=== PATIENT | male | born 1960 | race Caucasian/White ===

== ENCOUNTER 2017-12-02 08:51 | Inpatient (IN) ==
[2017-12-02] MEDS ORDERED: Magnesium Sulfate Inj 4 GM in Sodium Chlor 0.9% Inj 92 ML IV.SIG PRN (10:42)
[2017-12-02] MEDS ORDERED: Potassium Phosphate Inj 30 MMOL in Sodium Chlor 0.9% Inj 250 ML IV.SIG PRN (10:42)
[2017-12-02] MEDS ORDERED: Potassium Chlor 40 mEq Premix 40 MEQ/100 ML PIGGYBACK IV.SIG PRN (10:42)
[2017-12-02] MEDS ORDERED: Acetaminophen 325 MG Tablet PO PRN (10:42)
[2017-12-02] MEDS ORDERED: Magnesium Oxide 400 MG Tablet PO PRN (10:42)
[2017-12-02] MEDS ORDERED: Sodium Phosphate Inj 30 MMOL in Sodium Chlor 0.9% Inj 250 ML IV.SIG PRN (10:42)
[2017-12-02] MEDS ORDERED: Potassium Phosphate 500 MG Soluble Tablet PO PRN ×2 (10:42)
[2017-12-02] MEDS ORDERED: Potassium Chlor 20 mEq Premix 20 MEQ/100 ML PIGGYBACK IV.SIG PRN ×2 (10:42)
[2017-12-02] MEDS ORDERED: Potassium Chloride 25 MEQ Effervescent Tablet PO PRN (10:42)
[2017-12-02] MEDS ORDERED: Magnesium Sulfate Inj 2 GM in Sodium Chlor 0.9% Inj 96 ML IV.SIG PRN (10:42)
[2017-12-02] MEDS ORDERED: Cisatracurium Inj 20 MG/10 ML Vial IV.PUSH ONE ×2 (10:46→12:45)
[2017-12-02] MEDS ORDERED: EPINEPHrine (1:1000) Inj 4 MG in Sodium Chlor 0.9% Inj 246 ML IV.CONT PRN (10:46)
--- NOTE | 2017-12-02 11:36 | CT ---
EXAM DATE: 12/02/2017 11:30 AM EDT AGE/SEX: 57 years / Male INDICATIONS: Altered mental status CLINICAL DATA: This is the patient's initial encounter. Patient reports that signs and symptoms have been present for 1 day and indicates a pain score of Nonresponsive. MEDICAL/SURGICAL HISTORY: Hypertension. Non-responsive. RADIATION DOSE: 44.60 CTDI (mGy) COMPARISON: . TECHNIQUE: CT of the head without contrast. Using automated exposure control and adjustment of the mA and/or kV according to patient size, radiation dose was kept as low as reasonably achievable to ob tain optimal diagnostic quality images. DICOM format image data is available electronically for revi ew and comparison. FINDINGS: Cerebrum: The ventricles are normal for age. No evidence of midline shift, mass lesion, hemorrhage or acute infarction. No extraaxial fluid collections are seen. Posterior Fossa: The cerebellum and brainstem are intact. The 4th ventricle is midline. The cerebe llopontine angle is unremarkable. Extracranial: The visualized portion of the orbits is intact. Skull: The calvaria is intact. No evidence of skull fracture. CONCLUSION: 1. Negative for acute process . Electronically signed by: Raz Greco MD 12/02/2017 11:34 AM EDT
[2017-12-02] MEDS ORDERED: Heparin Drip 25,000 UNIT/250 ML BAG IV.CONT PRN (11:53)
[2017-12-02] MEDS ORDERED: Aspirin 300 MG Supp RECTAL ONE (11:54)
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
[2017-12-02] MEDS: Sod Chloride 0.9% Inj 1,000 ML IV.CONT SCH ×2 (12:30→22:47)
[2017-12-02] MEDS: Cisatracurium Inj 100 MG in Sodium Chlor 0.9% Inj 240 ML IV.CONT PRN ×2 (12:30→22:26)
[2017-12-02] MEDS: fentaNYL 10 mcg/mL Premix Drip 2,500 MCG/250 ML BAG IV.SIG PRN (12:30)
[2017-12-02] MEDS: Midazolam 50 MG/50 ML Inj 50 MG/50 ML BAG IV.CONT PRN ×2 (12:30→20:37)
[2017-12-02 12:50] LABS: Baso % (Auto) 0.1 % (0.0-2.0); Eos % (Auto) 0.1 % (0.0-4.0); Hemoglobin 15.7 gm/dL (13.0-17.0); Lymph # (Auto) 1.3 th/mm3 (1.0-4.8); Lymph % (Auto) 4.7 % (9.0-44.0); Mean Corpuscular HGB Conc 34.9 % (32.0-36.0); Mean Corpuscular Hemoglobin 33.1 pg (27.0-34.0); Mean Platelet Volume 8.8 fL (7.0-11.0); Mono # (Auto) 1.8 th/mm3 (0.0-0.9); Mono % (Auto) 6.3 % (0.0-8.0); Neut # (Auto) 24.8 th/mm3 (1.8-7.7); Neut % (Auto) 88.8 % (16.0-70.0); Platelet Count 203 th/mm3 (150-450); Red Blood Count 4.74 mil/mm3 (4.50-5.90); Red Cell Distribution Width 12.8 % (11.6-17.2)
[2017-12-02] MEDS ORDERED: Propofol 1000 mg/100 ml Inj 1,000 MG/100 ML BOTTLE IV.CONT PRN (13:00)
[2017-12-02] MEDS ORDERED: RASS Change Order OTHER ONE (13:00)
[2017-12-02 13:08] LABS: Bacteria,Urine Many /hpf; Bilirubin,Urine Negative (Negative); Clarity,Urine Cloudy (Clear); Color,Urine Yellow (Yellw/Straw); Glucose,Urine (UA) 50 mg/dL (Negative); Leukocyte Esterase,Urine Negative (Negative); Mucus,Urine Few /lpf (Occasional); Nitrite,Urine Negative (Negative); Specific Gravity,Urine 1.012 (1.002-1.035); Squamous Epithelial Cell,Urine 2 /hpf (0-5); Transitional Epi Cells,Urine 1 /hpf
[2017-12-02 13:08] LABS: Activated Partial Thrombo Time 22.9 sec (24.3-30.1); Prothrombin Time 10.3 sec (9.8-11.6)
[2017-12-02 13:09] LABS: Amorphous Sediment,Urine Occasional /hpf
[2017-12-02 13:28] LABS: Chol/HDL Ratio 7.86 Ratio; HDL Cholesterol 39.3 mg/dL (40.0-60.0)
[2017-12-02 13:29] LABS: Alanine Aminotransferase 738 U/L (12-78); Albumin 3.2 g/dL (3.4-5.0); Alkaline Phosphatase 84 U/L (45-117); Anion Gap 15 meq/L (5-15); Aspartate Aminotransferase 554 U/L (15-37); Blood Urea Nitrogen 28 mg/dL (7-18); Calcium 8.5 mg/dL (8.5-10.1); Carbon Dioxide 19.5 meq/L (21.0-32.0); Chloride 106 meq/L (98-107); Creatine Kinase 1363 U/L (39-308); Glomerular Filtration Rate 41 mL/min (>89); Glucose,Random 223 mg/dL (74-106); Potassium 3.7 meq/L (3.5-5.1); Sodium 140 meq/L (136-145); Total Protein 6.4 g/dL (6.4-8.2)
[2017-12-02 13:32] LABS: Troponin I 9.63 ng/mL (0.02-0.05)
--- NOTE | 2017-12-02 13:42 | XR ---
EXAM DATE: 12/02/2017 1:39 PM EDT AGE/SEX: 57 years / Male INDICATIONS: S/P ET tube placement. CLINICAL DATA: This is the patient's initial encounter. Patient reports that signs and symptoms have been present for 1 day and indicates a pain score of Nonresponsive. MEDICAL/SURGICAL HISTORY: None. None. COMPARISON: [facility], CHEST 1V SINGLE AP, 12/02/2017. . FINDINGS: Study is limited by respiratory motion artifact. An endotracheal tube is noted. The distal tip is not well visualized but believed to extend to the inferior margin the clavicles. Enteric tube is also no lurdes coursing beneath the diaphragm. There are atelectatic changes at the bases. CONCLUSION: Endotracheal tube and enteric tube as above. Electronically signed by: Isael Castro MD 12/02/2017 1:41 PM EDT
[2017-12-02 13:45] LABS: Creatine Kinase MB 73.7 ng/mL (0.5-3.6)
[2017-12-02 13:50] LABS: Amphetamine Urine With Conf Neg (Neg); Barbiturate Urine With Conf Neg (Neg)
[2017-12-02 13:58] LABS: CKMB Percent 5.4 % (0.0-4.0)
[2017-12-02 14:07] LABS: Benzodiazepine Urine With Conf Pos (Neg)
[2017-12-02] MEDS: Oral Hygiene Kit OROPHARYNG SCH ×2 (14:37→16:07)
--- NOTE | 2017-12-02 16:27 | ECHRPT ---
Indication: S/P CARDIAC ARREST CONCLUSIONS Normal left ventricular size. Wall thickness is normal. The left ventricular systolic function is severely reduced with an estimated ejection fraction in th e range of 25-35%. There is diffuse global hypokinesis. The right ventricle is mildly dilated. There is trace tricuspid valve regurgitation. There is less than 50% respiratory change in dimension of the inferior vena cava (abnormal). The inferior vena cava is dilated. BP: / HR: Rhythm: Sinus Technical Quality:Fair FINDINGS LEFT VENTRICLE Normal left ventricular size. Wall thickness is normal. The left ventricular systolic function is severely reduced with an estimated ejection fraction in th e range of 25-35%. There is diffuse global hypokinesis with distinct regional wall motion abnormalities. RIGHT VENTRICLE The right ventricle is mildly dilated. LEFT ATRIUM The left atrial size is normal. RIGHT ATRIUM The right atrial size is normal. ATRIAL SEPTUM No atrial level shunt is demonstrated by color flow Doppler interrogation. AORTA The aortic root and proximal ascending aorta are not well visualized. MITRAL VALVE No mitral valve regurgitation. AORTIC VALVE Trileaflet aortic valve. No aortic valve stenosis or regurgitation. TRICUSPID VALVE There is trace tricuspid valve regurgitation. PULMONARY VALVE No pulmonary valve regurgitation or stenosis. VESSELS There is less than 50% respiratory change in dimension of the inferior vena cava (abnormal). The inferior vena cava is dilated. PERICARDIUM No pericardial effusion. Kev Osuna MD, FACC, [facility] (Electronically Signed) Final Date:02 December 2017 16:26
[2017-12-02] MEDS: Insulin Regular (For Infusion) 100 UNIT in Sodium Chlor 0.9% Inj 99 ML IV.CONT PRN (17:42)
[2017-12-02 17:43] LABS: Creatine Kinase MB 104.1 ng/mL (0.5-3.6)
[2017-12-02 17:48] LABS: CKMB Percent 4.5 % (0.0-4.0)
[2017-12-02] MEDS ORDERED: Amiodarone Inj 450 MG in Sodium Chlor 0.9% Inj 241 ML IV.CONT PRN (19:45)
[2017-12-02] MEDS: Norepinephrine Inj 16 MG in Sodium Chlor 0.9% Inj 234 ML IV.CONT PRN (22:25)
[2017-12-02] MEDS: Famotidine PF Inj 20 MG/2 ML Vial IV.PUSH SCH (22:47)
[2017-12-02] MEDS: Chlorhexidine 0.12% Oral Kit 15 ML UDC OROPHARYNG SCH (22:48)
[2017-12-03] MEDS: Oral Hygiene Kit OROPHARYNG SCH ×4 (00:31→17:05)
[2017-12-03 00:36] LABS: Calcium 8.3 mg/dL (8.5-10.1); Carbon Dioxide 21.6 meq/L (21.0-32.0); Magnesium 1.6 mg/dL (1.5-2.5); Potassium 3.3 meq/L (3.5-5.1)
[2017-12-03 00:37] LABS: Troponin I 10.3 ng/mL (0.02-0.05)
[2017-12-03 00:50] LABS: Creatine Kinase MB 138.2 ng/mL (0.5-3.6)
[2017-12-03 00:52] LABS: CKMB Percent 5.4 % (0.0-4.0)
[2017-12-03] MEDS ORDERED: Albumin Human 5% Inj 500 ML IV.SIG SCH (01:00)
[2017-12-03] MEDS: Insulin Regular (For Infusion) 100 UNIT in Sodium Chlor 0.9% Inj 99 ML IV.CONT PRN (01:47)
[2017-12-03] MEDS: Potassium Chlor 40 mEq Premix 40 MEQ/100 ML PIGGYBACK IV.SIG PRN ×2 (02:52→18:28)
[2017-12-03 03:29] LABS: INR 1.1 Ratio; Prothrombin Time 10.7 sec (9.8-11.6)
[2017-12-03 03:36] LABS: Activated Partial Thrombo Time 108.8 sec (24.3-30.1)
[2017-12-03] MEDS ORDERED: Chlorhexidine Gluconate 2% 1 Pack (2 Cloths) TOPICAL PRN (04:00)
[2017-12-03] MEDS: Chlorhexidine Gluconate 2% 1 Pack (2 Cloths) TOPICAL SCH (04:12)
[2017-12-03] MEDS: Mag Sulf 1 gm/100 ml Premix 200 ML IV.SIG ONE ×2 (04:12→04:39)
[2017-12-03 04:59] LABS: ABG Base Excess -8.7 mmol/L (-2-2); ABG PCO2 49 mmHg (38-42); ABG PO2 77 mmHG (61-120)
[2017-12-03] MEDS: fentaNYL 10 mcg/mL Premix Drip 2,500 MCG/250 ML BAG IV.SIG PRN ×2 (04:59→20:41)
[2017-12-03] MEDS ORDERED: Sod Chloride 0.9% Inj 1,000 ML IV.SIG ONE (05:00)
[2017-12-03] MEDS ORDERED: Albumin Human 5% Inj 500 ML IV.SIG ONE (05:00)
[2017-12-03] MEDS: SODIUM CHLOR 0.9% IV.CONT PRN (05:00)
[2017-12-03] MEDS: HEPARIN IV.CONT PRN (05:00)
[2017-12-03 05:33] LABS: Baso % (Auto) 0.1 % (0.0-2.0); Eos % (Auto) 0.1 % (0.0-4.0); Hematocrit 42.5 % (39.0-51.0); Hemoglobin 14.3 gm/dL (13.0-17.0); Lymph # (Auto) 0.9 th/mm3 (1.0-4.8); Lymph % (Auto) 3.9 % (9.0-44.0); Mean Corpuscular HGB Conc 33.6 % (32.0-36.0); Mean Corpuscular Hemoglobin 32.7 pg (27.0-34.0); Mean Corpuscular Volume 97.3 fL (80.0-100.0); Mean Platelet Volume 7.9 fL (7.0-11.0); Mono # (Auto) 2.3 th/mm3 (0.0-0.9); Mono % (Auto) 9.9 % (0.0-8.0); Neut # (Auto) 19.9 th/mm3 (1.8-7.7); Platelet Count 146 th/mm3 (150-450); Red Blood Count 4.37 mil/mm3 (4.50-5.90); Red Cell Distribution Width 13.4 % (11.6-17.2); White Blood Count 23.1 th/mm3 (4.0-11.0)
[2017-12-03 06:11] LABS: Calcium 7.5 mg/dL (8.5-10.1); Carbon Dioxide 18.5 meq/L (21.0-32.0); Magnesium 2.9 mg/dL (1.5-2.5); Phosphorus 3.4 mg/dL (2.5-4.9); Potassium 4.1 meq/L (3.5-5.1)
[2017-12-03 06:14] LABS: Troponin I 10.2 ng/mL (0.02-0.05)
[2017-12-03 06:29] LABS: CKMB Percent 6.1 % (0.0-4.0)
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
[2017-12-03] MEDS: Chlorhexidine 0.12% Oral Kit 15 ML UDC OROPHARYNG SCH ×2 (08:25→20:42)
[2017-12-03] MEDS: Famotidine PF Inj 20 MG/2 ML Vial IV.PUSH SCH ×2 (08:29→20:41)
[2017-12-03] MEDS: Cisatracurium Inj 100 MG in Sodium Chlor 0.9% Inj 240 ML IV.CONT PRN ×2 (08:45→20:45)
[2017-12-03] MEDS ORDERED: Aspirin 325 MG Tablet PO SCH (09:00)
--- NOTE | 2017-12-03 09:04 | P.PNCA ---
Subjective Interval history: RN at bedside. Patient was placed on amiodarone, telemetry with no arrhythmias noted. Patient is on heparin and Levophed gtt. Hypothermia protocol until 1600 today. Medications and Allergies Allergies Allergy/AdvReac Type Severity Reaction Status Date / Time No Known Allergies Allergy Verified 12/02/17 09:40 Active Medications: Active Medications Acetaminophen (Tylenol) 650 mg PO Q6H PRN PRN Reason: TEMPERATURE > 101 F Acetaminophen (Tylenol Liq) 650 mg NG/OG Q6H PRN PRN Reason: SHIVERING Albuterol (Duoneb Neb (Prn)) 1 ampul NEB Q2HR NEB PRN PRN Reason: WHEEZING Albuterol (Duoneb Neb (Faisal)) 1 ampul NEB Q6HR NEB [facility] Last Admin: 12/03/17 03:25 Dose: 1 ampul Artificial Tears (Lacrilube Opth Oint) 1 applicatio EACH EYE Q4H PRN PRN Reason: NMB Aspirin (Aspirin) 81 mg PO DAILY [facility] Buspirone HCl (Buspar) 15 mg NG/OG BID PRN PRN Reason: SHIVERING Chlorhexidine Gluconate (Peridex 0.12% Oral Kit) 15 ml OROPHARYNG BID@0800, 2000 [facility] Last Admin: 12/03/17 08:25 Dose: 15 ml Chlorhexidine Gluconate (Chlorhexidine 2% Cloth) 3 pack TOPICAL DAILY@0400 [facility] Stop: 12/08/17 03:59 Last Admin: 12/03/17 04:12 Dose: Not Given Chlorhexidine Gluconate (Chlorhexidine 2% Cloth) 3 pack TOPICAL DAILY@0400 PRN PRN Reason: Extra cloth needed Stop: 12/08/17 03:59 Famotidine (Pepcid Pf Inj) 20 mg IV.PUSH Q12HR [facility] Last Admin: 12/03/17 08:29 Dose: 20 mg Clevidipine (Cleviprex Inj) 25 mg in 50 mls @ 2 mls/hr IV.CONT TITRATE PRN; Protocol PRN Reason: Per protocol Epinephrine HCl 4 mg/ Sodium (Chloride) 250 mls @ 11.25 mls/hr IV.CONT TITRATE PRN; Protocol PRN Reason: See protocol Fentanyl (Fentanyl 10 Mcg/Ml Premix Drip) 2,500 mcg in 250 mls @ 5 mls/hr IV.SIG TITRATE PRN; Protocol PRN Reason: Per Protocol Last Admin: 12/03/17 04:59 Dose: 150 mcg/hr, 15 mls/hr Insulin Human Regular 100 unit (/ Sodium Chloride) 100 mls @ 3 mls/hr IV.CONT TITRATE PRN; Protocol PRN Reason: See Protocol Last Titration: 12/03/17 07:44 Dose: 6 units/hr, 6 mls/hr Magnesium Sulfate 4 gm/ Sodium (Chloride) 100 mls @ 50 mls/hr IV.SIG UNSCH PRN PRN Reason: For Magnesium 0.9 - 1.1 mg/dL Magnesium Sulfate 2 gm/ Sodium (Chloride) 100 mls @ 50 mls/hr IV.SIG UNSCH PRN PRN Reason: For Magnesium 1.2 - 1.6 mg/dL Last Infusion: 12/03/17 04:51 Dose: Infused Midazolam HCl (Versed Inj) 50 mg in 50 mls @ 2 mls/hr IV.CONT TITRATE PRN; Protocol PRN Reason: Per Protocol Last Admin: 12/02/17 20:37 Dose: 2 mg/hr, 2 mls/hr Norepinephrine Bitartrate 16 (mg/ Sodium Chloride) 250 mls @ 1.87 mls/hr IV.CONT TITRATE PRN; Protocol PRN Reason: See Protocol Last Titration: 12/03/17 06:00 Dose: 12 mcg/min, 11.25 mls/hr Potassium Chloride (Kcl 40 Meq Premix Inj) 40 meq in 100 mls @ 25 mls/hr IV.SIG Q2H PRN PRN Reason: For Potassium 2.8 - 3.2 mEq/L Potassium Chloride (Kcl 20 Meq Premix Inj) 20 meq in 100 mls @ 50 mls/hr IV.SIG Q2H PRN PRN Reason: For Potassium 3.3 - 3.5 mEq/L Potassium Chloride (Kcl 40 Meq Premix Inj) 40 meq in 100 mls @ 25 mls/hr IV.SIG UNSCH PRN PRN Reason: For Potassium 3.3 - 3.5 mEq/L Last Infusion: 12/03/17 04:49 Dose: Infused Potassium Chloride (Kcl 20 Meq Premix Inj) 20 meq in 100 mls @ 50 mls/hr IV.SIG Q2H PRN PRN Reason: For Potassium 2.8 - 3.2 mEq/L Potassium Phosphate 30 mmol/ (Sodium Chloride) 260 mls @ 42 mls/hr IV.SIG UNSCH PRN PRN Reason: SEE LABEL COMMENTS Propofol (Diprivan 1000 Mg/100 Ml Inj) 1,000 mg in 100 mls @ 2.505 mls/hr IV.CONT TITRATE PRN; Protocol PRN Reason: Per Protocol Sodium Phosphate 30 mmol/ (Sodium Chloride) 260 mls @ 42 mls/hr IV.SIG UNSCH PRN PRN Reason: For Phosphorus < 2.5 mg/dL Cisatracurium Besylate 100 mg/ (Sodium Chloride) 250 mls @ 12.52 mls/hr IV.CONT TITRATE PRN; Protocol PRN Reason: Per Protocol Last Admin: 12/03/17 08:45 Dose: 2 mcg/kg/min, 25.05 mls/hr Sodium Chloride (Ns Inj) 1,000 mls @ 84 mls/hr IV.CONT .[id number] [facility] Last Admin: 12/02/17 22:47 Dose: 84 mls/hr Heparin Sodium (Porcine) 25, (000 unit/ Sodium Chloride) 250 mls @ 10 mls/hr IV.CONT TITRATE PRN; Protocol PRN Reason: Per Protocol Last Admin: 12/03/17 05:00 Dose: 400 units/hr, 4 mls/hr Lorazepam (Ativan Inj) 1 mg IV.PUSH Q1H PRN PRN Reason: WITNESSED SEIZURES Magnesium Oxide (Mag-Ox) 800 mg PO UNSCH PRN PRN Reason: For Magnesium 1.2 - 1.6 mg/dL Meperidine HCl (Demerol Inj) 25 mg IV.PUSH Q2H PRN PRN Reason: SHIVERING Last Admin: 12/02/17 13:17 Dose: 25 mg Miscellaneous Information (Misc Information) 0 each OTHER [facility] Miscellaneous Medication () 1 each OROPHARYNG 0000,0400,1200,1600 [facility] Last Admin: 12/03/17 04:12 Dose: 1 each Ondansetron HCl (Zofran Inj) 4 mg IV.PUSH Q6H PRN PRN Reason: NAUSEA OR VOMITING Potassium Bicarb/Potassium Chloride (K-Lyte Cl Eff) 50 meq PO UNSCH PRN PRN Reason: For Potassium 3.3 - 3.5 mEq/L Potassium Phosphate (K-Phos Original) 2,000 mg PO UNSCH PRN PRN Reason: SEE LABEL COMMENTS Potassium Phosphate (K-Phos Original) 2,000 mg PO Q4H PRN PRN Reason: Phosphorus Less Than 2.5 mg/dL Sodium Chloride (Ns Flush) 2 ml IV.FLUSH UNSCH PRN PRN Reason: FLUSH AFTER USING IV ACCESS Terbutaline Sulfate (Brethine Inj) 1 mg SQ UNSCH PRN PRN Reason: For Extravasation Physical Exam Vital signs: Vital Signs 12/02/17 10:45 12/02/17 11:23 12/02/17 11:50 Temperature 98.6 F Pulse Rate Respiratory Rate 34 H Blood Pressure Pulse Oximetry 97 98 12/02/17 13:00 12/02/17 13:13 12/02/17 15:00 Temperature 97.5 F L 92.8 F L Pulse Rate 87 91 H Respiratory Rate 14 36 H 14 Blood Pressure 154/104 H 125/98 H Pulse Oximetry 98 99 94 L 12/02/17 16:20 12/02/17 16:27 12/02/17 20:00 Temperature 89.7 F L Pulse Rate 80 76 Respiratory Rate 14 14 14 Blood Pressure 109/79 Pulse Oximetry 95 95 12/02/17 21:07 12/03/17 00:00 12/03/17 03:00 Temperature 89.7 F L Pulse Rate 74 63 48 L Respiratory Rate 14 14 Blood Pressure 105/77 Pulse Oximetry 95 94 L 12/03/17 03:27 12/03/17 04:00 12/03/17 07:33 Temperature 89.7 F L Pulse Rate 57 L 55 L Respiratory Rate 14 14 18 Blood Pressure 99/69 L Pulse Oximetry 98 97 99 Intake & Output 12/02/17 12/03/17 12/03/17 18:59 06:59 18:59 Intake Total 1125 / 1125 3644 / 3644 136 / 136 Output Total 785 / 785 375 / 375 Balance 340 / 340 3269 / 3269 136 / 136 Weight 184 lb 1.376 oz 198 lb 6.656 oz Intake: IV 756 / 756 3644 / 3644 136 / 136 Cordarone Inj 450 MG In D5W Inj 157 / 157 93 / 93 241 ML @ 1 MG/MIN 33.33 mls/hr IV.CONT TITRATE PRN Rx#: [id number] Nimbex Inj 100 MG In NS Inj 240 114 / 114 136 / 136 136 / 136 ML @ 1 MCG/KG/MIN 12.52 mls/hr IV.CONT TITRATE PRN Rx#: [id number] Heparin/D5W 25,000 U/250 mL 25, 50 / 50 150 / 150 000 unit In 250 ml @ 1,000 UNITS/HR 10 mls/hr IV.CONT TITRATE PRN Rx#:[id number] NovoLIN R (IV Infusion) 100 100 / 100 UNIT In NS Inj 99 ML @ 3 UNITS/ HR 3 mls/hr IV.CONT TITRATE PRN Rx#:[id number] Versed Inj 50 mg In 50 ml @ 2 10 / 10 40 / 40 MG/HR 2 mls/hr IV.CONT TITRATE PRN Rx#:[id number] NS Inj 1,000 ML @ 84 mls/hr IV. 369 / 369 631 / 631 CONT .[id number] [facility] Rx#:[id number] Alburx 5% Inj 500 ML @ 250 mls/ 1000 / 1000 hr IV.SIG NOW ONE Rx#:[id number] Magnesium Sulfate Inj 2 GM In 200 / 200 NS Inj 96 ML @ 50 mls/hr IV.SIG UNSCH PRN Rx#:[id number] KCl 40 mEq Premix Inj 40 meq In 100 / 100 100 ml @ 25 mls/hr IV.SIG UNSCH PRN Rx#:[id number] NS Inj 1,000 ML @ 1000 mls/hr 1000 / 1000 IV.SIG .Q1H ONE Rx#:[id number] fentaNYL 10 mcg/mL Premix Drip 56 / 56 194 / 194 2,500 mcg In 250 ml @ 50 MCG/HR 5 mls/hr IV.SIG TITRATE PRN Rx #:[id number] Oral 0 / 0 Other 369 / 369 Output: Urine Amount (Catheter) 785 / 785 275 / 275 Indwelling Temp Sensing 785 / 785 275 / 275 Catheter Gastric Drainage 0 / 0 100 / 100 Oral Orogastric Tube 0 / 0 100 / 100 Other: Other Intake Source Saline Solution Date of Last Bowel Movement 12/02/17 12/02/17 # Bowel Movements 1 0 Weight On Admission 184 lb 1.376 oz Narrative: GENERAL: Well-developed well-nourished. NECK: No carotid bruits. No JVD. CARDIOVASCULAR: Regular rate and rhythm. No murmur appreciated. RESPIRATORY: Mechanically ventilated. Clear to auscultation. MUSCULOSKELETAL: No clubbing or cyanosis. No edema. NEUROLOGICAL: Intubated, sedated. - Urinary Catheter Management Indwelling Temp Sensing Catheter Cath placed during this visit: yes Reason for continuing: Hourly intake/output Insertion date: 12/02/17 Insertion time: 12:03 Results 12/03/17 05:00 12/03/17 05:00 Cardiac Enzymes 12/02/17 12/02/17 12/02/17 Range/Units 12:05 12:05 16:20 AST 554 H (15-37) U/L CK-MB (CK-2) 73.7 H 104.1 H (0.5-3.6) ng/mL Troponin I 9.63 H* (0.02-0.05) ng/mL B-Natriuretic Peptide 2 (0-100) pg/mL 12/02/17 12/03/17 Range/Units 23:40 05:00 AST (15-37) U/L CK-MB (CK-2) 138.2 H 140.0 H (0.5-3.6) ng/mL Troponin I 10.30 H* 10.20 H* (0.02-0.05) ng/mL B-Natriuretic Peptide (0-100) pg/mL Coagulation 12/02/17 12/02/17 12/02/17 Range/Units 12:05 12:05 18:15 PT 10.3 (9.8-11.6) sec APTT 22.9 L 54.4 H D (24.3-30.1) sec B-Natriuretic Peptide 2 (0-100) pg/mL 12/02/17 12/03/17 12/03/17 Range/Units 23:40 02:30 08:15 PT 10.7 (9.8-11.6) sec APTT 102.5 H* D 108.8 H* 74.1 H D (24.3-30.1) sec B-Natriuretic Peptide (0-100) pg/mL Lipids 12/02/17 Range/Units 12:05 Triglycerides 547 H (42-150) mg/dL Cholesterol 309 H (120-200) mg/dL HDL Cholesterol 39.3 L (40.0-60.0) mg/dL Cholesterol/HDL Ratio 7.86 Ratio CBC 12/02/17 12/03/17 Range/Units 12:05 05:00 WBC 28.0 H D 23.1 H (4.0-11.0) th/mm3 RBC 4.74 4.37 L (4.50-5.90) mil/mm3 Hgb 15.7 14.3 (13.0-17.0) gm/dL Hct 45.0 42.5 (39.0-51.0) % Plt Count 203 D 146 L (150-450) th/mm3 Neut # (Auto) 24.8 H 19.9 H (1.8-7.7) th/mm3 Lymph # (Auto) 1.3 0.9 L (1.0-4.8) th/mm3 [place] # (Auto) 1.8 H 2.3 H (0.0-0.9) th/mm3 Eos # (Auto) 0.0 0.0 (0.0-0.4) th/mm3 Baso # (Auto) 0.0 0.0 (0.0-0.2) th/mm3 Comprehensive Metabolic Panel 12/02/17 12/02/17 12/03/17 Range/Units 12:05 23:40 05:00 Sodium 140 141 141 (136-145) meq/L Potassium 3.7 3.3 L 4.1 D (3.5-5.1) meq/L Chloride 106 110 H 110 H (98-107) meq/L Carbon Dioxide 19.5 L 21.6 18.5 L (21.0-32.0) meq/L BUN 28 H 34 H 34 H (7-18) mg/dL Creatinine 1.70 H 1.60 H 1.56 H (0.60-1.30) mg/dL Calcium 8.5 D 8.3 L 7.5 L D (8.5-10.1) mg/dL AST 554 H (15-37) U/L ALT 738 H (12-78) U/L Alkaline Phosphatase 84 (45-117) U/L Total Protein 6.4 (6.4-8.2) g/dL Albumin 3.2 L (3.4-5.0) g/dL Intake and Output 12/02/17 12/03/17 12/03/17 22:59 06:59 14:59 Intake Total 2024 / 2024 2744 / 2744 136 / 136 Output Total 785 / 785 375 / 375 Balance 1240 / 1240 2369 / 2369 136 / 136 Intake: IV 1656 / 1656 2744 / 2744 136 / 136 Cordarone Inj 450 MG In D5W Inj 250 / 250 241 ML @ 1 MG/MIN 33.33 mls/hr IV.CONT TITRATE PRN Rx#: [id number] Nimbex Inj 100 MG In NS Inj 240 250 / 250 136 / 136 ML @ 1 MCG/KG/MIN 12.52 mls/hr IV.CONT TITRATE PRN Rx#: [id number] Heparin/D5W 25,000 U/250 mL 25, 50 / 50 150 / 150 000 unit In 250 ml @ 1,000 UNITS/HR 10 mls/hr IV.CONT TITRATE PRN Rx#:[id number] NovoLIN R (IV Infusion) 100 100 / 100 UNIT In NS Inj 99 ML @ 3 UNITS/ HR 3 mls/hr IV.CONT TITRATE PRN Rx#:[id number] Versed Inj 50 mg In 50 ml @ 2 50 / 50 MG/HR 2 mls/hr IV.CONT TITRATE PRN Rx#:[id number] NS Inj 1,000 ML @ 84 mls/hr IV. 1000 / 1000 CONT .[id number] [facility] Rx#:[id number] Alburx 5% Inj 500 ML @ 250 mls/ 1000 / 1000 hr IV.SIG NOW ONE Rx#:[id number] Magnesium Sulfate Inj 2 GM In 200 / 200 NS Inj 96 ML @ 50 mls/hr IV.SIG UNSCH PRN Rx#:[id number] KCl 40 mEq Premix Inj 40 meq In 100 / 100 100 ml @ 25 mls/hr IV.SIG UNSCH PRN Rx#:[id number] NS Inj 1,000 ML @ 1000 mls/hr 1000 / 1000 IV.SIG .Q1H ONE Rx#:[id number] fentaNYL 10 mcg/mL Premix Drip 56 / 56 194 / 194 2,500 mcg In 250 ml @ 50 MCG/HR 5 mls/hr IV.SIG TITRATE PRN Rx #:[id number] Oral 0 / 0 Other 369 / 369 Output: Urine Amount (Catheter) 785 / 785 275 / 275 Indwelling Temp Sensing 785 / 785 275 / 275 Catheter Gastric Drainage 0 / 0 100 / 100 Oral Orogastric Tube 0 / 0 100 / 100 Other: Other Intake Source Saline Solution Date of Last Bowel Movement 12/02/17 12/02/17 # Bowel Movements 1 0 Weight 184 lb 1.376 oz 198 lb 6.656 oz - Imaging and Cardiology Imaging: Impressions Head CT 12/02/17 10:42 CONCLUSION: 1. Negative for acute process . Chest X-Ray 12/02/17 12:27 CONCLUSION: Endotracheal tube and enteric tube as above. Assessment and Plan - Plan 57-year-old male admitted status post V. fib arrest Assessment: V. fib arrest Cardiomyopathy - EF 25-35% Narrow complex tachycardia - sinus tachycardia versus brief atrial flutter Hypotension requiring pressor support Respiratory failure requiring mechanical ventilation GCS 3 on arrival with current medically induced coma on hypothermia protocol Plan: DC amiodarone gtt due to current bradycardia, hypotension, and no further ectopy /arrhythmia on telemetry Continue heparin gtt for medical management of ACS Patient will require left heart cath pending neurologic recovery Aspirin 81 mg daily Hold statin due to to shock liver Repeat LFTs today and check TSH and troponin Discussed Condition With: Patient seen and examined with Dr. Lind - Attending Attestation Patient seen and examined. Agree with above. Procedures - Arterial Line Size (Gauge): 20
[2017-12-03] MEDS ORDERED: Sodium Bicarbonate 8.4% Inj 50 MEQ/50 ML Syringe IV.PUSH ONE (11:15)
[2017-12-03] MEDS: Sod Chloride 0.9% Inj 1,000 ML IV.CONT SCH ×2 (11:31→23:18)
[2017-12-03 11:32] LABS: Calcium 6.8 mg/dL (8.5-10.1); Carbon Dioxide 19.8 meq/L (21.0-32.0); Magnesium 2.2 mg/dL (1.5-2.5); Potassium 3.6 meq/L (3.5-5.1); Total Protein 5.2 g/dL (6.4-8.2)
[2017-12-03 11:38] LABS: Troponin I 9.42 ng/mL (0.02-0.05)
[2017-12-03] MEDS ORDERED: Calcium Chloride Inj 1 GM in Sodium Chlor 0.9% Inj 100 ML IV.SIG ONE ×2 (12:00→18:00)
[2017-12-03 12:47] LABS: CKMB Percent 6.3 % (0.0-4.0)
[2017-12-03 18:08] LABS: Calcium 7.7 mg/dL (8.5-10.1); Carbon Dioxide 21.9 meq/L (21.0-32.0); Magnesium 1.7 mg/dL (1.5-2.5); Potassium 3.5 meq/L (3.5-5.1)
[2017-12-03] MEDS: Midazolam 50 MG/50 ML Inj 50 MG/50 ML BAG IV.CONT PRN (20:40)
[2017-12-04] MEDS: Oral Hygiene Kit OROPHARYNG SCH ×4 (00:05→16:10)
[2017-12-04 01:12] LABS: Magnesium 1.7 mg/dL (1.5-2.5); Phosphorus 3.2 mg/dL (2.5-4.9)
[2017-12-04 01:42] LABS: Creatine Kinase MB 133.2 ng/mL (0.5-3.6)
[2017-12-04 01:47] LABS: CKMB Percent 7.9 % (0.0-4.0)
[2017-12-04] MEDS: Chlorhexidine Gluconate 2% 1 Pack (2 Cloths) TOPICAL SCH (04:10)
[2017-12-04 06:01] LABS: ABG Base Excess -2.7 mmol/L (-2-2); ABG PCO2 39 mmHg (38-42); ABG PO2 65 mmHG (61-120)
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
[2017-12-04] MEDS ORDERED: Metoprolol Inj 5 MG/5 ML Vial ONE (07:05)
[2017-12-04 07:16] LABS: Baso % (Auto) 0.1 % (0.0-2.0); Hemoglobin 13.3 gm/dL (13.0-17.0); Lymph # (Auto) 1.1 th/mm3 (1.0-4.8); Mean Corpuscular HGB Conc 34.1 % (32.0-36.0); Mean Corpuscular Hemoglobin 32.8 pg (27.0-34.0); Mean Corpuscular Volume 96.1 fL (80.0-100.0); Mean Platelet Volume 8.7 fL (7.0-11.0); Mono # (Auto) 1.5 th/mm3 (0.0-0.9); Mono % (Auto) 8.4 % (0.0-8.0); Neut # (Auto) 14.9 th/mm3 (1.8-7.7); Neut % (Auto) 85.5 % (16.0-70.0); Platelet Count 112 th/mm3 (150-450); Red Blood Count 4.05 mil/mm3 (4.50-5.90); Red Cell Distribution Width 13.8 % (11.6-17.2); White Blood Count 17.5 th/mm3 (4.0-11.0)
[2017-12-04 07:22] LABS: Activated Partial Thrombo Time 29.7 sec (24.3-30.1); Prothrombin Time 10.3 sec (9.8-11.6)
[2017-12-04] MEDS: Metoprolol Inj 5 MG/5 ML Vial IV.PUSH PRN ×4 (07:26→17:00)
--- NOTE | 2017-12-04 07:35 | P.PNCA ---
Subjective Interval history: Discussed with RN. S/P hypothermia protocol, rewarmed. Off pressors and sedation today with shaking noted. Telemetry with no arrhythmias noted overnight. off vasopressors. Received a dose of lasix this am. HR 90s, BP 130s-140s. Frequent shivering and decerebrate posturing. Medications and Allergies Allergies Allergy/AdvReac Type Severity Reaction Status Date / Time No Known Allergies Allergy Verified 12/02/17 09:40 Home Medications Medication Instructions Recorded Confirmed Type losartan 25 mg PO DAILY 12/03/17 12/03/17 History Active Medications: Active Medications Acetaminophen (Tylenol) 650 mg PO Q6H PRN PRN Reason: TEMPERATURE > 101 F Acetaminophen (Tylenol Liq) 650 mg NG/OG Q6H PRN PRN Reason: SHIVERING Albuterol (Duoneb Neb (Prn)) 1 ampul NEB Q2HR NEB PRN PRN Reason: WHEEZING Albuterol (Duoneb Neb (Faisal)) 1 ampul NEB Q6HR NEB [facility] Last Admin: 12/04/17 03:16 Dose: 1 ampul Artificial Tears (Lacrilube Opth Oint) 1 applicatio EACH EYE Q4H PRN PRN Reason: NMB Aspirin (Aspirin Chew) 81 mg PO DAILY [facility] Last Admin: 12/03/17 10:07 Dose: Not Given Chlorhexidine Gluconate (Peridex 0.12% Oral Kit) 15 ml OROPHARYNG BID@0800, 2000 [facility] Last Admin: 12/03/17 20:42 Dose: 15 ml Chlorhexidine Gluconate (Chlorhexidine 2% Cloth) 3 pack TOPICAL DAILY@0400 [facility] Stop: 12/08/17 03:59 Last Admin: 12/04/17 04:10 Dose: Not Given Chlorhexidine Gluconate (Chlorhexidine 2% Cloth) 3 pack TOPICAL DAILY@0400 PRN PRN Reason: Extra cloth needed Stop: 12/08/17 03:59 Famotidine (Pepcid Pf Inj) 20 mg IV.PUSH Q12HR [facility] Last Admin: 12/03/17 20:41 Dose: 20 mg Clevidipine (Cleviprex Inj) 25 mg in 50 mls @ 2 mls/hr IV.CONT TITRATE PRN; Protocol PRN Reason: Per protocol Magnesium Sulfate 4 gm/ Sodium (Chloride) 100 mls @ 50 mls/hr IV.SIG UNSCH PRN PRN Reason: For Magnesium 0.9 - 1.1 mg/dL Magnesium Sulfate 2 gm/ Sodium (Chloride) 100 mls @ 50 mls/hr IV.SIG UNSCH PRN PRN Reason: For Magnesium 1.2 - 1.6 mg/dL Last Infusion: 12/03/17 04:51 Dose: Infused Norepinephrine Bitartrate 16 (mg/ Sodium Chloride) 250 mls @ 1.87 mls/hr IV.CONT TITRATE PRN; Protocol PRN Reason: See Protocol Last Titration: 12/04/17 07:10 Dose: 0 mcg/min, 0 mls/hr Potassium Chloride (Kcl 40 Meq Premix Inj) 40 meq in 100 mls @ 25 mls/hr IV.SIG Q2H PRN PRN Reason: For Potassium 2.8 - 3.2 mEq/L Potassium Chloride (Kcl 20 Meq Premix Inj) 20 meq in 100 mls @ 50 mls/hr IV.SIG Q2H PRN PRN Reason: For Potassium 3.3 - 3.5 mEq/L Potassium Chloride (Kcl 40 Meq Premix Inj) 40 meq in 100 mls @ 25 mls/hr IV.SIG UNSCH PRN PRN Reason: For Potassium 3.3 - 3.5 mEq/L Last Infusion: 12/03/17 22:13 Dose: Infused Potassium Chloride (Kcl 20 Meq Premix Inj) 20 meq in 100 mls @ 50 mls/hr IV.SIG Q2H PRN PRN Reason: For Potassium 2.8 - 3.2 mEq/L Potassium Phosphate 30 mmol/ (Sodium Chloride) 260 mls @ 42 mls/hr IV.SIG UNSCH PRN PRN Reason: SEE LABEL COMMENTS Sodium Phosphate 30 mmol/ (Sodium Chloride) 260 mls @ 42 mls/hr IV.SIG UNSCH PRN PRN Reason: For Phosphorus < 2.5 mg/dL Heparin Sodium (Porcine) 25, (000 unit/ Sodium Chloride) 250 mls @ 10 mls/hr IV.CONT TITRATE PRN; Protocol PRN Reason: Per Protocol Last Titration: 12/04/17 07:10 Dose: 500 units/hr, 5 mls/hr Magnesium Oxide (Mag-Ox) 800 mg PO UNSCH PRN PRN Reason: For Magnesium 1.2 - 1.6 mg/dL Metoprolol Tartrate (Lopressor Inj) 5 mg IV.PUSH Q5M PRN PRN Reason: HR > 100 Last Admin: 12/04/17 07:26 Dose: 5 mg Miscellaneous Information (Misc Information) 0 each OTHER UNSCH [facility] Miscellaneous Medication () 1 each OROPHARYNG 0000,0400,1200,1600 [facility] Last Admin: 12/04/17 04:11 Dose: 1 each Ondansetron HCl (Zofran Inj) 4 mg IV.PUSH Q6H PRN PRN Reason: NAUSEA OR VOMITING Potassium Bicarb/Potassium Chloride (K-Lyte Cl Eff) 50 meq PO UNSCH PRN PRN Reason: For Potassium 3.3 - 3.5 mEq/L Potassium Phosphate (K-Phos Original) 2,000 mg PO UNSCH PRN PRN Reason: SEE LABEL COMMENTS Potassium Phosphate (K-Phos Original) 2,000 mg PO Q4H PRN PRN Reason: Phosphorus Less Than 2.5 mg/dL Sodium Chloride (Ns Flush) 2 ml IV.FLUSH UNSCH PRN PRN Reason: FLUSH AFTER USING IV ACCESS Physical Exam Vital signs: Vital Signs 12/03/17 07:33 12/03/17 08:00 12/03/17 10:20 Temperature Pulse Rate 48 L 48 L Respiratory Rate 18 18 Blood Pressure 104/70 Pulse Oximetry 99 99 12/03/17 10:22 12/03/17 11:00 12/03/17 11:51 Temperature 89 F L 89.6 F L Pulse Rate 49 L 48 L Respiratory Rate 18 Blood Pressure 97/63 L 97/63 L Pulse Oximetry 99 12/03/17 15:00 12/03/17 16:00 12/03/17 17:00 Temperature 91 F L 92 F L Pulse Rate 62 61 52 L Respiratory Rate 18 18 Blood Pressure 118/77 124/80 Pulse Oximetry 97 97 12/03/17 19:00 12/03/17 20:00 12/03/17 21:00 Temperature 93.6 F L Pulse Rate 65 65 73 Respiratory Rate 18 18 Blood Pressure 141/86 H 132/79 Pulse Oximetry 97 97 12/03/17 23:00 12/03/17 23:55 12/04/17 00:00 Temperature 95.0 F L Pulse Rate 78 84 Respiratory Rate 18 18 Blood Pressure 108/64 134/80 Pulse Oximetry 98 96 12/04/17 00:45 12/04/17 03:00 12/04/17 03:17 Temperature 96.8 F L Pulse Rate 90 90 Respiratory Rate 18 18 Blood Pressure 121/68 Pulse Oximetry 97 97 96 12/04/17 04:00 Temperature Pulse Rate 89 Respiratory Rate Blood Pressure 136/76 Pulse Oximetry Intake & Output 12/03/17 12/04/17 12/04/17 18:59 06:59 18:59 Intake Total 2432 / 2432 1171 / 1171 1656.2 / 1656.2 Output Total 630 / 630 1110 / 1110 Balance 1802 / 1802 61 / 61 1656.2 / 1656.2 Weight 202 lb 13.204 oz Intake: IV 2432 / 2432 802 / 802 1656.2 / 1656.2 Cordarone Inj 450 MG In NS Inj 36 / 36 241 ML @ 1 MG/MIN 33.33 mls/hr IV.CONT TITRATE PRN Rx#: [id number] Nimbex Inj 100 MG In NS Inj 240 386 / 386 250 / 250 ML @ 1 MCG/KG/MIN 12.52 mls/hr IV.CONT TITRATE PRN Rx#: [id number] Heparin Inj 25,000 UNIT In NS 48 / 48 58.5 / 58.5 Inj 247.5 ML @ 1,000 UNITS/HR 10 mls/hr IV.CONT TITRATE PRN Rx#:[id number] NovoLIN R (IV Infusion) 100 24 / 24 0 / 0 UNIT In NS Inj 99 ML @ 3 UNITS/ HR 3 mls/hr IV.CONT TITRATE PRN Rx#:[id number] Versed Inj 50 mg In 50 ml @ 2 24 / 24 26 / 26 24.7 / 24.7 MG/HR 2 mls/hr IV.CONT TITRATE PRN Rx#:[id number] Levophed Inj 16 MG In NS Inj 120 / 120 0 / 0 234 ML @ 2 MCG/MIN 1.87 mls/hr IV.CONT TITRATE PRN Rx#: [id number] NS Inj 1,000 ML @ 84 mls/hr IV. 1504 / 1504 496 / 496 1095 / 1095 CONT .[id number] [facility] Rx#:[id number] Calcium Chloride Inj 1 GM In NS 110 / 110 110 / 110 Inj 100 ML @ 110 mls/hr IV.SIG NOW ONE Rx#:[id number] KCl 40 mEq Premix Inj 40 meq In 100 / 100 100 ml @ 25 mls/hr IV.SIG UNSCH PRN Rx#:[id number] fentaNYL 10 mcg/mL Premix Drip 180 / 180 70 / 70 228 / 228 2,500 mcg In 250 ml @ 50 MCG/HR 5 mls/hr IV.SIG TITRATE PRN Rx #:[id number] Oral 0 / 0 Other 369 / 369 Output: Urine Amount (Catheter) 530 / 530 910 / 910 Indwelling Temp Sensing 530 / 530 910 / 910 Catheter Gastric Drainage 100 / 100 200 / 200 Oral Orogastric Tube 100 / 100 200 / 200 Other: Other Intake Source Saline Solution Date of Last Bowel Movement 12/02/17 12/02/17 # Bowel Movements 0 Narrative: GENERAL: Well-developed well-nourished. NECK: No carotid bruits. No JVD. CARDIOVASCULAR: Regular rate and rhythm. No murmur appreciated. RESPIRATORY: Mechanically ventilated. Clear to auscultation. MUSCULOSKELETAL: No clubbing or cyanosis. No edema. NEUROLOGICAL: Intubated. Frequent shivering and decerebrate posturing. - Urinary Catheter Management Indwelling Temp Sensing Catheter Cath placed during this visit: yes Reason for continuing: Hourly intake/output Insertion date: 12/02/17 Insertion time: 12:03 Results 12/04/17 06:15 12/03/17 17:10 Cardiac Enzymes 12/02/17 12/02/17 12/02/17 Range/Units 12:05 12:05 16:20 AST 554 H (15-37) U/L CK-MB (CK-2) 73.7 H 104.1 H (0.5-3.6) ng/mL Troponin I 9.63 H* (0.02-0.05) ng/mL B-Natriuretic Peptide 2 (0-100) pg/mL 12/02/17 12/03/17 12/03/17 Range/Units 23:40 05:00 10:15 AST Cancelled (15-37) U/L CK-MB (CK-2) 138.2 H 140.0 H (0.5-3.6) ng/mL Troponin I 10.30 H* 10.20 H* Cancelled (0.02-0.05) ng/mL B-Natriuretic Peptide (0-100) pg/mL 12/03/17 12/04/17 Range/Units 10:15 00:25 AST 229 H (15-37) U/L CK-MB (CK-2) 125.0 H 133.2 H (0.5-3.6) ng/mL Troponin I 9.42 H* (0.02-0.05) ng/mL B-Natriuretic Peptide (0-100) pg/mL Coagulation 12/02/17 12/02/17 12/02/17 Range/Units 12:05 12:05 18:15 PT 10.3 (9.8-11.6) sec APTT 22.9 L 54.4 H D (24.3-30.1) sec B-Natriuretic Peptide 2 (0-100) pg/mL 12/02/17 12/03/17 12/03/17 Range/Units 23:40 02:30 08:15 PT 10.7 (9.8-11.6) sec APTT 102.5 H* D 108.8 H* 74.1 H D (24.3-30.1) sec B-Natriuretic Peptide (0-100) pg/mL 12/03/17 12/03/17 12/04/17 Range/Units 14:50 22:45 06:15 PT 10.3 (9.8-11.6) sec APTT 44.3 H D 32.5 H D 29.7 (24.3-30.1) sec B-Natriuretic Peptide (0-100) pg/mL Lipids 12/02/17 Range/Units 12:05 Triglycerides 547 H (42-150) mg/dL Cholesterol 309 H (120-200) mg/dL HDL Cholesterol 39.3 L (40.0-60.0) mg/dL Cholesterol/HDL Ratio 7.86 Ratio CBC 12/02/17 12/03/17 12/04/17 Range/Units 12:05 05:00 06:15 WBC 28.0 H D 23.1 H 17.5 H (4.0-11.0) th/mm3 RBC 4.74 4.37 L 4.05 L (4.50-5.90) mil/mm3 Hgb 15.7 14.3 13.3 (13.0-17.0) gm/dL Hct 45.0 42.5 39.0 (39.0-51.0) % Plt Count 203 D 146 L 112 L (150-450) th/mm3 Neut # (Auto) 24.8 H 19.9 H 14.9 H (1.8-7.7) th/mm3 Lymph # (Auto) 1.3 0.9 L 1.1 (1.0-4.8) th/mm3 [place] # (Auto) 1.8 H 2.3 H 1.5 H (0.0-0.9) th/mm3 Eos # (Auto) 0.0 0.0 0.0 (0.0-0.4) th/mm3 Baso # (Auto) 0.0 0.0 0.0 (0.0-0.2) th/mm3 Comprehensive Metabolic Panel 12/02/17 12/02/17 12/03/17 Range/Units 12:05 23:40 05:00 Sodium 140 141 141 (136-145) meq/L Potassium 3.7 3.3 L 4.1 D (3.5-5.1) meq/L Chloride 106 110 H 110 H (98-107) meq/L Carbon Dioxide 19.5 L 21.6 18.5 L (21.0-32.0) meq/L BUN 28 H 34 H 34 H (7-18) mg/dL Creatinine 1.70 H 1.60 H 1.56 H (0.60-1.30) mg/dL Calcium 8.5 D 8.3 L 7.5 L D (8.5-10.1) mg/dL Direct Bilirubin Indirect Bilirubin AST 554 H (15-37) U/L ALT 738 H (12-78) U/L Alkaline Phosphatase 84 (45-117) U/L Total Protein 6.4 (6.4-8.2) g/dL Albumin 3.2 L (3.4-5.0) g/dL 12/03/17 12/03/17 12/03/17 Range/Units 10:15 10:15 17:10 Sodium 145 143 (136-145) meq/L Potassium 3.6 3.5 (3.5-5.1) meq/L Chloride 112 H 113 H (98-107) meq/L Carbon Dioxide 19.8 L 21.9 (21.0-32.0) meq/L BUN 34 H 33 H (7-18) mg/dL Creatinine 1.55 H 1.41 H (0.60-1.30) mg/dL Calcium 6.8 L* 7.7 L D (8.5-10.1) mg/dL Direct Bilirubin Cancelled 0.6 H Indirect Bilirubin Cancelled 0.4 AST Cancelled 229 H (15-37) U/L ALT Cancelled 390 H (12-78) U/L Alkaline Phosphatase Cancelled 42 L (45-117) U/L Total Protein Cancelled 5.2 L D (6.4-8.2) g/dL Albumin Cancelled 3.0 L (3.4-5.0) g/dL Intake and Output 12/03/17 12/04/17 12/04/17 22:59 06:59 14:59 Intake Total 1456 / 1456 865 / 865 1656.2 / 1656.2 Output Total 630 / 630 1110 / 1110 Balance 826 / 826 -245 / -245 1656.2 / 1656.2 Intake: IV 1456 / 1456 496 / 496 1656.2 / 1656.2 Nimbex Inj 100 MG In NS Inj 240 250 / 250 250 / 250 ML @ 1 MCG/KG/MIN 12.52 mls/hr IV.CONT TITRATE PRN Rx#: [id number] Heparin Inj 25,000 UNIT In NS 48 / 48 58.5 / 58.5 Inj 247.5 ML @ 1,000 UNITS/HR 10 mls/hr IV.CONT TITRATE PRN Rx#:[id number] NovoLIN R (IV Infusion) 100 24 / 24 0 / 0 UNIT In NS Inj 99 ML @ 3 UNITS/ HR 3 mls/hr IV.CONT TITRATE PRN Rx#:[id number] Versed Inj 50 mg In 50 ml @ 2 50 / 50 24.7 / 24.7 MG/HR 2 mls/hr IV.CONT TITRATE PRN Rx#:[id number] Levophed Inj 16 MG In NS Inj 120 / 120 0 / 0 234 ML @ 2 MCG/MIN 1.87 mls/hr IV.CONT TITRATE PRN Rx#: [id number] NS Inj 1,000 ML @ 84 mls/hr IV. 504 / 504 496 / 496 1095 / 1095 CONT .[id number] [facility] Rx#:[id number] Calcium Chloride Inj 1 GM In NS 110 / 110 Inj 100 ML @ 110 mls/hr IV.SIG NOW ONE Rx#:[id number] KCl 40 mEq Premix Inj 40 meq In 100 / 100 100 ml @ 25 mls/hr IV.SIG UNSCH PRN Rx#:[id number] fentaNYL 10 mcg/mL Premix Drip 250 / 250 228 / 228 2,500 mcg In 250 ml @ 50 MCG/HR 5 mls/hr IV.SIG TITRATE PRN Rx #:[id number] Oral 0 / 0 Other 369 / 369 Output: Urine Amount (Catheter) 530 / 530 910 / 910 Indwelling Temp Sensing 530 / 530 910 / 910 Catheter Gastric Drainage 100 / 100 200 / 200 Oral Orogastric Tube 100 / 100 200 / 200 Other: Other Intake Source Saline Solution Date of Last Bowel Movement 12/02/17 12/02/17 # Bowel Movements 0 Weight 202 lb 13.204 oz - Imaging and Cardiology Imaging: Impressions Head CT 12/02/17 10:42 CONCLUSION: 1. Negative for acute process . Chest X-Ray 12/02/17 12:27 CONCLUSION: Endotracheal tube and enteric tube as above. Assessment and Plan - Plan 57-year-old male admitted status post V. fib arrest Assessment: s/p V. fib arrest Cardiomyopathy - EF 25-35% Narrow complex tachycardia 12/02 - sinus tachycardia vs brief atrial flutter Hypotension requiring pressor support - resolved Respiratory failure requiring mechanical ventilation GCS 3 on arrival s/p medically induced coma s/p hypothermia protocol, now with frequent shivering and decerebrate posturing Plan: Continue heparin gtt for medical management of ACS, may consider change to argatroban with drop in PLT, query HIT? Send HIT , RN to d/w CC attending Patient will require left heart cath pending neurologic recovery, getting EEG and possibly MRI brain today Aspirin 81 mg daily Hold statin due to to shock liver start carvedilol 6.25mg bid today and will uptitrate as vitals allow hold KORINA-I for now due to KEYLA, Cr improving Procedures - Arterial Line Size (Gauge): 20
[2017-12-04 08:46] LABS: CKMB Percent 7.7 % (0.0-4.0)
[2017-12-04] MEDS ORDERED: Dextrose 50% in Water 50 ML Vial IV.PUSH PRN (08:56)
[2017-12-04] MEDS ORDERED: Cisatracurium Inj 20 MG/10 ML Vial ONE ×2 (09:03→13:41)
[2017-12-04] MEDS ORDERED: CISATRACURIUM 10 MG/5 ML IV.PUSH PRN (09:53)
[2017-12-04] MEDS ORDERED: CISATRACURIUM 10 MG/5 ML IV.PUSH ONE ×2 (10:00→11:26)
[2017-12-04] MEDS: Chlorhexidine 0.12% Oral Kit 15 ML UDC OROPHARYNG SCH ×2 (10:03→20:29)
[2017-12-04] MEDS: Carvedilol 6.25 MG Tablet PO SCH ×2 (10:04→20:11)
[2017-12-04] MEDS: Famotidine PF Inj 20 MG/2 ML Vial IV.PUSH SCH ×2 (10:04→20:11)
[2017-12-04] MEDS: Insulin NovoLIN Regular Correctional Sugar Inj SQ SCH ×3 (10:10→17:58)
--- NOTE | 2017-12-04 10:38 | XR ---
EXAM DATE: 12/04/2017 12:00 AM EDT AGE/SEX: 57 years / Male INDICATIONS: Respiratory distress; post cardiac arrest. CLINICAL DATA: This is the patient's subsequent encounter. Patient reports that signs and symptoms h ave been present for 3 days and indicates a pain score of Nonresponsive. MEDICAL/SURGICAL HISTORY: Non-responsive. Non-responsive. COMPARISON: C, CHEST 1V SINGLE AP, 12/02/2017. . FINDINGS: ETT at the level of the clavicles. NGT coursing beyond the GE junction with tip omitted from the imag e. Mild bibasilar airspace disease. Cardiomediastinal contours are within normal limits. Osseous stru ctures are intact. CONCLUSION: 1. ETT in good position. NGT beyond the GE junction. 2. Mild bibasilar atelectasis. Electronically signed by: Rob Godinez MD 12/04/2017 10:36 AM EDT
[2017-12-04] MEDS: Clevidipine Inj 25 MG/50 ML VIAL IV.CONT PRN ×2 (13:38→18:02)
--- NOTE | 2017-12-04 14:20 | MG ---
cc: Saul Feliciano MD INDICATION: A 57-year-old status post CODE; heparin, recording overall is synchronous and symmetric. TECHNIQUE A 4 Hz 50 microvolt diffuse rhythm is seen. There is a lot of bitemporal artifact and muscle artifacts especially over the left side. Hyperventilation is not performed. Photic stimulation is performed without significant posterior driving. No epileptiform or seizure activity is noted. IMPRESSION: Diffuse slowing consistent with a moderate to severe diffuse encephalopathy. No seizure activity is seen. No focal abnormalities were noted. MD PAPITO Mcknight/feliz , 02:05 PM , 02:11 PM
--- NOTE | 2017-12-04 15:02 | MR ---
EXAM DATE: 12/04/2017 1:26 PM EDT AGE/SEX: 57 years / Male INDICATIONS: Altered mental status. Possible anoxic brain injury, CLINICAL DATA: This is the patient's initial encounter. Patient reports that signs and symptoms have been present for 1 day and indicates a pain score of Nonresponsive. MEDICAL/SURGICAL HISTORY: Hypertension. Hypercholesterolemia. None. COMPARISON: [facility] [place] HEAD [place]/O [place]AST, 12/02/2017. . TECHNIQUE: Multiplanar, multisequence examination of the brain was performed without contrast. FINDINGS: Cerebrum: The ventricles are normal for age. No evidence of midline shift, mass lesion, hemorrhage or acute infarction. No extraaxial fluid collections are seen. The pituitary gland and suprasellar cistern are normal in configuration. White Matter: No significant signal abnormalities are seen in the white matter. Posterior Fossa: The cerebellum and brainstem are intact. The 4th ventricle is midline. The cerebel lopontine angle is unremarkable. The cerebellar tonsils are normal in position. Diffusion Imaging: No focal areas of restricted diffusion are seen. No evidence of acute infarction . Extracranial: The visualized portions of the orbits and paranasal sinuses are unremarkable. There ar e some chronic bilateral mastoiditis. CONCLUSION: 1. Unremarkable MRI of the brain for patient's age. 2. Mild chronic bilateral mastoiditis. Electronically signed by: Alvaro Rios MD 12/04/2017 3:00 PM EDT
[2017-12-04] MEDS: Ampicillin/Sulbactam Inj 3 GM in Sodium Chloride 0.9% Inj 100 ML IV.SIG SCH ×2 (16:08→19:58)
[2017-12-04] MEDS: Propofol 1000 mg/100 ml Inj 1,000 MG/100 ML BOTTLE IV.CONT PRN ×2 (16:45→20:28)
[2017-12-04] MEDS ORDERED: fentaNYL Citrate Inj 100 MCG/2 ML Ampul IV.PUSH ONE (20:17)
[2017-12-04] MEDS ORDERED: fentaNYL 10 mcg/mL Premix Drip 2,500 MCG/250 ML BAG IV.SIG PRN (20:18)
[2017-12-05] MEDS: Oral Hygiene Kit OROPHARYNG SCH ×4 (00:14→16:48)
[2017-12-05] MEDS: Insulin NovoLIN Regular Correctional Sugar Inj SQ SCH ×4 (00:14→18:05)
[2017-12-05] MEDS: Metoprolol Inj 5 MG/5 ML Vial IV.PUSH PRN (00:26)
[2017-12-05] MEDS: Propofol 1000 mg/100 ml Inj 1,000 MG/100 ML BOTTLE IV.CONT PRN ×2 (02:13→08:04)
[2017-12-05] MEDS: Ampicillin/Sulbactam Inj 3 GM in Sodium Chloride 0.9% Inj 100 ML IV.SIG SCH ×4 (02:13→20:46)
[2017-12-05] MEDS: Chlorhexidine Gluconate 2% 1 Pack (2 Cloths) TOPICAL SCH (04:28)
[2017-12-05] MEDS: HEPARIN IV.CONT PRN (05:38)
[2017-12-05] MEDS: SODIUM CHLOR 0.9% IV.CONT PRN (05:38)
[2017-12-05 05:39] LABS: Baso # (Auto) 0.1 th/mm3 (0.0-0.2); Baso % (Auto) 0.3 % (0.0-2.0); Eos % (Auto) 0.1 % (0.0-4.0); Hematocrit 37.8 % (39.0-51.0); Hemoglobin 12.8 gm/dL (13.0-17.0); Lymph # (Auto) 1.5 th/mm3 (1.0-4.8); Lymph % (Auto) 7.3 % (9.0-44.0); Mean Corpuscular Hemoglobin 33.3 pg (27.0-34.0); Mean Platelet Volume 9.4 fL (7.0-11.0); Mono # (Auto) 2.2 th/mm3 (0.0-0.9); Mono % (Auto) 11.1 % (0.0-8.0); Neut # (Auto) 16.2 th/mm3 (1.8-7.7); Neut % (Auto) 81.2 % (16.0-70.0); Platelet Count 132 th/mm3 (150-450); Red Blood Count 3.85 mil/mm3 (4.50-5.90); Red Cell Distribution Width 13.9 % (11.6-17.2); White Blood Count 19.9 th/mm3 (4.0-11.0)
[2017-12-05 06:08] LABS: Magnesium 1.6 mg/dL (1.5-2.5); Phosphorus 4.4 mg/dL (2.5-4.9)
[2017-12-05 06:18] LABS: ABG Base Excess -7.2 mmol/L (-2-2); ABG PCO2 32 mmHg (38-42); ABG PO2 150 mmHG (61-120)
[2017-12-05] MEDS: Norepinephrine Inj 16 MG in Sodium Chlor 0.9% Inj 234 ML IV.CONT PRN (06:18)
[2017-12-05] MEDS: Mag Sulf 1 gm/100 ml Premix 100 ML IV.SIG SCH ×2 (07:26→08:05)
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
[2017-12-05 07:57] LABS: Lymphocytes 9 % (9-44); Monocytes 9 % (0-8)
[2017-12-05 07:58] LABS: Platelet Morphology Normal (Normal); Tear Drop Cells 1+
[2017-12-05] MEDS ORDERED: Norepinephrine Inj 16 MG in Sodium Chlor 0.9% Inj 234 ML IV.CONT PRN (08:00)
--- NOTE | 2017-12-05 08:15 | P.PNCA ---
Subjective Interval history: Fentanyl started for sedation due to shaking. BP drop with fentanyl and now patient back on Levophed. Telemetry with a lot of motion artifact from shaking. Medications and Allergies Allergies Allergy/AdvReac Type Severity Reaction Status Date / Time No Known Allergies Allergy Verified 12/02/17 09:40 Home Medications Medication Instructions Recorded Confirmed Type losartan 25 mg PO DAILY 12/03/17 12/03/17 History Active Medications: Active Medications Acetaminophen (Tylenol Liq) 650 mg NG/OG Q6H PRN PRN Reason: SHIVERING Albuterol (Duoneb Neb (Faisal)) 1 ampul NEB Q6HR NEB [facility] Last Admin: 12/05/17 04:48 Dose: 1 ampul Albuterol (Albuterol Neb (Prn)) 2.5 mg NEB Q2HR NEB PRN PRN Reason: DYSPNEA Artificial Tears (Lacrilube Opth Oint) 1 applicatio EACH EYE Q4H PRN PRN Reason: NMB Artificial Tears (Refresh Tears 0.5% Opth Drops) 1 drop EACH EYE BID [facility] Aspirin (Aspirin Chew) 81 mg PO DAILY [facility] Last Admin: 12/04/17 10:04 Dose: 81 mg Carvedilol (Coreg) 6.25 mg PO BID [facility] Last Admin: 12/04/17 20:11 Dose: 6.25 mg Chlorhexidine Gluconate (Peridex 0.12% Oral Kit) 15 ml OROPHARYNG BID@0800, 2000 [facility] Last Admin: 12/04/17 20:29 Dose: 15 ml Chlorhexidine Gluconate (Chlorhexidine 2% Cloth) 3 pack TOPICAL DAILY@0400 [facility] Stop: 12/08/17 03:59 Last Admin: 12/05/17 04:28 Dose: Not Given Chlorhexidine Gluconate (Chlorhexidine 2% Cloth) 3 pack TOPICAL DAILY@0400 PRN PRN Reason: Extra cloth needed Stop: 12/08/17 03:59 Dextrose (D50w Vial) 50 ml IV.PUSH UNSCH PRN PRN Reason: PER HYPOGLYCEMIA PROTOCOL Glucagon (Glucagon Inj) 1 mg OTHER PRN PRN PRN Reason: for Hypoglycemia Protocol Magnesium Sulfate 4 gm/ Sodium (Chloride) 100 mls @ 50 mls/hr IV.SIG UNSCH PRN PRN Reason: For Magnesium 0.9 - 1.1 mg/dL Magnesium Sulfate 2 gm/ Sodium (Chloride) 100 mls @ 50 mls/hr IV.SIG UNSCH PRN PRN Reason: For Magnesium 1.2 - 1.6 mg/dL Last Infusion: 12/03/17 04:51 Dose: Infused Potassium Chloride (Kcl 40 Meq Premix Inj) 40 meq in 100 mls @ 25 mls/hr IV.SIG Q2H PRN PRN Reason: For Potassium 2.8 - 3.2 mEq/L Potassium Chloride (Kcl 20 Meq Premix Inj) 20 meq in 100 mls @ 50 mls/hr IV.SIG Q2H PRN PRN Reason: For Potassium 3.3 - 3.5 mEq/L Potassium Chloride (Kcl 40 Meq Premix Inj) 40 meq in 100 mls @ 25 mls/hr IV.SIG UNSCH PRN PRN Reason: For Potassium 3.3 - 3.5 mEq/L Last Infusion: 12/03/17 22:13 Dose: Infused Potassium Chloride (Kcl 20 Meq Premix Inj) 20 meq in 100 mls @ 50 mls/hr IV.SIG Q2H PRN PRN Reason: For Potassium 2.8 - 3.2 mEq/L Potassium Phosphate 30 mmol/ (Sodium Chloride) 260 mls @ 42 mls/hr IV.SIG UNSCH PRN PRN Reason: SEE LABEL COMMENTS Sodium Phosphate 30 mmol/ (Sodium Chloride) 260 mls @ 42 mls/hr IV.SIG UNSCH PRN PRN Reason: For Phosphorus < 2.5 mg/dL Heparin Sodium (Porcine) 25, (000 unit/ Sodium Chloride) 250 mls @ 10 mls/hr IV.CONT TITRATE PRN; Protocol PRN Reason: Per Protocol Last Titration: 12/05/17 06:20 Dose: 800 units/hr, 8 mls/hr Ampicillin Sodium/Sulbactam (Sodium 3 gm/ Sodium Chloride) 100 mls @ 200 mls/ hr IV.SIG Q6H FAISAL Last Infusion: 12/05/17 08:05 Dose: Infused Propofol (Diprivan 1000 Mg/100 Ml Inj) 1,000 mg in 100 mls @ 2.76 mls/hr IV.CONT TITRATE PRN; Protocol PRN Reason: Per Protocol Last Admin: 12/05/17 08:04 Dose: 30 mcg/kg/min, 16.56 mls/hr Fentanyl (Fentanyl 10 Mcg/Ml Premix Drip) 2,500 mcg in 250 mls @ 5 mls/hr IV.SIG TITRATE PRN; Protocol PRN Reason: RASS and vent synchrony Last Titration: 12/05/17 06:20 Dose: 200 mcg/hr, 20 mls/hr Magnesium Sulfate/Dextrose (Magnesium Sulfate 1 Gm/D5w 100 Ml Premix) 100 mls @ 100 mls/hr IV.SIG Q1H [facility]ISAL Stop: 12/05/17 08:59 Last Admin: 12/05/17 08:05 Dose: 100 mls/hr Dexmedetomidine HCl 200 mcg/ (Sodium Chloride) 50 mls @ 4.57 mls/hr IV.CONT TITRATE PRN; Protocol PRN Reason: Per Protocol Norepinephrine Bitartrate 16 (mg/ Sodium Chloride) 250 mls @ 1.87 mls/hr IV.CONT TITRATE PRN; Protocol PRN Reason: See Protocol Insulin Human Regular (Novolin R Correctional Sugar Inj) 0 units SQ Q6HR FAISAL; Protocol Last Admin: 12/05/17 07:15 Dose: Not Given Lactulose (Lactulose Liq) 30 ml PO Q6H [facility] Last Admin: 12/05/17 06:29 Dose: 30 ml Lansoprazole (Prevacid Solutab) 30 mg NG/OG DAILY [facility] Magnesium Oxide (Mag-Ox) 800 mg PO UNSCH PRN PRN Reason: For Magnesium 1.2 - 1.6 mg/dL Metoprolol Tartrate (Lopressor Inj) 5 mg IV.PUSH Q5M PRN PRN Reason: HR>100 Last Admin: 12/05/17 00:26 Dose: 5 mg Miscellaneous Information (Misc Information) 0 each OTHER UNSCH [facility] Miscellaneous Medication () 1 each OROPHARYNG 0000,0400,1200,1600 [facility] Last Admin: 12/05/17 04:29 Dose: 1 each Ondansetron HCl (Zofran Inj) 4 mg IV.PUSH Q6H PRN PRN Reason: NAUSEA OR VOMITING Last Admin: 12/05/17 07:26 Dose: 4 mg Potassium Bicarb/Potassium Chloride (K-Lyte Cl Eff) 50 meq PO UNSCH PRN PRN Reason: For Potassium 3.3 - 3.5 mEq/L Potassium Phosphate (K-Phos Original) 2,000 mg PO UNSCH PRN PRN Reason: SEE LABEL COMMENTS Potassium Phosphate (K-Phos Original) 2,000 mg PO Q4H PRN PRN Reason: Phosphorus Less Than 2.5 mg/dL Senna/Docusate Sodium (Mirella-Colace) 1 tab PO BID [facility] Sodium Chloride (Ns Flush) 2 ml IV.FLUSH UNSCH PRN PRN Reason: FLUSH AFTER USING IV ACCESS Terbutaline Sulfate (Brethine Inj) 1 mg SQ UNSCH PRN PRN Reason: For Extravasation Physical Exam Vital signs: Vital Signs 12/04/17 08:15 12/04/17 08:30 12/04/17 11:00 Temperature 98.6 F Pulse Rate 97 H 92 H Respiratory Rate 20 23 23 Blood Pressure 137/83 Pulse Oximetry 90 L 99 12/04/17 12:00 12/04/17 14:30 12/04/17 15:00 Temperature 98.6 F Pulse Rate 94 H 98 H Respiratory Rate 23 Blood Pressure 137/83 118/72 Pulse Oximetry 96 99 12/04/17 15:30 12/04/17 16:00 12/04/17 16:15 Temperature Pulse Rate 94 H 96 H Respiratory Rate 23 23 Blood Pressure 148/90 H Pulse Oximetry 97 12/04/17 17:15 12/04/17 17:20 12/04/17 19:00 Temperature 98.6 F 99.0 F Pulse Rate 96 H Respiratory Rate 22 24 Blood Pressure 141/88 H Pulse Oximetry 98 98 12/04/17 20:00 12/04/17 20:22 12/04/17 23:00 Temperature 99.0 F Pulse Rate 96 H 110 H 94 H Respiratory Rate 23 12 Blood Pressure 141/88 H 100/66 Pulse Oximetry 96 97 12/04/17 23:45 12/05/17 00:00 12/05/17 00:45 Temperature 99.1 F Pulse Rate 94 H Respiratory Rate 12 Blood Pressure 100/66 Pulse Oximetry 97 12/05/17 03:00 12/05/17 04:00 12/05/17 04:48 Temperature 98.6 F Pulse Rate 80 88 85 Respiratory Rate 12 12 Blood Pressure 95/63 L 106/65 Pulse Oximetry 99 99 12/05/17 07:00 12/05/17 08:00 Temperature 98.6 F Pulse Rate 100 H Respiratory Rate 24 14 Blood Pressure 118/70 Pulse Oximetry 96 97 Intake & Output 09/12/05/17 12/05/17 18:59 06:59 18:59 Intake Total 1907.2 / 1907.2 1238.6 / 1238.6 200 / 200 Output Total 1950 / 1950 585 / 585 Balance -42.8 / -42.8 653.6 / 653.6 200 / 200 Weight 201 lb 11.567 oz Intake: IV 1907.2 / 1907.2 1118.6 / 1118.6 200 / 200 Nimbex Inj 100 MG In NS Inj 240 250 / 250 ML @ 1 MCG/KG/MIN 12.52 mls/hr IV.CONT TITRATE PRN Rx#: [id number] Cleviprex Inj 25 mg In 50 ml @ 69 / 69 0 / 0 1 MG/HR 2 mls/hr IV.CONT TITRATE PRN Rx#:[id number] Heparin Inj 25,000 UNIT In NS 118.5 / 118.5 171.6 / 171.6 Inj 247.5 ML @ 1,000 UNITS/HR 10 mls/hr IV.CONT TITRATE PRN Rx#:[id number] NovoLIN R (IV Infusion) 100 0 / 0 UNIT In NS Inj 99 ML @ 3 UNITS/ HR 3 mls/hr IV.CONT TITRATE PRN Rx#:[id number] Versed Inj 50 mg In 50 ml @ 2 24.7 / 24.7 MG/HR 2 mls/hr IV.CONT TITRATE PRN Rx#:[id number] Levophed Inj 16 MG In NS Inj 0 / 0 230 / 230 234 ML @ 2 MCG/MIN 1.87 mls/hr IV.CONT TITRATE PRN Rx#: [id number] Diprivan 1000 mg/100 ml Inj , 417 / 417 000 mg In 100 ml @ 5 MCG/KG/MIN 2.76 mls/hr IV.CONT TITRATE PRN Rx#:[id number] NS Inj 1,000 ML @ 84 mls/hr IV. 1095 / 1095 CONT .[id number] FAISAL Rx#:[id number] Unasyn Inj 3 GM In NS Inj 100 100 / 100 200 / 200 100 / 100 ML @ 200 mls/hr IV.SIG Q6H FAISAL Rx#:[id number] Magnesium Sulfate 1 gm/D5W 100 100 / 100 ml Premix 100 ML @ 100 mls/hr IV.SIG Q1H [facility]IS[facility] Rx#:[id number] fentaNYL 10 mcg/mL Premix Drip 228 / 228 100 / 100 2,500 mcg In 250 ml @ 50 MCG/HR 5 mls/hr IV.SIG TITRATE PRN Rx #:[id number] Oral 0 / 0 Tube Irrigant 120 / 120 Output: Urine Amount (Catheter) 1750 / 1750 385 / 385 Indwelling Urethral Catheter 1750 / 1750 385 / 385 Gastric Drainage 200 / 200 200 / 200 Oral Orogastric Tube 200 / 200 200 / 200 Other: Date of Last Bowel Movement 12/02/17 12/02/17 12/02/17 # Bowel Movements 0 Narrative: GENERAL: Well-developed well-nourished. NECK: No carotid bruits. No JVD. CARDIOVASCULAR: Regular rate and rhythm. No murmur appreciated. RESPIRATORY: Mechanically ventilated. Clear to auscultation. MUSCULOSKELETAL: No clubbing or cyanosis. No edema. NEUROLOGICAL: Intubated. Frequent shivering and decerebrate posturing. - Urinary Catheter Management Indwelling Temp Sensing Catheter Cath placed during this visit: yes, but has since been removed by the nurse Reason for continuing: Decision to DC catheter Insertion date: 12/02/17 Insertion time: 12:03 Removal date: 12/04/17 Removal time: 13:45 Indwelling Urethral Catheter Cath placed during this visit: yes Reason for continuing: Hourly intake/output Insertion date: 12/04/17 Insertion time: 13:50 Results 12/05/17 05:19 12/05/17 07:35 Cardiac Enzymes 12/03/17 12/03/17 12/04/17 Range/Units 10:15 10:15 00:25 AST Cancelled 229 H CK-MB (CK-2) 125.0 H 133.2 H (0.5-3.6) ng/mL Troponin I Cancelled 9.42 H* 12/04/17 Range/Units 06:15 AST CK-MB (CK-2) 112.0 H (0.5-3.6) ng/mL Troponin I Coagulation 12/03/17 12/03/17 12/03/17 Range/Units 08:15 14:50 22:45 PT (9.8-11.6) sec APTT 74.1 H D 44.3 H D 32.5 H D (24.3-30.1) sec 12/04/17 12/04/17 12/05/17 Range/Units 06:15 13:39 00:35 PT 10.3 (9.8-11.6) sec APTT 29.7 30.1 33.7 H (24.3-30.1) sec CBC 12/04/17 12/05/17 Range/Units 06:15 05:19 WBC 17.5 H 19.9 H (4.0-11.0) th/mm3 RBC 4.05 L 3.85 L (4.50-5.90) mil/mm3 Hgb 13.3 12.8 L (13.0-17.0) gm/dL Hct 39.0 37.8 L (39.0-51.0) % Plt Count 112 L 132 L (150-450) th/mm3 Neut # (Auto) 14.9 H 16.2 H (1.8-7.7) th/mm3 Lymph # (Auto) 1.1 1.5 (1.0-4.8) th/mm3 [place] # (Auto) 1.5 H 2.2 H (0.0-0.9) th/mm3 Eos # (Auto) 0.0 0.0 (0.0-0.4) th/mm3 Baso # (Auto) 0.0 0.1 (0.0-0.2) th/mm3 Comprehensive Metabolic Panel 12/03/17 12/03/17 12/03/17 Range/Units 10:15 10:15 17:10 Sodium 145 143 (136-145) meq/L Potassium 3.6 3.5 (3.5-5.1) meq/L Chloride 112 H 113 H (98-107) meq/L Carbon Dioxide 19.8 L 21.9 (21.0-32.0) meq/L BUN 34 H 33 H (7-18) mg/dL Creatinine 1.55 H 1.41 H (0.60-1.30) mg/dL Calcium 6.8 L* 7.7 L D (8.5-10.1) mg/dL Direct Bilirubin Cancelled 0.6 H Indirect Bilirubin Cancelled 0.4 AST Cancelled 229 H ALT Cancelled 390 H Alkaline Phosphatase Cancelled 42 L Total Protein Cancelled 5.2 L D Albumin Cancelled 3.0 L Intake and Output 12/04/17 12/05/17 12/05/17 22:59 06:59 14:59 Intake Total 429 / 429 1060.6 / 1060.6 200 / 200 Output Total 1950 / 1950 585 / 585 Balance -1521 / -1521 475.6 / 475.6 200 / 200 Intake: IV 429 / 429 940.6 / 940.6 200 / 200 Cleviprex Inj 25 mg In 50 ml @ 69 / 69 0 / 0 1 MG/HR 2 mls/hr IV.CONT TITRATE PRN Rx#:[id number] Heparin Inj 25,000 UNIT In NS 60 / 60 171.6 / 171.6 Inj 247.5 ML @ 1,000 UNITS/HR 10 mls/hr IV.CONT TITRATE PRN Rx#:[id number] Levophed Inj 16 MG In NS Inj 230 / 230 234 ML @ 2 MCG/MIN 1.87 mls/hr IV.CONT TITRATE PRN Rx#: [id number] Diprivan 1000 mg/100 ml Inj 1, 100 / 100 339 / 339 000 mg In 100 ml @ 5 MCG/KG/MIN 2.76 mls/hr IV.CONT TITRATE PRN Rx#:[id number] Unasyn Inj 3 GM In NS Inj 100 200 / 200 100 / 100 100 / 100 ML @ 200 mls/hr IV.SIG Q6H FAISAL Rx#:[id number] Magnesium Sulfate 1 gm/D5W 100 100 / 100 ml Premix 100 ML @ 100 mls/hr IV.SIG Q1H [facility]ISAL Rx#:[id number] fentaNYL 10 mcg/mL Premix Drip 100 / 100 2,500 mcg In 250 ml @ 50 MCG/HR 5 mls/hr IV.SIG TITRATE PRN Rx #:[id number] Oral 0 / 0 Tube Irrigant 120 / 120 Output: Urine Amount (Catheter) 1750 / 1750 385 / 385 Indwelling Urethral Catheter 1750 / 1750 385 / 385 Gastric Drainage 200 / 200 200 / 200 Oral Orogastric Tube 200 / 200 200 / 200 Other: Date of Last Bowel Movement 12/02/17 12/02/17 12/02/17 # Bowel Movements 0 Weight 201 lb 11.567 oz - Imaging and Cardiology Imaging: Impressions Chest X-Ray 12/04/17 00:00 CONCLUSION: 1. ETT in good position. NGT beyond the GE junction. 2. Mild bibasilar atelectasis. Head MRI 12/04/17 00:00 CONCLUSION: 1. Unremarkable MRI of the brain for patient's age. 2. Mild chronic bilateral mastoiditis. Assessment and Plan - Plan 57-year-old male admitted status post V. fib arrest Assessment: s/p V. fib arrest Cardiomyopathy - EF 25-35% Narrow complex tachycardia 12/02 - sinus tachycardia vs brief atrial flutter Hypotension requiring pressor support Respiratory failure requiring mechanical ventilation GCS 3 on arrival s/p medically induced coma s/p hypothermia protocol, now with frequent shivering and decerebrate posturing Plan: Continue heparin gtt for medical management of ACS Patient will require left heart cath pending neurologic recovery-EEG with moderate to severe slowing Aspirin 81 mg daily Hold statin due to to shock liver Hold off on carvedilol and ACEi with hypotension Discussed Condition With: RNDr. Armenta - Attending Attestation Agree with above Await for any signs of neurologic recovery. Hemodynamically and electrically stable. If neurological recovery, will need cardiac catheterization. Suspected primary arrhythmic event. Troponin peaked at 10 mg/dL likely consistent with CPR and hypoperfusion. Does not necessarily appear to be a primary acute thrombotic mediated event such as ST elevation myocardial infarction/non-ST elevation myocardial infarction given the normalized electrocardiogram and stability on telemetry monitoring. Continue supportive measures Procedures - Arterial Line Size (Gauge): 20
[2017-12-05] MEDS: Chlorhexidine 0.12% Oral Kit 15 ML UDC OROPHARYNG SCH ×2 (08:30→20:46)
[2017-12-05 08:41] LABS: INR 1.1 Ratio; Prothrombin Time 10.9 sec (9.8-11.6)
[2017-12-05] MEDS: Dexmedetomidine Inj 200 MCG in Sodium Chlor 0.9% Inj 48 ML IV.CONT PRN ×2 (08:41→12:50)
[2017-12-05 09:04] LABS: Alanine Aminotransferase 302 U/L (12-78); Albumin 3.1 g/dL (3.4-5.0); Alkaline Phosphatase 59 U/L (45-117); Anion Gap 11 meq/L (5-15); Aspartate Aminotransferase 152 U/L (15-37); Blood Urea Nitrogen 50 mg/dL (7-18); Calcium 8.3 mg/dL (8.5-10.1); Carbon Dioxide 22.7 meq/L (21.0-32.0); Chloride 111 meq/L (98-107); Glomerular Filtration Rate 29 mL/min (>89); Glucose,Random 86 mg/dL (74-106); Potassium 5.1 meq/L (3.5-5.1); Sodium 145 meq/L (136-145); Total Protein 6.1 g/dL (6.4-8.2)
--- NOTE | 2017-12-05 09:49 | XR ---
EXAM DATE: 12/05/2017 7:28 AM EDT AGE/SEX: 57 years / Male INDICATIONS: Respiratory failure. CLINICAL DATA: This is the patient's subsequent encounter. Patient reports that signs and symptoms h ave been present for 4 - 6 days and indicates a pain score of Nonresponsive. MEDICAL/SURGICAL HISTORY: Non-responsive. Non-responsive. COMPARISON: [facility], CHEST 1V SINGLE AP, 12/04/2017. . FINDINGS: Stable ETT and NGT. Lungs are hypoaerated with minimal bibasilar airspace disease. Cardiomegaly media stinal contours are within normal limits given degree of lung expansion. Remainder of exam is unchang ed. CONCLUSION: 1. No significant interval change. 2. Stable ETT and NGT. 3. Minimal bibasilar atelectasis. Electronically signed by: Rob Godinez MD 12/05/2017 9:47 AM EDT
[2017-12-05] MEDS: Carboxymethylcellulose 0.5% Opth Drops 15 ML Bottle EACH EYE SCH ×2 (10:07→20:47)
[2017-12-05] MEDS: Senna/Docusate Sodium 8.6/50 MG Tablet PO SCH ×2 (10:07→20:47)
--- NOTE | 2017-12-05 10:59 | P.DIET ---
Nutritional Evaluation Type of nutrition evaluation: initial Nutrition consult regarding: Tube Feeding Objective - Diagnosis EVAC - Objective Body Mass Index: 30.7 % IBW: 131 (IBW = 154#) Body Weight Used for Calculations: Upper end of IBW (77 kg) Energy Needs - Lower Range (kCal/kg): 25 Energy Needs - Upper Range (kCal/kg): 30 Lower Limit kCal/kg (kCals): 1,925 Upper Limit kCal/kg (kCals): 2,310 Lower Limit Protein Factor (Grams per Kg): 1.0 Upper Limit Protein Factor (Grams per Kg): 1.5 Lower Protein Needs (Protein): 77 Upper Protein Needs (Protein): 116 Dietitian Reviewed in Medical Record: Curent medications, Intake & Output, Labs , Medical history, Tube feeding Diet Order: NPO Objective Comments: Labs: BUN/creat 50/2.33, Est GFR 29, LFTs elevated, TG 547 Assessment Assessment: Pt is s/p out of hospital ventricular fibrillation cardiac arrest and is intubated and sedated so needs TFing to meet nutritional needs. Order is for Vital 1.5 @ 50 mls/hr goal. Recommend goal rate of 55 mls/hr to provide 1980 kcals, 89 gms protein and 1008 mls of free water. Some additional kcals will be provided by propofol (1.1 kcal/ml) which is currently at 16 mls/hr providing 422 kcals from fat/lipid. TG of 547 noted. Recommendations: Vital 1.5 @ 55 mls/hr goal Dietitian to Monitor: Lab values, Intake & Output, Tube feeding tolerance, Weight change, Medical course
--- NOTE | 2017-12-05 11:04 | P.PCN ---
Date of procedure: 12/05/17 Pre-op diagnosis: Acute respiratory failure, out of hospital V. fib Post-op diagnosis: same Procedure: DATE: 12/05/2017 CENTRAL LINE PLACEMENT: Right internal jugular vein. Ultrasound-guided INDICATION: Central venous access CONSENT Informed consent for procedure was obtained from sons. DESCRIPTION OF THE PROCEDURE The patient was placed in supine position. The skin was cleansed with Chloraprep. Additional barrier precautions included large sterile drape, sterile gloves, sterile gown, face mask, and hat. 1 % lidocaine was used for local anesthesia. Under direct ultrasound guidance and on initial attempt, the vein was accessed with an introducer needle. The guide wire was advanced and the tract was dilated. Using Seldinger technique a 7 Indonesian 20 cm antimicrobial coated triple-lumen catheter was advanced to a depth of 16 centimeters. The guide wire was removed. All ports had good return of dark venous blood and flushed easily with saline. The central line was secured with 2.0 silk. A sterile dressing with antibiotic disc was applied. Unable to place StatLock due to unable to adhesive to skin ESTIMATED BLOOD LOSS: Minimal COMPLICATIONS: No apparent complications. STAT chest x-ray pending at time of dictation
--- NOTE | 2017-12-05 11:28 | XR ---
EXAM DATE: 12/05/2017 11:03 AM EDT AGE/SEX: 57 years / Male INDICATIONS: Post central line placement. CLINICAL DATA: This is the patient's initial encounter. Patient reports that signs and symptoms have been present for 1 day and indicates a pain score of Nonresponsive. MEDICAL/SURGICAL HISTORY: Non-responsive. Non-responsive. COMPARISON: [facility], CHEST 1V SINGLE AP, 12/05/2017. . FINDINGS: Stable ETT and NGT coursing beyond the GE junction. Interval placement of right IJ central line with tip in the central SVC. No significant pneumothorax. Minimal bibasilar airspace disease unchanged fro m prior exam. Cardiomediastinal contours are within normal limits. Remainder of the exam is unchanged . CONCLUSION: 1. Right IJ central line in good position without pneumothorax. 2. ETT and NGT stable. 3. Mild bibasilar airspace disease, likely atelectasis. Electronically signed by: Rob Godinez MD 12/05/2017 11:27 AM EDT
--- NOTE | 2017-12-05 11:44 | P.CONPAL ---
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 Scrn Urine Cocaine Screen U Cannabinoids Screen Serum Alcohol Blood Type Blood Type Recheck Antibody Screen 12/02/17 12/02/17 12/02/17 23:40 23:40 23:46 WBC RBC Hgb Hct MCV MCH MCHC RDW Plt Count MPV Prelim Diff (Auto) Neut % (Auto) Lymph % (Auto) [place] % (Auto) Eos % (Auto) Baso % (Auto) Neut # (Auto) Lymph # (Auto) [place] # (Auto) Eos # (Auto) Baso # (Auto) WBC Differential Diff Scan Seg Neuts % (Manual) Lymphocytes % (Manual) Monocytes % (Manual) Abs Neuts (Manual) Differential Comment Platelet Estimate Platelet Morphology Tear Drop Cells PT INR APTT 102.5 H* D Fibrinogen Puncture Site Patient Temperature O2 Saturation ABG pH ABG pCO2 ABG pO2 ABG HCO3 ABG O2 Content ABG Base Excess ABG Methemoglobin Hemoglobin Carboxyhemoglobin O2 Delivery Device Vent Setting Inspired O2 Critical Value Sodium 141 Potassium 3.3 L Chloride 110 H Carbon Dioxide 21.6 Anion Gap 9 BUN 34 H Creatinine 1.60 H Estimated GFR 44 L POC Glucose 98 Random Glucose 106 D Lactic Acid Calcium 8.3 L Prot Corrected Calcium Phosphorus Magnesium 1.6 Total Bilirubin Direct Bilirubin Indirect Bilirubin AST ALT Alkaline Phosphatase Ammonia Total Creatine Kinase 2576 H CK-MB (CK-2) 138.2 H CK-MB (CK-2) % 5.4 H* Troponin I 10.30 H* B-Natriuretic Peptide Total Protein Albumin Triglycerides Cholesterol LDL Cholesterol, Calc HDL Cholesterol Cholesterol/HDL Ratio TSH Free T4 Urine Color Urine Clarity Urine pH Ur Specific [place] Urine Protein Urine Glucose (UA) Urine Ketones Urine Occult Blood Urine Nitrate Urine Bilirubin Urine Urobilinogen Ur Leukocyte Esterase Urine RBC Urine WBC Ur Squamous Epith Cells Ur Transition Epith Cell Amorphous Sediment Urine Bacteria Urine Mucus Micro UA Comment Ur Microscopic Review Urine Culture Comments Nasal Screen MRSA (PCR) Salicylates Urine Opiates Screen Acetaminophen Ur Barbiturates Screen Ur Amphetamine Screen U Benzodiazepines Scrn Urine Cocaine Screen U Cannabinoids Screen Serum Alcohol Blood Type Blood Type Recheck Antibody Screen 12/03/17 12/03/17 12/03/17 01:35 02:30 02:35 WBC RBC Hgb Hct MCV MCH MCHC RDW Plt Count MPV Prelim Diff (Auto) Neut % (Auto) Lymph % (Auto) [place] % (Auto) Eos % (Auto) Baso % (Auto) Neut # (Auto) Lymph # (Auto) [place] # (Auto) Eos # (Auto) Baso # (Auto) WBC Differential Diff Scan Seg Neuts % (Manual) Lymphocytes % (Manual) Monocytes % (Manual) Abs Neuts (Manual) Differential Comment Platelet Estimate Platelet Morphology Tear Drop Cells PT 10.7 INR 1.1 APTT 108.8 H* Fibrinogen Puncture Site Patient Temperature O2 Saturation ABG pH ABG pCO2 ABG pO2 ABG HCO3 ABG O2 Content ABG Base Excess ABG Methemoglobin Hemoglobin Carboxyhemoglobin O2 Delivery Device Vent Setting Inspired O2 Critical Value Sodium Potassium Chloride Carbon Dioxide Anion Gap BUN Creatinine Estimated GFR POC Glucose 128 H 120 H Random Glucose Lactic Acid Calcium Prot Corrected Calcium Phosphorus Magnesium Total Bilirubin Direct Bilirubin Indirect Bilirubin AST ALT Alkaline Phosphatase Ammonia Total Creatine Kinase CK-MB (CK-2) CK-MB (CK-2) % Troponin I B-Natriuretic Peptide Total Protein Albumin Triglycerides Cholesterol LDL Cholesterol, Calc HDL Cholesterol Cholesterol/HDL Ratio TSH Free T4 Urine Color Urine Clarity Urine pH Ur Specific [place] Urine Protein Urine Glucose (UA) Urine Ketones Urine Occult Blood Urine Nitrate Urine Bilirubin Urine Urobilinogen Ur Leukocyte Esterase Urine RBC Urine WBC Ur Squamous Epith Cells Ur Transition Epith Cell Amorphous Sediment Urine Bacteria Urine Mucus Micro UA Comment Ur Microscopic Review Urine Culture Comments Nasal Screen MRSA (PCR) Salicylates Urine Opiates Screen Acetaminophen Ur Barbiturates Screen Ur Amphetamine Screen U Benzodiazepines Scrn Urine Cocaine Screen U Cannabinoids Screen Serum Alcohol Blood Type Blood Type Recheck Antibody Screen 12/03/17 12/03/17 12/03/17 04:24 04:50 05:00 WBC RBC Hgb Hct MCV MCH MCHC RDW Plt Count MPV Prelim Diff (Auto) Neut % (Auto) Lymph % (Auto) [place] % (Auto) Eos % (Auto) Baso % (Auto) Neut # (Auto) Lymph # (Auto) [place] # (Auto) Eos # (Auto) Baso # (Auto) WBC Differential Diff Scan Seg Neuts % (Manual) Lymphocytes % (Manual) Monocytes % (Manual) Abs Neuts (Manual) Differential Comment Platelet Estimate Platelet Morphology Tear Drop Cells PT INR APTT Fibrinogen Puncture Site Art line Patient Temperature 98.6 O2 Saturation 91 ABG pH 7.19 L* ABG pCO2 49 H ABG pO2 77 ABG HCO3 18 L ABG O2 Content 18.4 ABG Base Excess -8.7 L ABG Methemoglobin 1.8 Hemoglobin 14.4 Carboxyhemoglobin 0.2 O2 Delivery Device Ventilator Vent Setting Ac 14/500/5peep Inspired O2 60 Critical Value Yes Sodium 141 Potassium 4.1 D Chloride 110 H Carbon Dioxide 18.5 L Anion Gap 13 BUN 34 H Creatinine 1.56 H Estimated GFR 46 L POC Glucose 119 H Random Glucose 126 H Lactic Acid Calcium 7.5 L D Prot Corrected Calcium Phosphorus 3.4 Magnesium 2.9 H D Total Bilirubin Direct Bilirubin Indirect Bilirubin AST ALT Alkaline Phosphatase Ammonia Total Creatine Kinase 2298 H CK-MB (CK-2) 140.0 H CK-MB (CK-2) % 6.1 H* Troponin I 10.20 H* B-Natriuretic Peptide Total Protein Albumin Triglycerides Cholesterol LDL Cholesterol, Calc HDL Cholesterol Cholesterol/HDL Ratio TSH Free T4 Urine Color Urine Clarity Urine pH Ur Specific [place] Urine Protein Urine Glucose (UA) Urine Ketones Urine Occult Blood Urine Nitrate Urine Bilirubin Urine Urobilinogen Ur Leukocyte Esterase Urine RBC Urine WBC Ur Squamous Epith Cells Ur Transition Epith Cell Amorphous Sediment Urine Bacteria Urine Mucus Micro UA Comment Ur Microscopic Review Urine Culture Comments Nasal Screen MRSA (PCR) Salicylates Urine Opiates Screen Acetaminophen Ur Barbiturates Screen Ur Amphetamine Screen U Benzodiazepines Scrn Urine Cocaine Screen U Cannabinoids Screen Serum Alcohol Blood Type Blood Type Recheck Antibody Screen 12/03/17 12/03/17 12/03/17 05:00 05:00 05:22 WBC 23.1 H RBC 4.37 L Hgb 14.3 Hct 42.5 MCV 97.3 MCH 32.7 MCHC 33.6 RDW 13.4 Plt Count 146 L MPV 7.9 Prelim Diff (Auto) Slide review pending Neut % (Auto) 86.0 H Lymph % (Auto) 3.9 L [place] % (Auto) 9.9 H Eos % (Auto) 0.1 Baso % (Auto) 0.1 Neut # (Auto) 19.9 H Lymph # (Auto) 0.9 L [place] # (Auto) 2.3 H Eos # (Auto) 0.0 Baso # (Auto) 0.0 WBC Differential . Diff Scan Auto diff confirmed Seg Neuts % (Manual) Lymphocytes % (Manual) Monocytes % (Manual) Abs Neuts (Manual) Differential Comment . Platelet Estimate Platelet Morphology Tear Drop Cells PT INR APTT Fibrinogen Puncture Site Patient Temperature O2 Saturation ABG pH ABG pCO2 ABG pO2 ABG HCO3 ABG O2 Content ABG Base Excess ABG Methemoglobin Hemoglobin Carboxyhemoglobin O2 Delivery Device Vent Setting Inspired O2 Critical Value Sodium Potassium Chloride Carbon Dioxide Anion Gap BUN Creatinine Estimated GFR POC Glucose 116 H Random Glucose Lactic Acid Calcium Prot Corrected Calcium Phosphorus Magnesium Total Bilirubin Direct Bilirubin Indirect Bilirubin AST ALT Alkaline Phosphatase Ammonia Total Creatine Kinase CK-MB (CK-2) CK-MB (CK-2) % Troponin I B-Natriuretic Peptide Total Protein Albumin Triglycerides Cholesterol LDL Cholesterol, Calc HDL Cholesterol Cholesterol/HDL Ratio TSH 0.770 Free T4 Urine Color Urine Clarity Urine pH Ur Specific [place] Urine Protein Urine Glucose (UA) Urine Ketones Urine Occult Blood Urine Nitrate Urine Bilirubin Urine Urobilinogen Ur Leukocyte Esterase Urine RBC Urine WBC Ur Squamous Epith Cells Ur Transition Epith Cell Amorphous Sediment Urine Bacteria Urine Mucus Micro UA Comment Ur Microscopic Review Urine Culture Comments Nasal Screen MRSA (PCR) Salicylates Urine Opiates Screen Acetaminophen Ur Barbiturates Screen Ur Amphetamine Screen U Benzodiazepines Scrn Urine Cocaine Screen U Cannabinoids Screen Serum Alcohol Blood Type Blood Type Recheck Antibody Screen 12/03/17 12/03/17 12/03/17 06:24 07:26 08:08 WBC RBC Hgb Hct MCV MCH MCHC RDW Plt Count MPV Prelim Diff (Auto) Neut % (Auto) Lymph % (Auto) [place] % (Auto) Eos % (Auto) Baso % (Auto) Neut # (Auto) Lymph # (Auto) [place] # (Auto) Eos # (Auto) Baso # (Auto) WBC Differential Diff Scan Seg Neuts % (Manual) Lymphocytes % (Manual) Monocytes % (Manual) Abs Neuts (Manual) Differential Comment Platelet Estimate Platelet Morphology Tear Drop Cells PT INR APTT Fibrinogen Puncture Site Patient Temperature O2 Saturation ABG pH ABG pCO2 ABG pO2 ABG HCO3 ABG O2 Content ABG Base Excess ABG Methemoglobin Hemoglobin Carboxyhemoglobin O2 Delivery Device Vent Setting Inspired O2 Critical Value Sodium Potassium Chloride Carbon Dioxide Anion Gap BUN Creatinine Estimated GFR POC Glucose 115 H 127 H 128 H Random Glucose Lactic Acid Calcium Prot Corrected Calcium Phosphorus Magnesium Total Bilirubin Direct Bilirubin Indirect Bilirubin AST ALT Alkaline Phosphatase Ammonia Total Creatine Kinase CK-MB (CK-2) CK-MB (CK-2) % Troponin I B-Natriuretic Peptide Total Protein Albumin Triglycerides Cholesterol LDL Cholesterol, Calc HDL Cholesterol Cholesterol/HDL Ratio TSH Free T4 Urine Color Urine Clarity Urine pH Ur Specific [place] Urine Protein Urine Glucose (UA) Urine Ketones Urine Occult Blood Urine Nitrate Urine Bilirubin Urine Urobilinogen Ur Leukocyte Esterase Urine RBC Urine WBC Ur Squamous Epith Cells Ur Transition Epith Cell Amorphous Sediment Urine Bacteria Urine Mucus Micro UA Comment Ur Microscopic Review Urine Culture Comments Nasal Screen MRSA (PCR) Salicylates Urine Opiates Screen Acetaminophen Ur Barbiturates Screen Ur Amphetamine Screen U Benzodiazepines Scrn Urine Cocaine Screen U Cannabinoids Screen Serum Alcohol Blood Type Blood Type Recheck Antibody Screen 12/03/17 12/03/17 12/03/17 08:15 09:15 10:15 WBC RBC Hgb Hct MCV MCH MCHC RDW Plt Count MPV Prelim Diff (Auto) Neut % (Auto) Lymph % (Auto) [place] % (Auto) Eos % (Auto) Baso % (Auto) Neut # (Auto) Lymph # (Auto) [place] # (Auto) Eos # (Auto) Baso # (Auto) WBC Differential Diff Scan Seg Neuts % (Manual) Lymphocytes % (Manual) Monocytes % (Manual) Abs Neuts (Manual) Differential Comment Platelet Estimate Platelet Morphology Tear Drop Cells PT INR APTT 74.1 H D Fibrinogen Puncture Site Patient Temperature O2 Saturation ABG pH ABG pCO2 ABG pO2 ABG HCO3 ABG O2 Content ABG Base Excess ABG Methemoglobin Hemoglobin Carboxyhemoglobin O2 Delivery Device Vent Setting Inspired O2 Critical Value Sodium Potassium Chloride Carbon Dioxide Anion Gap BUN Creatinine Estimated GFR POC Glucose 114 H Random Glucose Lactic Acid Calcium Prot Corrected Calcium Phosphorus Magnesium Total Bilirubin Cancelled Direct Bilirubin Cancelled Indirect Bilirubin Cancelled AST Cancelled ALT Cancelled Alkaline Phosphatase Cancelled Ammonia Total Creatine Kinase Cancelled CK-MB (CK-2) CK-MB (CK-2) % Troponin I Cancelled B-Natriuretic Peptide Total Protein Cancelled Albumin Cancelled Triglycerides Cholesterol LDL Cholesterol, Calc HDL Cholesterol Cholesterol/HDL Ratio TSH Free T4 Urine Color Urine Clarity Urine pH Ur Specific [place] Urine Protein Urine Glucose (UA) Urine Ketones Urine Occult Blood Urine Nitrate Urine Bilirubin Urine Urobilinogen Ur Leukocyte Esterase Urine RBC Urine WBC Ur Squamous Epith Cells Ur Transition Epith Cell Amorphous Sediment Urine Bacteria Urine Mucus Micro UA Comment Ur Microscopic Review Urine Culture Comments Nasal Screen MRSA (PCR) Salicylates Urine Opiates Screen Acetaminophen Ur Barbiturates Screen Ur Amphetamine Screen U Benzodiazepines Scrn Urine Cocaine Screen U Cannabinoids Screen Serum Alcohol Blood Type Blood Type Recheck Antibody Screen 12/03/17 12/03/17 12/03/17 10:15 11:24 11:56 WBC RBC Hgb Hct MCV MCH MCHC RDW Plt Count MPV Prelim Diff (Auto) Neut % (Auto) Lymph % (Auto) [place] % (Auto) Eos % (Auto) Baso % (Auto) Neut # (Auto) Lymph # (Auto) [place] # (Auto) Eos # (Auto) Baso # (Auto) WBC Differential Diff Scan Seg Neuts % (Manual) Lymphocytes % (Manual) Monocytes % (Manual) Abs Neuts (Manual) Differential Comment Platelet Estimate Platelet Morphology Tear Drop Cells PT INR APTT Fibrinogen Puncture Site Patient Temperature O2 Saturation ABG pH ABG pCO2 ABG pO2 ABG HCO3 ABG O2 Content ABG Base Excess ABG Methemoglobin Hemoglobin Carboxyhemoglobin O2 Delivery Device Vent Setting Inspired O2 Critical Value Sodium 145 Potassium 3.6 Chloride 112 H Carbon Dioxide 19.8 L Anion Gap 13 BUN 34 H Creatinine 1.55 H Estimated GFR 46 L POC Glucose 95 109 Random Glucose 114 H Lactic Acid Calcium 6.8 L* Prot Corrected Calcium 7.8 L Phosphorus Magnesium 2.2 D Total Bilirubin 1.0 Direct Bilirubin 0.6 H Indirect Bilirubin 0.4 AST 229 H ALT 390 H Alkaline Phosphatase 42 L Ammonia Total Creatine Kinase 1994 H CK-MB (CK-2) 125.0 H CK-MB (CK-2) % 6.3 H* Troponin I 9.42 H* B-Natriuretic Peptide Total Protein 5.2 L D Albumin 3.0 L Triglycerides Cholesterol LDL Cholesterol, Calc HDL Cholesterol Cholesterol/HDL Ratio TSH Free T4 Urine Color Urine Clarity Urine pH Ur Specific [place] Urine Protein Urine Glucose (UA) Urine Ketones Urine Occult Blood Urine Nitrate Urine Bilirubin Urine Urobilinogen Ur Leukocyte Esterase Urine RBC Urine WBC Ur Squamous Epith Cells Ur Transition Epith Cell Amorphous Sediment Urine Bacteria Urine Mucus Micro UA Comment Ur Microscopic Review Urine Culture Comments Nasal Screen MRSA (PCR) Salicylates Urine Opiates Screen Acetaminophen Ur Barbiturates Screen Ur Amphetamine Screen U Benzodiazepines Scrn Urine Cocaine Screen U Cannabinoids Screen Serum Alcohol Blood Type Blood Type Recheck Antibody Screen 12/03/17 12/03/17 12/03/17 13:09 14:25 14:50 WBC RBC Hgb Hct MCV MCH MCHC RDW Plt Count MPV Prelim Diff (Auto) Neut % (Auto) Lymph % (Auto) [place] % (Auto) Eos % (Auto) Baso % (Auto) Neut # (Auto) Lymph # (Auto) [place] # (Auto) Eos # (Auto) Baso # (Auto) WBC Differential Diff Scan Seg Neuts % (Manual) Lymphocytes % (Manual) Monocytes % (Manual) Abs Neuts (Manual) Differential Comment Platelet Estimate Platelet Morphology Tear Drop Cells PT INR APTT 44.3 H D Fibrinogen Puncture Site Patient Temperature O2 Saturation ABG pH ABG pCO2 ABG pO2 ABG HCO3 ABG O2 Content ABG Base Excess ABG Methemoglobin Hemoglobin Carboxyhemoglobin O2 Delivery Device Vent Setting Inspired O2 Critical Value Sodium Potassium Chloride Carbon Dioxide Anion Gap BUN Creatinine Estimated GFR POC Glucose 114 H 101 Random Glucose Lactic Acid Calcium Prot Corrected Calcium Phosphorus Magnesium Total Bilirubin Direct Bilirubin Indirect Bilirubin AST ALT Alkaline Phosphatase Ammonia Total Creatine Kinase CK-MB (CK-2) CK-MB (CK-2) % Troponin I B-Natriuretic Peptide Total Protein Albumin Triglycerides Cholesterol LDL Cholesterol, Calc HDL Cholesterol Cholesterol/HDL Ratio TSH Free T4 Urine Color Urine Clarity Urine pH Ur Specific [place] Urine Protein Urine Glucose (UA) Urine Ketones Urine Occult Blood Urine Nitrate Urine Bilirubin Urine Urobilinogen Ur Leukocyte Esterase Urine RBC Urine WBC Ur Squamous Epith Cells Ur Transition Epith Cell Amorphous Sediment Urine Bacteria Urine Mucus Micro UA Comment Ur Microscopic Review Urine Culture Comments Nasal Screen MRSA (PCR) Salicylates Urine Opiates Screen Acetaminophen Ur Barbiturates Screen Ur Amphetamine Screen U Benzodiazepines Scrn Urine Cocaine Screen U Cannabinoids Screen Serum Alcohol Blood Type Blood Type Recheck Antibody Screen 12/03/17 12/03/17 12/03/17 15:10 16:15 17:10 WBC RBC Hgb Hct MCV MCH MCHC RDW Plt Count MPV Prelim Diff (Auto) Neut % (Auto) Lymph % (Auto) [place] % (Auto) Eos % (Auto) Baso % (Auto) Neut # (Auto) Lymph # (Auto) [place] # (Auto) Eos # (Auto) Baso # (Auto) WBC Differential Diff Scan Seg Neuts % (Manual) Lymphocytes % (Manual) Monocytes % (Manual) Abs Neuts (Manual) Differential Comment Platelet Estimate Platelet Morphology Tear Drop Cells PT INR APTT Fibrinogen Puncture Site Patient Temperature O2 Saturation ABG pH ABG pCO2 ABG pO2 ABG HCO3 ABG O2 Content ABG Base Excess ABG Methemoglobin Hemoglobin Carboxyhemoglobin O2 Delivery Device Vent Setting Inspired O2 Critical Value Sodium 143 Potassium 3.5 Chloride 113 H Carbon Dioxide 21.9 Anion Gap 8 BUN 33 H Creatinine 1.41 H Estimated GFR 51 L POC Glucose 93 92 Random Glucose 101 Lactic Acid Calcium 7.7 L D Prot Corrected Calcium Phosphorus Magnesium 1.7 Total Bilirubin Direct Bilirubin Indirect Bilirubin AST ALT Alkaline Phosphatase Ammonia Total Creatine Kinase CK-MB (CK-2) CK-MB (CK-2) % Troponin I B-Natriuretic Peptide Total Protein Albumin Triglycerides Cholesterol LDL Cholesterol, Calc HDL Cholesterol Cholesterol/HDL Ratio TSH Free T4 Urine Color Urine Clarity Urine pH Ur Specific [place] Urine Protein Urine Glucose (UA) Urine Ketones Urine Occult Blood Urine Nitrate Urine Bilirubin Urine Urobilinogen Ur Leukocyte Esterase Urine RBC Urine WBC Ur Squamous Epith Cells Ur Transition Epith Cell Amorphous Sediment Urine Bacteria Urine Mucus Micro UA Comment Ur Microscopic Review Urine Culture Comments Nasal Screen MRSA (PCR) Salicylates Urine Opiates Screen Acetaminophen Ur Barbiturates Screen Ur Amphetamine Screen U Benzodiazepines Scrn Urine Cocaine Screen U Cannabinoids Screen Serum Alcohol Blood Type Blood Type Recheck Antibody Screen 12/03/17 12/03/17 12/03/17 19:39 22:32 22:45 WBC RBC Hgb Hct MCV MCH MCHC RDW Plt Count MPV Prelim Diff (Auto) Neut % (Auto) Lymph % (Auto) [place] % (Auto) Eos % (Auto) Baso % (Auto) Neut # (Auto) Lymph # (Auto) [place] # (Auto) Eos # (Auto) Baso # (Auto) WBC Differential Diff Scan Seg Neuts % (Manual) Lymphocytes % (Manual) Monocytes % (Manual) Abs Neuts (Manual) Differential Comment Platelet Estimate Platelet Morphology Tear Drop Cells PT INR APTT 32.5 H D Fibrinogen Puncture Site Patient Temperature O2 Saturation ABG pH ABG pCO2 ABG pO2 ABG HCO3 ABG O2 Content ABG Base Excess ABG Methemoglobin Hemoglobin Carboxyhemoglobin O2 Delivery Device Vent Setting Inspired O2 Critical Value Sodium Potassium Chloride Carbon Dioxide Anion Gap BUN Creatinine Estimated GFR POC Glucose 88 92 Random Glucose Lactic Acid Calcium Prot Corrected Calcium Phosphorus Magnesium Total Bilirubin Direct Bilirubin Indirect Bilirubin AST ALT Alkaline Phosphatase Ammonia Total Creatine Kinase CK-MB (CK-2) CK-MB (CK-2) % Troponin I B-Natriuretic Peptide Total Protein Albumin Triglycerides Cholesterol LDL Cholesterol, Calc HDL Cholesterol Cholesterol/HDL Ratio TSH Free T4 Urine Color Urine Clarity Urine pH Ur Specific [place] Urine Protein Urine Glucose (UA) Urine Ketones Urine Occult Blood Urine Nitrate Urine Bilirubin Urine Urobilinogen Ur Leukocyte Esterase Urine RBC Urine WBC Ur Squamous Epith Cells Ur Transition Epith Cell Amorphous Sediment Urine Bacteria Urine Mucus Micro UA Comment Ur Microscopic Review Urine Culture Comments Nasal Screen MRSA (PCR) Salicylates Urine Opiates Screen Acetaminophen Ur Barbiturates Screen Ur Amphetamine Screen U Benzodiazepines Scrn Urine Cocaine Screen U Cannabinoids Screen Serum Alcohol Blood Type Blood Type Recheck Antibody Screen 12/04/17 12/04/17 12/04/17 00:25 00:29 02:19 WBC RBC Hgb Hct MCV MCH MCHC RDW Plt Count MPV Prelim Diff (Auto) Neut % (Auto) Lymph % (Auto) [place] % (Auto) Eos % (Auto) Baso % (Auto) Neut # (Auto) Lymph # (Auto) [place] # (Auto) Eos # (Auto) Baso # (Auto) WBC Differential Diff Scan Seg Neuts % (Manual) Lymphocytes % (Manual) Monocytes % (Manual) Abs Neuts (Manual) Differential Comment Platelet Estimate Platelet Morphology Tear Drop Cells PT INR APTT Fibrinogen Puncture Site Patient Temperature O2 Saturation ABG pH ABG pCO2 ABG pO2 ABG HCO3 ABG O2 Content ABG Base Excess ABG Methemoglobin Hemoglobin Carboxyhemoglobin O2 Delivery Device Vent Setting Inspired O2 Critical Value Sodium Potassium Chloride Carbon Dioxide Anion Gap BUN Creatinine Estimated GFR POC Glucose 95 86 Random Glucose Lactic Acid Calcium Prot Corrected Calcium Phosphorus 3.2 Magnesium 1.7 Total Bilirubin Direct Bilirubin Indirect Bilirubin AST ALT Alkaline Phosphatase Ammonia Total Creatine Kinase 1677 H CK-MB (CK-2) 133.2 H CK-MB (CK-2) % 7.9 H* Troponin I B-Natriuretic Peptide Total Protein Albumin Triglycerides Cholesterol LDL Cholesterol, Calc HDL Cholesterol Cholesterol/HDL Ratio TSH Free T4 Urine Color Urine Clarity Urine pH Ur Specific [place] Urine Protein Urine Glucose (UA) Urine Ketones Urine Occult Blood Urine Nitrate Urine Bilirubin Urine Urobilinogen Ur Leukocyte Esterase Urine RBC Urine WBC Ur Squamous Epith Cells Ur Transition Epith Cell Amorphous Sediment Urine Bacteria Urine Mucus Micro UA Comment Ur Microscopic Review Urine Culture Comments Nasal Screen MRSA (PCR) Salicylates Urine Opiates Screen Acetaminophen Ur Barbiturates Screen Ur Amphetamine Screen U Benzodiazepines Scrn Urine Cocaine Screen U Cannabinoids Screen Serum Alcohol Blood Type Blood Type Recheck Antibody Screen 12/04/17 12/04/17 12/04/17 04:04 05:40 06:15 WBC 17.5 H RBC 4.05 L Hgb 13.3 Hct 39.0 MCV 96.1 MCH 32.8 MCHC 34.1 RDW 13.8 Plt Count 112 L MPV 8.7 Prelim Diff (Auto) Neut % (Auto) 85.5 H Lymph % (Auto) 6.0 L [place] % (Auto) 8.4 H Eos % (Auto) 0.0 Baso % (Auto) 0.1 Neut # (Auto) 14.9 H Lymph # (Auto) 1.1 [place] # (Auto) 1.5 H Eos # (Auto) 0.0 Baso # (Auto) 0.0 WBC Differential . Diff Scan Seg Neuts % (Manual) Lymphocytes % (Manual) Monocytes % (Manual) Abs Neuts (Manual) Differential Comment Auto diff final Platelet Estimate Platelet Morphology Tear Drop Cells PT INR APTT Fibrinogen Puncture Site Art line Patient Temperature 98.6 O2 Saturation 89 L* ABG pH 7.37 L ABG pCO2 39 ABG pO2 65 ABG HCO3 22 ABG O2 Content 16.7 ABG Base Excess -2.7 L ABG Methemoglobin 2.1 H Hemoglobin 13.4 Carboxyhemoglobin 0.5 O2 Delivery Device Ventilator Vent Setting 18/500/8peep Inspired O2 65 Critical Value Yes Sodium Potassium Chloride Carbon Dioxide Anion Gap BUN Creatinine Estimated GFR POC Glucose 93 Random Glucose Lactic Acid Calcium Prot Corrected Calcium Phosphorus Magnesium Total Bilirubin Direct Bilirubin Indirect Bilirubin AST ALT Alkaline Phosphatase Ammonia Total Creatine Kinase CK-MB (CK-2) CK-MB (CK-2) % Troponin I B-Natriuretic Peptide Total Protein Albumin Triglycerides Cholesterol LDL Cholesterol, Calc HDL Cholesterol Cholesterol/HDL Ratio TSH Free T4 Urine Color Urine Clarity Urine pH Ur Specific [place] Urine Protein Urine Glucose (UA) Urine Ketones Urine Occult Blood Urine Nitrate Urine Bilirubin Urine Urobilinogen Ur Leukocyte Esterase Urine RBC Urine WBC Ur Squamous Epith Cells Ur Transition Epith Cell Amorphous Sediment Urine Bacteria Urine Mucus Micro UA Comment Ur Microscopic Review Urine Culture Comments Nasal Screen MRSA (PCR) Salicylates Urine Opiates Screen Acetaminophen Ur Barbiturates Screen Ur Amphetamine Screen U Benzodiazepines Scrn Urine Cocaine Screen U Cannabinoids Screen Serum Alcohol Blood Type Blood Type Recheck Antibody Screen 12/04/17 12/04/17 12/04/17 06:15 06:15 06:15 WBC RBC Hgb Hct MCV MCH MCHC RDW Plt Count MPV Prelim Diff (Auto) Neut % (Auto) Lymph % (Auto) [place] % (Auto) Eos % (Auto) Baso % (Auto) Neut # (Auto) Lymph # (Auto) [place] # (Auto) Eos # (Auto) Baso # (Auto) WBC Differential Diff Scan Seg Neuts % (Manual) Lymphocytes % (Manual) Monocytes % (Manual) Abs Neuts (Manual) Differential Comment Platelet Estimate Platelet Morphology Tear Drop Cells PT 10.3 INR 1.0 APTT 29.7 Fibrinogen Puncture Site Patient Temperature O2 Saturation ABG pH ABG pCO2 ABG pO2 ABG HCO3 ABG O2 Content ABG Base Excess ABG Methemoglobin Hemoglobin Carboxyhemoglobin O2 Delivery Device Vent Setting Inspired O2 Critical Value Sodium Potassium Chloride Carbon Dioxide Anion Gap BUN Creatinine Estimated GFR POC Glucose 112 H Random Glucose Lactic Acid Calcium Prot Corrected Calcium Phosphorus Magnesium Total Bilirubin Direct Bilirubin Indirect Bilirubin AST ALT Alkaline Phosphatase Ammonia Total Creatine Kinase 1456 H CK-MB (CK-2) 112.0 H CK-MB (CK-2) % 7.7 H* Troponin I B-Natriuretic Peptide Total Protein Albumin Triglycerides Cholesterol LDL Cholesterol, Calc HDL Cholesterol Cholesterol/HDL Ratio TSH Free T4 Urine Color Urine Clarity Urine pH Ur Specific [place] Urine Protein Urine Glucose (UA) Urine Ketones Urine Occult Blood Urine Nitrate Urine Bilirubin Urine Urobilinogen Ur Leukocyte Esterase Urine RBC Urine WBC Ur Squamous Epith Cells Ur Transition Epith Cell Amorphous Sediment Urine Bacteria Urine Mucus Micro UA Comment Ur Microscopic Review Urine Culture Comments Nasal Screen MRSA (PCR) Salicylates Urine Opiates Screen Acetaminophen Ur Barbiturates Screen Ur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
[2017-12-05] MEDS: Dexmedetomidine Inj 1,000 MCG in Sodium Chlor 0.9% Inj 240 ML IV.CONT PRN (14:58)
[2017-12-05] MEDS ORDERED: Dextrose 50% in Water 50 ML Vial IV.PUSH PRN (15:27)
[2017-12-05] MEDS ORDERED: RESP: Albuterol Concentrated 2.5 MG/0.5 ML Neb NEB ONE ×2 (15:27→18:15)
[2017-12-05] MEDS ORDERED: Vancomycin Consult Pharmacy OTHER PRN (15:28)
[2017-12-05 16:25] LABS: Bacteria,Urine Occasional /hpf; Bilirubin,Urine Negative (Negative); Clarity,Urine Cloudy (Clear); Color,Urine Yellow (Yellw/Straw); Glucose,Urine (UA) Negative (Negative); Leukocyte Esterase,Urine Small (Negative); Mucus,Urine Few /lpf (Occasional); Nitrite,Urine Negative (Negative); Specific Gravity,Urine 1.029 (1.002-1.035); Squamous Epithelial Cell,Urine <1 /hpf (0-5)
[2017-12-05] MEDS ORDERED: Vancomycin Inj 1,800 MG in Sodium Chlor 0.9% Inj 500 ML IV.SIG ONE (18:00)
[2017-12-06] MEDS: Oral Hygiene Kit OROPHARYNG SCH ×4 (00:48→16:10)
[2017-12-06] MEDS: Insulin NovoLIN Regular Correctional Sugar Inj SQ SCH ×4 (00:48→18:14)
[2017-12-06] MEDS: Ampicillin/Sulbactam Inj 3 GM in Sodium Chloride 0.9% Inj 100 ML IV.SIG SCH ×3 (02:33→18:14)
--- NOTE | 2017-12-06 04:57 | XR ---
EXAM DATE: 12/06/2017 6:00 AM EDT AGE/SEX: 57 years / Male INDICATIONS: Shortness of breath, possible pulmonary disease. CLINICAL DATA: This is the patient's subsequent encounter. Patient reports that signs and symptoms h ave been present for 4 - 6 days and indicates a pain score of Nonresponsive. MEDICAL/SURGICAL HISTORY: Hypertension. Non-responsive. COMPARISON: . FINDINGS: Single AP view the chest. Endotracheal tube, nasogastric tube, right IJ central venous catheter remai n in place. Mild patchy bilateral lower lung opacity unchanged. No evidence of pleural effusion or pn eumothorax. CONCLUSION: No significant interval change and mild patchy bilateral lower lung zone opacity. Electronically signed by: Braden Bentley MD 12/06/2017 4:56 AM EDT
[2017-12-06 05:30] LABS: Baso % (Auto) 0.3 % (0.0-2.0); Hematocrit 34.5 % (39.0-51.0); Hemoglobin 11.7 gm/dL (13.0-17.0); Lymph # (Auto) 0.9 th/mm3 (1.0-4.8); Lymph % (Auto) 6.6 % (9.0-44.0); Mean Corpuscular Hemoglobin 32.7 pg (27.0-34.0); Mean Corpuscular Volume 96.4 fL (80.0-100.0); Mean Platelet Volume 9.2 fL (7.0-11.0); Mono # (Auto) 1.1 th/mm3 (0.0-0.9); Mono % (Auto) 7.7 % (0.0-8.0); Neut # (Auto) 12.2 th/mm3 (1.8-7.7); Neut % (Auto) 85.4 % (16.0-70.0); Platelet Count 118 th/mm3 (150-450); Red Blood Count 3.59 mil/mm3 (4.50-5.90); Red Cell Distribution Width 13.9 % (11.6-17.2); White Blood Count 14.3 th/mm3 (4.0-11.0)
[2017-12-06 06:08] LABS: Alanine Aminotransferase 231 U/L (12-78); Albumin 2.7 g/dL (3.4-5.0); Alkaline Phosphatase 56 U/L (45-117); Anion Gap 13 meq/L (5-15); Aspartate Aminotransferase 129 U/L (15-37); Blood Urea Nitrogen 65 mg/dL (7-18); Calcium 8.3 mg/dL (8.5-10.1); Carbon Dioxide 20.2 meq/L (21.0-32.0); Chloride 111 meq/L (98-107); Glomerular Filtration Rate 29 mL/min (>89); Glucose,Random 165 mg/dL (74-106); Magnesium 2.2 mg/dL (1.5-2.5); Potassium 3.3 meq/L (3.5-5.1); Sodium 144 meq/L (136-145)
[2017-12-06] MEDS: Chlorhexidine Gluconate 2% 1 Pack (2 Cloths) TOPICAL SCH (06:08)
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
--- NOTE | 2017-12-06 07:43 | P.PNCA ---
Subjective Interval history: Remains on Levophed. Less shaking with Precedex started. Temperature yesterday afternoon and overnight, up to 101, started on antibiotics per primary team. Telemetry with motion artifact. Medications and Allergies Active Medications: Active Medications Acetaminophen (Tylenol Liq) 650 mg NG/OG Q6H PRN PRN Reason: SHIVERING Albuterol (Duoneb Neb (Faisal)) 1 ampul NEB Q6HR NEB [facility] Last Admin: 12/06/17 03:31 Dose: 1 ampul Albuterol (Albuterol Neb (Prn)) 2.5 mg NEB Q2HR NEB PRN PRN Reason: DYSPNEA Last Admin: 12/05/17 16:27 Dose: 2.5 mg Artificial Tears (Lacrilube Opth Oint) 1 applicatio EACH EYE Q4H PRN PRN Reason: NMB Artificial Tears (Refresh Tears 0.5% Opth Drops) 1 drop EACH EYE BID [facility] Last Admin: 12/05/17 20:47 Dose: 1 drop Aspirin (Aspirin Chew) 81 mg PO DAILY [facility] Last Admin: 12/05/17 10:07 Dose: 81 mg Carvedilol (Coreg) 6.25 mg PO BID [facility] Last Admin: 12/04/17 20:11 Dose: 6.25 mg Chlorhexidine Gluconate (Peridex 0.12% Oral Kit) 15 ml OROPHARYNG BID@0800, 2000 [facility] Last Admin: 12/05/17 20:46 Dose: 15 ml Chlorhexidine Gluconate (Chlorhexidine 2% Cloth) 3 pack TOPICAL DAILY@0400 [facility] Stop: 12/08/17 03:59 Last Admin: 12/06/17 06:08 Dose: 3 pack Chlorhexidine Gluconate (Chlorhexidine 2% Cloth) 3 pack TOPICAL DAILY@0400 PRN PRN Reason: Extra cloth needed Stop: 12/08/17 03:59 Dextrose (D50w Vial) 50 ml IV.PUSH UNSCH PRN PRN Reason: PER HYPOGLYCEMIA PROTOCOL Last Admin: 12/05/17 12:21 Dose: 50 ml Fentanyl Citrate (Fentanyl Inj) 50 mcg IV.PUSH Q1H PRN PRN Reason: PAIN SCALE 1 TO 10 Glucagon (Glucagon Inj) 1 mg OTHER PRN PRN PRN Reason: for Hypoglycemia Protocol Heparin Sodium (Porcine) 25, (000 unit/ Sodium Chloride) 250 mls @ 10 mls/hr IV.CONT TITRATE PRN; Protocol PRN Reason: Per Protocol Last Titration: 12/06/17 02:34 Dose: 1,100 units/hr, 11 mls/hr Propofol (Diprivan 1000 Mg/100 Ml Inj) 1,000 mg in 100 mls @ 2.76 mls/hr IV.CONT TITRATE PRN; Protocol PRN Reason: Per Protocol Last Titration: 12/05/17 12:00 Dose: 0 mcg/kg/min, 0 mls/hr Norepinephrine Bitartrate 16 (mg/ Sodium Chloride) 250 mls @ 1.87 mls/hr IV.CONT TITRATE PRN; Protocol PRN Reason: See Protocol Last Titration: 12/05/17 23:30 Dose: 2 mcg/min, 1.87 mls/hr Dexmedetomidine HCl 1,000 mcg/ (Sodium Chloride) 250 mls @ 4.57 mls/hr IV.CONT TITRATE PRN; Protocol PRN Reason: Per Protocol Last Titration: 12/05/17 21:16 Dose: 0.05 mcg/kg/hr, 1.14 mls/hr Ampicillin Sodium/Sulbactam (Sodium 3 gm/ Sodium Chloride) 100 mls @ 200 mls/ hr IV.SIG Q12H [facility]IS[facility] Potassium Chloride (Kcl 10 Meq Premix Inj) 10 meq in 100 mls @ 100 mls/hr IV.SIG Q1H [facility] Stop: 12/06/17 09:23 Potassium Chloride 60 meq/ (Sodium Chloride) 280 mls @ 93.333 mls/hr IV.SIG ONCE ONE Stop: 12/06/17 12:59 Insulin Human Regular (Novolin R Correctional Sugar Inj) 0 units SQ Q6HR FAISAL; Protocol Last Admin: 12/06/17 06:10 Dose: 1 units Lactulose (Lactulose Liq) 30 ml PO Q6H [facility] Last Admin: 12/06/17 06:09 Dose: 30 ml Lansoprazole (Prevacid Solutab) 30 mg NG/OG DAILY [facility] Last Admin: 12/05/17 10:07 Dose: 30 mg Metoprolol Tartrate (Lopressor Inj) 5 mg IV.PUSH Q5M PRN PRN Reason: HR>100 Last Admin: 12/05/17 00:26 Dose: 5 mg Miscellaneous Information (Misc Information) 0 each OTHER UNSCH [facility] Miscellaneous Medication () 1 each OROPHARYNG 0000,0400,1200,1600 [facility] Last Admin: 12/06/17 06:09 Dose: 1 each Ondansetron HCl (Zofran Inj) 4 mg IV.PUSH Q6H PRN PRN Reason: NAUSEA OR VOMITING Last Admin: 12/05/17 07:26 Dose: 4 mg Pharmacy Profile Note (Vancomycin Consult Pharmacy) 1 each OTHER UNSCH PRN PRN Reason: Pharmacy to dose Senna/Docusate Sodium (Mirella-Colace) 1 tab PO BID [facility] Last Admin: 12/05/17 20:47 Dose: 1 tab Sodium Chloride (Ns Flush) 2 ml IV.FLUSH UNSCH PRN PRN Reason: FLUSH AFTER USING IV ACCESS Sodium Chloride (Ns Flush) 0 ml IV.FLUSH DAILY [facility] Terbutaline Sulfate (Brethine Inj) 1 mg SQ UNSCH PRN PRN Reason: For Extravasation Allergies Allergy/AdvReac Type Severity Reaction Status Date / Time No Known Allergies Allergy Verified 12/02/17 09:40 Home Medications Medication Instructions Recorded Confirmed Type losartan 25 mg PO DAILY 12/03/17 12/03/17 History Physical Exam Vital signs: Vital Signs 12/05/17 08:00 12/05/17 10:38 12/05/17 11:00 Temperature 98.6 F Pulse Rate 98 H 96 H Respiratory Rate 14 12 12 Blood Pressure 116/70 119/71 Pulse Oximetry 97 97 95 12/05/17 11:03 12/05/17 12:00 12/05/17 13:29 Temperature Pulse Rate 95 H 85 Respiratory Rate 12 12 Blood Pressure 91/43 L Pulse Oximetry 97 12/05/17 15:00 12/05/17 16:00 12/05/17 16:15 Temperature 101.3 F H Pulse Rate 93 H 85 Respiratory Rate 12 12 Blood Pressure 98/69 L 94/62 L Pulse Oximetry 99 98 12/05/17 16:27 12/05/17 18:51 12/05/17 20:00 Temperature 98.8 F Pulse Rate 92 H 89 87 Respiratory Rate 12 12 12 Blood Pressure 132/78 Pulse Oximetry 12/05/17 20:10 12/05/17 20:15 12/06/17 00:00 Temperature 100.3 F H Pulse Rate 86 97 H Respiratory Rate 12 14 12 Blood Pressure 107/68 Pulse Oximetry 98 12/06/17 00:27 12/06/17 03:31 12/06/17 04:00 Temperature 99.8 F H Pulse Rate 94 H 98 H Respiratory Rate 12 12 12 Blood Pressure 122/75 Pulse Oximetry 99 12/06/17 04:37 Temperature Pulse Rate Respiratory Rate 12 Blood Pressure Pulse Oximetry 99 Intake & Output 12/05/17 12/06/17 12/06/17 18:59 06:59 18:59 Intake Total 963 / 963 840 / 840 Output Total 810 / 810 815 / 815 Balance 153 / 153 25 / 25 Weight 207 lb 3.752 oz Intake: IV 750 / 750 718 / 718 Cleviprex Inj 25 mg In 50 ml @ 0 / 0 1 MG/HR 2 mls/hr IV.CONT TITRATE PRN Rx#:[id number] Precedex Inj 200 MCG In NS Inj 100 / 100 48 ML @ 0.2 MCG/KG/HR 4.57 mls/ hr IV.CONT TITRATE PRN Rx#: [id number] Levophed Inj 16 MG In NS Inj 150 / 150 234 ML @ 2 MCG/MIN 1.87 mls/hr IV.CONT TITRATE PRN Rx#: [id number] Ofirmev Inj 1,000 mg In 100 ml 100 / 100 @ 400 mls/hr IV.SIG ONCE ONE Rx #:[id number] Unasyn Inj 3 GM In NS Inj 100 200 / 200 200 / 200 ML @ 200 mls/hr IV.SIG Q6H FAISAL Rx#:[id number] Magnesium Sulfate 1 gm/D5W 100 200 / 200 ml Premix 100 ML @ 100 mls/hr IV.SIG Q1H FAISAL Rx#:[id number] Vancomycin Inj 1,800 MG In NS 518 / 518 Inj 500 ML @ 250 mls/hr IV.SIG ONCE ONE Rx#:[id number] Oral 0 / 0 Tube Feeding 122 / 122 Tube Irrigant 200 / 200 Output: Urine Amount (Catheter) 410 / 410 815 / 815 Indwelling Urethral Catheter 410 / 410 815 / 815 Gastric Drainage 400 / 400 Oral Orogastric Tube 400 / 400 Other: Date of Last Bowel Movement 12/02/17 12/05/17 # Bowel Movements 1 # Incontinent Bowel Movements 1 Narrative: GENERAL: Well-developed well-nourished. NECK: No carotid bruits. No JVD. CARDIOVASCULAR: Regular rate and rhythm. No murmur appreciated. RESPIRATORY: Mechanically ventilated. Clear to auscultation. MUSCULOSKELETAL: No clubbing or cyanosis. No edema. NEUROLOGICAL: Intubated. No shivering and decerebrate posturing currently. - Urinary Catheter Management Indwelling Temp Sensing Catheter Cath placed during this visit: yes, but has since been removed by the nurse Reason for continuing: Decision to DC catheter Insertion date: 12/02/17 Insertion time: 12:03 Removal date: 12/04/17 Removal time: 13:45 Indwelling Urethral Catheter Cath placed during this visit: yes Reason for continuing: Hourly intake/output Insertion date: 12/04/17 Insertion time: 13:50 Results 12/06/17 05:00 12/06/17 05:00 Cardiac Enzymes 12/04/17 12/05/17 12/06/17 Range/Units 06:15 07:35 05:00 AST 152 H 129 H (15-37) U/L CK-MB (CK-2) 112.0 H (0.5-3.6) ng/mL Coagulation 12/04/17 12/05/17 12/05/17 Range/Units 13:39 00:35 07:35 PT 10.9 (9.8-11.6) sec APTT 30.1 33.7 H (24.3-30.1) sec 12/05/17 12/05/17 12/06/17 Range/Units 07:35 17:39 00:30 PT (9.8-11.6) sec APTT 34.1 H 35.9 H 37.2 H (24.3-30.1) sec CBC 12/05/17 12/06/17 Range/Units 05:19 05:00 WBC 19.9 H 14.3 H (4.0-11.0) th/mm3 RBC 3.85 L 3.59 L (4.50-5.90) mil/mm3 Hgb 12.8 L 11.7 L (13.0-17.0) gm/dL Hct 37.8 L 34.5 L (39.0-51.0) % Plt Count 132 L 118 L (150-450) th/mm3 Neut # (Auto) 16.2 H 12.2 H (1.8-7.7) th/mm3 Lymph # (Auto) 1.5 0.9 L (1.0-4.8) th/mm3 [place] # (Auto) 2.2 H 1.1 H (0.0-0.9) th/mm3 Eos # (Auto) 0.0 0.0 (0.0-0.4) th/mm3 Baso # (Auto) 0.1 0.0 (0.0-0.2) th/mm3 Comprehensive Metabolic Panel 12/05/17 12/06/17 Range/Units 07:35 05:00 Sodium 145 144 (136-145) meq/L Potassium 5.1 D 3.3 L D (3.5-5.1) meq/L Chloride 111 H 111 H (98-107) meq/L Carbon Dioxide 22.7 20.2 L (21.0-32.0) meq/L BUN 50 H 65 H (7-18) mg/dL Creatinine 2.33 H 2.35 H (0.60-1.30) mg/dL Calcium 8.3 L 8.3 L (8.5-10.1) mg/dL AST 152 H 129 H (15-37) U/L ALT 302 H 231 H (12-78) U/L Alkaline Phosphatase 59 56 (45-117) U/L Total Protein 6.1 L D 6.0 L (6.4-8.2) g/dL Albumin 3.1 L 2.7 L (3.4-5.0) g/dL Intake and Output 12/05/17 12/06/17 12/06/17 22:59 06:59 14:59 Intake Total 931 / 931 222 / 222 Output Total 810 / 810 815 / 815 Balance 121 / 121 -593 / -593 Intake: IV 718 / 718 100 / 100 Ofirmev Inj 1,000 mg In 100 ml 100 / 100 @ 400 mls/hr IV.SIG ONCE ONE Rx #:[id number] Unasyn Inj 3 GM In NS Inj 100 100 / 100 100 / 100 ML @ 200 mls/hr IV.SIG Q6H FAISAL Rx#:[id number] Vancomycin Inj 1,800 MG In NS 518 / 518 Inj 500 ML @ 250 mls/hr IV.SIG ONCE ONE Rx#:[id number] Oral 0 / 0 Tube Feeding 122 / 122 Tube Irrigant 200 / 200 Output: Urine Amount (Catheter) 410 / 410 815 / 815 Indwelling Urethral Catheter 410 / 410 815 / 815 Gastric Drainage 400 / 400 Oral Orogastric Tube 400 / 400 Other: Date of Last Bowel Movement 12/05/17 12/05/17 # Bowel Movements 1 # Incontinent Bowel Movements 1 Weight 207 lb 3.752 oz - Imaging and Cardiology Imaging: Impressions Chest X-Ray 12/04/17 00:00 CONCLUSION: 1. ETT in good position. NGT beyond the GE junction. 2. Mild bibasilar atelectasis. Head MRI 12/04/17 00:00 CONCLUSION: 1. Unremarkable MRI of the brain for patient's age. 2. Mild chronic bilateral mastoiditis. Chest X-Ray 12/05/17 07:28 CONCLUSION: 1. No significant interval change. 2. Stable ETT and NGT. 3. Minimal bibasilar atelectasis. Chest X-Ray 12/05/17 11:03 CONCLUSION: 1. Right IJ central line in good position without pneumothorax. 2. ETT and NGT stable. 3. Mild bibasilar airspace disease, likely atelectasis. Chest X-Ray 12/06/17 06:00 CONCLUSION: No significant interval change and mild patchy bilateral lower lung zone opacity. Assessment and Plan - Plan 57-year-old male admitted status post V. fib arrest Assessment: s/p V. fib arrest - suspect primary arrhythmogenic event Cardiomyopathy - EF 25-35% Narrow complex tachycardia 12/02 - sinus tachycardia vs brief atrial flutter Hypotension requiring pressor support Respiratory failure requiring mechanical ventilation GCS 3 on arrival s/p medically induced coma s/p hypothermia protocol, frequent shivering and decerebrate posturing Fever - on antibiotics per primary team Plan: Continue heparin gtt for medical management of ACS Patient will require left heart cath pending neurologic recovery-EEG with moderate to severe slowing Aspirin 81 mg daily Hold statin due to to shock liver Hold off on carvedilol and ACEi with hypotension Discussed Condition With: RNDr. Minor Procedures - Arterial Line Size (Gauge): 20
[2017-12-06] MEDS: Chlorhexidine 0.12% Oral Kit 15 ML UDC OROPHARYNG SCH ×2 (08:10→21:57)
[2017-12-06] MEDS: HEPARIN IV.CONT PRN (08:11)
[2017-12-06] MEDS: SODIUM CHLOR 0.9% IV.CONT PRN (08:11)
--- NOTE | 2017-12-06 08:41 | US ---
EXAM DATE: 12/06/2017 12:00 AM EDT AGE/SEX: 57 years / Male INDICATIONS: Increased BUN/Creatinine. CLINICAL DATA: This is the patient's initial encounter. Patient reports that signs and symptoms have been present for 1 day and indicates a pain score of Nonresponsive. MEDICAL/SURGICAL HISTORY: Hypertension. Hyperlipidemia. Ventricular fibrillation cardiac arrest . . Right radial arterial line placement. Right Femoral central line placement. Intubated. COMPARISON: No prior exams available for comparison. MEASUREMENTS: Right Kidney:__12.0 x 6.2 x 6.4 cm Left Kidney:__11.8 x 6.0 x 6.4 cm FINDINGS: Right Kidney: Increased echotexture. No mass or hydronephrosis. Left Kidney: Increased echotexture. No mass or hydronephrosis. Bladder: Rocha catheter is present. Bladder decompressed. Other: None. CONCLUSION: 1. The kidneys appear of normal size and adequate cortical thickness bilaterally. There does appear to be mildly increased echogenicity which can suggest underlying medical renal disease. Electronically signed by: Sharif Greco MD 12/06/2017 8:39 AM EDT
[2017-12-06] MEDS: Potassium Chlor 10 mEq Premix 10 MEQ/100 ML PIGGYBACK IV.SIG SCH ×3 (08:43→10:38)
[2017-12-06 08:45] LABS: Creatinine,Urine Random 220 mg/dL (27-300)
[2017-12-06 08:59] LABS: ABG Base Excess -0.7 mmol/L (-2-2); ABG PCO2 20 mmHg (38-42); ABG PO2 178 mmHG (61-120)
[2017-12-06 09:00] LABS: Activated Partial Thrombo Time 38.3 sec (24.3-30.1); INR 1.1 Ratio; Prothrombin Time 10.8 sec (9.8-11.6)
[2017-12-06] MEDS: Senna/Docusate Sodium 8.6/50 MG Tablet PO SCH ×2 (09:56→21:57)
[2017-12-06] MEDS: Carboxymethylcellulose 0.5% Opth Drops 15 ML Bottle EACH EYE SCH ×2 (09:58→21:58)
[2017-12-06] MEDS ORDERED: POTASSIUM CHLORIDE IV.SIG ONE (10:00)
[2017-12-06] MEDS ORDERED: SODIUM CHLOR 0.9% IV.SIG ONE (10:00)
[2017-12-06] MEDS: Dexmedetomidine Inj 1,000 MCG in Sodium Chlor 0.9% Inj 240 ML IV.CONT PRN (11:28)
[2017-12-06 11:31] LABS: ABG Base Excess -0.2 mmol/L (-2-2); ABG PCO2 32 mmHg (38-42); ABG PO2 136 mmHG (61-120)
[2017-12-06] MEDS ORDERED: Vancomycin Inj 1,500 MG in Sodium Chlor 0.9% Inj 500 ML IV.SIG ONE (14:00)
--- NOTE | 2017-12-06 15:13 | P.PNPAL ---
Reason for Visit Reason for visit: a. To assist with evaluation and management of symptoms including: Encephalopathy, tremor b. To assist medical decision maker(s) with: better understanding of current medical conditions; weighing benefits/burdens of medical treatment options; making medical treatment decisions. Subjective Subjective/Interval History: Patient seen for follow-up of symptom management of encephalopathy and tremor and goals of medical treatment. Patient remains encephalopathic on Precedex 0.5 mcg/kg/h. Propofol has been discontinued. He does not withdraw to pain in any extremity. He does not resist eyelid retraction nor arouse to noxious stimuli. Negative corneal reflexes, positive gag reflex. Nurses noted no response during bathing, turning , repositioning. Possible posturing has been reported by the nurse, not seen at this evaluation. MRI done 12/04 without contrast was unremarkable for patient's age. EEG showed diffuse slowing, consistent with moderate to severe diffuse encephalopathy without seizure activity or focal abnormalities noted. Tremors improving on Precedex. Some motion artifact is seen on telemetry. Remains febrile today with T-MAX 100.4. No visible tremors of limbs, no nystagmus noted. . Advance Directives Living Will: Never completed Health Care Surrogate: Never completed Durable Power of Communication Electronic Technician: Never completed Objective Vital Signs: Vital Signs 12/05/17 15:00 12/05/17 16:00 12/05/17 16:15 Temperature 101.3 F H Pulse Rate 93 H 85 Respiratory Rate 12 12 Blood Pressure 98/69 L 94/62 L Pulse Oximetry 99 98 12/05/17 16:27 12/05/17 18:51 12/05/17 20:00 Temperature 98.8 F Pulse Rate 92 H 89 87 Respiratory Rate 12 12 12 Blood Pressure 132/78 Pulse Oximetry 12/05/17 20:10 12/05/17 20:15 12/06/17 00:00 Temperature 100.3 F H Pulse Rate 86 97 H Respiratory Rate 12 14 12 Blood Pressure 107/68 Pulse Oximetry 98 12/06/17 00:27 12/06/17 03:31 12/06/17 04:00 Temperature 99.8 F H Pulse Rate 94 H 98 H Respiratory Rate 12 12 12 Blood Pressure 122/75 Pulse Oximetry 99 12/06/17 04:37 12/06/17 07:00 12/06/17 08:00 Temperature 99.9 F H Pulse Rate 90 89 Respiratory Rate 12 11 L Blood Pressure 114/59 L 114/69 Pulse Oximetry 99 99 12/06/17 08:25 12/06/17 08:30 12/06/17 09:10 Temperature Pulse Rate 91 H Respiratory Rate 11 L 11 L 15 Blood Pressure Pulse Oximetry 99 97 12/06/17 11:00 12/06/17 12:00 12/06/17 13:55 Temperature 100.4 F H Pulse Rate 94 H 89 Respiratory Rate 15 14 Blood Pressure 115/64 114/69 Pulse Oximetry 97 98 Intake & Output 12/05/17 12/06/17 12/06/17 18:59 06:59 18:59 Intake Total 963 / 963 1001.9 / 1001.9 870 / 870 Output Total 810 / 810 815 / 815 Balance 153 / 153 186.9 / 186.9 870 / 870 Weight 207 lb 3.752 oz Intake: IV 750 / 750 879.9 / 879.9 870 / 870 Cleviprex Inj 25 mg In 50 ml @ 0 / 0 1 MG/HR 2 mls/hr IV.CONT TITRATE PRN Rx#:[id number] Precedex Inj 1,000 MCG In NS 220 / 220 Inj 240 ML @ 0.2 MCG/KG/HR 4.57 mls/hr IV.CONT TITRATE PRN Rx# :[id number] Precedex Inj 200 MCG In NS Inj 100 / 100 48 ML @ 0.2 MCG/KG/HR 4.57 mls/ hr IV.CONT TITRATE PRN Rx#: [id number] Heparin Inj 25,000 UNIT In NS 161.9 / 161.9 Inj 247.5 ML @ 1,000 UNITS/HR 10 mls/hr IV.CONT TITRATE PRN Rx#:[id number] Levophed Inj 16 MG In NS Inj 150 / 150 234 ML @ 2 MCG/MIN 1.87 mls/hr IV.CONT TITRATE PRN Rx#: [id number] Diprivan 1000 mg/100 ml Inj 1, 100 / 100 000 mg In 100 ml @ 5 MCG/KG/MIN 2.76 mls/hr IV.CONT TITRATE PRN Rx#:[id number] Ofirmev Inj 1,000 mg In 100 ml 100 / 100 @ 400 mls/hr IV.SIG ONCE ONE Rx #:[id number] Unasyn Inj 3 GM In NS Inj 100 200 / 200 200 / 200 100 / 100 ML @ 200 mls/hr IV.SIG Q12H [facility] Rx#:[id number] Magnesium Sulfate 1 gm/D5W 100 200 / 200 ml Premix 100 ML @ 100 mls/hr IV.SIG Q1H [facility] Rx#:[id number] KCl 10 mEq Premix Inj 10 meq In 300 / 300 100 ml @ 100 mls/hr IV.SIG Q1H [facility] Rx#:[id number] Vancomycin Inj 1,800 MG In NS 518 / 518 Inj 500 ML @ 250 mls/hr IV.SIG ONCE ONE Rx#:[id number] fentaNYL 10 mcg/mL Premix Drip 150 / 150 2,500 mcg In 250 ml @ 50 MCG/HR 5 mls/hr IV.SIG TITRATE PRN Rx #:[id number] Oral 0 / 0 Tube Feeding 122 / 122 Tube Irrigant 200 / 200 Output: Urine Amount (Catheter) 410 / 410 815 / 815 Indwelling Urethral Catheter 410 / 410 815 / 815 Gastric Drainage 400 / 400 Oral Orogastric Tube 400 / 400 Other: Date of Last Bowel Movement 12/02/17 12/05/17 12/06/17 # Bowel Movements 1 # Incontinent Bowel Movements 1 Physical Exam: CONSTITUTIONAL/GENERAL: This is an adequately nourished patient, intubated, sedated, in no apparent distress. TUBES/LINES/DRAINS: PIV left hand, bilateral ACF PIV, right IJ, right radial arterial EYES: Pupils 2 mm, slightly reactive. Positive scleral edema, no scleral icterus. No injection or drainage. Fundi not examined. ENT: Nose without bleeding or purulent drainage. Orally intubated. NECK: Trachea midline. Supple. CARDIOVASCULAR: Regular rate and rhythm without murmurs, gallops, or rubs. No JVD. Peripheral pulses symmetric. RESPIRATORY/CHEST: Symmetric, unlabored respirations. Coarse rhonchi throughout all lung dimas. GASTROINTESTINAL: Abdomen soft, nondistended. Bowel sounds present. GENITOURINARY: Without palpable bladder distension. Rocha catheter in place. MUSCULOSKELETAL: Extremities without clubbing, cyanosis, or edema. No mottling or clubbing. NEUROLOGICAL: Intubated, sedated. Not withdrawing to painful stimuli. PSYCHIATRIC: Sedated. . Diagnostic Tests Laboratory: Laboratory Results - last 72 hr 12/02/17 12/03/17 12/03/17 12:00 14:50 15:10 WBC RBC Hgb Hct MCV MCH MCHC RDW Plt Count MPV Prelim Diff (Auto) Neut % (Auto) Lymph % (Auto) [place] % (Auto) Eos % (Auto) Baso % (Auto) Neut # (Auto) Lymph # (Auto) [place] # (Auto) Eos # (Auto) Baso # (Auto) WBC Differential Seg Neuts % (Manual) Lymphocytes % (Manual) Monocytes % (Manual) Abs Neuts (Manual) Differential Comment Platelet Estimate Platelet Morphology Tear Drop Cells PT INR APTT 44.3 H D Puncture Site Patient Temperature O2 Saturation ABG pH ABG pCO2 ABG pO2 ABG HCO3 ABG O2 Content ABG Base Excess ABG Methemoglobin Hemoglobin Carboxyhemoglobin O2 Delivery Device Vent Setting Inspired O2 Critical Value Sodium Potassium Chloride Carbon Dioxide Anion Gap BUN Creatinine Estimated GFR POC Glucose 93 Random Glucose Calcium Phosphorus Magnesium Total Bilirubin AST ALT Alkaline Phosphatase Ammonia Total Creatine Kinase CK-MB (CK-2) CK-MB (CK-2) % Total Protein Albumin Urine Color Urine Clarity Urine pH Ur Specific [place] Urine Protein Urine Glucose (UA) Urine Ketones Urine Occult Blood Urine Nitrate Urine Bilirubin Urine Urobilinogen Ur Leukocyte Esterase Urine RBC Urine WBC Urine WBC Clumps Ur Squamous Epith Cells Urine Bacteria Urine Mucus Micro UA Comment Ur Microscopic Review Urine Culture Comments Urine Eosinophils Ur Random Creatinine Ur Random Sodium Random Vancomycin U Benzodiazepine Confm Negative 12/03/17 12/03/17 12/03/17 16:15 17:10 19:39 WBC RBC Hgb Hct MCV MCH MCHC RDW Plt Count MPV Prelim Diff (Auto) Neut % (Auto) Lymph % (Auto) [place] % (Auto) Eos % (Auto) Baso % (Auto) Neut # (Auto) Lymph # (Auto) [place] # (Auto) Eos # (Auto) Baso # (Auto) WBC Differential Seg Neuts % (Manual) Lymphocytes % (Manual) Monocytes % (Manual) Abs Neuts (Manual) Differential Comment Platelet Estimate Platelet Morphology Tear Drop Cells PT INR APTT Puncture Site Patient Temperature O2 Saturation ABG pH ABG pCO2 ABG pO2 ABG HCO3 ABG O2 Content ABG Base Excess ABG Methemoglobin Hemoglobin Carboxyhemoglobin O2 Delivery Device Vent Setting Inspired O2 Critical Value Sodium 143 Potassium 3.5 Chloride 113 H Carbon Dioxide 21.9 Anion Gap 8 BUN 33 H Creatinine 1.41 H Estimated GFR 51 L POC Glucose 92 88 Random Glucose 101 Calcium 7.7 L D Phosphorus Magnesium 1.7 Total Bilirubin AST ALT Alkaline Phosphatase Ammonia Total Creatine Kinase CK-MB (CK-2) CK-MB (CK-2) % Total Protein Albumin Urine Color Urine Clarity Urine pH Ur Specific [place] Urine Protein Urine Glucose (UA) Urine Ketones Urine Occult Blood Urine Nitrate Urine Bilirubin Urine Urobilinogen Ur Leukocyte Esterase Urine RBC Urine WBC Urine WBC Clumps Ur Squamous Epith Cells Urine Bacteria Urine Mucus Micro UA Comment Ur Microscopic Review Urine Culture Comments Urine Eosinophils Ur Random Creatinine Ur Random Sodium Random Vancomycin U Benzodiazepine Confm 12/03/17 12/03/17 12/04/17 22:32 22:45 00:25 WBC RBC Hgb Hct MCV MCH MCHC RDW Plt Count MPV Prelim Diff (Auto) Neut % (Auto) Lymph % (Auto) [place] % (Auto) Eos % (Auto) Baso % (Auto) Neut # (Auto) Lymph # (Auto) [place] # (Auto) Eos # (Auto) Baso # (Auto) WBC Differential Seg Neuts % (Manual) Lymphocytes % (Manual) Monocytes % (Manual) Abs Neuts (Manual) Differential Comment Platelet Estimate Platelet Morphology Tear Drop Cells PT INR APTT 32.5 H D Puncture Site Patient Temperature O2 Saturation ABG pH ABG pCO2 ABG pO2 ABG HCO3 ABG O2 Content ABG Base Excess ABG Methemoglobin Hemoglobin Carboxyhemoglobin O2 Delivery Device Vent Setting Inspired O2 Critical Value Sodium Potassium Chloride Carbon Dioxide Anion Gap BUN Creatinine Estimated GFR POC Glucose 92 Random Glucose Calcium Phosphorus 3.2 Magnesium 1.7 Total Bilirubin AST ALT Alkaline Phosphatase Ammonia Total Creatine Kinase 1677 H CK-MB (CK-2) 133.2 H CK-MB (CK-2) % 7.9 H* Total Protein Albumin Urine Color Urine Clarity Urine pH Ur Specific [place] Urine Protein Urine Glucose (UA) Urine Ketones Urine Occult Blood Urine Nitrate Urine Bilirubin Urine Urobilinogen Ur Leukocyte Esterase Urine RBC Urine WBC Urine WBC Clumps Ur Squamous Epith Cells Urine Bacteria Urine Mucus Micro UA Comment Ur Microscopic Review Urine Culture Comments Urine Eosinophils Ur Random Creatinine Ur Random Sodium Random Vancomycin U Benzodiazepine Confm 12/04/17 12/04/17 12/04/17 00:29 02:19 04:04 WBC RBC Hgb Hct MCV MCH MCHC RDW Plt Count MPV Prelim Diff (Auto) Neut % (Auto) Lymph % (Auto) [place] % (Auto) Eos % (Auto) Baso % (Auto) Neut # (Auto) Lymph # (Auto) [place] # (Auto) Eos # (Auto) Baso # (Auto) WBC Differential Seg Neuts % (Manual) Lymphocytes % (Manual) Monocytes % (Manual) Abs Neuts (Manual) Differential Comment Platelet Estimate Platelet Morphology Tear Drop Cells PT INR APTT Puncture Site Patient Temperature O2 Saturation ABG pH ABG pCO2 ABG pO2 ABG HCO3 ABG O2 Content ABG Base Excess ABG Methemoglobin Hemoglobin Carboxyhemoglobin O2 Delivery Device Vent Setting Inspired O2 Critical Value Sodium Potassium Chloride Carbon Dioxide Anion Gap BUN Creatinine Estimated GFR POC Glucose 95 86 93 Random Glucose Calcium Phosphorus Magnesium Total Bilirubin AST ALT Alkaline Phosphatase Ammonia Total Creatine Kinase CK-MB (CK-2) CK-MB (CK-2) % Total Protein Albumin Urine Color Urine Clarity Urine pH Ur Specific [place] Urine Protein Urine Glucose (UA) Urine Ketones Urine Occult Blood Urine Nitrate Urine Bilirubin Urine Urobilinogen Ur Leukocyte Esterase Urine RBC Urine WBC Urine WBC Clumps Ur Squamous Epith Cells Urine Bacteria Urine Mucus Micro UA Comment Ur Microscopic Review Urine Culture Comments Urine Eosinophils Ur Random Creatinine Ur Random Sodium Random Vancomycin U Benzodiazepine Confm 12/04/17 12/04/17 12/04/17 05:40 06:15 06:15 WBC 17.5 H RBC 4.05 L Hgb 13.3 Hct 39.0 MCV 96.1 MCH 32.8 MCHC 34.1 RDW 13.8 Plt Count 112 L MPV 8.7 Prelim Diff (Auto) Neut % (Auto) 85.5 H Lymph % (Auto) 6.0 L [place] % (Auto) 8.4 H Eos % (Auto) 0.0 Baso % (Auto) 0.1 Neut # (Auto) 14.9 H Lymph # (Auto) 1.1 [place] # (Auto) 1.5 H Eos # (Auto) 0.0 Baso # (Auto) 0.0 WBC Differential . Seg Neuts % (Manual) Lymphocytes % (Manual) Monocytes % (Manual) Abs Neuts (Manual) Differential Comment Auto diff final Platelet Estimate Platelet Morphology Tear Drop Cells PT INR APTT Puncture Site Art line Patient Temperature 98.6 O2 Saturation 89 L* ABG pH 7.37 L ABG pCO2 39 ABG pO2 65 ABG HCO3 22 ABG O2 Content 16.7 ABG Base Excess -2.7 L ABG Methemoglobin 2.1 H Hemoglobin 13.4 Carboxyhemoglobin 0.5 O2 Delivery Device Ventilator Vent Setting 18/500/8peep Inspired O2 65 Critical Value Yes Sodium Potassium Chloride Carbon Dioxide Anion Gap BUN Creatinine Estimated GFR POC Glucose Random Glucose Calcium Phosphorus Magnesium Total Bilirubin AST ALT Alkaline Phosphatase Ammonia Total Creatine Kinase 1456 H CK-MB (CK-2) 112.0 H CK-MB (CK-2) % 7.7 H* Total Protein Albumin Urine Color Urine Clarity Urine pH Ur Specific [place] Urine Protein Urine Glucose (UA) Urine Ketones Urine Occult Blood Urine Nitrate Urine Bilirubin Urine Urobilinogen Ur Leukocyte Esterase Urine RBC Urine WBC Urine WBC Clumps Ur Squamous Epith Cells Urine Bacteria Urine Mucus Micro UA Comment Ur Microscopic Review Urine Culture Comments Urine Eosinophils Ur Random Creatinine Ur Random Sodium Random Vancomycin U Benzodiazepine Confm 12/04/17 12/04/17 12/04/17 06:15 06:15 10:09 WBC RBC Hgb Hct MCV MCH MCHC RDW Plt Count MPV Prelim Diff (Auto) Neut % (Auto) Lymph % (Auto) [place] % (Auto) Eos % (Auto) Baso % (Auto) Neut # (Auto) Lymph # (Auto) [place] # (Auto) Eos # (Auto) Baso # (Auto) WBC Differential Seg Neuts % (Manual) Lymphocytes % (Manual) Monocytes % (Manual) Abs Neuts (Manual) Differential Comment Platelet Estimate Platelet Morphology Tear Drop Cells PT 10.3 INR 1.0 APTT 29.7 Puncture Site Patient Temperature O2 Saturation ABG pH ABG pCO2 ABG pO2 ABG HCO3 ABG O2 Content ABG Base Excess ABG Methemoglobin Hemoglobin Carboxyhemoglobin O2 Delivery Device Vent Setting Inspired O2 Critical Value Sodium Potassium Chloride Carbon Dioxide Anion Gap BUN Creatinine Estimated GFR POC Glucose 112 H 129 H Random Glucose Calcium Phosphorus Magnesium Total Bilirubin AST ALT Alkaline Phosphatase Ammonia Total Creatine Kinase CK-MB (CK-2) CK-MB (CK-2) % Total Protein Albumin Urine Color Urine Clarity Urine pH Ur Specific [place] Urine Protein Urine Glucose (UA) Urine Ketones Urine Occult Blood Urine Nitrate Urine Bilirubin Urine Urobilinogen Ur Leukocyte Esterase Urine RBC Urine WBC Urine WBC Clumps Ur Squamous Epith Cells Urine Bacteria Urine Mucus Micro UA Comment Ur Microscopic Review Urine Culture Comments Urine Eosinophils Ur Random Creatinine Ur Random Sodium Random Vancomycin U Benzodiazepine Confm 12/04/17 12/05/17 12/05/17 13:39 00:35 01:02 WBC RBC Hgb Hct MCV MCH MCHC RDW Plt Count MPV Prelim Diff (Auto) Neut % (Auto) Lymph % (Auto) [place] % (Auto) Eos % (Auto) Baso % (Auto) Neut # (Auto) Lymph # (Auto) [place] # (Auto) Eos # (Auto) Baso # (Auto) WBC Differential Seg Neuts % (Manual) Lymphocytes % (Manual) Monocytes % (Manual) Abs Neuts (Manual) Differential Comment Platelet Estimate Platelet Morphology Tear Drop Cells PT INR APTT 30.1 33.7 H Puncture Site Patient Temperature O2 Saturation ABG pH ABG pCO2 ABG pO2 ABG HCO3 ABG O2 Content ABG Base Excess ABG Methemoglobin Hemoglobin Carboxyhemoglobin O2 Delivery Device Vent Setting Inspired O2 Critical Value Sodium Potassium Chloride Carbon Dioxide Anion Gap BUN Creatinine Estimated GFR POC Glucose 105 Random Glucose Calcium Phosphorus Magnesium Total Bilirubin AST ALT Alkaline Phosphatase Ammonia Total Creatine Kinase CK-MB (CK-2) CK-MB (CK-2) % Total Protein Albumin Urine Color Urine Clarity Urine pH Ur Specific [place] Urine Protein Urine Glucose (UA) Urine Ketones Urine Occult Blood Urine Nitrate Urine Bilirubin Urine Urobilinogen Ur Leukocyte Esterase Urine RBC Urine WBC Urine WBC Clumps Ur Squamous Epith Cells Urine Bacteria Urine Mucus Micro UA Comment Ur Microscopic Review Urine Culture Comments Urine Eosinophils Ur Random Creatinine Ur Random Sodium Random Vancomycin U Benzodiazepine Confm 12/05/17 12/05/17 12/05/17 05:19 05:19 06:00 WBC 19.9 H RBC 3.85 L Hgb 12.8 L Hct 37.8 L MCV 98.0 MCH 33.3 MCHC 34.0 RDW 13.9 Plt Count 132 L MPV 9.4 Prelim Diff (Auto) Slide review pending Neut % (Auto) 81.2 H Lymph % (Auto) 7.3 L [place] % (Auto) 11.1 H Eos % (Auto) 0.1 Baso % (Auto) 0.3 Neut # (Auto) 16.2 H Lymph # (Auto) 1.5 [place] # (Auto) 2.2 H Eos # (Auto) 0.0 Baso # (Auto) 0.1 WBC Differential Manual diff final Seg Neuts % (Manual) 82 H Lymphocytes % (Manual) 9 Monocytes % (Manual) 9 H Abs Neuts (Manual) 16.3 H Differential Comment . Platelet Estimate Low L Platelet Morphology Normal Tear Drop Cells 1+ H PT INR APTT Puncture Site Art line Patient Temperature 98.6 O2 Saturation 96 ABG pH 7.35 L ABG pCO2 32 L ABG pO2 150 H ABG HCO3 17 L ABG O2 Content 17.6 ABG Base Excess -7.2 L ABG Methemoglobin 2.1 H Hemoglobin 12.8 Carboxyhemoglobin 0.4 O2 Delivery Device Ventilator Vent Setting Aprv Inspired O2 40 Critical Value No Sodium Potassium Chloride Carbon Dioxide Anion Gap BUN Creatinine Estimated GFR POC Glucose Random Glucose Calcium Phosphorus 4.4 D Magnesium 1.6 Total Bilirubin AST ALT Alkaline Phosphatase Ammonia Total Creatine Kinase CK-MB (CK-2) CK-MB (CK-2) % Total Protein Albumin Urine Color Urine Clarity Urine pH Ur Specific [place] Urine Protein Urine Glucose (UA) Urine Ketones Urine Occult Blood Urine Nitrate Urine Bilirubin Urine Urobilinogen Ur Leukocyte Esterase Urine RBC Urine WBC Urine WBC Clumps Ur Squamous Epith Cells Urine Bacteria Urine Mucus Micro UA Comment Ur Microscopic Review Urine Culture Comments Urine Eosinophils Ur Random Creatinine Ur Random Sodium Random Vancomycin U Benzodiazepine Confm 12/05/17 12/05/17 12/05/17 07:23 07:35 07:35 WBC RBC Hgb Hct MCV MCH MCHC RDW Plt Count MPV Prelim Diff (Auto) Neut % (Auto) Lymph % (Auto) [place] % (Auto) Eos % (Auto) Baso % (Auto) Neut # (Auto) Lymph # (Auto) [place] # (Auto) Eos # (Auto) Baso # (Auto) WBC Differential Seg Neuts % (Manual) Lymphocytes % (Manual) Monocytes % (Manual) Abs Neuts (Manual) Differential Comment Platelet Estimate Platelet Morphology Tear Drop Cells PT 10.9 INR 1.1 APTT 34.1 H Puncture Site Patient Temperature O2 Saturation ABG pH ABG pCO2 ABG pO2 ABG HCO3 ABG O2 Content ABG Base Excess ABG Methemoglobin Hemoglobin Carboxyhemoglobin O2 Delivery Device Vent Setting Inspired O2 Critical Value Sodium Potassium Chloride Carbon Dioxide Anion Gap BUN Creatinine Estimated GFR POC Glucose 72 Random Glucose Calcium Phosphorus Magnesium Total Bilirubin AST ALT Alkaline Phosphatase Ammonia Total Creatine Kinase CK-MB (CK-2) CK-MB (CK-2) % Total Protein Albumin Urine Color Urine Clarity Urine pH Ur Specific [place] Urine Protein Urine Glucose (UA) Urine Ketones Urine Occult Blood Urine Nitrate Urine Bilirubin Urine Urobilinogen Ur Leukocyte Esterase Urine RBC Urine WBC Urine WBC Clumps Ur Squamous Epith Cells Urine Bacteria Urine Mucus Micro UA Comment Ur Microscopic Review Urine Culture Comments Urine Eosinophils Ur Random Creatinine Ur Random Sodium Random Vancomycin U Benzodiazepine Confm 12/05/17 12/05/17 12/05/17 07:35 12:17 12:50 WBC RBC Hgb Hct MCV MCH MCHC RDW Plt Count MPV Prelim Diff (Auto) Neut % (Auto) Lymph % (Auto) [place] % (Auto) Eos % (Auto) Baso % (Auto) Neut # (Auto) Lymph # (Auto) [place] # (Auto) Eos # (Auto) Baso # (Auto) WBC Differential Seg Neuts % (Manual) Lymphocytes % (Manual) Monocytes % (Manual) Abs Neuts (Manual) Differential Comment Platelet Estimate Platelet Morphology Tear Drop Cells PT INR APTT Puncture Site Patient Temperature O2 Saturation ABG pH ABG pCO2 ABG pO2 ABG HCO3 ABG O2 Content ABG Base Excess ABG Methemoglobin Hemoglobin Carboxyhemoglobin O2 Delivery Device Vent Setting Inspired O2 Critical Value Sodium 145 Potassium 5.1 D Chloride 111 H Carbon Dioxide 22.7 Anion Gap 11 BUN 50 H Creatinine 2.33 H Estimated GFR 29 L POC Glucose 58 L 113 H Random Glucose 86 Calcium 8.3 L Phosphorus Magnesium Total Bilirubin 0.6 AST 152 H ALT 302 H Alkaline Phosphatase 59 Ammonia Total Creatine Kinase CK-MB (CK-2) CK-MB (CK-2) % Total Protein 6.1 L D Albumin 3.1 L Urine Color Urine Clarity Urine pH Ur Specific [place] Urine Protein Urine Glucose (UA) Urine Ketones Urine Occult Blood Urine Nitrate Urine Bilirubin Urine Urobilinogen Ur Leukocyte Esterase Urine RBC Urine WBC Urine WBC Clumps Ur Squamous Epith Cells Urine Bacteria Urine Mucus Micro UA Comment Ur Microscopic Review Urine Culture Comments Urine Eosinophils Ur Random Creatinine Ur Random Sodium Random Vancomycin U Benzodiazepine Confm 12/05/17 12/05/17 12/05/17 15:51 16:39 17:39 WBC RBC Hgb Hct MCV MCH MCHC RDW Plt Count MPV Prelim Diff (Auto) Neut % (Auto) Lymph % (Auto) [place] % (Auto) Eos % (Auto) Baso % (Auto) Neut # (Auto) Lymph # (Auto) [place] # (Auto) Eos # (Auto) Baso # (Auto) WBC Differential Seg Neuts % (Manual) Lymphocytes % (Manual) Monocytes % (Manual) Abs Neuts (Manual) Differential Comment Platelet Estimate Platelet Morphology Tear Drop Cells PT INR APTT 35.9 H Puncture Site Patient Temperature O2 Saturation ABG pH ABG pCO2 ABG pO2 ABG HCO3 ABG O2 Content ABG Base Excess ABG Methemoglobin Hemoglobin Carboxyhemoglobin O2 Delivery Device Vent Setting Inspired O2 Critical Value Sodium Potassium Chloride Carbon Dioxide Anion Gap BUN Creatinine Estimated GFR POC Glucose 111 H Random Glucose Calcium Phosphorus Magnesium Total Bilirubin AST ALT Alkaline Phosphatase Ammonia Total Creatine Kinase CK-MB (CK-2) CK-MB (CK-2) % Total Protein Albumin Urine Color Yellow Urine Clarity Cloudy H Urine pH 5.0 Ur Specific [place] 1.029 Urine Protein 30 H Urine Glucose (UA) Negative Urine Ketones 20 Urine Occult Blood Large H Urine Nitrate Negative Urine Bilirubin Negative Urine Urobilinogen Less than 2 Ur Leukocyte Esterase Small H Urine RBC 13 H Urine WBC 8 H Urine WBC Clumps Few H Ur Squamous Epith Cells <1 Urine Bacteria Occasional H Urine Mucus Few H Micro UA Comment Cath-culture ind Ur Microscopic Review Not Reportable Urine Culture Comments Cath-cult indicated Urine Eosinophils Ur Random Creatinine Ur Random Sodium Random Vancomycin U Benzodiazepine Confm 12/05/17 12/06/17 12/06/17 17:52 00:30 00:33 WBC RBC Hgb Hct MCV MCH MCHC RDW Plt Count MPV Prelim Diff (Auto) Neut % (Auto) Lymph % (Auto) [place] % (Auto) Eos % (Auto) Baso % (Auto) Neut # (Auto) Lymph # (Auto) [place] # (Auto) Eos # (Auto) Baso # (Auto) WBC Differential Seg Neuts % (Manual) Lymphocytes % (Manual) Monocytes % (Manual) Abs Neuts (Manual) Differential Comment Platelet Estimate Platelet Morphology Tear Drop Cells PT INR APTT 37.2 H Puncture Site Patient Temperature O2 Saturation ABG pH ABG pCO2 ABG pO2 ABG HCO3 ABG O2 Content ABG Base Excess ABG Methemoglobin Hemoglobin Carboxyhemoglobin O2 Delivery Device Vent Setting Inspired O2 Critical Value Sodium Potassium Chloride Carbon Dioxide Anion Gap BUN Creatinine Estimated GFR POC Glucose 125 H 133 H Random Glucose Calcium Phosphorus Magnesium Total Bilirubin AST ALT Alkaline Phosphatase Ammonia Total Creatine Kinase CK-MB (CK-2) CK-MB (CK-2) % Total Protein Albumin Urine Color Urine Clarity Urine pH Ur Specific [place] Urine Protein Urine Glucose (UA) Urine Ketones Urine Occult Blood Urine Nitrate Urine Bilirubin Urine Urobilinogen Ur Leukocyte Esterase Urine RBC Urine WBC Urine WBC Clumps Ur Squamous Epith Cells Urine Bacteria Urine Mucus Micro UA Comment Ur Microscopic Review Urine Culture Comments Urine Eosinophils Ur Random Creatinine Ur Random Sodium Random Vancomycin U Benzodiazepine Confm 12/06/17 12/06/17 12/06/17 05:00 05:00 05:00 WBC 14.3 H RBC 3.59 L Hgb 11.7 L Hct 34.5 L MCV 96.4 MCH 32.7 MCHC 34.0 RDW 13.9 Plt Count 118 L MPV 9.2 Prelim Diff (Auto) Neut % (Auto) 85.4 H Lymph % (Auto) 6.6 L [place] % (Auto) 7.7 Eos % (Auto) 0.0 Baso % (Auto) 0.3 Neut # (Auto) 12.2 H Lymph # (Auto) 0.9 L [place] # (Auto) 1.1 H Eos # (Auto) 0.0 Baso # (Auto) 0.0 WBC Differential . Seg Neuts % (Manual) Lymphocytes % (Manual) Monocytes % (Manual) Abs Neuts (Manual) Differential Comment Auto diff final Platelet Estimate Platelet Morphology Tear Drop Cells PT INR APTT Puncture Site Patient Temperature O2 Saturation ABG pH ABG pCO2 ABG pO2 ABG HCO3 ABG O2 Content ABG Base Excess ABG Methemoglobin Hemoglobin Carboxyhemoglobin O2 Delivery Device Vent Setting Inspired O2 Critical Value Sodium 144 Potassium 3.3 L D Chloride 111 H Carbon Dioxide 20.2 L Anion Gap 13 BUN 65 H Creatinine 2.35 H Estimated GFR 29 L POC Glucose Random Glucose 165 H Calcium 8.3 L Phosphorus 3.0 D Magnesium 2.2 D Total Bilirubin 0.9 AST 129 H ALT 231 H Alkaline Phosphatase 56 Ammonia 28 Total Creatine Kinase CK-MB (CK-2) CK-MB (CK-2) % Total Protein 6.0 L Albumin 2.7 L Urine Color Urine Clarity Urine pH Ur Specific [place] Urine Protein Urine Glucose (UA) Urine Ketones Urine Occult Blood Urine Nitrate Urine Bilirubin Urine Urobilinogen Ur Leukocyte Esterase Urine RBC Urine WBC Urine WBC Clumps Ur Squamous Epith Cells Urine Bacteria Urine Mucus Micro UA Comment Ur Microscopic Review Urine Culture Comments Urine Eosinophils Ur Random Creatinine Ur Random Sodium Random Vancomycin 14.0 U Benzodiazepine Confm 12/06/17 12/06/17 12/06/17 05:10 07:45 07:45 WBC RBC Hgb Hct MCV MCH MCHC RDW Plt Count MPV Prelim Diff (Auto) Neut % (Auto) Lymph % (Auto) Erath % (Auto) Eos % (Auto) Baso % (Auto) Neut # (Auto) Lymph # (Auto) Erath # (Auto) Eos # (Auto) Baso # (Auto) WBC Differential Seg Neuts % (Manual) Lymphocytes % (Manual) Monocytes % (Manual) Abs Neuts (Manual) Differential Comment Platelet Estimate Platelet Morphology Tear Drop Cells PT INR APTT Puncture Site Patient Temperature O2 Saturation ABG pH ABG pCO2 ABG pO2 ABG HCO3 ABG O2 Content ABG Base Excess ABG Methemoglobin Hemoglobin Carboxyhemoglobin O2 Delivery Device Vent Setting Inspired O2 Critical Value Sodium Potassium Chloride Carbon Dioxide Anion Gap BUN Creatinine Estimated GFR POC Glucose 153 H Random Glucose Calcium Phosphorus Magnesium Total Bilirubin AST ALT Alkaline Phosphatase Ammonia Total Creatine Kinase CK-MB (CK-2) CK-MB (CK-2) % Total Protein Albumin Urine Color Urine Clarity Urine pH Ur Specific [place] Urine Protein Urine Glucose (UA) Urine Ketones Urine Occult Blood Urine Nitrate Urine Bilirubin Urine Urobilinogen Ur Leukocyte Esterase Urine RBC Urine WBC Urine WBC Clumps Ur Squamous Epith Cells Urine Bacteria Urine Mucus Micro UA Comment Ur Microscopic Review Urine Culture Comments Urine Eosinophils None seen Ur Random Creatinine 220 Ur Random Sodium 14 Random Vancomycin U Benzodiazepine Confm 12/06/17 12/06/17 12/06/17 08:30 08:34 11:14 WBC RBC Hgb Hct MCV MCH MCHC RDW Plt Count MPV Prelim Diff (Auto) Neut % (Auto) Lymph % (Auto) Er[place] % (Auto) Eos % (Auto) Baso % (Auto) Neut # (Auto) Lymph # (Auto) [place] # (Auto) Eos # (Auto) Baso # (Auto) WBC Differential Seg Neuts % (Manual) Lymphocytes % (Manual) Monocytes % (Manual) Abs Neuts (Manual) Differential Comment Platelet Estimate Platelet Morphology Tear Drop Cells PT 10.8 INR 1.1 APTT 38.3 H Puncture Site Art line Art line Patient Temperature 98.6 98.6 O2 Saturation 96 96 ABG pH 7.63 H* 7.47 H ABG pCO2 20 L* 32 L ABG pO2 178 H 136 H ABG HCO3 21 L 23 ABG O2 Content 22.2 H 14.9 ABG Base Excess -0.7 -0.2 ABG Methemoglobin 1.9 2.0 Hemoglobin 16.2 H 10.9 L Carboxyhemoglobin 0.7 0.7 O2 Delivery Device Ventilator Ventilator Vent Setting Aprv 15/[id number] Inspired O2 40 40 Critical Value Yes No Sodium Potassium Chloride Carbon Dioxide Anion Gap BUN Creatinine Estimated GFR POC Glucose Random Glucose Calcium Phosphorus Magnesium Total Bilirubin AST ALT Alkaline Phosphatase Ammonia Total Creatine Kinase CK-MB (CK-2) CK-MB (CK-2) % Total Protein Albumin Urine Color Urine Clarity Urine pH Ur Specific [place] Urine Protein Urine Glucose (UA) Urine Ketones Urine Occult Blood Urine Nitrate Urine Bilirubin Urine Urobilinogen Ur Leukocyte Esterase Urine RBC Urine WBC Urine WBC Clumps Ur Squamous Epith Cells Urine Bacteria Urine Mucus Micro UA Comment Ur Microscopic Review Urine Culture Comments Urine Eosinophils Ur Random Creatinine Ur Random Sodium Random Vancomycin U Benzodiazepine Confm 12/06/17 12:10 WBC RBC Hgb Hct MCV MCH MCHC RDW Plt Count MPV Prelim Diff (Auto) Neut % (Auto) Lymph % (Auto) [place] % (Auto) Eos % (Auto) Baso % (Auto) Neut # (Auto) Lymph # (Auto) [place] # (Auto) Eos # (Auto) Baso # (Auto) WBC Differential Seg Neuts % (Manual) Lymphocytes % (Manual) Monocytes % (Manual) Abs Neuts (Manual) Differential Comment Platelet Estimate Platelet Morphology Tear Drop Cells PT INR APTT Puncture Site Patient Temperature O2 Saturation ABG pH ABG pCO2 ABG pO2 ABG HCO3 ABG O2 Content ABG Base Excess ABG Methemoglobin Hemoglobin Carboxyhemoglobin O2 Delivery Device Vent Setting Inspired O2 Critical Value Sodium Potassium Chloride Carbon Dioxide Anion Gap BUN Creatinine Estimated GFR POC Glucose 138 H Random Glucose Calcium Phosphorus Magnesium Total Bilirubin AST ALT Alkaline Phosphatase Ammonia Total Creatine Kinase CK-MB (CK-2) CK-MB (CK-2) % Total Protein Albumin Urine Color Urine Clarity Urine pH Ur Specific [place] Urine Protein Urine Glucose (UA) Urine Ketones Urine Occult Blood Urine Nitrate Urine Bilirubin Urine Urobilinogen Ur Leukocyte Esterase Urine RBC Urine WBC Urine WBC Clumps Ur Squamous Epith Cells Urine Bacteria Urine Mucus Micro UA Comment Ur Microscopic Review Urine Culture Comments Urine Eosinophils Ur Random Creatinine Ur Random Sodium Random Vancomycin U Benzodiazepine Confm Result Diagrams: 12/06/17 05:00 12/06/17 05:00 Microbiology: Microbiology 12/05/17 15:51 Urine Culture - Preliminary Catheterized Urine No growth in 24 hours 12/05/17 18:35 Aerobic Blood Culture - Preliminary Blood - Peripheral No growth in 1 day Anaerobic Blood Culture - Preliminary No growth in 1 day 12/05/17 18:40 Aerobic Blood Culture - Preliminary Blood - Peripheral No growth in 1 day Anaerobic Blood Culture - Preliminary No growth in 1 day 12/03/17 05:00 Aerobic Blood Culture - Preliminary Blood - Arterial Line No growth in 3 days Anaerobic Blood Culture - Preliminary No growth in 3 days 12/02/17 14:19 Aerobic Blood Culture - Preliminary Blood - Peripheral No growth in 4 days Anaerobic Blood Culture - Preliminary No growth in 4 days 12/02/17 14:14 Aerobic Blood Culture - Preliminary Blood - Peripheral No growth in 4 days Anaerobic Blood Culture - Preliminary No growth in 4 days 12/06/17 00:45 Gram Stain - Final Sputum - Endotracheal 12/02/17 17:35 Gram Stain - Final Sputum - Endotracheal Sputum Culture - Final Heavy growth normal respiratory michelle 12/02/17 12:00 Urine Culture - Final Catheterized Urine No growth in 48 hours Imaging: Head CT 12/02/17 10:42 CONCLUSION: 1. Negative for acute process . Chest X-Ray 12/02/17 12:27 CONCLUSION: Endotracheal tube and enteric tube as above. Chest X-Ray 12/04/17 00:00 CONCLUSION: 1. ETT in good position. NGT beyond the GE junction. 2. Mild bibasilar atelectasis. Head MRI 12/04/17 00:00 CONCLUSION: 1. Unremarkable MRI of the brain for patient's age. 2. Mild chronic bilateral mastoiditis. Chest X-Ray 12/05/17 07:28 CONCLUSION: 1. No significant interval change. 2. Stable ETT and NGT. 3. Minimal bibasilar atelectasis. Chest X-Ray 12/05/17 11:03 CONCLUSION: 1. Right IJ central line in good position without pneumothorax. 2. ETT and NGT stable. 3. Mild bibasilar airspace disease, likely atelectasis. Abdomen/Bladder Ultrasound 12/06/17 00:00 CONCLUSION: 1. The kidneys appear of normal size and adequate cortical thickness bilaterally. There does appear to be mildly increased echogenicity which can suggest underlying medical renal disease. Chest X-Ray 12/06/17 06:00 CONCLUSION: No significant interval change and mild patchy bilateral lower lung zone opacity. 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 He was once and is now . He has 2 adult sons, David and Sharif as well as grandchildren. 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 Legal: No advance directives completed. Ethical issues impacting care: No ethical issues noted. . Important Contacts: Son: David Murphy Son: Sharif Murphy . Prognosis: His prognosis is guarded. He has had an extended resuscitation time with the initial arrest allowing approximately 15 minutes to ROSC and the second arrest approximately 30 minutes to ROSC. He did undergo hypothermia protocol and is being maintained on deep sedation secondary to severe shivering. Primary concern is for anoxic brain injury the extent of which cannot be determined at this time. Plan is to continue supportive care until patient's mental status can be more accurately determined. The patient remains in FULL CODE at this time. Ejection fraction shows 25-35% on admission with elevated troponin. There is no known prior history of cardiovascular disease, however due to the extended resuscitation time needed over 2 separate attempts, his prognosis is guarded. . Code Status: Full Code Plan: PLAN: Legal decision maker: The patient is currently not capacitated to make his own decisions. Per [place] statutes, as the patient is , decision making would fall to the majority of his adult children which are his 2 sons David and Sharif. Goals: Aggressive at this time. CODE STATUS: FULL CODE SYMPTOMS: * Encephalopathy: Multifactorial to include substantial downtime during 2 cardiac arrests, on Precedex 0.5 mcg/kg/min for shivering management, hypothermia protocol completed, rewarmed 12/04. Watchful waiting is currently recommended by the clinical resource director staff and agreed to by the family. Once sedation can be lifted further assessment can be made. No further recommendations at this time. * Tremor: Tremors are improving, now only on Precedex. Propofol discontinued. EEG was negative for subclinical seizures. Further management per clinical resource director service. No further recommendations at this time Palliative care will continue to follow the patient during hospital course as condition evolves, to assist patient/decision-maker with understanding of their medical conditions, weighing benefits/burdens of treatment options, for clarification of goals of treatment. Additionally will assist with any symptoms of palliative concern. . Attestation Attestation: To help prompt me to consider important information that might be impacting today's encounter and assessment, information from prior notes written by myself or my colleagues may have been "brought forward" into today's note. My signature on this note, however, is an attestation that I personally performed the exam, history, and/or decision-making noted today, and, unless otherwise indicated, the interactions with patient, family, and staff as well as the review of records all occurred today. I also attest that the listed assessment and stated plan reflect my best clinical judgment today based on the combination of historical information, prior notes, and today's exam/ interactions. When time spent is documented, it refers only to time spent today by the signer, or if indicated, combined time spent today by collaborating physician/nurse practitioner. .
--- NOTE | 2017-12-06 21:16 | MB ---
cc: Davie Nicole MD, PhD DATE: 12/06/2017 REASON FOR CONSULTATION: Encephalopathy. HISTORY OF PRESENT ILLNESS: This is a 57-year-old man who presented to the ER after cardiac arrest. The patient was driving pulled off to the side of the road. His son who was following him saw him in the car unresponsive. CPR was begun. EMS arrived within 5 minutes and started ACLS. His rhythm was ventricular fibrillation. He initially was transported to [facility] ER, he had another cardiac arrest there, found to be in pulseless ventricular tachycardia requiring over 30 minutes of ACLS resuscitation. He was transferred to [facility] for further management. He was treated with the hypothermia protocol. CURRENT MEDICATIONS: 1. Tylenol. 2. Albuterol. 3. Ampicillin. 4. Aspirin. 5. Coreg. 6. Chlorhexidine. 7. Dexmedetomidine. 8. Fentanyl. 9. Glucagon. 10. Heparin. 11. Lactulose. 12. Prevacid. 13. Vancomycin. 14. Diprivan. NEUROLOGICAL EXAMINATION: The patient is sedated, nonresponsive. Pupils 2 mm, symmetric, reactive. Extraocular movement sluggish to doll's eyes maneuver. Motor exam: There is no spontaneous limb movements. No withdrawal. CT of the head is unremarkable. Brain MRI on 12/04/2017 is within normal limits. LABORATORY DATA: White count is 14,300, hemoglobin 11.7, hematocrit 34.5%, platelets 118,000. PT 10.8, APTT 38.3, INR 1.1. Sodium 144, potassium 3.3, chloride 111, CO2 of 20 to BUN of 65, creatinine 2.35, GFR 29, glucose 165. IMPRESSION: Anoxic encephalopathy. RECOMMENDATION: We will obtain an EEG for further evaluation. Davie Nicole MD, PhD GRAYSON/sj , 07:50 PM , 07:58 PM
[2017-12-06] MEDS: Metoprolol Inj 5 MG/5 ML Vial IV.PUSH PRN (21:58)
--- NOTE | 2017-12-06 23:10 | XR ---
EXAM DATE: 12/06/2017 12:00 AM EDT AGE/SEX: 57 years / Male INDICATIONS: Respiratory failure CLINICAL DATA: This is the patient's subsequent encounter. Patient reports that signs and symptoms h ave been present for 2 days and indicates a pain score of Nonresponsive. MEDICAL/SURGICAL HISTORY: Non-responsive. Non-responsive. COMPARISON: [facility], CHEST 1V SINGLE AP, 12/06/2017. . FINDINGS: ET tube tip 3.1 cm above the thor. Gastric tube traverses the [id number]. Right internal jugular catheter tip projects over the mid superior vena cava. Patchy areas of opacity in the left lower carlos g with loss of delineation of the left hemidiaphragm. The right lung is clear. The heart is normal si ze. CONCLUSION: Partially consolidative left lower lobe infiltrate. Electronically signed by: Gilberto Gibbons MD 12/06/2017 11:08 PM EDT
[2017-12-07] MEDS: Insulin NovoLIN Regular Correctional Sugar Inj SQ SCH ×4 (00:06→18:17)
[2017-12-07] MEDS: fentaNYL Citrate Inj 100 MCG/2 ML Ampul IV.PUSH PRN ×7 (00:07→20:24)
[2017-12-07] MEDS: Oral Hygiene Kit OROPHARYNG SCH ×4 (00:07→16:10)
--- NOTE | 2017-12-07 05:23 | XR ---
EXAM DATE: 12/07/2017 6:00 AM EDT AGE/SEX: 57 years / Male INDICATIONS: Respiratory failure. CLINICAL DATA: This is the patient's subsequent encounter. Patient reports that signs and symptoms h ave been present for 4 - 6 days and indicates a pain score of Nonresponsive. MEDICAL/SURGICAL HISTORY: . Hypertension. Hyperlipidemia. Ventricular fibrillation cardiac arre st. None. COMPARISON: [facility] [place], CHEST 1V SINGLE AP, 12/06/2017. . FINDINGS: Mild consolidation and small effusion again seen left lung base. Right lung reasonably clear. No pneu mothorax seen. Heart size stable, within normal limits. Endotracheal tube tip is approximately 3 cm above the thor. Nasogastric tube courses into the stoma ch. There is a right internal jugular central venous catheter with tip in the superior vena cava. CONCLUSION: Mild left base infiltrate not significantly changed. Electronically signed by: Roosevelt Montgomery MD 12/07/2017 5:22 AM EDT
[2017-12-07 05:33] LABS: Baso % (Auto) 0.2 % (0.0-2.0); Hematocrit 31.2 % (39.0-51.0); Hemoglobin 10.5 gm/dL (13.0-17.0); Lymph # (Auto) 1.2 th/mm3 (1.0-4.8); Lymph % (Auto) 10.5 % (9.0-44.0); Mean Corpuscular HGB Conc 33.7 % (32.0-36.0); Mean Corpuscular Hemoglobin 33.1 pg (27.0-34.0); Mean Corpuscular Volume 98.4 fL (80.0-100.0); Mean Platelet Volume 8.9 fL (7.0-11.0); Mono # (Auto) 1.5 th/mm3 (0.0-0.9); Mono % (Auto) 13.5 % (0.0-8.0); Neut # (Auto) 8.6 th/mm3 (1.8-7.7); Neut % (Auto) 75.8 % (16.0-70.0); Platelet Count 119 th/mm3 (150-450); Red Blood Count 3.17 mil/mm3 (4.50-5.90); Red Cell Distribution Width 13.6 % (11.6-17.2); White Blood Count 11.4 th/mm3 (4.0-11.0)
[2017-12-07 05:36] LABS: INR 1.1 Ratio; Prothrombin Time 11.1 sec (9.8-11.6)
[2017-12-07 05:51] LABS: Alanine Aminotransferase 155 U/L (12-78); Albumin 2.5 g/dL (3.4-5.0); Alkaline Phosphatase 51 U/L (45-117); Anion Gap 7 meq/L (5-15); Aspartate Aminotransferase 104 U/L (15-37); Blood Urea Nitrogen 47 mg/dL (7-18); Calcium 8.1 mg/dL (8.5-10.1); Carbon Dioxide 25.1 meq/L (21.0-32.0); Chloride 116 meq/L (98-107); Glomerular Filtration Rate 43 mL/min (>89); Glucose,Random 153 mg/dL (74-106); Magnesium 2.3 mg/dL (1.5-2.5); Phosphorus 2.6 mg/dL (2.5-4.9); Potassium 3.7 meq/L (3.5-5.1); Sodium 148 meq/L (136-145); Total Protein 5.7 g/dL (6.4-8.2); Vancomycin,Random 13.1 Comment
[2017-12-07] MEDS: Dexmedetomidine Inj 1,000 MCG in Sodium Chlor 0.9% Inj 240 ML IV.CONT PRN (05:55)
[2017-12-07] MEDS: Chlorhexidine Gluconate 2% 1 Pack (2 Cloths) TOPICAL SCH (05:55)
[2017-12-07] MEDS: HEPARIN IV.CONT PRN (05:57)
[2017-12-07] MEDS: SODIUM CHLOR 0.9% IV.CONT PRN (05:57)
[2017-12-07] MEDS: Ampicillin/Sulbactam Inj 3 GM in Sodium Chloride 0.9% Inj 100 ML IV.SIG SCH ×2 (06:03→18:17)
--- NOTE | 2017-12-07 07:55 | P.PNCA ---
Subjective Interval history: RN at bedside. Remains on Precedex drip which is controlling shaking well. Off propofol and Levophed with SBPs now mostly 150s. T-max up to 100.4 overnight. Medications and Allergies Active Medications: Active Medications Acetaminophen (Tylenol Liq) 650 mg NG/OG Q6H PRN PRN Reason: SHIVERING Last Admin: 12/07/17 00:07 Dose: 650 mg Albuterol (Duoneb Neb (Faisal)) 1 ampul NEB Q6HR NEB [facility] Last Admin: 12/07/17 03:40 Dose: 1 ampul Albuterol (Albuterol Neb (Prn)) 2.5 mg NEB Q2HR NEB PRN PRN Reason: DYSPNEA Last Admin: 12/06/17 22:45 Dose: 2.5 mg Artificial Tears (Lacrilube Opth Oint) 1 applicatio EACH EYE Q4H PRN PRN Reason: NMB Artificial Tears (Refresh Tears 0.5% Opth Drops) 1 drop EACH EYE BID [facility] Last Admin: 12/06/17 21:58 Dose: 1 drop Aspirin (Aspirin Chew) 81 mg PO DAILY [facility] Last Admin: 12/06/17 09:56 Dose: 81 mg Carvedilol (Coreg) 6.25 mg PO BID [facility] Last Admin: 12/04/17 20:11 Dose: 6.25 mg Chlorhexidine Gluconate (Peridex 0.12% Oral Kit) 15 ml OROPHARYNG BID@0800, 2000 [facility] Last Admin: 12/06/17 21:57 Dose: 15 ml Chlorhexidine Gluconate (Chlorhexidine 2% Cloth) 3 pack TOPICAL DAILY@0400 [facility] Stop: 12/08/17 03:59 Last Admin: 12/07/17 05:55 Dose: 3 pack Chlorhexidine Gluconate (Chlorhexidine 2% Cloth) 3 pack TOPICAL DAILY@0400 PRN PRN Reason: Extra cloth needed Stop: 12/08/17 03:59 Dextrose (D50w Vial) 50 ml IV.PUSH UNSCH PRN PRN Reason: PER HYPOGLYCEMIA PROTOCOL Last Admin: 12/05/17 12:21 Dose: 50 ml Fentanyl Citrate (Fentanyl Inj) 50 mcg IV.PUSH Q1H PRN PRN Reason: PAIN SCALE 1 TO 10 Fentanyl Citrate (Fentanyl Inj) 100 mcg IV.PUSH Q1H PRN PRN Reason: sedation Last Admin: 12/07/17 05:56 Dose: 100 mcg Glucagon (Glucagon Inj) 1 mg OTHER PRN PRN PRN Reason: for Hypoglycemia Protocol Heparin Sodium (Porcine) 25, (000 unit/ Sodium Chloride) 250 mls @ 10 mls/hr IV.CONT TITRATE PRN; Protocol PRN Reason: Per Protocol Last Titration: 12/07/17 06:05 Dose: 1,300 units/hr, 13 mls/hr Propofol (Diprivan 1000 Mg/100 Ml Inj) 1,000 mg in 100 mls @ 2.76 mls/hr IV.CONT TITRATE PRN; Protocol PRN Reason: Per Protocol Last Titration: 12/06/17 07:48 Dose: Infused Norepinephrine Bitartrate 16 (mg/ Sodium Chloride) 250 mls @ 1.87 mls/hr IV.CONT TITRATE PRN; Protocol PRN Reason: See Protocol Last Titration: 12/06/17 07:48 Dose: 2 mcg/min, 1.87 mls/hr Dexmedetomidine HCl 1,000 mcg/ (Sodium Chloride) 250 mls @ 4.57 mls/hr IV.CONT TITRATE PRN; Protocol PRN Reason: Per Protocol Last Admin: 12/07/17 05:55 Dose: 0.7 mcg/kg/hr, 16.01 mls/hr Ampicillin Sodium/Sulbactam (Sodium 3 gm/ Sodium Chloride) 100 mls @ 200 mls/ hr IV.SIG Q12H [facility] Last Infusion: 12/07/17 06:35 Dose: Infused Insulin Human Regular (Novolin R Correctional Sugar Inj) 0 units SQ Q6HR [facility]IS[facility]; Protocol Last Admin: 12/07/17 06:03 Dose: 1 units Lactulose (Lactulose Liq) 30 ml PO Q6H [facility] Last Admin: 12/07/17 05:55 Dose: 30 ml Lansoprazole (Prevacid Solutab) 30 mg NG/OG DAILY [facility] Last Admin: 12/06/17 09:56 Dose: 30 mg Metoprolol Tartrate (Lopressor Inj) 5 mg IV.PUSH Q5M PRN PRN Reason: HR>100 Last Admin: 12/06/17 21:58 Dose: 5 mg Miscellaneous Information (Misc Information) 0 each OTHER UNSCH [facility] Miscellaneous Medication () 1 each OROPHARYNG 0000,0400,1200,1600 [facility] Last Admin: 12/07/17 05:55 Dose: 1 each Ondansetron HCl (Zofran Inj) 4 mg IV.PUSH Q6H PRN PRN Reason: NAUSEA OR VOMITING Last Admin: 12/05/17 07:26 Dose: 4 mg Pharmacy Profile Note (Vancomycin Consult Pharmacy) 1 each OTHER UNSCH PRN PRN Reason: Pharmacy to dose Senna/Docusate Sodium (Mirella-Colace) 1 tab PO BID [facility] Last Admin: 12/06/17 21:57 Dose: 1 tab Sodium Chloride (Ns Flush) 2 ml IV.FLUSH UNSCH PRN PRN Reason: FLUSH AFTER USING IV ACCESS Sodium Chloride (Ns Flush) 0 ml IV.FLUSH DAILY [facility] Last Admin: 12/06/17 10:38 Dose: 6 ml Terbutaline Sulfate (Brethine Inj) 1 mg SQ UNSCH PRN PRN Reason: For Extravasation Allergies Allergy/AdvReac Type Severity Reaction Status Date / Time No Known Allergies Allergy Verified 12/02/17 09:40 Home Medications Medication Instructions Recorded Confirmed Type losartan 25 mg PO DAILY 12/03/17 12/03/17 History Physical Exam Vital signs: Vital Signs 12/06/17 08:00 12/06/17 08:25 12/06/17 08:30 Temperature Pulse Rate 89 91 H Respiratory Rate 11 L 11 L Blood Pressure 114/69 Pulse Oximetry 99 12/06/17 09:10 12/06/17 11:00 12/06/17 12:00 Temperature 100.4 F H Pulse Rate 94 H 89 Respiratory Rate 15 15 Blood Pressure 115/64 114/69 Pulse Oximetry 97 97 12/06/17 13:55 12/06/17 15:00 12/06/17 16:00 Temperature 99.8 F H Pulse Rate 83 90 Respiratory Rate 14 14 Blood Pressure 126/67 157/89 H Pulse Oximetry 98 98 12/06/17 16:35 12/06/17 16:45 12/06/17 20:00 Temperature 99.6 F Pulse Rate 87 92 H Respiratory Rate 15 14 15 Blood Pressure 160/88 H Pulse Oximetry 98 12/06/17 20:53 12/06/17 21:00 12/06/17 22:45 Temperature Pulse Rate 95 H 92 H Respiratory Rate 16 17 31 H Blood Pressure Pulse Oximetry 98 12/06/17 22:55 12/07/17 00:00 12/07/17 00:32 Temperature 100.3 F H Pulse Rate 86 Respiratory Rate 14 14 14 Blood Pressure 155/86 H Pulse Oximetry 98 12/07/17 00:40 12/07/17 03:40 12/07/17 04:00 Temperature 100.4 F H Pulse Rate 92 H 88 Respiratory Rate 14 18 15 Blood Pressure 108/59 L Pulse Oximetry 98 12/07/17 07:00 12/07/17 07:29 Temperature 99.7 F H Pulse Rate 81 Respiratory Rate 14 14 Blood Pressure 136/76 Pulse Oximetry 99 99 Intake & Output 12/06/17 12/07/17 12/07/17 18:59 06:59 18:59 Intake Total 1827 / 1827 815.9 / 815.9 Output Total 1160 / 1160 1030 / 1030 Balance 667 / 667 -214.1 / -214.1 Weight 206 lb 2.115 oz Intake: IV 1485 / 1485 511.9 / 511.9 Precedex Inj 1,000 MCG In NS 220 / 220 250 / 250 Inj 240 ML @ 0.2 MCG/KG/HR 4.57 mls/hr IV.CONT TITRATE PRN Rx# :[id number] Heparin Inj 25,000 UNIT In NS 161.9 / 161.9 Inj 247.5 ML @ 1,000 UNITS/HR 10 mls/hr IV.CONT TITRATE PRN Rx#:[id number] Diprivan 1000 mg/100 ml Inj 1, 100 / 100 000 mg In 100 ml @ 5 MCG/KG/MIN 2.76 mls/hr IV.CONT TITRATE PRN Rx#:[id number] Unasyn Inj 3 GM In NS Inj 100 200 / 200 100 / 100 ML @ 200 mls/hr IV.SIG Q12H [facility]IS[facility] Rx#:[id number] KCl 10 mEq Premix Inj 10 meq In 300 / 300 100 ml @ 100 mls/hr IV.SIG Q1H [facility]ISAL Rx#:[id number] Vancomycin Inj 1,500 MG In NS 515 / 515 Inj 500 ML @ 250 mls/hr IV.SIG ONCE ONE Rx#:[id number] fentaNYL 10 mcg/mL Premix Drip 150 / 150 2,500 mcg In 250 ml @ 50 MCG/HR 5 mls/hr IV.SIG TITRATE PRN Rx #:[id number] Oral 0 / 0 Tube Feeding 332 / 332 304 / 304 Water Bolus Amount Output: Urine Amount (Catheter) 1160 / 1160 1030 / 1030 Indwelling Urethral Catheter 1160 / 1160 1030 / 1030 Other: Date of Last Bowel Movement 12/06/17 12/06/17 12/06/17 # Bowel Movements 1 0 Narrative: GENERAL: Well-developed well-nourished. NECK: No carotid bruits. No JVD. CARDIOVASCULAR: Regular rate and rhythm. No murmur appreciated. RESPIRATORY: Mechanically ventilated. Clear to auscultation. MUSCULOSKELETAL: No clubbing or cyanosis. No edema. NEUROLOGICAL: Intubated. No shivering or decerebrate posturing currently. - Urinary Catheter Management Indwelling Temp Sensing Catheter Cath placed during this visit: yes, but has since been removed by the nurse Reason for continuing: Decision to DC catheter Insertion date: 12/02/17 Insertion time: 12:03 Removal date: 12/04/17 Removal time: 13:45 Indwelling Urethral Catheter Cath placed during this visit: yes Reason for continuing: Hourly intake/output Insertion date: 12/04/17 Insertion time: 13:50 Results 12/07/17 05:00 12/07/17 05:00 Cardiac Enzymes 12/05/17 12/06/17 12/07/17 Range/Units 07:35 05:00 05:00 AST 152 H 129 H 104 H (15-37) U/L Coagulation 12/05/17 12/05/17 12/05/17 Range/Units 07:35 07:35 17:39 PT 10.9 (9.8-11.6) sec APTT 34.1 H 35.9 H (24.3-30.1) sec 12/06/17 12/06/17 12/06/17 Range/Units 00:30 08:30 15:10 PT 10.8 (9.8-11.6) sec APTT 37.2 H 38.3 H 40.4 H (24.3-30.1) sec 12/06/17 12/07/17 Range/Units 22:00 05:00 PT 11.1 (9.8-11.6) sec APTT 40.4 H 38.0 H (24.3-30.1) sec CBC 12/06/17 12/07/17 Range/Units 05:00 05:00 WBC 14.3 H 11.4 H (4.0-11.0) th/mm3 RBC 3.59 L 3.17 L (4.50-5.90) mil/mm3 Hgb 11.7 L 10.5 L (13.0-17.0) gm/dL Hct 34.5 L 31.2 L (39.0-51.0) % Plt Count 118 L 119 L (150-450) th/mm3 Neut # (Auto) 12.2 H 8.6 H (1.8-7.7) th/mm3 Lymph # (Auto) 0.9 L 1.2 (1.0-4.8) th/mm3 [place] # (Auto) 1.1 H 1.5 H (0.0-0.9) th/mm3 Eos # (Auto) 0.0 0.0 (0.0-0.4) th/mm3 Baso # (Auto) 0.0 0.0 (0.0-0.2) th/mm3 Comprehensive Metabolic Panel 12/05/17 12/06/17 12/06/17 Range/Units 07:35 05:00 15:10 Sodium 145 144 (136-145) meq/L Potassium 5.1 D 3.3 L D 3.5 (3.5-5.1) meq/L Chloride 111 H 111 H (98-107) meq/L Carbon Dioxide 22.7 20.2 L (21.0-32.0) meq/L BUN 50 H 65 H (7-18) mg/dL Creatinine 2.33 H 2.35 H (0.60-1.30) mg/dL Calcium 8.3 L 8.3 L (8.5-10.1) mg/dL AST 152 H 129 H (15-37) U/L ALT 302 H 231 H (12-78) U/L Alkaline Phosphatase 59 56 (45-117) U/L Total Protein 6.1 L D 6.0 L (6.4-8.2) g/dL Albumin 3.1 L 2.7 L (3.4-5.0) g/dL 12/07/17 Range/Units 05:00 Sodium 148 H (136-145) meq/L Potassium 3.7 (3.5-5.1) meq/L Chloride 116 H (98-107) meq/L Carbon Dioxide 25.1 (21.0-32.0) meq/L BUN 47 H (7-18) mg/dL Creatinine 1.64 H (0.60-1.30) mg/dL Calcium 8.1 L (8.5-10.1) mg/dL AST 104 H (15-37) U/L ALT 155 H (12-78) U/L Alkaline Phosphatase 51 (45-117) U/L Total Protein 5.7 L (6.4-8.2) g/dL Albumin 2.5 L (3.4-5.0) g/dL Intake and Output 12/06/17 12/07/17 12/07/17 22:59 06:59 14:59 Intake Total 957 / 957 815.9 / 815.9 Output Total 1160 / 1160 1030 / 1030 Balance -203 / -203 -214.1 / -214.1 Intake: IV 615 / 615 511.9 / 511.9 Precedex Inj 1,000 MCG In NS 250 / 250 Inj 240 ML @ 0.2 MCG/KG/HR 4.57 mls/hr IV.CONT TITRATE PRN Rx# :[id number] Heparin Inj 25,000 UNIT In NS 161.9 / 161.9 Inj 247.5 ML @ 1,000 UNITS/HR 10 mls/hr IV.CONT TITRATE PRN Rx#:[id number] Unasyn Inj 3 GM In NS Inj 100 100 / 100 100 / 100 ML @ 200 mls/hr IV.SIG Q12H [facility]IS[facility] Rx#:[id number] Vancomycin Inj 1,500 MG In NS 515 / 515 Inj 500 ML @ 250 mls/hr IV.SIG ONCE ONE Rx#:[id number] Oral 0 / 0 Tube Feeding 332 / 332 304 / 304 Water Bolus Amount Output: Urine Amount (Catheter) 1160 / 1160 1030 / 1030 Indwelling Urethral Catheter 1160 / 1160 1030 / 1030 Other: Date of Last Bowel Movement 12/06/17 12/06/17 12/06/17 # Bowel Movements 1 0 Weight 206 lb 2.115 oz - Imaging and Cardiology Imaging: Impressions Chest X-Ray 12/05/17 07:28 CONCLUSION: 1. No significant interval change. 2. Stable ETT and NGT. 3. Minimal bibasilar atelectasis. Chest X-Ray 12/05/17 11:03 CONCLUSION: 1. Right IJ central line in good position without pneumothorax. 2. ETT and NGT stable. 3. Mild bibasilar airspace disease, likely atelectasis. Abdomen/Bladder Ultrasound 12/06/17 00:00 CONCLUSION: 1. The kidneys appear of normal size and adequate cortical thickness bilaterally. There does appear to be mildly increased echogenicity which can suggest underlying medical renal disease. Chest X-Ray 12/06/17 00:00 CONCLUSION: Partially consolidative left lower lobe infiltrate. Chest X-Ray 12/06/17 06:00 CONCLUSION: No significant interval change and mild patchy bilateral lower lung zone opacity. Chest X-Ray 12/07/17 06:00 CONCLUSION: Mild left base infiltrate not significantly changed. Assessment and Plan - Plan 57-year-old male admitted status post V. fib arrest Assessment: s/p V. fib arrest - suspect primary arrhythmogenic event Cardiomyopathy - EF 25-35% Narrow complex tachycardia 12/02 - sinus tachycardia vs brief atrial flutter Hypotension requiring pressor support - improved Respiratory failure requiring mechanical ventilation GCS 3 on arrival s/p medically induced coma s/p hypothermia protocol, frequent shivering and decerebrate posturing Fever - on antibiotics per primary team Plan: Continue heparin gtt for medical management of ACS Patient will require left heart cath pending neurologic recovery-EEG with moderate to severe slowing Aspirin 81 mg daily Hold statin due to to shock liver BP improved, resume carvedilol and consider addition of ACEi as BP allows Discussed Condition With: RN, Dr. Lind Procedures - Arterial Line Size (Gauge): 20
[2017-12-07] MEDS: Senna/Docusate Sodium 8.6/50 MG Tablet PO SCH ×2 (08:56→20:26)
[2017-12-07] MEDS: Carboxymethylcellulose 0.5% Opth Drops 15 ML Bottle EACH EYE SCH ×2 (09:00→20:25)
[2017-12-07] MEDS: Chlorhexidine 0.12% Oral Kit 15 ML UDC OROPHARYNG SCH ×2 (09:00→20:26)
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
--- NOTE | 2017-12-07 09:54 | P.PNPAL ---
Reason for Visit Reason for visit: a. To assist with evaluation and management of symptoms including: Encephalopathy, tremor b. To assist medical decision maker(s) with: better understanding of current medical conditions; weighing benefits/burdens of medical treatment options; making medical treatment decisions. Subjective Subjective/Interval History: Patient seen for follow-up of symptom management of encephalopathy and tremor and goals of medical treatment. Patient remains encephalopathic on Precedex 0.4 mcg/kg/min. Encephalopathy is severe, of acute onset, of constant duration, with no exacerbating or relieving factors. He is not responding to vigorous stimuli, including turning and bathing. Reflexes show positive pupillary reaction corneal reflex and upward plantar reflex, minimal cough and gag. No spontaneous limb movements or withdrawal to painful stimuli. Creatinine is improving, now down to 1.6. Transaminase trending down. Repeat EEG reading pending today per neurology who believes this is anoxic encephalopathy. Precedex off since 9:30 AM. No change in mental status. During examination patient started to exhibit a fine tremor in the head and neck area followed by more tremors with decerebrate posturing in bilateral lower extremities. Nurse stated she had previously seen some twitching in the right cheek, questionable for some seizure activity. Fibers were moderate severity, intermittent, attenuated by antiseizure medication and sedation, worsened with activity. EEG done today was abnormal per tech, pending neurology consultation. . Family/Friend Interactions: Spoke with family to include both sons, ex- and 3 other family members. Update given as to my physical findings, pending EEG, die attacher report and neurological evaluation. Made them aware of the cessation of sedation to better evaluate underlying neurological status. Son, David, states that he has personally assessed his father's response to noxious stimuli on each visit and has never seen a withdrawal to pain and is concerned that some reports she has received do indicate a withdrawal to painful stimuli and feels that this gives the family "false hope". During the conference the attending physician became available to speak to the sons regarding current medical status and they wished to speak with the physician privately so it left the meeting. I continued to review family questions with the ex- and other family members until all questions were answered to the best of my ability. Family expressed appreciation for palliative care information, updates and support. . Advance Directives Living Will: Never completed Health Care Surrogate: Never completed Durable Power of [employer] Scoreboard Operator: Never completed Objective Vital Signs: Vital Signs 12/06/17 11:00 12/06/17 12:00 12/06/17 13:55 Temperature 100.4 F H Pulse Rate 94 H 89 Respiratory Rate 15 14 Blood Pressure 115/64 114/69 Pulse Oximetry 97 98 12/06/17 15:00 12/06/17 16:00 12/06/17 16:35 Temperature 99.8 F H Pulse Rate 83 90 Respiratory Rate 14 15 Blood Pressure 126/67 157/89 H Pulse Oximetry 98 98 12/06/17 16:45 12/06/17 20:00 12/06/17 20:53 Temperature 99.6 F Pulse Rate 87 92 H 95 H Respiratory Rate 14 15 16 Blood Pressure 160/88 H Pulse Oximetry 12/06/17 21:00 12/06/17 22:45 12/06/17 22:55 Temperature Pulse Rate 92 H Respiratory Rate 17 31 H 14 Blood Pressure Pulse Oximetry 98 12/07/17 00:00 12/07/17 00:32 12/07/17 00:40 Temperature 100.3 F H Pulse Rate 86 Respiratory Rate 14 14 14 Blood Pressure 155/86 H Pulse Oximetry 98 12/07/17 03:40 12/07/17 04:00 12/07/17 07:00 Temperature 100.4 F H 99.7 F H Pulse Rate 92 H 88 81 Respiratory Rate 18 15 14 Blood Pressure 108/59 L 136/76 Pulse Oximetry 98 99 12/07/17 07:29 Temperature Pulse Rate Respiratory Rate 14 Blood Pressure Pulse Oximetry 99 Intake & Output 12/06/17 12/07/17 12/07/17 18:59 06:59 18:59 Intake Total 1827 / 1827 815.9 / 815.9 Output Total 1160 / 1160 1030 / 1030 Balance 667 / 667 -214.1 / -214.1 Weight 206 lb 2.115 oz Intake: IV 1485 / 1485 511.9 / 511.9 Precedex Inj 1,000 MCG In NS 220 / 220 250 / 250 Inj 240 ML @ 0.2 MCG/KG/HR 4.57 mls/hr IV.CONT TITRATE PRN Rx# :[id number] Heparin Inj 25,000 UNIT In NS 161.9 / 161.9 Inj 247.5 ML @ 1,000 UNITS/HR 10 mls/hr IV.CONT TITRATE PRN Rx#:[id number] Diprivan 1000 mg/100 ml Inj 1, 100 / 100 000 mg In 100 ml @ 5 MCG/KG/MIN 2.76 mls/hr IV.CONT TITRATE PRN Rx#:[id number] Unasyn Inj 3 GM In NS Inj 100 200 / 200 100 / 100 ML @ 200 mls/hr IV.SIG Q12H SANDY Rx#:[id number] KCl 10 mEq Premix Inj 10 meq In 300 / 300 100 ml @ 100 mls/hr IV.SIG Q1H ASNDY Rx#:[id number] Vancomycin Inj 1,500 MG In NS 515 / 515 Inj 500 ML @ 250 mls/hr IV.SIG ONCE ONE Rx#:[id number] fentaNYL 10 mcg/mL Premix Drip 150 / 150 2,500 mcg In 250 ml @ 50 MCG/HR 5 mls/hr IV.SIG TITRATE PRN Rx #:[id number] Oral 0 / 0 Tube Feeding 332 / 332 304 / 304 Water Bolus Amount 10 / 10 Output: Urine Amount (Catheter) 1160 / 1160 1030 / 1030 Indwelling Urethral Catheter 1160 / 1160 1030 / 1030 Other: Date of Last Bowel Movement 12/06/17 12/06/17 12/06/17 # Bowel Movements 1 0 Physical Exam: CONSTITUTIONAL/GENERAL: This is an adequately nourished patient, intubated, sedated, in no apparent distress. TUBES/LINES/DRAINS: PIV left hand, bilateral ACF PIV, right IJ, right radial arterial EYES: Pupils 2 mm, slightly reactive. Positive scleral edema, no scleral icterus. No injection or drainage. Fundi not examined. ENT: Nose without bleeding or purulent drainage. Orally intubated. NECK: Trachea midline. Supple. CARDIOVASCULAR: Regular rate and rhythm without murmurs, gallops, or rubs. No JVD. Peripheral pulses symmetric. RESPIRATORY/CHEST: Symmetric, unlabored respirations. Coarse rhonchi throughout all lung dimas. GASTROINTESTINAL: Abdomen soft, nondistended. Bowel sounds present. GENITOURINARY: Without palpable bladder distension. Rocha catheter in place. MUSCULOSKELETAL: Extremities without clubbing, cyanosis, or edema. No mottling or clubbing. NEUROLOGICAL: Intubated, sedated. Not withdrawing to painful stimuli. PSYCHIATRIC: Sedated. . Diagnostic Tests Laboratory: Laboratory Results - last 72 hr 12/02/17 12/04/17 12/04/17 12:00 10:09 13:39 WBC RBC Hgb Hct MCV MCH MCHC RDW Plt Count MPV Prelim Diff (Auto) Neut % (Auto) Lymph % (Auto) [place] % (Auto) Eos % (Auto) Baso % (Auto) Neut # (Auto) Lymph # (Auto) [place] # (Auto) Eos # (Auto) Baso # (Auto) WBC Differential Seg Neuts % (Manual) Lymphocytes % (Manual) Monocytes % (Manual) Abs Neuts (Manual) Differential Comment Platelet Estimate Platelet Morphology Tear Drop Cells PT INR APTT 30.1 Puncture Site Patient Temperature O2 Saturation ABG pH ABG pCO2 ABG pO2 ABG HCO3 ABG O2 Content ABG Base Excess ABG Methemoglobin Hemoglobin Carboxyhemoglobin O2 Delivery Device Vent Setting Inspired O2 Critical Value Sodium Potassium Chloride Carbon Dioxide Anion Gap BUN Creatinine Estimated GFR POC Glucose 129 H Random Glucose Calcium Phosphorus Magnesium Total Bilirubin AST ALT Alkaline Phosphatase Ammonia Total Protein Albumin Urine Color Urine Clarity Urine pH Ur Specific [place] Urine Protein Urine Glucose (UA) Urine Ketones Urine Occult Blood Urine Nitrate Urine Bilirubin Urine Urobilinogen Ur Leukocyte Esterase Urine RBC Urine WBC Urine WBC Clumps Ur Squamous Epith Cells Urine Bacteria Urine Mucus Micro UA Comment Ur Microscopic Review Urine Culture Comments Urine Eosinophils Ur Random Creatinine Ur Random Sodium Random Vancomycin U Benzodiazepine Confm Negative 12/05/17 12/05/17 12/05/17 00:35 01:02 05:19 WBC 19.9 H RBC 3.85 L Hgb 12.8 L Hct 37.8 L MCV 98.0 MCH 33.3 MCHC 34.0 RDW 13.9 Plt Count 132 L MPV 9.4 Prelim Diff (Auto) Slide review pending Neut % (Auto) 81.2 H Lymph % (Auto) 7.3 L [place] % (Auto) 11.1 H Eos % (Auto) 0.1 Baso % (Auto) 0.3 Neut # (Auto) 16.2 H Lymph # (Auto) 1.5 [place] # (Auto) 2.2 H Eos # (Auto) 0.0 Baso # (Auto) 0.1 WBC Differential Manual diff final Seg Neuts % (Manual) 82 H Lymphocytes % (Manual) 9 Monocytes % (Manual) 9 H Abs Neuts (Manual) 16.3 H Differential Comment . Platelet Estimate Low L Platelet Morphology Normal Tear Drop Cells 1+ H PT INR APTT 33.7 H Puncture Site Patient Temperature O2 Saturation ABG pH ABG pCO2 ABG pO2 ABG HCO3 ABG O2 Content ABG Base Excess ABG Methemoglobin Hemoglobin Carboxyhemoglobin O2 Delivery Device Vent Setting Inspired O2 Critical Value Sodium Potassium Chloride Carbon Dioxide Anion Gap BUN Creatinine Estimated GFR POC Glucose 105 Random Glucose Calcium Phosphorus Magnesium Total Bilirubin AST ALT Alkaline Phosphatase Ammonia Total Protein Albumin Urine Color Urine Clarity Urine pH Ur Specific [place] Urine Protein Urine Glucose (UA) Urine Ketones Urine Occult Blood Urine Nitrate Urine Bilirubin Urine Urobilinogen Ur Leukocyte Esterase Urine RBC Urine WBC Urine WBC Clumps Ur Squamous Epith Cells Urine Bacteria Urine Mucus Micro UA Comment Ur Microscopic Review Urine Culture Comments Urine Eosinophils Ur Random Creatinine Ur Random Sodium Random Vancomycin U Benzodiazepine Confm 12/05/17 12/05/17 12/05/17 05:19 06:00 07:23 WBC RBC Hgb Hct MCV MCH MCHC RDW Plt Count MPV Prelim Diff (Auto) Neut % (Auto) Lymph % (Auto) [place] % (Auto) Eos % (Auto) Baso % (Auto) Neut # (Auto) Lymph # (Auto) [place] # (Auto) Eos # (Auto) Baso # (Auto) WBC Differential Seg Neuts % (Manual) Lymphocytes % (Manual) Monocytes % (Manual) Abs Neuts (Manual) Differential Comment Platelet Estimate Platelet Morphology Tear Drop Cells PT INR APTT Puncture Site Art line Patient Temperature 98.6 O2 Saturation 96 ABG pH 7.35 L ABG pCO2 32 L ABG pO2 150 H ABG HCO3 17 L ABG O2 Content 17.6 ABG Base Excess -7.2 L ABG Methemoglobin 2.1 H Hemoglobin 12.8 Carboxyhemoglobin 0.4 O2 Delivery Device Ventilator Vent Setting Aprv Inspired O2 40 Critical Value No Sodium Potassium Chloride Carbon Dioxide Anion Gap BUN Creatinine Estimated GFR POC Glucose 72 Random Glucose Calcium Phosphorus 4.4 D Magnesium 1.6 Total Bilirubin AST ALT Alkaline Phosphatase Ammonia Total Protein Albumin Urine Color Urine Clarity Urine pH Ur Specific [place] Urine Protein Urine Glucose (UA) Urine Ketones Urine Occult Blood Urine Nitrate Urine Bilirubin Urine Urobilinogen Ur Leukocyte Esterase Urine RBC Urine WBC Urine WBC Clumps Ur Squamous Epith Cells Urine Bacteria Urine Mucus Micro UA Comment Ur Microscopic Review Urine Culture Comments Urine Eosinophils Ur Random Creatinine Ur Random Sodium Random Vancomycin U Benzodiazepine Confm 12/05/17 12/05/17 12/05/17 07:35 07:35 07:35 WBC RBC Hgb Hct MCV MCH MCHC RDW Plt Count MPV Prelim Diff (Auto) Neut % (Auto) Lymph % (Auto) [place] % (Auto) Eos % (Auto) Baso % (Auto) Neut # (Auto) Lymph # (Auto) [place] # (Auto) Eos # (Auto) Baso # (Auto) WBC Differential Seg Neuts % (Manual) Lymphocytes % (Manual) Monocytes % (Manual) Abs Neuts (Manual) Differential Comment Platelet Estimate Platelet Morphology Tear Drop Cells PT 10.9 INR 1.1 APTT 34.1 H Puncture Site Patient Temperature O2 Saturation ABG pH ABG pCO2 ABG pO2 ABG HCO3 ABG O2 Content ABG Base Excess ABG Methemoglobin Hemoglobin Carboxyhemoglobin O2 Delivery Device Vent Setting Inspired O2 Critical Value Sodium 145 Potassium 5.1 D Chloride 111 H Carbon Dioxide 22.7 Anion Gap 11 BUN 50 H Creatinine 2.33 H Estimated GFR 29 L POC Glucose Random Glucose 86 Calcium 8.3 L Phosphorus Magnesium Total Bilirubin 0.6 AST 152 H ALT 302 H Alkaline Phosphatase 59 Ammonia Total Protein 6.1 L D Albumin 3.1 L Urine Color Urine Clarity Urine pH Ur Specific [place] Urine Protein Urine Glucose (UA) Urine Ketones Urine Occult Blood Urine Nitrate Urine Bilirubin Urine Urobilinogen Ur Leukocyte Esterase Urine RBC Urine WBC Urine WBC Clumps Ur Squamous Epith Cells Urine Bacteria Urine Mucus Micro UA Comment Ur Microscopic Review Urine Culture Comments Urine Eosinophils Ur Random Creatinine Ur Random Sodium Random Vancomycin U Benzodiazepine Confm 12/05/17 12/05/17 12/05/17 12:17 12:50 15:51 WBC RBC Hgb Hct MCV MCH MCHC RDW Plt Count MPV Prelim Diff (Auto) Neut % (Auto) Lymph % (Auto) [place] % (Auto) Eos % (Auto) Baso % (Auto) Neut # (Auto) Lymph # (Auto) [place] # (Auto) Eos # (Auto) Baso # (Auto) WBC Differential Seg Neuts % (Manual) Lymphocytes % (Manual) Monocytes % (Manual) Abs Neuts (Manual) Differential Comment Platelet Estimate Platelet Morphology Tear Drop Cells PT INR APTT Puncture Site Patient Temperature O2 Saturation ABG pH ABG pCO2 ABG pO2 ABG HCO3 ABG O2 Content ABG Base Excess ABG Methemoglobin Hemoglobin Carboxyhemoglobin O2 Delivery Device Vent Setting Inspired O2 Critical Value Sodium Potassium Chloride Carbon Dioxide Anion Gap BUN Creatinine Estimated GFR POC Glucose 58 L 113 H Random Glucose Calcium Phosphorus Magnesium Total Bilirubin AST ALT Alkaline Phosphatase Ammonia Total Protein Albumin Urine Color Yellow Urine Clarity Cloudy H Urine pH 5.0 Ur Specific [place] 1.029 Urine Protein 30 H Urine Glucose (UA) Negative Urine Ketones 20 Urine Occult Blood Large H Urine Nitrate Negative Urine Bilirubin Negative Urine Urobilinogen Less than 2 Ur Leukocyte Esterase Small H Urine RBC 13 H Urine WBC 8 H Urine WBC Clumps Few H Ur Squamous Epith Cells <1 Urine Bacteria Occasional H Urine Mucus Few H Micro UA Comment Cath-culture ind Ur Microscopic Review Not Reportable Urine Culture Comments Cath-cult indicated Urine Eosinophils Ur Random Creatinine Ur Random Sodium Random Vancomycin U Benzodiazepine Confm 12/05/17 12/05/17 12/05/17 16:39 17:39 17:52 WBC RBC Hgb Hct MCV MCH MCHC RDW Plt Count MPV Prelim Diff (Auto) Neut % (Auto) Lymph % (Auto) [place] % (Auto) Eos % (Auto) Baso % (Auto) Neut # (Auto) Lymph # (Auto) [place] # (Auto) Eos # (Auto) Baso # (Auto) WBC Differential Seg Neuts % (Manual) Lymphocytes % (Manual) Monocytes % (Manual) Abs Neuts (Manual) Differential Comment Platelet Estimate Platelet Morphology Tear Drop Cells PT INR APTT 35.9 H Puncture Site Patient Temperature O2 Saturation ABG pH ABG pCO2 ABG pO2 ABG HCO3 ABG O2 Content ABG Base Excess ABG Methemoglobin Hemoglobin Carboxyhemoglobin O2 Delivery Device Vent Setting Inspired O2 Critical Value Sodium Potassium Chloride Carbon Dioxide Anion Gap BUN Creatinine Estimated GFR POC Glucose 111 H 125 H Random Glucose Calcium Phosphorus Magnesium Total Bilirubin AST ALT Alkaline Phosphatase Ammonia Total Protein Albumin Urine Color Urine Clarity Urine pH Ur Specific [place] Urine Protein Urine Glucose (UA) Urine Ketones Urine Occult Blood Urine Nitrate Urine Bilirubin Urine Urobilinogen Ur Leukocyte Esterase Urine RBC Urine WBC Urine WBC Clumps Ur Squamous Epith Cells Urine Bacteria Urine Mucus Micro UA Comment Ur Microscopic Review Urine Culture Comments Urine Eosinophils Ur Random Creatinine Ur Random Sodium Random Vancomycin U Benzodiazepine Confm 12/06/17 12/06/17 12/06/17 00:30 00:33 05:00 WBC 14.3 H RBC 3.59 L Hgb 11.7 L Hct 34.5 L MCV 96.4 MCH 32.7 MCHC 34.0 RDW 13.9 Plt Count 118 L MPV 9.2 Prelim Diff (Auto) Neut % (Auto) 85.4 H Lymph % (Auto) 6.6 L [place] % (Auto) 7.7 Eos % (Auto) 0.0 Baso % (Auto) 0.3 Neut # (Auto) 12.2 H Lymph # (Auto) 0.9 L [place] # (Auto) 1.1 H Eos # (Auto) 0.0 Baso # (Auto) 0.0 WBC Differential . Seg Neuts % (Manual) Lymphocytes % (Manual) Monocytes % (Manual) Abs Neuts (Manual) Differential Comment Auto diff final Platelet Estimate Platelet Morphology Tear Drop Cells PT INR APTT 37.2 H Puncture Site Patient Temperature O2 Saturation ABG pH ABG pCO2 ABG pO2 ABG HCO3 ABG O2 Content ABG Base Excess ABG Methemoglobin Hemoglobin Carboxyhemoglobin O2 Delivery Device Vent Setting Inspired O2 Critical Value Sodium Potassium Chloride Carbon Dioxide Anion Gap BUN Creatinine Estimated GFR POC Glucose 133 H Random Glucose Calcium Phosphorus Magnesium Total Bilirubin AST ALT Alkaline Phosphatase Ammonia Total Protein Albumin Urine Color Urine Clarity Urine pH Ur Specific [place] Urine Protein Urine Glucose (UA) Urine Ketones Urine Occult Blood Urine Nitrate Urine Bilirubin Urine Urobilinogen Ur Leukocyte Esterase Urine RBC Urine WBC Urine WBC Clumps Ur Squamous Epith Cells Urine Bacteria Urine Mucus Micro UA Comment Ur Microscopic Review Urine Culture Comments Urine Eosinophils Ur Random Creatinine Ur Random Sodium Random Vancomycin U Benzodiazepine Confm 12/06/17 12/06/17 12/06/17 05:00 05:00 05:10 WBC RBC Hgb Hct MCV MCH MCHC RDW Plt Count MPV Prelim Diff (Auto) Neut % (Auto) Lymph % (Auto) [place] % (Auto) Eos % (Auto) Baso % (Auto) Neut # (Auto) Lymph # (Auto) [place] # (Auto) Eos # (Auto) Baso # (Auto) WBC Differential Seg Neuts % (Manual) Lymphocytes % (Manual) Monocytes % (Manual) Abs Neuts (Manual) Differential Comment Platelet Estimate Platelet Morphology Tear Drop Cells PT INR APTT Puncture Site Patient Temperature O2 Saturation ABG pH ABG pCO2 ABG pO2 ABG HCO3 ABG O2 Content ABG Base Excess ABG Methemoglobin Hemoglobin Carboxyhemoglobin O2 Delivery Device Vent Setting Inspired O2 Critical Value Sodium 144 Potassium 3.3 L D Chloride 111 H Carbon Dioxide 20.2 L Anion Gap 13 BUN 65 H Creatinine 2.35 H Estimated GFR 29 L POC Glucose 153 H Random Glucose 165 H Calcium 8.3 L Phosphorus 3.0 D Magnesium 2.2 D Total Bilirubin 0.9 AST 129 H ALT 231 H Alkaline Phosphatase 56 Ammonia 28 Total Protein 6.0 L Albumin 2.7 L Urine Color Urine Clarity Urine pH Ur Specific [place] Urine Protein Urine Glucose (UA) Urine Ketones Urine Occult Blood Urine Nitrate Urine Bilirubin Urine Urobilinogen Ur Leukocyte Esterase Urine RBC Urine WBC Urine WBC Clumps Ur Squamous Epith Cells Urine Bacteria Urine Mucus Micro UA Comment Ur Microscopic Review Urine Culture Comments Urine Eosinophils Ur Random Creatinine Ur Random Sodium Random Vancomycin 14.0 U Benzodiazepine Confm 12/06/17 12/06/17 12/06/17 07:45 07:45 08:30 WBC RBC Hgb Hct MCV MCH MCHC RDW Plt Count MPV Prelim Diff (Auto) Neut % (Auto) Lymph % (Auto) [place] % (Auto) Eos % (Auto) Baso % (Auto) Neut # (Auto) Lymph # (Auto) [place] # (Auto) Eos # (Auto) Baso # (Auto) WBC Differential Seg Neuts % (Manual) Lymphocytes % (Manual) Monocytes % (Manual) Abs Neuts (Manual) Differential Comment Platelet Estimate Platelet Morphology Tear Drop Cells PT 10.8 INR 1.1 APTT 38.3 H Puncture Site Patient Temperature O2 Saturation ABG pH ABG pCO2 ABG pO2 ABG HCO3 ABG O2 Content ABG Base Excess ABG Methemoglobin Hemoglobin Carboxyhemoglobin O2 Delivery Device Vent Setting Inspired O2 Critical Value Sodium Potassium Chloride Carbon Dioxide Anion Gap BUN Creatinine Estimated GFR POC Glucose Random Glucose Calcium Phosphorus Magnesium Total Bilirubin AST ALT Alkaline Phosphatase Ammonia Total Protein Albumin Urine Color Urine Clarity Urine pH Ur Specific [place] Urine Protein Urine Glucose (UA) Urine Ketones Urine Occult Blood Urine Nitrate Urine Bilirubin Urine Urobilinogen Ur Leukocyte Esterase Urine RBC Urine WBC Urine WBC Clumps Ur Squamous Epith Cells Urine Bacteria Urine Mucus Micro UA Comment Ur Microscopic Review Urine Culture Comments Urine Eosinophils None seen Ur Random Creatinine 220 Ur Random Sodium 14 Random Vancomycin U Benzodiazepine Confm 12/06/17 12/06/17 12/06/17 08:34 11:14 12:10 WBC RBC Hgb Hct MCV MCH MCHC RDW Plt Count MPV Prelim Diff (Auto) Neut % (Auto) Lymph % (Auto) [place] % (Auto) Eos % (Auto) Baso % (Auto) Neut # (Auto) Lymph # (Auto) [place] # (Auto) Eos # (Auto) Baso # (Auto) WBC Differential Seg Neuts % (Manual) Lymphocytes % (Manual) Monocytes % (Manual) Abs Neuts (Manual) Differential Comment Platelet Estimate Platelet Morphology Tear Drop Cells PT INR APTT Puncture Site Art line Art line Patient Temperature 98.6 98.6 O2 Saturation 96 96 ABG pH 7.63 H* 7.47 H ABG pCO2 20 L* 32 L ABG pO2 178 H 136 H ABG HCO3 21 L 23 ABG O2 Content 22.2 H 14.9 ABG Base Excess -0.7 -0.2 ABG Methemoglobin 1.9 2.0 Hemoglobin 16.2 H 10.9 L Carboxyhemoglobin 0.7 0.7 O2 Delivery Device Ventilator Ventilator Vent Setting Aprv 15/600/[id number] Inspired O2 40 40 Critical Value Yes No Sodium Potassium Chloride Carbon Dioxide Anion Gap BUN Creatinine Estimated GFR POC Glucose 138 H Random Glucose Calcium Phosphorus Magnesium Total Bilirubin AST ALT Alkaline Phosphatase Ammonia Total Protein Albumin Urine Color Urine Clarity Urine pH Ur Specific [place] Urine Protein Urine Glucose (UA) Urine Ketones Urine Occult Blood Urine Nitrate Urine Bilirubin Urine Urobilinogen Ur Leukocyte Esterase Urine RBC Urine WBC Urine WBC Clumps Ur Squamous Epith Cells Urine Bacteria Urine Mucus Micro UA Comment Ur Microscopic Review Urine Culture Comments Urine Eosinophils Ur Random Creatinine Ur Random Sodium Random Vancomycin U Benzodiazepine Confm 12/06/17 12/06/17 12/06/17 15:10 15:10 17:43 WBC RBC Hgb Hct MCV MCH MCHC RDW Plt Count MPV Prelim Diff (Auto) Neut % (Auto) Lymph % (Auto) [place] % (Auto) Eos % (Auto) Baso % (Auto) Neut # (Auto) Lymph # (Auto) [place] # (Auto) Eos # (Auto) Baso # (Auto) WBC Differential Seg Neuts % (Manual) Lymphocytes % (Manual) Monocytes % (Manual) Abs Neuts (Manual) Differential Comment Platelet Estimate Platelet Morphology Tear Drop Cells PT INR APTT 40.4 H Puncture Site Patient Temperature O2 Saturation ABG pH ABG pCO2 ABG pO2 ABG HCO3 ABG O2 Content ABG Base Excess ABG Methemoglobin Hemoglobin Carboxyhemoglobin O2 Delivery Device Vent Setting Inspired O2 Critical Value Sodium Potassium 3.5 Chloride Carbon Dioxide Anion Gap BUN Creatinine Estimated GFR POC Glucose 144 H Random Glucose Calcium Phosphorus Magnesium Total Bilirubin AST ALT Alkaline Phosphatase Ammonia Total Protein Albumin Urine Color Urine Clarity Urine pH Ur Specific [place] Urine Protein Urine Glucose (UA) Urine Ketones Urine Occult Blood Urine Nitrate Urine Bilirubin Urine Urobilinogen Ur Leukocyte Esterase Urine RBC Urine WBC Urine WBC Clumps Ur Squamous Epith Cells Urine Bacteria Urine Mucus Micro UA Comment Ur Microscopic Review Urine Culture Comments Urine Eosinophils Ur Random Creatinine Ur Random Sodium Random Vancomycin U Benzodiazepine Confm 12/06/17 12/07/17 12/07/17 22:00 00:04 05:00 WBC RBC Hgb Hct MCV MCH MCHC RDW Plt Count MPV Prelim Diff (Auto) Neut % (Auto) Lymph % (Auto) [place] % (Auto) Eos % (Auto) Baso % (Auto) Neut # (Auto) Lymph # (Auto) [place] # (Auto) Eos # (Auto) Baso # (Auto) WBC Differential Seg Neuts % (Manual) Lymphocytes % (Manual) Monocytes % (Manual) Abs Neuts (Manual) Differential Comment Platelet Estimate Platelet Morphology Tear Drop Cells PT INR APTT 40.4 H Puncture Site Patient Temperature O2 Saturation ABG pH ABG pCO2 ABG pO2 ABG HCO3 ABG O2 Content ABG Base Excess ABG Methemoglobin Hemoglobin Carboxyhemoglobin O2 Delivery Device Vent Setting Inspired O2 Critical Value Sodium 148 H Potassium 3.7 Chloride 116 H Carbon Dioxide 25.1 Anion Gap 7 BUN 47 H Creatinine 1.64 H Estimated GFR 43 L POC Glucose 120 H Random Glucose 153 H Calcium 8.1 L Phosphorus 2.6 Magnesium 2.3 Total Bilirubin 0.5 AST 104 H ALT 155 H Alkaline Phosphatase 51 Ammonia Total Protein 5.7 L Albumin 2.5 L Urine Color Urine Clarity Urine pH Ur Specific [place] Urine Protein Urine Glucose (UA) Urine Ketones Urine Occult Blood Urine Nitrate Urine Bilirubin Urine Urobilinogen Ur Leukocyte Esterase Urine RBC Urine WBC Urine WBC Clumps Ur Squamous Epith Cells Urine Bacteria Urine Mucus Micro UA Comment Ur Microscopic Review Urine Culture Comments Urine Eosinophils Ur Random Creatinine Ur Random Sodium Random Vancomycin 13.1 U Benzodiazepine Confm 12/07/17 12/07/17 05:00 05:00 WBC 11.4 H RBC 3.17 L Hgb 10.5 L Hct 31.2 L MCV 98.4 MCH 33.1 MCHC 33.7 RDW 13.6 Plt Count 119 L MPV 8.9 Prelim Diff (Auto) Neut % (Auto) 75.8 H Lymph % (Auto) 10.5 [place] % (Auto) 13.5 H Eos % (Auto) 0.0 Baso % (Auto) 0.2 Neut # (Auto) 8.6 H Lymph # (Auto) 1.2 [place] # (Auto) 1.5 H Eos # (Auto) 0.0 Baso # (Auto) 0.0 WBC Differential . Seg Neuts % (Manual) Lymphocytes % (Manual) Monocytes % (Manual) Abs Neuts (Manual) Differential Comment Auto diff final Platelet Estimate Platelet Morphology Tear Drop Cells PT 11.1 INR 1.1 APTT 38.0 H Puncture Site Patient Temperature O2 Saturation ABG pH ABG pCO2 ABG pO2 ABG HCO3 ABG O2 Content ABG Base Excess ABG Methemoglobin Hemoglobin Carboxyhemoglobin O2 Delivery Device Vent Setting Inspired O2 Critical Value Sodium Potassium Chloride Carbon Dioxide Anion Gap BUN Creatinine Estimated GFR POC Glucose Random Glucose Calcium Phosphorus Magnesium Total Bilirubin AST ALT Alkaline Phosphatase Ammonia Total Protein Albumin Urine Color Urine Clarity Urine pH Ur Specific [place] Urine Protein Urine Glucose (UA) Urine Ketones Urine Occult Blood Urine Nitrate Urine Bilirubin Urine Urobilinogen Ur Leukocyte Esterase Urine RBC Urine WBC Urine WBC Clumps Ur Squamous Epith Cells Urine Bacteria Urine Mucus Micro UA Comment Ur Microscopic Review Urine Culture Comments Urine Eosinophils Ur Random Creatinine Ur Random Sodium Random Vancomycin U Benzodiazepine Confm Result Diagrams: 12/12/17 04:40 12/12/17 04:40 Microbiology: Microbiology 12/03/17 05:00 Aerobic Blood Culture - Preliminary Blood - Arterial Line No growth in 3 days Anaerobic Blood Culture - Preliminary pleomorphic gram positive rods 12/05/17 15:51 Urine Culture - Preliminary Catheterized Urine No growth in 24 hours 12/05/17 18:35 Aerobic Blood Culture - Preliminary Blood - Peripheral No growth in 1 day Anaerobic Blood Culture - Preliminary No growth in 1 day 12/05/17 18:40 Aerobic Blood Culture - Preliminary Blood - Peripheral No growth in 1 day Anaerobic Blood Culture - Preliminary No growth in 1 day 12/02/17 14:19 Aerobic Blood Culture - Preliminary Blood - Peripheral No growth in 4 days Anaerobic Blood Culture - Preliminary No growth in 4 days 12/02/17 14:14 Aerobic Blood Culture - Preliminary Blood - Peripheral No growth in 4 days Anaerobic Blood Culture - Preliminary No growth in 4 days 12/06/17 00:45 Gram Stain - Final Sputum - Endotracheal 12/02/17 17:35 Gram Stain - Final Sputum - Endotracheal Sputum Culture - Final Heavy growth normal respiratory michelle 12/02/17 12:00 Urine Culture - Final Catheterized Urine No growth in 48 hours Procedures: 12/02: Orotracheal intubation 12/02: Left radial arterial line 12/02: Right femoral Quattro cooling catheter Assessment and Plan Pertinent Non-Medical Issues: Psychosocial: He was born in [place], [place] and 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 He was once and is now . He has 2 adult sons, David and Sharif as well as grandchildren. 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 Legal: No advance directives completed. Ethical issues impacting care: No ethical issues noted. . Important Contacts: Son: David Murphy Son: Sharif Murphy . Prognosis: His prognosis is guarded. He has had an extended resuscitation time with the initial arrest allowing approximately 15 minutes to ROSC and the second arrest approximately 30 minutes to ROSC. He did undergo hypothermia protocol and is being maintained on deep sedation secondary to severe shivering. Primary concern is for anoxic brain injury the extent of which cannot be determined at this time. Plan is to continue supportive care until patient's mental status can be more accurately determined. The patient remains in FULL CODE at this time. Ejection fraction shows 25-35% on admission with elevated troponin. There is no known prior history of cardiovascular disease, however due to the extended resuscitation time needed over 2 separate attempts, his prognosis is guarded. . Code Status: Full Code Plan: PLAN: Legal decision maker: The patient is currently not capacitated to make his own decisions. Per [place] statutes, as the patient is , decision making would fall to the majority of his adult children which are his 2 sons David and Sharif. Goals: Aggressive at this time. CODE STATUS: FULL CODE SYMPTOMS: * Encephalopathy: Multifactorial to include substantial downtime during 2 cardiac arrests, Precedex off at 9:30 AM, hypothermia protocol completed, rewarmed 12/04. Watchful waiting is currently recommended by the die attacher staff and agreed to by the family. Once sedation has worn off further assessment can be made. Neurology now following, opining anoxic encephalopathy. Pending reading on repeat EEG. No further recommendations at this time. * Tremor: Tremors are improving, now off Precedex. Propofol discontinued. EEG was negative for subclinical seizures, repeat EEG scheduled today. Further management per die attacher service. No further recommendations at this time Palliative care will continue to follow the patient during hospital course as condition evolves, to assist patient/decision-maker with understanding of their medical conditions, weighing benefits/burdens of treatment options, for clarification of goals of treatment. Additionally will assist with any symptoms of palliative concern. . Attestation Attestation: To help prompt me to consider important information that might be impacting today's encounter and assessment, information from prior notes written by myself or my colleagues may have been "brought forward" into today's note. My signature on this note, however, is an attestation that I personally performed the exam, history, and/or decision-making noted today, and, unless otherwise indicated, the interactions with patient, family, and staff as well as the review of records all occurred today. I also attest that the listed assessment and stated plan reflect my best clinical judgment today based on the combination of historical information, prior notes, and today's exam/ interactions. When time spent is documented, it refers only to time spent today by the signer, or if indicated, combined time spent today by collaborating physician/nurse practitioner. .
[2017-12-07] MEDS: Metoprolol Inj 5 MG/5 ML Vial IV.PUSH PRN ×4 (11:34→20:23)
[2017-12-07] MEDS: Vancomycin Inj 1,750 MG in Sodium Chlor 0.9% Inj 500 ML IV.SIG SCH (12:31)
[2017-12-07] MEDS: hydrALAZINE 50 MG Tablet PO SCH ×2 (12:31→18:17)
[2017-12-07 14:04] LABS: Hepatitits B Surface Antigen Nonreactive (Nonreactive)
[2017-12-07 14:31] LABS: Hepatitis A IgM Antibody Nonreactive (Nonreactive)
--- NOTE | 2017-12-07 17:46 | US ---
EXAM DATE: 12/07/2017 12:00 AM EDT AGE/SEX: 57 years / Male INDICATIONS: Elevated LFT's. CLINICAL DATA: This is the patient's initial encounter. Patient reports that signs and symptoms have been present for 1 day and indicates a pain score of Nonresponsive. MEDICAL/SURGICAL HISTORY: Hypercholesterolemia. Hypertension. Hyperlipidemia. None. COMPARISON: [facility] [place], US KIDNEY/RENAL/BLADDER, 12/06/2017. [facility] [place], CHEST 1V SINGLE AP, 12/07/2017. . MEASUREMENTS: Liver:__ 17.0 cm. Common Bile Duct:__ 6mm. Right Kidney:__ 11.6 x 5.1 x 5.7 cm. FINDINGS: Liver: Normal echotexture without focal lesion or ductal dilatation. Portal Vein: Hepatopedal flow seen in portal vein. Common Duct: No intraluminal mass or stone visualized. Gallbladder: There is echogenic material within the gallbladder lumen. It demonstrates no internal c olor flow. No wall thickening or pericholecystic fluid is present. No stones are present. Pancreas: Not well visualized. Right Kidney: Increased echogenicity. No mass or hydronephrosis. Other: Right pleural effusion is visualized. CONCLUSION: 1. No specific abnormality is identified to explain the elevated LFTs. 2. Tumefactive sludge within the gallbladder. 3. Mild increased echogenicity of the right kidney which may indicate medical renal disease. 4. Right pleural effusion. Electronically signed by: Roosevelt Schultz MD 12/07/2017 5:45 PM EDT
--- NOTE | 2017-12-07 20:02 | P.PNNEU ---
Subjective Subjective Comments: no new sx. Active Medications: Active Medications Acetaminophen (Tylenol Liq) 650 mg NG/OG Q6H PRN PRN Reason: SHIVERING Last Admin: 12/07/17 09:01 Dose: 650 mg Albuterol (Duoneb Neb (Faisal)) 1 ampul NEB Q6HR NEB FAISAL Last Admin: 12/07/17 17:25 Dose: 1 ampul Albuterol (Albuterol Neb (Prn)) 2.5 mg NEB Q2HR NEB PRN PRN Reason: DYSPNEA Last Admin: 12/06/17 22:45 Dose: 2.5 mg Artificial Tears (Lacrilube Opth Oint) 1 applicatio EACH EYE Q4H PRN PRN Reason: NMB Artificial Tears (Refresh Tears 0.5% Opth Drops) 1 drop EACH EYE BID [facility] Last Admin: 12/07/17 09:00 Dose: 1 drop Aspirin (Aspirin Chew) 81 mg PO DAILY [facility] Last Admin: 12/07/17 09:00 Dose: 81 mg Carvedilol (Coreg) 3.125 mg PO BID [facility] Last Admin: 12/07/17 10:04 Dose: 3.125 mg Chlorhexidine Gluconate (Peridex 0.12% Oral Kit) 15 ml OROPHARYNG BID@0800, 2000 [facility] Last Admin: 12/07/17 09:00 Dose: 15 ml Chlorhexidine Gluconate (Chlorhexidine 2% Cloth) 3 pack TOPICAL DAILY@0400 [facility] Stop: 12/08/17 03:59 Last Admin: 12/07/17 05:55 Dose: 3 pack Chlorhexidine Gluconate (Chlorhexidine 2% Cloth) 3 pack TOPICAL DAILY@0400 PRN PRN Reason: Extra cloth needed Stop: 12/08/17 03:59 Dextrose (D50w Vial) 50 ml IV.PUSH UNSCH PRN PRN Reason: PER HYPOGLYCEMIA PROTOCOL Last Admin: 12/05/17 12:21 Dose: 50 ml Fentanyl Citrate (Fentanyl Inj) 50 mcg IV.PUSH Q1H PRN PRN Reason: PAIN SCALE 1 TO 10 Last Admin: 12/07/17 16:10 Dose: 50 mcg Fentanyl Citrate (Fentanyl Inj) 100 mcg IV.PUSH Q1H PRN PRN Reason: sedation Last Admin: 12/07/17 13:55 Dose: 100 mcg Glucagon (Glucagon Inj) 1 mg OTHER PRN PRN PRN Reason: for Hypoglycemia Protocol Hydralazine HCl (Apresoline) 50 mg PO TID FAISAL Last Admin: 12/07/17 18:17 Dose: 50 mg Heparin Sodium (Porcine) 25, (000 unit/ Sodium Chloride) 250 mls @ 10 mls/hr IV.CONT TITRATE PRN; Protocol PRN Reason: Per Protocol Last Titration: 12/07/17 18:28 Dose: 1,300 units/hr, 13 mls/hr Propofol (Diprivan 1000 Mg/100 Ml Inj) 1,000 mg in 100 mls @ 2.76 mls/hr IV.CONT TITRATE PRN; Protocol PRN Reason: Per Protocol Last Titration: 12/06/17 07:48 Dose: Infused Norepinephrine Bitartrate 16 (mg/ Sodium Chloride) 250 mls @ 1.87 mls/hr IV.CONT TITRATE PRN; Protocol PRN Reason: See Protocol Last Titration: 12/06/17 07:48 Dose: 2 mcg/min, 1.87 mls/hr Dexmedetomidine HCl 1,000 mcg/ (Sodium Chloride) 250 mls @ 4.57 mls/hr IV.CONT TITRATE PRN; Protocol PRN Reason: Per Protocol Last Titration: 12/07/17 18:28 Dose: 0.5 mcg/kg/hr, 11.43 mls/hr Ampicillin Sodium/Sulbactam (Sodium 3 gm/ Sodium Chloride) 100 mls @ 200 mls/ hr IV.SIG Q12H FAISAL Last Admin: 12/07/17 18:17 Dose: 200 mls/hr Vancomycin HCl 1,750 mg/ (Sodium Chloride) 517.5 mls @ 250 mls/hr IV.SIG Q24H FAISAL Last Infusion: 12/07/17 17:27 Dose: Infused Insulin Human Regular (Novolin R Correctional Sugar Inj) 0 units SQ Q6HR FAISAL; Protocol Last Admin: 12/07/17 18:17 Dose: Not Given Lactulose (Lactulose Liq) 30 ml PO Q6H FAISAL Last Admin: 12/07/17 18:18 Dose: Not Given Lansoprazole (Prevacid Solutab) 30 mg NG/OG DAILY [facility] Last Admin: 12/07/17 09:00 Dose: 30 mg Metoprolol Tartrate (Lopressor Inj) 5 mg IV.PUSH Q5M PRN PRN Reason: HR>100 Last Admin: 12/07/17 16:10 Dose: 5 mg Miscellaneous Information (Misc Information) 0 each OTHER UNSCH [facility] Miscellaneous Information ([facility] Ordered Lab Info) 0 each OTHER ONCE ONE Stop: 12/09/17 11:46 Miscellaneous Medication () 1 each OROPHARYNG 0000,0400,1200,1600 [facility] Last Admin: 12/07/17 16:10 Dose: 1 each Ondansetron HCl (Zofran Inj) 4 mg IV.PUSH Q6H PRN PRN Reason: NAUSEA OR VOMITING Last Admin: 12/05/17 07:26 Dose: 4 mg Pharmacy Profile Note (Vancomycin Consult Pharmacy) 1 each OTHER UNSCH PRN PRN Reason: Pharmacy to dose Senna/Docusate Sodium (Mirella-Colace) 1 tab PO BID [facility] Last Admin: 12/07/17 08:56 Dose: 1 tab Sodium Chloride (Ns Flush) 2 ml IV.FLUSH UNSCH PRN PRN Reason: FLUSH AFTER USING IV ACCESS Sodium Chloride (Ns Flush) 0 ml IV.FLUSH DAILY [facility] Last Admin: 12/07/17 09:00 Dose: 6 ml Terbutaline Sulfate (Brethine Inj) 1 mg SQ UNSCH PRN PRN Reason: For Extravasation Allergies/Adverse Reactions: Allergies Allergy/AdvReac Type Severity Reaction Status Date / Time No Known Allergies Allergy Verified 12/02/17 09:40 Physical Exam Vital signs: Vital Signs 12/06/17 20:00 12/06/17 20:53 12/06/17 21:00 Temperature 99.6 F Pulse Rate 92 H 95 H Respiratory Rate 15 16 17 Blood Pressure 160/88 H Pulse Oximetry 98 12/06/17 22:45 12/06/17 22:55 12/07/17 00:00 Temperature 100.3 F H Pulse Rate 92 H 86 Respiratory Rate 31 H 14 14 Blood Pressure 155/86 H Pulse Oximetry 12/07/17 00:32 12/07/17 00:40 12/07/17 03:40 Temperature Pulse Rate 92 H Respiratory Rate 14 14 18 Blood Pressure Pulse Oximetry 98 98 12/07/17 04:00 12/07/17 07:00 12/07/17 07:29 Temperature 100.4 F H 99.7 F H Pulse Rate 88 81 Respiratory Rate 15 14 14 Blood Pressure 108/59 L 136/76 Pulse Oximetry 99 99 12/07/17 08:00 12/07/17 10:36 12/07/17 11:00 Temperature 99 F Pulse Rate 89 98 H 98 H Respiratory Rate 21 23 Blood Pressure 121/65 172/112 H Pulse Oximetry 97 98 12/07/17 12:00 12/07/17 13:18 12/07/17 13:30 Temperature Pulse Rate 87 Respiratory Rate 26 H Blood Pressure 174/114 H Pulse Oximetry 94 L 95 12/07/17 15:00 12/07/17 16:00 12/07/17 17:25 Temperature Pulse Rate 89 87 81 Respiratory Rate 14 14 Blood Pressure 160/105 H 176/117 H Pulse Oximetry 98 99 Intake & Output 12/07/17 12/07/17 12/08/17 06:59 18:59 06:59 Intake Total 815.9 / 815.9 922.5 / 922.5 Output Total 1030 / 1030 895 / 895 Balance -214.1 / -214.1 27.5 / 27.5 Weight 93.5 kg Intake: IV 511.9 / 511.9 747.5 / 747.5 Precedex Inj 1,000 MCG In NS 250 / 250 75 / 75 Inj 240 ML @ 0.2 MCG/KG/HR 4.57 mls/hr IV.CONT TITRATE PRN Rx# :[id number] Heparin Inj 25,000 UNIT In NS 161.9 / 161.9 155 / 155 Inj 247.5 ML @ 1,000 UNITS/HR 10 mls/hr IV.CONT TITRATE PRN Rx#:[id number] Unasyn Inj 3 GM In NS Inj 100 100 / 100 ML @ 200 mls/hr IV.SIG Q12H FAISAL Rx#:[id number] Vancomycin Inj 1,750 MG In NS 517.5 / 517.5 Inj 500 ML @ 250 mls/hr IV.SIG Q24H FAISAL Rx#:[id number] Oral 0 / 0 Tube Feeding 304 / 304 175 / 175 Output: Urine Amount (Catheter) 1030 / 1030 895 / 895 Indwelling Urethral Catheter 1030 / 1030 895 / 895 Other: Date of Last Bowel Movement 12/06/17 12/07/17 # Bowel Movements 0 1 - Routine Neurological Exam nonresponsive earlier today when sedation held Pupils 2 mm reactive EOM intact to dolls maneuver MOTOR--no spontaneous limb movement , non posturing, no myoclonus - Urinary Catheter Management Indwelling Temp Sensing Catheter Cath placed during this visit: yes, but has since been removed by the nurse Reason for continuing: Decision to DC catheter Insertion date: 12/02/17 Insertion time: 12:03 Removal date: 12/04/17 Removal time: 13:45 Indwelling Urethral Catheter Cath placed during this visit: yes Reason for continuing: Hourly intake/output Insertion date: 12/04/17 Insertion time: 13:50 Objective Laboratory Results - last 24 hr 12/06/17 12/07/17 12/07/17 22:00 00:04 05:00 WBC RBC Hgb Hct MCV MCH MCHC RDW Plt Count MPV Neut % (Auto) Lymph % (Auto) [place] % (Auto) Eos % (Auto) Baso % (Auto) Neut # (Auto) Lymph # (Auto) [place] # (Auto) Eos # (Auto) Baso # (Auto) WBC Differential Differential Comment PT INR APTT 40.4 H Sodium 148 H Potassium 3.7 Chloride 116 H Carbon Dioxide 25.1 Anion Gap 7 BUN 47 H Creatinine 1.64 H Estimated GFR 43 L POC Glucose 120 H Random Glucose 153 H Calcium 8.1 L Phosphorus 2.6 Magnesium 2.3 Total Bilirubin 0.5 AST 104 H ALT 155 H Alkaline Phosphatase 51 Total Protein 5.7 L Albumin 2.5 L Random Vancomycin 13.1 Hepatitis A IgM Ab Hep Bs Antigen Hep B Core IgM Ab Hep C IgG Ab 12/07/17 12/07/17 12/07/17 05:00 05:00 11:55 WBC 11.4 H RBC 3.17 L Hgb 10.5 L Hct 31.2 L MCV 98.4 MCH 33.1 MCHC 33.7 RDW 13.6 Plt Count 119 L MPV 8.9 Neut % (Auto) 75.8 H Lymph % (Auto) 10.5 Barton % (Auto) 13.5 H Eos % (Auto) 0.0 Baso % (Auto) 0.2 Neut # (Auto) 8.6 H Lymph # (Auto) 1.2 Barton # (Auto) 1.5 H Eos # (Auto) 0.0 Baso # (Auto) 0.0 WBC Differential . Differential Comment Auto diff final PT 11.1 INR 1.1 APTT 38.0 H Sodium Potassium Chloride Carbon Dioxide Anion Gap BUN Creatinine Estimated GFR POC Glucose 104 Random Glucose Calcium Phosphorus Magnesium Total Bilirubin AST ALT Alkaline Phosphatase Total Protein Albumin Random Vancomycin Hepatitis A IgM Ab Hep Bs Antigen Hep B Core IgM Ab Hep C IgG Ab 12/07/17 12/07/17 12/07/17 11:56 11:56 17:48 WBC RBC Hgb Hct MCV MCH MCHC RDW Plt Count MPV Neut % (Auto) Lymph % (Auto) [place] % (Auto) Eos % (Auto) Baso % (Auto) Neut # (Auto) Lymph # (Auto) [place] # (Auto) Eos # (Auto) Baso # (Auto) WBC Differential Differential Comment PT INR APTT 41.5 H Sodium Potassium Chloride Carbon Dioxide Anion Gap BUN Creatinine Estimated GFR POC Glucose 108 Random Glucose Calcium Phosphorus Magnesium Total Bilirubin AST ALT Alkaline Phosphatase Total Protein Albumin Random Vancomycin Hepatitis A IgM Ab Nonreactive Hep Bs Antigen Nonreactive Hep B Core IgM Ab Nonreactive Hep C IgG Ab Nonreactive 12/07/17 18:30 WBC RBC Hgb Hct MCV MCH MCHC RDW Plt Count MPV Neut % (Auto) Lymph % (Auto) [place] % (Auto) Eos % (Auto) Baso % (Auto) Neut # (Auto) Lymph # (Auto) [place] # (Auto) Eos # (Auto) Baso # (Auto) WBC Differential Differential Comment PT INR APTT 39.6 H Sodium Potassium Chloride Carbon Dioxide Anion Gap BUN Creatinine Estimated GFR POC Glucose Random Glucose Calcium Phosphorus Magnesium Total Bilirubin AST ALT Alkaline Phosphatase Total Protein Albumin Random Vancomycin Hepatitis A IgM Ab Hep Bs Antigen Hep B Core IgM Ab Hep C IgG Ab Microbiology 12/06/17 00:45 Gram Stain - Final Sputum - Endotracheal Sputum Culture - Preliminary Staphylococcus aureus gram negative rods 12/03/17 05:00 Aerobic Blood Culture - Preliminary Blood - Arterial Line No growth in 4 days Anaerobic Blood Culture - Preliminary pleomorphic gram positive rods 12/05/17 18:35 Aerobic Blood Culture - Preliminary Blood - Peripheral No growth in 2 days Anaerobic Blood Culture - Preliminary No growth in 2 days 12/05/17 18:40 Aerobic Blood Culture - Preliminary Blood - Peripheral No growth in 2 days Anaerobic Blood Culture - Preliminary No growth in 2 days 12/02/17 14:19 Aerobic Blood Culture - Final Blood - Peripheral No growth in 5 days Anaerobic Blood Culture - Final No growth in 5 days 12/02/17 14:14 Aerobic Blood Culture - Final Blood - Peripheral No growth in 5 days Anaerobic Blood Culture - Final No growth in 5 days 12/05/17 15:51 Urine Culture - Final Catheterized Urine No growth in 48 hours Diagnostic Tests: EEG--generalized slowing in delta frequency. No epiliptiform discharges Documentation reviewed: Reviewed old records Review/Management - Diagnosis (1) Encephalopathy Code(s): G93.40 - Encephalopathy, unspecified Status: Acute Current Visit: Yes - Review/Management Plan: anoxic encephalopathy. Prognosis is guarded. He does have brainstem reflexes. EEG shows generalized slowing. I discussed prognosis with his son who would like to continue supportive care. Will repeat EEG Sunday Procedures - Arterial Line Size (Gauge): 20
--- NOTE | 2017-12-07 20:04 | MG ---
cc: Saul Feliciano MD ELECTROENCEPHALOGRAM NUMBER: [id number] INDICATION: Hypercholesterolemia, encephalopathy, status post code MEDICATIONS: 1. Aspirin. 2. Fentanyl. DESCRIPTION: Recording shows a burst suppression type pattern with about 2 seconds of suppression and about 1 second bursts which are sharply contoured theta waves and at times phase reversing over the right frontal head region F4 in almost this spike type appearance, but also diffusely sharply contoured. This looks improved from prior but still some slight phase reversing over the right greater than the left frontal head region. These could be considered BIPLEDs occurring about every 2 seconds. No major hemisphere asymmetry is noted. Photic stimulation is performed without posterior driving. IMPRESSION: Some bilateral independent periodic lateralized epileptiform discharges consistent with severe diffuse encephalopathy. Increased predilection for seizures but no ongoing seizures are noted. MD PAPITO Mcknight/issa , 07:11 PM , 07:16 PM
[2017-12-08] MEDS: Metoprolol Inj 5 MG/5 ML Vial IV.PUSH PRN ×3 (00:16→03:45)
[2017-12-08] MEDS: fentaNYL Citrate Inj 100 MCG/2 ML Ampul IV.PUSH PRN ×12 (00:17→22:12)
[2017-12-08] MEDS: Oral Hygiene Kit OROPHARYNG SCH ×4 (00:17→17:04)
[2017-12-08] MEDS: Insulin NovoLIN Regular Correctional Sugar Inj SQ SCH ×4 (00:25→17:34)
[2017-12-08] MEDS: SODIUM CHLOR 0.9% IV.CONT PRN ×2 (02:12→19:43)
[2017-12-08] MEDS: HEPARIN IV.CONT PRN ×2 (02:12→19:43)
[2017-12-08] MEDS: Dexmedetomidine Inj 1,000 MCG in Sodium Chlor 0.9% Inj 240 ML IV.CONT PRN (02:13)
[2017-12-08 05:19] LABS: Eos % (Auto) 0.3 % (0.0-4.0); Hematocrit 31.2 % (39.0-51.0); Hemoglobin 10.6 gm/dL (13.0-17.0); Lymph # (Auto) 1.3 th/mm3 (1.0-4.8); Lymph % (Auto) 12.3 % (9.0-44.0); Mean Corpuscular HGB Conc 33.9 % (32.0-36.0); Mean Corpuscular Hemoglobin 33.6 pg (27.0-34.0); Mean Corpuscular Volume 99.1 fL (80.0-100.0); Mono # (Auto) 1.3 th/mm3 (0.0-0.9); Mono % (Auto) 12.7 % (0.0-8.0); Neut # (Auto) 7.7 th/mm3 (1.8-7.7); Neut % (Auto) 74.7 % (16.0-70.0); Platelet Count 135 th/mm3 (150-450); Red Blood Count 3.15 mil/mm3 (4.50-5.90); Red Cell Distribution Width 13.8 % (11.6-17.2); White Blood Count 10.3 th/mm3 (4.0-11.0)
[2017-12-08 05:31] LABS: Albumin 2.2 g/dL (3.4-5.0); Anion Gap 11 meq/L (5-15); Aspartate Aminotransferase 75 U/L (15-37); Blood Urea Nitrogen 42 mg/dL (7-18); Calcium 7.8 mg/dL (8.5-10.1); Carbon Dioxide 24.2 meq/L (21.0-32.0); Chloride 119 meq/L (98-107); Glomerular Filtration Rate 47 mL/min (>89); Glucose,Random 138 mg/dL (74-106); Potassium 3.7 meq/L (3.5-5.1); Sodium 154 meq/L (136-145)
[2017-12-08 05:32] LABS: INR 1.1 Ratio; Prothrombin Time 10.7 sec (9.8-11.6)
[2017-12-08 05:34] LABS: Alanine Aminotransferase 107 U/L (12-78); Alkaline Phosphatase 58 U/L (45-117); Total Protein 5.3 g/dL (6.4-8.2)
[2017-12-08] MEDS: Ampicillin/Sulbactam Inj 3 GM in Sodium Chloride 0.9% Inj 100 ML IV.SIG SCH (06:22)
[2017-12-08] MEDS: Chlorhexidine 0.12% Oral Kit 15 ML UDC OROPHARYNG SCH ×2 (08:04→20:22)
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
[2017-12-08] MEDS: Senna/Docusate Sodium 8.6/50 MG Tablet PO SCH ×2 (09:22→22:13)
[2017-12-08] MEDS: hydrALAZINE 50 MG Tablet PO SCH ×3 (09:23→17:36)
[2017-12-08] MEDS: Carboxymethylcellulose 0.5% Opth Drops 15 ML Bottle EACH EYE SCH ×2 (09:25→20:21)
[2017-12-08] MEDS ORDERED: Carvedilol 6.25 MG Tablet PO ONE (10:02)
--- NOTE | 2017-12-08 10:09 | P.PNCA ---
Subjective Interval history: Patient seen and examined. Still intermittent fevers Tmax 100.4. No significant change in neurologic status. Medications and Allergies Active Medications: Active Medications Acetaminophen (Tylenol Liq) 650 mg NG/OG Q6H PRN PRN Reason: SHIVERING Last Admin: 12/08/17 02:12 Dose: 650 mg Albuterol (Duoneb Neb (Faisal)) 1 ampul NEB Q6HR NEB [facility] Last Admin: 12/08/17 09:54 Dose: 1 ampul Albuterol (Albuterol Neb (Prn)) 2.5 mg NEB Q2HR NEB PRN PRN Reason: DYSPNEA Last Admin: 12/06/17 22:45 Dose: 2.5 mg Artificial Tears (Lacrilube Opth Oint) 1 applicatio EACH EYE Q4H PRN PRN Reason: NMB Artificial Tears (Refresh Tears 0.5% Opth Drops) 1 drop EACH EYE BID [facility] Last Admin: 12/08/17 09:25 Dose: 1 drop Aspirin (Aspirin Chew) 81 mg PO DAILY [facility] Last Admin: 12/08/17 09:23 Dose: 81 mg Carvedilol (Coreg) 12.5 mg PO BID [facility] Carvedilol (Coreg) 6.25 mg PO ONCE ONE Stop: 12/08/17 10:03 Chlorhexidine Gluconate (Peridex 0.12% Oral Kit) 15 ml OROPHARYNG BID@0800, 2000 [facility] Last Admin: 12/08/17 08:04 Dose: 15 ml Dextrose (D50w Vial) 50 ml IV.PUSH UNSCH PRN PRN Reason: PER HYPOGLYCEMIA PROTOCOL Last Admin: 12/05/17 12:21 Dose: 50 ml Fentanyl Citrate (Fentanyl Inj) 50 mcg IV.PUSH Q1H PRN PRN Reason: PAIN SCALE 1 TO 10 Last Admin: 12/08/17 00:17 Dose: 50 mcg Fentanyl Citrate (Fentanyl Inj) 100 mcg IV.PUSH Q1H PRN PRN Reason: sedation Last Admin: 12/08/17 08:34 Dose: 100 mcg Glucagon (Glucagon Inj) 1 mg OTHER PRN PRN PRN Reason: for Hypoglycemia Protocol Hydralazine HCl (Apresoline) 50 mg PO TID [facility] Last Admin: 12/08/17 09:23 Dose: 50 mg Heparin Sodium (Porcine) 25, (000 unit/ Sodium Chloride) 250 mls @ 10 mls/hr IV.CONT TITRATE PRN; Protocol PRN Reason: Per Protocol Last Admin: 12/08/17 02:12 Dose: 1,300 units/hr, 13 mls/hr Propofol (Diprivan 1000 Mg/100 Ml Inj) 1,000 mg in 100 mls @ 2.76 mls/hr IV.CONT TITRATE PRN; Protocol PRN Reason: Per Protocol Last Titration: 12/06/17 07:48 Dose: Infused Norepinephrine Bitartrate 16 (mg/ Sodium Chloride) 250 mls @ 1.87 mls/hr IV.CONT TITRATE PRN; Protocol PRN Reason: See Protocol Last Titration: 12/06/17 07:48 Dose: 2 mcg/min, 1.87 mls/hr Dexmedetomidine HCl 1,000 mcg/ (Sodium Chloride) 250 mls @ 4.57 mls/hr IV.CONT TITRATE PRN; Protocol PRN Reason: Per Protocol Last Admin: 12/08/17 02:13 Dose: 0.5 mcg/kg/hr, 11.43 mls/hr Ampicillin Sodium/Sulbactam (Sodium 3 gm/ Sodium Chloride) 100 mls @ 200 mls/ hr IV.SIG Q12H [facility]ISAL Last Infusion: 12/08/17 07:13 Dose: Infused Vancomycin HCl 1,750 mg/ (Sodium Chloride) 517.5 mls @ 250 mls/hr IV.SIG Q24H [facility] Last Infusion: 12/07/17 17:27 Dose: Infused Insulin Human Regular (Novolin R Correctional Sugar Inj) 0 units SQ Q6HR [facility]; Protocol Last Admin: 12/08/17 06:20 Dose: Not Given Lactulose (Lactulose Liq) 30 ml PO Q6H [facility] Last Admin: 12/08/17 06:22 Dose: 30 ml Lansoprazole (Prevacid Solutab) 30 mg NG/OG DAILY [facility] Last Admin: 12/08/17 09:23 Dose: 30 mg Metoprolol Tartrate (Lopressor Inj) 5 mg IV.PUSH Q5M PRN PRN Reason: HR>100 Last Admin: 12/08/17 03:45 Dose: 5 mg Miscellaneous Information ([facility] Information) 0 each OTHER UNSCH [facility] Miscellaneous Information ([facility] Pharmacy Ordered Lab Info) 0 each OTHER ONCE ONE Stop: 12/09/17 11:46 Miscellaneous Medication () 1 each OROPHARYNG 0000,0400,1200,1600 [facility] Last Admin: 12/08/17 06:20 Dose: 1 each Ondansetron HCl (Zofran Inj) 4 mg IV.PUSH Q6H PRN PRN Reason: NAUSEA OR VOMITING Last Admin: 12/05/17 07:26 Dose: 4 mg Pharmacy Profile Note (Vancomycin Consult Pharmacy) 1 each OTHER UNSCH PRN PRN Reason: Pharmacy to dose Senna/Docusate Sodium (Mirella-Colace) 1 tab PO BID [facility] Last Admin: 12/08/17 09:22 Dose: 1 tab Sodium Chloride (Ns Flush) 2 ml IV.FLUSH UNSCH PRN PRN Reason: FLUSH AFTER USING IV ACCESS Sodium Chloride (Ns Flush) 0 ml IV.FLUSH DAILY [facility] Last Admin: 12/08/17 09:24 Dose: 6 ml Sterile Water (Free Water) 250 ml G-TUBE Q6HR [facility] Terbutaline Sulfate (Brethine Inj) 1 mg SQ UNSCH PRN PRN Reason: For Extravasation Allergies Allergy/AdvReac Type Severity Reaction Status Date / Time No Known Allergies Allergy Verified 12/02/17 09:40 Home Medications Medication Instructions Recorded Confirmed Type losartan 25 mg PO DAILY 12/03/17 12/03/17 History Physical Exam Vital signs: Vital Signs 12/07/17 10:36 12/07/17 11:00 12/07/17 12:00 Temperature 99 F Pulse Rate 98 H 98 H 87 Respiratory Rate 21 23 Blood Pressure 172/112 H 174/114 H Pulse Oximetry 97 98 12/07/17 13:18 12/07/17 13:30 12/07/17 15:00 Temperature Pulse Rate 89 Respiratory Rate 26 H 14 Blood Pressure 160/105 H Pulse Oximetry 94 L 95 98 12/07/17 16:00 12/07/17 17:25 12/07/17 19:00 Temperature Pulse Rate 87 81 95 H Respiratory Rate 14 Blood Pressure 176/117 H Pulse Oximetry 99 12/07/17 20:00 12/07/17 20:04 12/07/17 21:23 Temperature 99.4 F Pulse Rate 95 H 100 H Respiratory Rate 25 H 20 24 Blood Pressure 192/109 H Pulse Oximetry 98 97 12/07/17 23:00 12/08/17 01:34 12/08/17 03:00 Temperature 100.4 F H 99.9 F H Pulse Rate 96 H 93 H Respiratory Rate 17 17 17 Blood Pressure 178/101 H 183/111 H Pulse Oximetry 97 97 95 12/08/17 04:07 12/08/17 07:00 12/08/17 07:45 Temperature 99.7 F H Pulse Rate 79 80 Respiratory Rate 14 14 15 Blood Pressure 149/87 H Pulse Oximetry 96 94 L 96 Intake & Output 12/07/17 12/08/17 12/08/17 18:59 06:59 18:59 Intake Total 922.5 / 922.5 1111.9 / 1111.9 100 / 100 Output Total 895 / 895 860 / 860 Balance 27.5 / 27.5 251.9 / 251.9 100 / 100 Weight 93 kg Intake: IV 747.5 / 747.5 511.9 / 511.9 100 / 100 Precedex Inj 1,000 MCG In NS 75 / 75 250 / 250 Inj 240 ML @ 0.2 MCG/KG/HR 4.57 mls/hr IV.CONT TITRATE PRN Rx# :[id number] Heparin Inj 25,000 UNIT In NS 155 / 155 161.9 / 161.9 Inj 247.5 ML @ 1,000 UNITS/HR 10 mls/hr IV.CONT TITRATE PRN Rx#:[id number] Unasyn Inj 3 GM In NS Inj 100 100 / 100 100 / 100 ML @ 200 mls/hr IV.SIG Q12H [facility] Rx#:[id number] Vancomycin Inj 1,750 MG In NS 517.5 / 517.5 Inj 500 ML @ 250 mls/hr IV.SIG Q24H [facility]ISAL Rx#:[id number] Tube Feeding 175 / 175 600 / 600 Output: Urine Amount (Catheter) 895 / 895 860 / 860 Indwelling Urethral Catheter 895 / 895 860 / 860 Other: Date of Last Bowel Movement 12/07/17 12/07/17 12/07/17 # Bowel Movements 1 Narrative: GENERAL: Well-developed well-nourished. NECK: No carotid bruits. No JVD. CARDIOVASCULAR: Regular rate and rhythm. No murmur appreciated. RESPIRATORY: Mechanically ventilated. Clear to auscultation. MUSCULOSKELETAL: No clubbing or cyanosis. No edema. NEUROLOGICAL: Intubated. No shivering or decerebrate posturing currently. - Urinary Catheter Management Indwelling Temp Sensing Catheter Cath placed during this visit: yes, but has since been removed by the nurse Reason for continuing: Decision to DC catheter Insertion date: 12/02/17 Insertion time: 12:03 Removal date: 12/04/17 Removal time: 13:45 Indwelling Urethral Catheter Cath placed during this visit: yes Reason for continuing: Hourly intake/output Insertion date: 12/04/17 Insertion time: 13:50 Results 12/08/17 04:35 12/08/17 04:35 Cardiac Enzymes 12/07/17 12/08/17 Range/Units 05:00 04:35 AST 104 H 75 H (15-37) U/L Coagulation 12/06/17 12/06/17 12/07/17 Range/Units 15:10 22:00 05:00 PT 11.1 (9.8-11.6) sec APTT 40.4 H 40.4 H 38.0 H (24.3-30.1) sec 12/07/17 12/07/17 12/08/17 Range/Units 11:56 18:30 00:30 PT (9.8-11.6) sec APTT 41.5 H 39.6 H 35.2 H (24.3-30.1) sec 12/08/17 12/08/17 Range/Units 04:35 06:40 PT 10.7 (9.8-11.6) sec APTT 44.1 H D (24.3-30.1) sec CBC 12/07/17 12/08/17 Range/Units 05:00 04:35 WBC 11.4 H 10.3 (4.0-11.0) th/mm3 RBC 3.17 L 3.15 L (4.50-5.90) mil/mm3 Hgb 10.5 L 10.6 L (13.0-17.0) gm/dL Hct 31.2 L 31.2 L (39.0-51.0) % Plt Count 119 L 135 L (150-450) th/mm3 Neut # (Auto) 8.6 H 7.7 (1.8-7.7) th/mm3 Lymph # (Auto) 1.2 1.3 (1.0-4.8) th/mm3 [place] # (Auto) 1.5 H 1.3 H (0.0-0.9) th/mm3 Eos # (Auto) 0.0 0.0 (0.0-0.4) th/mm3 Baso # (Auto) 0.0 0.0 (0.0-0.2) th/mm3 Comprehensive Metabolic Panel 12/06/17 12/07/17 12/08/17 Range/Units 15:10 05:00 04:35 Sodium 148 H 154 H (136-145) meq/L Potassium 3.5 3.7 3.7 (3.5-5.1) meq/L Chloride 116 H 119 H (98-107) meq/L Carbon Dioxide 25.1 24.2 (21.0-32.0) meq/L BUN 47 H 42 H (7-18) mg/dL Creatinine 1.64 H 1.53 H (0.60-1.30) mg/dL Calcium 8.1 L 7.8 L (8.5-10.1) mg/dL AST 104 H 75 H (15-37) U/L ALT 155 H 107 H (12-78) U/L Alkaline Phosphatase 51 58 (45-117) U/L Total Protein 5.7 L 5.3 L (6.4-8.2) g/dL Albumin 2.5 L 2.2 L (3.4-5.0) g/dL Intake and Output 12/07/17 12/08/17 12/08/17 22:59 06:59 14:59 Intake Total 1022.5 / 1022.5 1011.9 / 1011.9 100 / 100 Output Total 895 / 895 860 / 860 Balance 127.5 / 127.5 151.9 / 151.9 100 / 100 Intake: IV 847.5 / 847.5 411.9 / 411.9 100 / 100 Precedex Inj 1,000 MCG In NS 75 / 75 250 / 250 Inj 240 ML @ 0.2 MCG/KG/HR 4.57 mls/hr IV.CONT TITRATE PRN Rx# :[id number] Heparin Inj 25,000 UNIT In NS 155 / 155 161.9 / 161.9 Inj 247.5 ML @ 1,000 UNITS/HR 10 mls/hr IV.CONT TITRATE PRN Rx#:[id number] Unasyn Inj 3 GM In NS Inj 100 100 / 100 100 / 100 ML @ 200 mls/hr IV.SIG Q12H [facility] Rx#:[id number] Vancomycin Inj 1,750 MG In NS 517.5 / 517.5 Inj 500 ML @ 250 mls/hr IV.SIG Q24H [facility] Rx#:[id number] Tube Feeding 175 / 175 600 / 600 Output: Urine Amount (Catheter) 895 / 895 860 / 860 Indwelling Urethral Catheter 895 / 895 860 / 860 Other: Date of Last Bowel Movement 12/07/17 12/07/17 12/07/17 # Bowel Movements 1 Weight 93 kg - Imaging and Cardiology Imaging: Impressions Chest X-Ray 12/06/17 00:00 CONCLUSION: Partially consolidative left lower lobe infiltrate. Liver Ultrasound 12/07/17 00:00 CONCLUSION: 1. No specific abnormality is identified to explain the elevated LFTs. 2. Tumefactive sludge within the gallbladder. 3. Mild increased echogenicity of the right kidney which may indicate medical renal disease. 4. Right pleural effusion. Chest X-Ray 12/07/17 06:00 CONCLUSION: Mild left base infiltrate not significantly changed. Assessment and Plan - Plan 57-year-old male admitted status post V. fib arrest Assessment: s/p V. fib arrest - suspect primary arrhythmogenic event Cardiomyopathy - EF 25-35% Narrow complex tachycardia 12/02 - sinus tachycardia vs brief atrial flutter Hypotension requiring pressor support - improved Respiratory failure requiring mechanical ventilation GCS 3 on arrival s/p medically induced coma s/p hypothermia protocol, frequent shivering and decerebrate posturing Fever - on antibiotics per primary team Plan: Continue heparin gtt for medical management of ACS, may consider transitioning to therapeutic dose Lovenox for ease of use. Defer to forestry technical officer. Patient will require left heart cath pending neurologic recovery-EEG with moderate to severe slowing consistent with severe anoxic encephalopathy per neurology Aspirin 81 mg daily Hold statin due to to shock liver BP improved, increase carvedilol to 12.5mg bid and if Cr improves further tomorrow will start KORINA-I Procedures - Arterial Line Size (Gauge): 20
[2017-12-08] MEDS ORDERED: hydrALAZINE HCl Inj 20 MG/ML Vial IV.PUSH PRN (10:14)
[2017-12-08] MEDS: Vancomycin Inj 1,750 MG in Sodium Chlor 0.9% Inj 500 ML IV.SIG SCH (11:58)
--- NOTE | 2017-12-08 19:22 | P.PNNEU ---
Subjective Subjective Comments: ctsp tremors he had pupil = but r chin and at times face and hand tremor with stimulation then subsides and replicated with stimulation comatose off precedex now plan is eeg stat inc keppra to 1000 bid but is suspect not sz Active Medications: Active Medications Acetaminophen (Tylenol Liq) 650 mg NG/OG Q6H PRN PRN Reason: SHIVERING Last Admin: 12/08/17 17:35 Dose: 650 mg Albuterol (Duoneb Neb (Faisal)) 1 ampul NEB Q6HR NEB [facility] Last Admin: 12/08/17 16:38 Dose: 1 ampul Albuterol (Albuterol Neb (Prn)) 2.5 mg NEB Q2HR NEB PRN PRN Reason: DYSPNEA Last Admin: 12/06/17 22:45 Dose: 2.5 mg Artificial Tears (Lacrilube Opth Oint) 1 applicatio EACH EYE Q4H PRN PRN Reason: NMB Artificial Tears (Refresh Tears 0.5% Opth Drops) 1 drop EACH EYE BID [facility] Last Admin: 12/08/17 09:25 Dose: 1 drop Aspirin (Aspirin Chew) 81 mg PO DAILY [facility] Last Admin: 12/08/17 09:23 Dose: 81 mg Carvedilol (Coreg) 12.5 mg PO BID [facility] Chlorhexidine Gluconate (Peridex 0.12% Oral Kit) 15 ml OROPHARYNG BID@0800, 2000 [facility] Last Admin: 12/08/17 08:04 Dose: 15 ml Dextrose (D50w Vial) 50 ml IV.PUSH UNSCH PRN PRN Reason: PER HYPOGLYCEMIA PROTOCOL Last Admin: 12/05/17 12:21 Dose: 50 ml Fentanyl Citrate (Fentanyl Inj) 50 mcg IV.PUSH Q1H PRN PRN Reason: PAIN SCALE 1 TO 10 Last Admin: 12/08/17 00:17 Dose: 50 mcg Fentanyl Citrate (Fentanyl Inj) 100 mcg IV.PUSH Q1H PRN PRN Reason: sedation Last Admin: 12/08/17 18:50 Dose: 100 mcg Glucagon (Glucagon Inj) 1 mg OTHER PRN PRN PRN Reason: for Hypoglycemia Protocol Hydralazine HCl (Apresoline) 50 mg PO TID [facility] Last Admin: 12/08/17 17:36 Dose: 50 mg Hydralazine HCl (Apresoline Inj) 20 mg IV.PUSH Q4H PRN PRN Reason: BLOOD PRESSURE MANAGEMENT Heparin Sodium (Porcine) 25, (000 unit/ Sodium Chloride) 250 mls @ 10 mls/hr IV.CONT TITRATE PRN; Protocol PRN Reason: Per Protocol Last Titration: 12/08/17 18:33 Dose: 1,500 units/hr, 15 mls/hr Propofol (Diprivan 1000 Mg/100 Ml Inj) 1,000 mg in 100 mls @ 2.76 mls/hr IV.CONT TITRATE PRN; Protocol PRN Reason: Per Protocol Last Titration: 12/06/17 07:48 Dose: Infused Norepinephrine Bitartrate 16 (mg/ Sodium Chloride) 250 mls @ 1.87 mls/hr IV.CONT TITRATE PRN; Protocol PRN Reason: See Protocol Last Titration: 12/08/17 18:33 Dose: Infused Dexmedetomidine HCl 1,000 mcg/ (Sodium Chloride) 250 mls @ 4.57 mls/hr IV.CONT TITRATE PRN; Protocol PRN Reason: Per Protocol Last Titration: 12/08/17 18:33 Dose: 0.8 mcg/kg/hr, 18.3 mls/hr Vancomycin HCl 1,750 mg/ (Sodium Chloride) 517.5 mls @ 250 mls/hr IV.SIG Q24H FAISAL Last Infusion: 12/08/17 14:09 Dose: Infused Piperacillin/Tazobactam/Dextrose (Zosyn 3.375 Gm Premix) 50 mls @ 100 mls/hr IV.SIG Q8H FAISAL Levetiracetam (Keppra 1000 Mg/100 Ml Premix) 100 mls @ 400 mls/hr IV.SIG Q12H FAISAL Insulin Human Regular (Novolin R Correctional Sugar Inj) 0 units SQ Q6HR FAISAL; Protocol Last Admin: 12/08/17 17:34 Dose: 1 units Lactulose (Lactulose Liq) 30 ml PO Q6H FAISAL Last Admin: 12/08/17 17:35 Dose: 30 ml Lansoprazole (Prevacid Solutab) 30 mg NG/OG DAILY FAISAL Last Admin: 12/08/17 09:23 Dose: 30 mg Metoprolol Tartrate (Lopressor Inj) 5 mg IV.PUSH Q5M PRN PRN Reason: HR>100 Last Admin: 12/08/17 03:45 Dose: 5 mg Miscellaneous Information (Misc Information) 0 each OTHER UNSCH [facility] Miscellaneous Information ([facility] Ordered Lab Info) 0 each OTHER ONCE ONE Stop: 12/09/17 11:46 Miscellaneous Medication () 1 each OROPHARYNG 0000,0400,1200,1600 [facility] Last Admin: 12/08/17 17:04 Dose: 1 each Ondansetron HCl (Zofran Inj) 4 mg IV.PUSH Q6H PRN PRN Reason: NAUSEA OR VOMITING Last Admin: 12/05/17 07:26 Dose: 4 mg Pharmacy Profile Note (Vancomycin Consult Pharmacy) 1 each OTHER UNSCH PRN PRN Reason: Pharmacy to dose Senna/Docusate Sodium (Mirella-Colace) 1 tab PO BID [facility] Last Admin: 12/08/17 09:22 Dose: 1 tab Sodium Chloride (Ns Flush) 2 ml IV.FLUSH UNSCH PRN PRN Reason: FLUSH AFTER USING IV ACCESS Sodium Chloride (Ns Flush) 0 ml IV.FLUSH DAILY [facility] Last Admin: 12/08/17 09:24 Dose: 6 ml Sterile Water (Free Water) 250 ml G-TUBE Q6HR [facility] Last Admin: 12/08/17 17:36 Dose: 250 ml Terbutaline Sulfate (Brethine Inj) 1 mg SQ UNSCH PRN PRN Reason: For Extravasation Allergies/Adverse Reactions: Allergies Allergy/AdvReac Type Severity Reaction Status Date / Time No Known Allergies Allergy Verified 12/02/17 09:40 Physical Exam Vital signs: Vital Signs 12/07/17 20:00 12/07/17 20:04 12/07/17 21:23 Temperature 99.4 F Pulse Rate 95 H 100 H Respiratory Rate 25 H 20 24 Blood Pressure 192/109 H Pulse Oximetry 98 97 12/07/17 23:00 12/08/17 01:34 12/08/17 03:00 Temperature 100.4 F H 99.9 F H Pulse Rate 96 H 93 H Respiratory Rate 17 17 17 Blood Pressure 178/101 H 183/111 H Pulse Oximetry 97 97 95 12/08/17 04:07 12/08/17 07:00 12/08/17 07:45 Temperature 99.7 F H Pulse Rate 79 80 Respiratory Rate 14 14 15 Blood Pressure 149/87 H Pulse Oximetry 96 94 L 96 12/08/17 09:54 12/08/17 11:00 12/08/17 12:44 Temperature 101.5 F H Pulse Rate 98 H 87 Respiratory Rate 21 16 20 Blood Pressure 120/70 Pulse Oximetry 92 L 97 12/08/17 15:00 12/08/17 16:38 Temperature 101.2 F H Pulse Rate 85 84 Respiratory Rate 16 19 Blood Pressure 135/79 Pulse Oximetry 96 97 Intake & Output 12/08/17 12/08/17 12/09/17 06:59 18:59 06:59 Intake Total 1111.9 / 1111.9 2296.5 / 2296.5 Output Total 860 / 860 2039 Balance 251.9 / 251.9 256.5 / 256.5 Weight 93 kg Intake: IV 511.9 / 511.9 1146.5 / 1146.5 Precedex Inj 1,000 MCG In NS 250 / 250 220 / 220 Inj 240 ML @ 0.2 MCG/KG/HR 4.57 mls/hr IV.CONT TITRATE PRN Rx# :[id number] Heparin Inj 25,000 UNIT In NS 161.9 / 161.9 180 / 180 Inj 247.5 ML @ 1,000 UNITS/HR 10 mls/hr IV.CONT TITRATE PRN Rx#:[id number] Levophed Inj 16 MG In NS Inj 0 / 0 234 ML @ 2 MCG/MIN 1.87 mls/hr IV.CONT TITRATE PRN Rx#: [id number] Unasyn Inj 3 GM In NS Inj 100 100 / 100 100 / 100 ML @ 200 mls/hr IV.SIG Q12H FAISAL Rx#:[id number] Vancomycin Inj 1,750 MG In NS 541.5 / 541.5 Inj 500 ML @ 250 mls/hr IV.SIG Q24H FAISAL Rx#:[id number] Keppra Inj 500 MG In NS Inj 100 105 / 105 ML @ 400 mls/hr IV.SIG Q12H FAISAL Rx#:[id number] Tube Feeding 600 / 600 550 / 550 Tube Irrigant 100 / 100 Water Bolus Amount 500 / 500 Output: Urine Amount (Catheter) 860 / 860 2039 Indwelling Urethral Catheter 860 / 860 2039 Other: Date of Last Bowel Movement 12/07/17 12/07/17 - Urinary Catheter Management Indwelling Temp Sensing Catheter Cath placed during this visit: yes, but has since been removed by the nurse Reason for continuing: Decision to DC catheter Insertion date: 12/02/17 Insertion time: 12:03 Removal date: 12/04/17 Removal time: 13:45 Indwelling Urethral Catheter Cath placed during this visit: yes Reason for continuing: Hourly intake/output Insertion date: 12/04/17 Insertion time: 13:50 Objective Laboratory Results - last 24 hr 12/08/17 12/08/17 12/08/17 00:24 00:30 04:35 WBC RBC Hgb Hct MCV MCH MCHC RDW Plt Count MPV Neut % (Auto) Lymph % (Auto) Osborne % (Auto) Eos % (Auto) Baso % (Auto) Neut # (Auto) Lymph # (Auto) Osborne # (Auto) Eos # (Auto) Baso # (Auto) WBC Differential Differential Comment PT 10.7 INR 1.1 APTT 35.2 H Sodium Potassium Chloride Carbon Dioxide Anion Gap BUN Creatinine Estimated GFR POC Glucose 137 H Random Glucose Calcium Total Bilirubin AST ALT Alkaline Phosphatase Total Protein Albumin 12/08/17 12/08/17 12/08/17 04:35 04:35 06:40 WBC 10.3 RBC 3.15 L Hgb 10.6 L Hct 31.2 L MCV 99.1 MCH 33.6 MCHC 33.9 RDW 13.8 Plt Count 135 L MPV 9.0 Neut % (Auto) 74.7 H Lymph % (Auto) 12.3 Osborne % (Auto) 12.7 H Eos % (Auto) 0.3 Baso % (Auto) 0.0 Neut # (Auto) 7.7 Lymph # (Auto) 1.3 Osborne # (Auto) 1.3 H Eos # (Auto) 0.0 Baso # (Auto) 0.0 WBC Differential . Differential Comment Auto diff final PT INR APTT 44.1 H D Sodium 154 H Potassium 3.7 Chloride 119 H Carbon Dioxide 24.2 Anion Gap 11 BUN 42 H Creatinine 1.53 H Estimated GFR 47 L POC Glucose Random Glucose 138 H Calcium 7.8 L Total Bilirubin 0.4 AST 75 H ALT 107 H Alkaline Phosphatase 58 Total Protein 5.3 L Albumin 2.2 L 12/08/17 12/08/17 12/08/17 11:53 13:40 17:30 WBC RBC Hgb Hct MCV MCH MCHC RDW Plt Count MPV Neut % (Auto) Lymph % (Auto) Osborne % (Auto) Eos % (Auto) Baso % (Auto) Neut # (Auto) Lymph # (Auto) Osborne # (Auto) Eos # (Auto) Baso # (Auto) WBC Differential Differential Comment PT INR APTT 44.3 H Sodium Potassium Chloride Carbon Dioxide Anion Gap BUN Creatinine Estimated GFR POC Glucose 131 H 162 H Random Glucose Calcium Total Bilirubin AST ALT Alkaline Phosphatase Total Protein Albumin Microbiology 12/03/17 05:00 Aerobic Blood Culture - Final Blood - Arterial Line No growth in 5 days Anaerobic Blood Culture - Final Propionibacterium acnes 12/05/17 18:35 Aerobic Blood Culture - Preliminary Blood - Peripheral No growth in 3 days Anaerobic Blood Culture - Preliminary No growth in 3 days 12/05/17 18:40 Aerobic Blood Culture - Preliminary Blood - Peripheral No growth in 3 days Anaerobic Blood Culture - Preliminary No growth in 3 days 12/06/17 00:45 Gram Stain - Final Sputum - Endotracheal Sputum Culture - Preliminary Staphylococcus aureus Escherichia coli gram negative rods Review/Management - Diagnosis (1) Encephalopathy Code(s): G93.40 - Encephalopathy, unspecified Status: Acute Current Visit: Yes - Review/Management Plan: anoxic encephalopathy. Prognosis is guarded. He does have brainstem reflexes. EEG shows generalized slowing. I discussed prognosis with his son who would like to continue supportive care. Will repeat EEG Sunday Procedures - Arterial Line Size (Gauge): 20
--- NOTE | 2017-12-08 19:32 | MB ---
cc: Danny Goodson MD DATE: 12/08/2017 REQUESTING PHYSICIAN: Dr. Rod. REASON: Pneumonia and febrile illness. HISTORY OF PRESENT ILLNESS: This is a 57-year-old white male who was brought to the hospital after an [id number] cardiac arrest. The patient was admitted on 12/02/2017. He was intubated and remains on the ventilator. He is noted to have had anoxic injury. He is felt to have brainstem reflexes. The patient is having elevation of the temperature. Temperature started rising 12/05/2017 where it spiked up to 101.3, and after that he had some low grade fevers, and today, temperature was up to 101.5. The patient is on the ventilator. He is noted to have mostly white secretions. Blood cultures were taken on 12/02/2017 and had no growth, and repeated blood cultures on 12/05/2017 had no growth. Sputum culture from 12/02/2017 had normal michelle. Repeat sputum culture on 12/06/2017 Staphylococcus aureus, Escherichia coli, and gram-negative rods. Chest x-ray showing left-sided infiltrate. The patient having continuous shaking movements of the upper body. It is reported that this has been ongoing for 4 days. He is receiving tube feedings. The patient is currently off Levophed. He is also felt to have shocked liver. PAST MEDICAL HISTORY: Hypertension, hypercholesterolemia. ALLERGIES: NO KNOWN DRUG ALLERGIES. MEDICATIONS: 1. Vancomycin. 2. Ampicillin/sulbactam. 3. Albuterol. 4. Aspirin. 5. Fentanyl. 6. Hydralazine. 7. Levetiracetam. SOCIAL HISTORY: Positive tobacco use. Positive alcohol use. SOCIAL HISTORY: Unable to obtain besides that mentioned in the medical record. FAMILY HISTORY: Unable to obtain. REVIEW OF SYSTEMS: Unable to obtain. PHYSICAL EXAMINATION: GENERAL: He is a well-developed male who is on the ventilator. He is unresponsive. VITAL SIGNS: Temperature 101.2. The patient on the ventilator. HEENT: The head is atraumatic. Extraocular movements, unable to assess. Oropharynx intubated. NECK: No swelling or adenopathy. LUNGS: Bibasilar rhonchi. HEART: Regular S1 and S2. No murmur audible. ABDOMEN: Obese, positive bowel sounds, which are hyperactive. No mass palpable. No grimacing on palpation. RECTAL: Not performed. EXTREMITIES: Diffuse edema of the extremities. No clubbing or cyanosis. SKIN: No diffuse rash. NEUROLOGIC: Unable to assess. PSYCHIATRIC: Unable to assess. LABORATORY DATA: WBC 10.3, platelets 135, hemoglobin 10.6, 74% neutrophils, 12% lymphocytes, 12% monocytes. Creatinine 1.53, BUN 42, estimated GFR of 47, AST 75, ALT 107, alkaline phosphatase 58. IMPRESSION: 1. [id number] cardiac arrest. 2. Pneumonia. Sputum culture has growth of Staphylococcus aureus, Escherichia coli and gram-negative rods. 3. Probable aspiration. 4. Acute respiratory failure. 5. Acute kidney disease. 6. Anoxic encephalopathy. The fever is very likely arising from pneumonia. RECOMMENDATIONS: 1. Continue vancomycin. 2. Discontinue ampicillin/sulbactam. 3. Begin piperacillin/tazobactam. 4. Continue to follow sputum culture. 5. Monitor temperatures. 6. Monitor clinical response to antibiotics. Thank you for this consultation. The patient's progress will be monitored, and further antibiotic adjustments or recommendations will be made on followup. Danny Goodson MD FFEmery/carlos , 06:08 PM , 06:20 PM
[2017-12-08] MEDS: Piperacil/Tazo 3.375 GM Premix 50 ML IV.SIG SCH (20:21)
[2017-12-08] MEDS: Artificial Tears Opth Oint 3.5 GM Tube EACH EYE PRN (22:14)
[2017-12-09] MEDS: fentaNYL Citrate Inj 100 MCG/2 ML Ampul IV.PUSH PRN ×11 (00:32→23:28)
[2017-12-09] MEDS: Oral Hygiene Kit OROPHARYNG SCH ×5 (00:41→23:36)
[2017-12-09] MEDS: Insulin NovoLIN Regular Correctional Sugar Inj SQ SCH ×6 (00:42→23:35)
[2017-12-09] MEDS: Dexmedetomidine Inj 1,000 MCG in Sodium Chlor 0.9% Inj 240 ML IV.CONT PRN ×2 (00:46→12:02)
[2017-12-09 05:18] LABS: Baso % (Auto) 0.1 % (0.0-2.0); Eos # (Auto) 0.1 th/mm3 (0.0-0.4); Eos % (Auto) 1.4 % (0.0-4.0); Hematocrit 29.4 % (39.0-51.0); Hemoglobin 10.2 gm/dL (13.0-17.0); Lymph # (Auto) 1.8 th/mm3 (1.0-4.8); Lymph % (Auto) 16.4 % (9.0-44.0); Mean Corpuscular HGB Conc 34.6 % (32.0-36.0); Mean Corpuscular Hemoglobin 33.8 pg (27.0-34.0); Mean Corpuscular Volume 97.8 fL (80.0-100.0); Mono # (Auto) 1.1 th/mm3 (0.0-0.9); Mono % (Auto) 10.5 % (0.0-8.0); Neut # (Auto) 7.7 th/mm3 (1.8-7.7); Neut % (Auto) 71.6 % (16.0-70.0); Platelet Count 151 th/mm3 (150-450); Red Cell Distribution Width 13.8 % (11.6-17.2); White Blood Count 10.8 th/mm3 (4.0-11.0)
[2017-12-09 05:33] LABS: Albumin 2.3 g/dL (3.4-5.0); Anion Gap 10 meq/L (5-15); Blood Urea Nitrogen 41 mg/dL (7-18); Calcium 8.2 mg/dL (8.5-10.1); Carbon Dioxide 25.4 meq/L (21.0-32.0); Chloride 118 meq/L (98-107); Glomerular Filtration Rate 44 mL/min (>89); Glucose,Random 124 mg/dL (74-106); Potassium 3.5 meq/L (3.5-5.1); Sodium 153 meq/L (136-145)
[2017-12-09 05:35] LABS: Alanine Aminotransferase 115 U/L (12-78); Aspartate Aminotransferase 77 U/L (15-37)
[2017-12-09 05:36] LABS: INR 1.1 Ratio
[2017-12-09 05:37] LABS: Alkaline Phosphatase 62 U/L (45-117); Total Protein 5.6 g/dL (6.4-8.2)
[2017-12-09] MEDS: Piperacil/Tazo 3.375 GM Premix 50 ML IV.SIG SCH ×3 (06:16→19:08)
[2017-12-09] MEDS: levETIRAcetam 1000mg/100mL Inj 100 ML IV.SIG SCH ×2 (08:42→19:09)
[2017-12-09] MEDS: hydrALAZINE 50 MG Tablet PO SCH ×3 (08:43→17:30)
[2017-12-09] MEDS: Chlorhexidine 0.12% Oral Kit 15 ML UDC OROPHARYNG SCH ×2 (08:46→21:40)
[2017-12-09] MEDS: Artificial Tears Opth Oint 3.5 GM Tube EACH EYE PRN (08:47)
[2017-12-09] MEDS: Senna/Docusate Sodium 8.6/50 MG Tablet PO SCH ×2 (08:47→21:40)
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
[2017-12-09] MEDS: Carboxymethylcellulose 0.5% Opth Drops 15 ML Bottle EACH EYE SCH ×2 (10:00→21:40)
--- NOTE | 2017-12-09 10:03 | P.PNID ---
Subjective Remarks: Patient on vent 40% FIO2. Sedated. Unresponsive. Not having shaking body movements like yesterday. Still having fever. BP stable. This is a 57-year-old white male who was brought to the hospital after an [id number] cardiac arrest. The patient was admitted on 12/02/2017. He was intubated and remains on the ventilator. He is noted to have had anoxic injury. He is felt to have brainstem reflexes. The patient is having elevation of the temperature. Temperature started rising 12/05/2017 where it spiked up to 101.3, and after that he had some low grade fevers, and today, temperature was up to 101.5. The patient is on the ventilator. He is noted to have mostly white secretions. Blood cultures were taken on 12/02/2017 and had no growth, and repeated blood cultures on 12/05/2017 had no growth. Sputum culture from 12/02/2017 had normal michelle. Repeat sputum culture on 12/06/2017 Staphylococcus aureus, Escherichia coli, and gram-negative rods. ID Consult requested for pneumonia and fever. Allergies/Adverse Reactions: Allergies No Known Allergies Allergy (Verified 12/02/17 09:40) Objective Vital Signs 12/08/17 11:00 12/08/17 12:44 12/08/17 15:00 Temperature 101.5 F H 101.2 F H Pulse Rate 87 85 Respiratory Rate 16 20 16 Blood Pressure 120/70 135/79 Pulse Oximetry 92 L 97 96 12/08/17 16:38 12/08/17 19:00 12/08/17 20:14 Temperature 100.1 F H Pulse Rate 84 84 101 H Respiratory Rate 19 18 21 Blood Pressure 108/66 Pulse Oximetry 97 95 96 12/08/17 23:00 12/09/17 00:34 12/09/17 03:00 Temperature 100.2 F H 100.4 F H Pulse Rate 89 76 Respiratory Rate 17 17 17 Blood Pressure 147/85 H 108/60 Pulse Oximetry 97 98 97 12/09/17 03:57 12/09/17 07:00 12/09/17 09:15 Temperature 100.2 F H Pulse Rate 83 80 Respiratory Rate 21 14 14 Blood Pressure 125/73 Pulse Oximetry 99 97 97 12/09/17 09:42 Temperature Pulse Rate 65 Respiratory Rate 14 Blood Pressure Pulse Oximetry Intake & Output 0912/09/17 12/09/17 18:59 06:59 18:59 Intake Total 2296.5 / 2296.5 1376 / 1376 385 / 385 Output Total 2039 700 / 700 Balance 256.5 / 256.5 676 / 676 385 / 385 Weight 93.5 kg Intake: IV 1146.5 / 1146.5 255 / 255 385 / 385 Precedex Inj 1,000 MCG In NS 220 / 220 30 / 30 162 / 162 Inj 240 ML @ 0.2 MCG/KG/HR 4.57 mls/hr IV.CONT TITRATE PRN Rx# :[id number] Heparin Inj 25,000 UNIT In NS 180 / 180 70 / 70 173 / 173 Inj 247.5 ML @ 1,000 UNITS/HR 10 mls/hr IV.CONT TITRATE PRN Rx#:[id number] Levophed Inj 16 MG In NS Inj 0 / 0 234 ML @ 2 MCG/MIN 1.87 mls/hr IV.CONT TITRATE PRN Rx#: [id number] Unasyn Inj 3 GM In NS Inj 100 100 / 100 ML @ 200 mls/hr IV.SIG Q12H [facility] Rx#:[id number] Zosyn 3.375 GM Premix 50 ML @ 50 / 50 50 / 50 100 mls/hr IV.SIG Q8H [facility] Rx#: [id number] Vancomycin Inj 1,750 MG In NS 541.5 / 541.5 Inj 500 ML @ 250 mls/hr IV.SIG Q24H [facility] Rx#:[id number] Keppra Inj 500 MG In NS Inj 100 105 / 105 105 / 105 ML @ 400 mls/hr IV.SIG ONCE ONE Rx#:[id number] Oral 0 / 0 Tube Feeding 550 / 550 501 / 501 Tube Irrigant 100 / 100 120 / 120 Water Bolus Amount 500 / 500 500 / 500 Output: Urine Amount (Catheter) 2039 700 / 700 Indwelling Urethral Catheter 2039 700 / 700 Other: Date of Last Bowel Movement 12/07/17 12/07/17 12/07/17 # Bowel Movements 1 # Incontinent Bowel Movements 1 12/03/17 05:00 Blood - Arterial Line Aerobic Blood Culture - Final No growth in 5 days 12/03/17 05:00 Blood - Arterial Line Anaerobic Blood Culture - Final Propionibacterium acnes 12/08/17 13:40 Blood - Peripheral Aerobic Blood Culture - Pending 12/08/17 13:40 Blood - Peripheral Anaerobic Blood Culture - Pending 12/08/17 12:15 Blood - Peripheral Aerobic Blood Culture - Pending 12/08/17 12:15 Blood - Peripheral Anaerobic Blood Culture - Pending 12/05/17 18:35 Blood - Peripheral Aerobic Blood Culture - Preliminary No growth in 3 days 12/05/17 18:35 Blood - Peripheral Anaerobic Blood Culture - Preliminary No growth in 3 days 12/05/17 18:40 Blood - Peripheral Aerobic Blood Culture - Preliminary No growth in 3 days 12/05/17 18:40 Blood - Peripheral Anaerobic Blood Culture - Preliminary No growth in 3 days 12/06/17 00:45 Sputum - Endotracheal Gram Stain - Final 12/06/17 00:45 Sputum - Endotracheal Sputum Culture - Preliminary Staphylococcus aureus Escherichia coli gram negative rods 12/02/17 14:19 Blood - Peripheral Aerobic Blood Culture - Final No growth in 5 days 12/02/17 14:19 Blood - Peripheral Anaerobic Blood Culture - Final No growth in 5 days 12/02/17 14:14 Blood - Peripheral Aerobic Blood Culture - Final No growth in 5 days 12/02/17 14:14 Blood - Peripheral Anaerobic Blood Culture - Final No growth in 5 days 12/05/17 15:51 Catheterized Urine Urine Culture - Final No growth in 48 hours Lab - Hematology Results 12/08/17 12/09/17 04:35 04:53 WBC 10.3 10.8 RBC 3.15 L 3.00 L Hgb 10.6 L 10.2 L Hct 31.2 L 29.4 L MCV 99.1 97.8 MCH 33.6 33.8 MCHC 33.9 34.6 RDW 13.8 13.8 Plt Count 135 L 151 MPV 9.0 9.0 Neut % (Auto) 74.7 H 71.6 H Lymph % (Auto) 12.3 16.4 [place] % (Auto) 12.7 H 10.5 H Eos % (Auto) 0.3 1.4 Baso % (Auto) 0.0 0.1 Neut # (Auto) 7.7 7.7 Lymph # (Auto) 1.3 1.8 [place] # (Auto) 1.3 H 1.1 H Eos # (Auto) 0.0 0.1 Baso # (Auto) 0.0 0.0 WBC Differential . . Differential Comment Auto diff final Auto diff final Lab - Chemistry Results 12/07/17 12/07/17 12/08/17 11:55 17:48 00:24 Sodium Potassium Chloride Carbon Dioxide Anion Gap BUN Creatinine Estimated GFR POC Glucose 104 108 137 H Random Glucose Calcium Total Bilirubin AST ALT Alkaline Phosphatase Total Protein Albumin 12/08/17 12/08/17 12/08/17 04:35 11:53 17:30 Sodium 154 H Potassium 3.7 Chloride 119 H Carbon Dioxide 24.2 Anion Gap 11 BUN 42 H Creatinine 1.53 H Estimated GFR 47 L POC Glucose 131 H 162 H Random Glucose 138 H Calcium 7.8 L Total Bilirubin 0.4 AST 75 H ALT 107 H Alkaline Phosphatase 58 Total Protein 5.3 L Albumin 2.2 L 12/09/17 12/09/17 12/09/17 00:38 04:53 06:33 Sodium 153 H Potassium 3.5 Chloride 118 H Carbon Dioxide 25.4 Anion Gap 10 BUN 41 H Creatinine 1.62 H Estimated GFR 44 L POC Glucose 139 H 160 H Random Glucose 124 H Calcium 8.2 L Total Bilirubin 0.5 AST 77 H ALT 115 H Alkaline Phosphatase 62 Total Protein 5.6 L Albumin 2.3 L Imaging: ITS Impressions Head CT 12/02/17 10:42 CONCLUSION: 1. Negative for acute process . Head MRI 12/04/17 00:00 CONCLUSION: 1. Unremarkable MRI of the brain for patient's age. 2. Mild chronic bilateral mastoiditis. Abdomen/Bladder Ultrasound 12/06/17 00:00 CONCLUSION: 1. The kidneys appear of normal size and adequate cortical thickness bilaterally. There does appear to be mildly increased echogenicity which can suggest underlying medical renal disease. Liver Ultrasound 12/07/17 00:00 CONCLUSION: 1. No specific abnormality is identified to explain the elevated LFTs. 2. Tumefactive sludge within the gallbladder. 3. Mild increased echogenicity of the right kidney which may indicate medical renal disease. 4. Right pleural effusion. Chest X-Ray 12/07/17 06:00 CONCLUSION: Mild left base infiltrate not significantly changed. Physical Exam: PHYSICAL EXAMINATION: GENERAL: On the ventilator. He is unresponsive. HEENT: The head is atraumatic. Pupils constricted. Oropharynx intubated. NECK: No swelling or adenopathy. LUNGS: Bibasilar rhonchi. HEART: Regular S1 and S2. No murmur audible. ABDOMEN: Obese, positive bowel sounds, which are hyperactive. No mass palpable. No grimacing on palpation. EXTREMITIES: Diffuse edema of the extremities. No clubbing or cyanosis. SKIN: No diffuse rash. NEUROLOGIC: Unable to assess. PSYCHIATRIC: Unable to assess. Assessment and Plan - Plan IMPRESSION: 1. [id number] cardiac arrest. 2. Pneumonia. Sputum culture has growth of Staphylococcus aureus, Escherichia coli and gram-negative rods. 3. Probable aspiration. 4. Acute respiratory failure. 5. Acute kidney disease. 6. Anoxic encephalopathy. The fever is very likely arising from pneumonia. RECOMMENDATIONS: 1. Continue vancomycin. 2. Continue piperacillin/tazobactam. 3. Continue to follow sputum culture. 4. Monitor temperatures. 5. Monitor clinical response to antibiotics.
--- NOTE | 2017-12-09 10:13 | P.PNCA ---
Subjective Interval history: Still febrile overnight. No arrhythmia. BP well controlled. comatose. Medications and Allergies Active Medications: Active Medications Acetaminophen (Tylenol Liq) 650 mg NG/OG Q6H PRN PRN Reason: SHIVERING Last Admin: 12/08/17 17:35 Dose: 650 mg Albuterol (Duoneb Neb (Faisal)) 1 ampul NEB Q6HR NEB FAISAL Last Admin: 12/09/17 09:41 Dose: 1 ampul Albuterol (Albuterol Neb (Prn)) 2.5 mg NEB Q2HR NEB PRN PRN Reason: DYSPNEA Last Admin: 12/06/17 22:45 Dose: 2.5 mg Artificial Tears (Lacrilube Opth Oint) 1 applicatio EACH EYE Q4H PRN PRN Reason: NMB Last Admin: 12/09/17 08:47 Dose: 1 applicatio Artificial Tears (Refresh Tears 0.5% Opth Drops) 1 drop EACH EYE BID [facility] Last Admin: 12/09/17 10:00 Dose: 1 drop Aspirin (Aspirin Chew) 81 mg PO DAILY [facility] Last Admin: 12/09/17 08:43 Dose: 81 mg Carvedilol (Coreg) 12.5 mg PO BID [facility] Last Admin: 12/09/17 08:44 Dose: 12.5 mg Chlorhexidine Gluconate (Peridex 0.12% Oral Kit) 15 ml OROPHARYNG BID@0800, 2000 [facility] Last Admin: 12/09/17 08:46 Dose: 15 ml Dextrose (D50w Vial) 50 ml IV.PUSH UNSCH PRN PRN Reason: PER HYPOGLYCEMIA PROTOCOL Last Admin: 12/05/17 12:21 Dose: 50 ml Fentanyl Citrate (Fentanyl Inj) 50 mcg IV.PUSH Q1H PRN PRN Reason: PAIN SCALE 1 TO 10 Last Admin: 12/09/17 04:30 Dose: 50 mcg Fentanyl Citrate (Fentanyl Inj) 100 mcg IV.PUSH Q1H PRN PRN Reason: sedation Last Admin: 12/09/17 10:00 Dose: 100 mcg Glucagon (Glucagon Inj) 1 mg OTHER PRN PRN PRN Reason: for Hypoglycemia Protocol Hydralazine HCl (Apresoline) 50 mg PO TID [facility] Last Admin: 12/09/17 08:43 Dose: 50 mg Hydralazine HCl (Apresoline Inj) 20 mg IV.PUSH Q4H PRN PRN Reason: BLOOD PRESSURE MANAGEMENT Heparin Sodium (Porcine) 25, (000 unit/ Sodium Chloride) 250 mls @ 10 mls/hr IV.CONT TITRATE PRN; Protocol PRN Reason: Per Protocol Last Titration: 12/09/17 07:32 Dose: 1,500 units/hr, 15 mls/hr Propofol (Diprivan 1000 Mg/100 Ml Inj) 1,000 mg in 100 mls @ 2.76 mls/hr IV.CONT TITRATE PRN; Protocol PRN Reason: Per Protocol Last Titration: 12/06/17 07:48 Dose: Infused Norepinephrine Bitartrate 16 (mg/ Sodium Chloride) 250 mls @ 1.87 mls/hr IV.CONT TITRATE PRN; Protocol PRN Reason: See Protocol Last Titration: 12/08/17 18:33 Dose: Infused Dexmedetomidine HCl 1,000 mcg/ (Sodium Chloride) 250 mls @ 4.57 mls/hr IV.CONT TITRATE PRN; Protocol PRN Reason: Per Protocol Last Titration: 12/09/17 07:32 Dose: 0.8 mcg/kg/hr, 18.3 mls/hr Vancomycin HCl 1,750 mg/ (Sodium Chloride) 517.5 mls @ 250 mls/hr IV.SIG Q24H FAISAL Last Infusion: 12/08/17 14:09 Dose: Infused Piperacillin/Tazobactam/Dextrose (Zosyn 3.375 Gm Premix) 50 mls @ 100 mls/hr IV.SIG Q8H FAISAL Last Infusion: 12/09/17 07:32 Dose: Infused Levetiracetam (Keppra 1000 Mg/100 Ml Premix) 100 mls @ 400 mls/hr IV.SIG Q12H FAISAL Last Admin: 12/09/17 08:42 Dose: 400 mls/hr Insulin Human Regular (Novolin R Correctional Sugar Inj) 0 units SQ Q6HR FAISAL; Protocol Last Admin: 12/09/17 06:39 Dose: 1 units Lactulose (Lactulose Liq) 30 ml PO Q6H FAISAL Last Admin: 12/09/17 06:16 Dose: 30 ml Lansoprazole (Prevacid Solutab) 30 mg NG/OG DAILY [facility] Last Admin: 12/09/17 08:47 Dose: 30 mg Metoprolol Tartrate (Lopressor Inj) 5 mg IV.PUSH Q5M PRN PRN Reason: HR>100 Last Admin: 12/08/17 03:45 Dose: 5 mg Miscellaneous Information (Mis Information) 0 each OTHER UNSCH [facility] Miscellaneous Information ([facility] Ordered Lab Info) 0 each OTHER ONCE ONE Stop: 12/09/17 11:46 Miscellaneous Medication () 1 each OROPHARYNG 0000,0400,1200,1600 [facility] Last Admin: 12/09/17 06:16 Dose: 1 each Ondansetron HCl (Zofran Inj) 4 mg IV.PUSH Q6H PRN PRN Reason: NAUSEA OR VOMITING Last Admin: 12/05/17 07:26 Dose: 4 mg Pharmacy Profile Note (Vancomycin Consult Pharmacy) 1 each OTHER UNSCH PRN PRN Reason: Pharmacy to dose Senna/Docusate Sodium (Mirella-Colace) 1 tab PO BID [facility] Last Admin: 12/09/17 08:47 Dose: Not Given Sodium Chloride (Ns Flush) 2 ml IV.FLUSH UNSCH PRN PRN Reason: FLUSH AFTER USING IV ACCESS Sodium Chloride (Ns Flush) 0 ml IV.FLUSH DAILY [facility] Last Admin: 12/09/17 08:46 Dose: 6 ml Sterile Water (Free Water) 250 ml G-TUBE Q4HR [facility] Last Admin: 12/09/17 10:01 Dose: 250 ml Terbutaline Sulfate (Brethine Inj) 1 mg SQ UNSCH PRN PRN Reason: For Extravasation Allergies Allergy/AdvReac Type Severity Reaction Status Date / Time No Known Allergies Allergy Verified 12/02/17 09:40 Home Medications Medication Instructions Recorded Confirmed Type losartan 25 mg PO DAILY 12/03/17 12/03/17 History Physical Exam Vital signs: Vital Signs 12/08/17 11:00 12/08/17 12:44 12/08/17 15:00 Temperature 101.5 F H 101.2 F H Pulse Rate 87 85 Respiratory Rate 16 20 16 Blood Pressure 120/70 135/79 Pulse Oximetry 92 L 97 96 12/08/17 16:38 12/08/17 19:00 12/08/17 20:14 Temperature 100.1 F H Pulse Rate 84 84 101 H Respiratory Rate 19 18 21 Blood Pressure 108/66 Pulse Oximetry 97 95 96 12/08/17 23:00 12/09/17 00:34 12/09/17 03:00 Temperature 100.2 F H 100.4 F H Pulse Rate 89 76 Respiratory Rate 17 17 17 Blood Pressure 147/85 H 108/60 Pulse Oximetry 97 98 97 12/09/17 03:57 12/09/17 07:00 12/09/17 09:15 Temperature 100.2 F H Pulse Rate 83 80 Respiratory Rate 21 14 14 Blood Pressure 125/73 Pulse Oximetry 99 97 97 12/09/17 09:42 Temperature Pulse Rate 65 Respiratory Rate 14 Blood Pressure Pulse Oximetry Intake & Output 12/08/17 12/09/17 12/09/17 18:59 06:59 18:59 Intake Total 2296.5 / 2296.5 1376 / 1376 385 / 385 Output Total 2040 / 2040 700 / 700 Balance 256.5 / 256.5 676 / 676 385 / 385 Weight 93.5 kg Intake: IV 1146.5 / 1146.5 255 / 255 385 / 385 Precedex Inj 1,000 MCG In NS 220 / 220 30 / 30 162 / 162 Inj 240 ML @ 0.2 MCG/KG/HR 4.57 mls/hr IV.CONT TITRATE PRN Rx# :[id number] Heparin Inj 25,000 UNIT In NS 180 / 180 70 / 70 173 / 173 Inj 247.5 ML @ 1,000 UNITS/HR 10 mls/hr IV.CONT TITRATE PRN Rx#:[id number] Levophed Inj 16 MG In NS Inj 0 / 0 234 ML @ 2 MCG/MIN 1.87 mls/hr IV.CONT TITRATE PRN Rx#: [id number] Unasyn Inj 3 GM In NS Inj 100 100 / 100 ML @ 200 mls/hr IV.SIG Q12H FAISAL Rx#:[id number] Zosyn 3.375 GM Premix 50 ML @ 50 / 50 50 / 50 100 mls/hr IV.SIG Q8H FAISAL Rx#: [id number] Vancomycin Inj 1,750 MG In NS 541.5 / 541.5 Inj 500 ML @ 250 mls/hr IV.SIG Q24H FAISAL Rx#:[id number] Keppra Inj 500 MG In NS Inj 100 105 / 105 105 / 105 ML @ 400 mls/hr IV.SIG ONCE ONE Rx#:[id number] Oral 0 / 0 Tube Feeding 550 / 550 501 / 501 Tube Irrigant 100 / 100 120 / 120 Water Bolus Amount 500 / 500 500 / 500 Output: Urine Amount (Catheter) 2039 700 / 700 Indwelling Urethral Catheter 2039 700 / 700 Other: Date of Last Bowel Movement 12/07/17 12/07/17 12/07/17 # Bowel Movements 1 # Incontinent Bowel Movements 1 Narrative: GENERAL: Well-developed well-nourished. NECK: No carotid bruits. No JVD. CARDIOVASCULAR: Regular rate and rhythm. No murmur appreciated. RESPIRATORY: Mechanically ventilated. Clear to auscultation. MUSCULOSKELETAL: No clubbing or cyanosis. No edema. NEUROLOGICAL: Intubated. + shivering, no decerebrate posturing currently. - Urinary Catheter Management Indwelling Temp Sensing Catheter Cath placed during this visit: yes, but has since been removed by the nurse Reason for continuing: Decision to DC catheter Insertion date: 12/02/17 Insertion time: 12:03 Removal date: 12/04/17 Removal time: 13:45 Indwelling Urethral Catheter Cath placed during this visit: yes Reason for continuing: Hourly intake/output Insertion date: 12/04/17 Insertion time: 13:50 Results 12/09/17 04:53 12/09/17 04:53 Cardiac Enzymes 12/08/17 12/09/17 Range/Units 04:35 04:53 AST 75 H 77 H (15-37) U/L Coagulation 12/07/17 12/07/17 12/08/17 Range/Units 11:56 18:30 00:30 PT (9.8-11.6) sec APTT 41.5 H 39.6 H 35.2 H (24.3-30.1) sec 12/08/17 12/08/17 12/08/17 Range/Units 04:35 06:40 13:40 PT 10.7 (9.8-11.6) sec APTT 44.1 H D 44.3 H (24.3-30.1) sec 12/09/17 Range/Units 04:53 PT 11.0 (9.8-11.6) sec APTT 45.0 H (24.3-30.1) sec CBC 12/08/17 12/09/17 Range/Units 04:35 04:53 WBC 10.3 10.8 (4.0-11.0) th/mm3 RBC 3.15 L 3.00 L (4.50-5.90) mil/mm3 Hgb 10.6 L 10.2 L (13.0-17.0) gm/dL Hct 31.2 L 29.4 L (39.0-51.0) % Plt Count 135 L 151 (150-450) th/mm3 Neut # (Auto) 7.7 7.7 (1.8-7.7) th/mm3 Lymph # (Auto) 1.3 1.8 (1.0-4.8) th/mm3 [place] # (Auto) 1.3 H 1.1 H (0.0-0.9) th/mm3 Eos # (Auto) 0.0 0.1 (0.0-0.4) th/mm3 Baso # (Auto) 0.0 0.0 (0.0-0.2) th/mm3 Comprehensive Metabolic Panel 12/08/17 12/09/17 Range/Units 04:35 04:53 Sodium 154 H 153 H (136-145) meq/L Potassium 3.7 3.5 (3.5-5.1) meq/L Chloride 119 H 118 H (98-107) meq/L Carbon Dioxide 24.2 25.4 (21.0-32.0) meq/L BUN 42 H 41 H (7-18) mg/dL Creatinine 1.53 H 1.62 H (0.60-1.30) mg/dL Calcium 7.8 L 8.2 L (8.5-10.1) mg/dL AST 75 H 77 H (15-37) U/L ALT 107 H 115 H (12-78) U/L Alkaline Phosphatase 58 62 (45-117) U/L Total Protein 5.3 L 5.6 L (6.4-8.2) g/dL Albumin 2.2 L 2.3 L (3.4-5.0) g/dL Intake and Output 12/08/17 12/09/17 12/09/17 22:59 06:59 14:59 Intake Total 1909 1121 / 1121 385 / 385 Output Total 2039 700 / 700 Balance -130 / -130 421 / 421 385 / 385 Intake: IV 760 / 760 385 / 385 Precedex Inj 1,000 MCG In NS 250 / 250 162 / 162 Inj 240 ML @ 0.2 MCG/KG/HR 4.57 mls/hr IV.CONT TITRATE PRN Rx# :[id number] Heparin Inj 25,000 UNIT In NS 250 / 250 173 / 173 Inj 247.5 ML @ 1,000 UNITS/HR 10 mls/hr IV.CONT TITRATE PRN Rx#:[id number] Levophed Inj 16 MG In NS Inj 0 / 0 234 ML @ 2 MCG/MIN 1.87 mls/hr IV.CONT TITRATE PRN Rx#: [id number] Zosyn 3.375 GM Premix 50 ML @ 50 / 50 50 / 50 100 mls/hr IV.SIG Q8H FAISAL Rx#: [id number] Keppra Inj 500 MG In NS Inj 100 210 / 210 ML @ 400 mls/hr IV.SIG ONCE ONE Rx#:[id number] Oral 0 / 0 Tube Feeding 550 / 550 501 / 501 Tube Irrigant 100 / 100 120 / 120 Water Bolus Amount 500 / 500 500 / 500 Output: Urine Amount (Catheter) 2039 700 / 700 Indwelling Urethral Catheter 2039 / 2039 700 / 700 Other: Date of Last Bowel Movement 12/07/17 12/07/17 12/07/17 # Bowel Movements 1 # Incontinent Bowel Movements 1 Weight 93.5 kg - Imaging and Cardiology Imaging: Impressions Liver Ultrasound 12/07/17 00:00 CONCLUSION: 1. No specific abnormality is identified to explain the elevated LFTs. 2. Tumefactive sludge within the gallbladder. 3. Mild increased echogenicity of the right kidney which may indicate medical renal disease. 4. Right pleural effusion. Assessment and Plan - Plan 57-year-old male admitted status post V. fib arrest Assessment: s/p V. fib arrest Cardiomyopathy - EF 25-35% Narrow complex tachycardia 12/02 - sinus tachycardia vs brief atrial flutter Hypotension requiring pressor support - improved Respiratory failure requiring mechanical ventilation severe anoxic encephalopathy Fever - on antibiotics per primary team Plan: Continue heparin gtt for medical management of ACS, may consider transitioning to therapeutic dose Lovenox for ease of use. 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 Patient will require left heart cath pending neurologic recovery-EEG with moderate to severe slowing consistent with severe anoxic encephalopathy per neurology Aspirin 81 mg daily Hold statin due to to shock liver BP improved, cont carvedilol 12.5mg bid and if Cr improves and BP tolerates will start KORINA-I Procedures - Arterial Line Size (Gauge): 20
--- NOTE | 2017-12-09 10:33 | MG ---
cc: Saul Feliciano MD EEG NUMBER: [id number]. INDICATION: Status post code, right chin twitching. DESCRIPTION: Recording begins with muscle artifact throughout consistent with the twitching. Photic stimulation was performed without any change in the background. When the twitching calms down towards the end of the recording, he still has those bifrontal theta waves prominent with some phase reversing over the bifrontal head region, not greatly sharp today on this recording, such as at epoch 136. These are synchronous and symmetric with a burst suppression type pattern and he starts the face jerking again then there is a slight let up. Overall, recording is synchronous and symmetric. IMPRESSION: The facial twitches do not appear to be electroencephalographic seizures, but he continues to have the burst suppression type pattern seen prior, with a discharge about every other second over the bifrontal head region. This is best seen when he is not having the facial twitches, although appears somewhat sharper on the transverse montage than the bipolar. At epoch 135, does have some spike appearance within the BIPLEDs. These discharges are similar to what is seen on the EEG performed on 12/07/2017, and a somewhat worse recording to the EEG seen on 12/04/2017. MD PAPITO Mcknight/moni , 09:36 AM , 09:43 AM
--- NOTE | 2017-12-09 10:46 | P.PNNEU ---
Subjective Subjective Comments: no tremor now just post fentanyl bolus Active Medications: Active Medications Acetaminophen (Tylenol Liq) 650 mg NG/OG Q6H PRN PRN Reason: SHIVERING Last Admin: 12/08/17 17:35 Dose: 650 mg Albuterol (Duoneb Neb (Faisal)) 1 ampul NEB Q6HR NEB FAISAL Last Admin: 12/09/17 09:41 Dose: 1 ampul Albuterol (Albuterol Neb (Prn)) 2.5 mg NEB Q2HR NEB PRN PRN Reason: DYSPNEA Last Admin: 12/06/17 22:45 Dose: 2.5 mg Artificial Tears (Lacrilube Opth Oint) 1 applicatio EACH EYE Q4H PRN PRN Reason: NMB Last Admin: 12/09/17 08:47 Dose: 1 applicatio Artificial Tears (Refresh Tears 0.5% Opth Drops) 1 drop EACH EYE BID [facility] Last Admin: 12/09/17 10:00 Dose: 1 drop Aspirin (Aspirin Chew) 81 mg PO DAILY [facility] Last Admin: 12/09/17 08:43 Dose: 81 mg Carvedilol (Coreg) 12.5 mg PO BID [facility] Last Admin: 12/09/17 08:44 Dose: 12.5 mg Chlorhexidine Gluconate (Peridex 0.12% Oral Kit) 15 ml OROPHARYNG BID@0800, 2000 [facility] Last Admin: 12/09/17 08:46 Dose: 15 ml Dextrose (D50w Vial) 50 ml IV.PUSH UNSCH PRN PRN Reason: PER HYPOGLYCEMIA PROTOCOL Last Admin: 12/05/17 12:21 Dose: 50 ml Fentanyl Citrate (Fentanyl Inj) 50 mcg IV.PUSH Q1H PRN PRN Reason: PAIN SCALE 1 TO 10 Last Admin: 12/09/17 04:30 Dose: 50 mcg Fentanyl Citrate (Fentanyl Inj) 100 mcg IV.PUSH Q1H PRN PRN Reason: sedation Last Admin: 12/09/17 10:00 Dose: 100 mcg Glucagon (Glucagon Inj) 1 mg OTHER PRN PRN PRN Reason: for Hypoglycemia Protocol Hydralazine HCl (Apresoline) 50 mg PO TID [facility] Last Admin: 12/09/17 08:43 Dose: 50 mg Hydralazine HCl (Apresoline Inj) 20 mg IV.PUSH Q4H PRN PRN Reason: BLOOD PRESSURE MANAGEMENT Heparin Sodium (Porcine) 25, (000 unit/ Sodium Chloride) 250 mls @ 10 mls/hr IV.CONT TITRATE PRN; Protocol PRN Reason: Per Protocol Last Titration: 12/09/17 07:32 Dose: 1,500 units/hr, 15 mls/hr Propofol (Diprivan 1000 Mg/100 Ml Inj) 1,000 mg in 100 mls @ 2.76 mls/hr IV.CONT TITRATE PRN; Protocol PRN Reason: Per Protocol Last Titration: 12/06/17 07:48 Dose: Infused Norepinephrine Bitartrate 16 (mg/ Sodium Chloride) 250 mls @ 1.87 mls/hr IV.CONT TITRATE PRN; Protocol PRN Reason: See Protocol Last Titration: 12/08/17 18:33 Dose: Infused Dexmedetomidine HCl 1,000 mcg/ (Sodium Chloride) 250 mls @ 4.57 mls/hr IV.CONT TITRATE PRN; Protocol PRN Reason: Per Protocol Last Titration: 12/09/17 07:32 Dose: 0.8 mcg/kg/hr, 18.3 mls/hr Vancomycin HCl 1,750 mg/ (Sodium Chloride) 517.5 mls @ 250 mls/hr IV.SIG Q24H FAISAL Last Infusion: 12/08/17 14:09 Dose: Infused Piperacillin/Tazobactam/Dextrose (Zosyn 3.375 Gm Premix) 50 mls @ 100 mls/hr IV.SIG Q8H FAISAL Last Infusion: 12/09/17 07:32 Dose: Infused Levetiracetam (Keppra 1000 Mg/100 Ml Premix) 100 mls @ 400 mls/hr IV.SIG Q12H FAISAL Last Admin: 12/09/17 08:42 Dose: 400 mls/hr Insulin Human Regular (Novolin R Correctional Sugar Inj) 0 units SQ Q6HR FAISAL; Protocol Last Admin: 12/09/17 06:39 Dose: 1 units Lactulose (Lactulose Liq) 30 ml PO Q6H FAISAL Last Admin: 12/09/17 06:16 Dose: 30 ml Lansoprazole (Prevacid Solutab) 30 mg NG/OG DAILY [facility] Last Admin: 12/09/17 08:47 Dose: 30 mg Metoprolol Tartrate (Lopressor Inj) 5 mg IV.PUSH Q5M PRN PRN Reason: HR>100 Last Admin: 12/08/17 03:45 Dose: 5 mg Miscellaneous Information (Misc Information) 0 each OTHER UNSCH [facility] Miscellaneous Information ([facility] Ordered Lab Info) 0 each OTHER ONCE ONE Stop: 12/09/17 11:46 Miscellaneous Medication () 1 each OROPHARYNG 0000,0400,1200,1600 [facility] Last Admin: 12/09/17 06:16 Dose: 1 each Ondansetron HCl (Zofran Inj) 4 mg IV.PUSH Q6H PRN PRN Reason: NAUSEA OR VOMITING Last Admin: 12/05/17 07:26 Dose: 4 mg Pharmacy Profile Note (Vancomycin Consult Pharmacy) 1 each OTHER UNSCH PRN PRN Reason: Pharmacy to dose Senna/Docusate Sodium (Mirella-Colace) 1 tab PO BID [facility] Last Admin: 12/09/17 08:47 Dose: Not Given Sodium Chloride (Ns Flush) 2 ml IV.FLUSH UNSCH PRN PRN Reason: FLUSH AFTER USING IV ACCESS Sodium Chloride (Ns Flush) 0 ml IV.FLUSH DAILY [facility] Last Admin: 12/09/17 08:46 Dose: 6 ml Sterile Water (Free Water) 250 ml G-TUBE Q4HR [facility] Last Admin: 12/09/17 10:01 Dose: 250 ml Terbutaline Sulfate (Brethine Inj) 1 mg SQ UNSCH PRN PRN Reason: For Extravasation Allergies/Adverse Reactions: Allergies Allergy/AdvReac Type Severity Reaction Status Date / Time No Known Allergies Allergy Verified 12/02/17 09:40 Physical Exam Vital signs: Vital Signs 12/08/17 11:00 12/08/17 12:44 12/08/17 15:00 Temperature 101.5 F H 101.2 F H Pulse Rate 87 85 Respiratory Rate 16 20 16 Blood Pressure 120/70 135/79 Pulse Oximetry 92 L 97 96 12/08/17 16:38 12/08/17 19:00 12/08/17 20:14 Temperature 100.1 F H Pulse Rate 84 84 101 H Respiratory Rate 19 18 21 Blood Pressure 108/66 Pulse Oximetry 97 95 96 12/08/17 23:00 12/09/17 00:34 12/09/17 03:00 Temperature 100.2 F H 100.4 F H Pulse Rate 89 76 Respiratory Rate 17 17 17 Blood Pressure 147/85 H 108/60 Pulse Oximetry 97 98 97 12/09/17 03:57 12/09/17 07:00 12/09/17 09:15 Temperature 100.2 F H Pulse Rate 83 80 Respiratory Rate 21 14 14 Blood Pressure 125/73 Pulse Oximetry 99 97 97 12/09/17 09:42 Temperature Pulse Rate 65 Respiratory Rate 14 Blood Pressure Pulse Oximetry Intake & Output 12/08/17 12/09/17 12/09/17 18:59 06:59 18:59 Intake Total 2296.5 / 2296.5 1376 / 1376 385 / 385 Output Total 2039 / 2039 700 / 700 Balance 256.5 / 256.5 676 / 676 385 / 385 Weight 93.5 kg Intake: IV 1146.5 / 1146.5 255 / 255 385 / 385 Precedex Inj 1,000 MCG In NS 220 / 220 / 30 162 / 162 Inj 240 ML @ 0.2 MCG/KG/HR 4.57 mls/hr IV.CONT TITRATE PRN Rx# :[id number] Heparin Inj 25,000 UNIT In NS 180 / 180 70 / 70 173 / 173 Inj 247.5 ML @ 1,000 UNITS/HR 10 mls/hr IV.CONT TITRATE PRN Rx#:[id number] Levophed Inj 16 MG In NS Inj 0 / 0 234 ML @ 2 MCG/MIN 1.87 mls/hr IV.CONT TITRATE PRN Rx#: [id number] Unasyn Inj 3 GM In NS Inj 100 100 / 100 ML @ 200 mls/hr IV.SIG Q12H FAISAL Rx#:[id number] Zosyn 3.375 GM Premix 50 ML @ 50 / 50 50 / 50 100 mls/hr IV.SIG Q8H FAISAL Rx#: [id number] Vancomycin Inj 1,750 MG In NS 541.5 / 541.5 Inj 500 ML @ 250 mls/hr IV.SIG Q24H FAISAL Rx#:[id number] Keppra Inj 500 MG In NS Inj 100 105 / 105 105 / 105 ML @ 400 mls/hr IV.SIG ONCE ONE Rx#:[id number] Oral 0 / 0 Tube Feeding 550 / 550 501 / 501 Tube Irrigant 100 / 100 120 / 120 Water Bolus Amount 500 / 500 500 / 500 Output: Urine Amount (Catheter) 2039 700 / 700 Indwelling Urethral Catheter 2039 700 / 700 Other: Date of Last Bowel Movement 12/07/17 12/07/17 12/07/17 # Bowel Movements 1 # Incontinent Bowel Movements 1 Narrative: pupil= on precedex and fentanyl bolus no clonus no tremor with my trying to arouse him slightly - Urinary Catheter Management Indwelling Temp Sensing Catheter Cath placed during this visit: yes, but has since been removed by the nurse Reason for continuing: Decision to DC catheter Insertion date: 12/02/17 Insertion time: 12:03 Removal date: 12/04/17 Removal time: 13:45 Indwelling Urethral Catheter Cath placed during this visit: yes Reason for continuing: Hourly intake/output Insertion date: 12/04/17 Insertion time: 13:50 Objective Laboratory Results - last 24 hr 12/08/17 12/08/17 12/08/17 11:53 13:40 17:30 WBC RBC Hgb Hct MCV MCH MCHC RDW Plt Count MPV Neut % (Auto) Lymph % (Auto) [place] % (Auto) Eos % (Auto) Baso % (Auto) Neut # (Auto) Lymph # (Auto) [place] # (Auto) Eos # (Auto) Baso # (Auto) WBC Differential Differential Comment PT INR APTT 44.3 H Sodium Potassium Chloride Carbon Dioxide Anion Gap BUN Creatinine Estimated GFR POC Glucose 131 H 162 H Random Glucose Calcium Total Bilirubin AST ALT Alkaline Phosphatase Total Protein Albumin 12/09/17 12/09/17 12/09/17 00:38 04:53 04:53 WBC 10.8 RBC 3.00 L Hgb 10.2 L Hct 29.4 L MCV 97.8 MCH 33.8 MCHC 34.6 RDW 13.8 Plt Count 151 MPV 9.0 Neut % (Auto) 71.6 H Lymph % (Auto) 16.4 [place] % (Auto) 10.5 H Eos % (Auto) 1.4 Baso % (Auto) 0.1 Neut # (Auto) 7.7 Lymph # (Auto) 1.8 [place] # (Auto) 1.1 H Eos # (Auto) 0.1 Baso # (Auto) 0.0 WBC Differential . Differential Comment Auto diff final PT INR APTT Sodium 153 H Potassium 3.5 Chloride 118 H Carbon Dioxide 25.4 Anion Gap 10 BUN 41 H Creatinine 1.62 H Estimated GFR 44 L POC Glucose 139 H Random Glucose 124 H Calcium 8.2 L Total Bilirubin 0.5 AST 77 H ALT 115 H Alkaline Phosphatase 62 Total Protein 5.6 L Albumin 2.3 L 12/09/17 12/09/17 04:53 06:33 WBC RBC Hgb Hct MCV MCH MCHC RDW Plt Count MPV Neut % (Auto) Lymph % (Auto) [place] % (Auto) Eos % (Auto) Baso % (Auto) Neut # (Auto) Lymph # (Auto) [place] # (Auto) Eos # (Auto) Baso # (Auto) WBC Differential Differential Comment PT 11.0 INR 1.1 APTT 45.0 H Sodium Potassium Chloride Carbon Dioxide Anion Gap BUN Creatinine Estimated GFR POC Glucose 160 H Random Glucose Calcium Total Bilirubin AST ALT Alkaline Phosphatase Total Protein Albumin Microbiology 12/03/17 05:00 Aerobic Blood Culture - Final Blood - Arterial Line No growth in 5 days Anaerobic Blood Culture - Final Propionibacterium acnes 12/05/17 18:35 Aerobic Blood Culture - Preliminary Blood - Peripheral No growth in 3 days Anaerobic Blood Culture - Preliminary No growth in 3 days 12/05/17 18:40 Aerobic Blood Culture - Preliminary Blood - Peripheral No growth in 3 days Anaerobic Blood Culture - Preliminary No growth in 3 days 12/06/17 00:45 Gram Stain - Final Sputum - Endotracheal Sputum Culture - Preliminary Staphylococcus aureus Escherichia coli gram negative rods Review/Management - Diagnosis (1) Encephalopathy Code(s): G93.40 - Encephalopathy, unspecified Status: Acute Current Visit: Yes - Review/Management Plan: anoxic encephalopathy. Prognosis is guarded. He does have brainstem reflexes. EEG shows generalized slowing. I discussed prognosis with his son who would like to continue supportive care. Will repeat EEG 12/09/17 the eeg from 12/07 and 12/08 look worse than last tuesdays study now some bipleds the chin tremors are not sz from cortex and plan as dw dr urias is pbarb and keppra and dc fentanyl and precedex and see if he can awwaken dr marroquin to fu in am anoxic enceph with neg mri i opal son Procedures - Arterial Line Size (Gauge): 20
[2017-12-09] MEDS ORDERED: Pharmacy Ordered Lab Info OTHER ONE (11:45)
[2017-12-09] MEDS: Vancomycin Inj 1,750 MG in Sodium Chlor 0.9% Inj 500 ML IV.SIG SCH (11:53)
[2017-12-09] MEDS: PHENobarbital Inj 130 MG/ML Vial IV.SIG SCH ×2 (13:31→21:30)
[2017-12-09] MEDS: HEPARIN IV.CONT PRN (13:43)
[2017-12-09] MEDS: SODIUM CHLOR 0.9% IV.CONT PRN (13:43)
[2017-12-10] MEDS: fentaNYL Citrate Inj 100 MCG/2 ML Ampul IV.PUSH PRN ×5 (01:21→17:03)
[2017-12-10] MEDS: Piperacil/Tazo 3.375 GM Premix 50 ML IV.SIG SCH ×3 (03:34→21:29)
[2017-12-10] MEDS: Oral Hygiene Kit OROPHARYNG SCH ×3 (05:02→15:25)
[2017-12-10 05:07] LABS: Baso % (Auto) 0.3 % (0.0-2.0); Eos # (Auto) 0.4 th/mm3 (0.0-0.4); Eos % (Auto) 4.3 % (0.0-4.0); Hematocrit 27.2 % (39.0-51.0); Hemoglobin 9.1 gm/dL (13.0-17.0); Lymph # (Auto) 1.7 th/mm3 (1.0-4.8); Lymph % (Auto) 16.6 % (9.0-44.0); Mean Corpuscular HGB Conc 33.4 % (32.0-36.0); Mean Corpuscular Hemoglobin 33.2 pg (27.0-34.0); Mean Corpuscular Volume 99.5 fL (80.0-100.0); Mean Platelet Volume 8.7 fL (7.0-11.0); Mono # (Auto) 0.8 th/mm3 (0.0-0.9); Mono % (Auto) 8.3 % (0.0-8.0); Neut % (Auto) 70.5 % (16.0-70.0); Platelet Count 154 th/mm3 (150-450); Red Blood Count 2.73 mil/mm3 (4.50-5.90); Red Cell Distribution Width 13.8 % (11.6-17.2)
[2017-12-10] MEDS: PHENobarbital Inj 130 MG/ML Vial IV.SIG SCH ×4 (05:08→21:31)
[2017-12-10 05:40] LABS: Albumin 2.2 g/dL (3.4-5.0); Anion Gap 9 meq/L (5-15); Aspartate Aminotransferase 56 U/L (15-37); Blood Urea Nitrogen 41 mg/dL (7-18); Calcium 8.1 mg/dL (8.5-10.1); Carbon Dioxide 25.9 meq/L (21.0-32.0); Chloride 118 meq/L (98-107); Glomerular Filtration Rate 48 mL/min (>89); Glucose,Random 118 mg/dL (74-106); Magnesium 2.3 mg/dL (1.5-2.5); Potassium 3.4 meq/L (3.5-5.1); Sodium 153 meq/L (136-145)
[2017-12-10 05:46] LABS: Alanine Aminotransferase 97 U/L (12-78); Alkaline Phosphatase 60 U/L (45-117); Phosphorus 3.7 mg/dL (2.5-4.9); Total Protein 5.2 g/dL (6.4-8.2)
[2017-12-10] MEDS ORDERED: Vancomycin Inj 1,500 MG in Sodium Chlor 0.9% Inj 500 ML IV.SIG SCH (06:00)
[2017-12-10] MEDS: Dexmedetomidine Inj 1,000 MCG in Sodium Chlor 0.9% Inj 240 ML IV.CONT PRN (06:32)
[2017-12-10] MEDS: HEPARIN IV.CONT PRN (06:34)
[2017-12-10] MEDS: SODIUM CHLOR 0.9% IV.CONT PRN (06:34)
[2017-12-10] MEDS: Insulin NovoLIN Regular Correctional Sugar Inj SQ SCH ×3 (07:43→18:41)
--- NOTE | 2017-12-10 08:00 | P.PNCA ---
Subjective Interval history: Precedex titrated up overnight due to tremors/restlessness. Fevers noted overnight. No significant arrhythmias noted. BP well controlled with hydralazine. Current drips: Heparin and Precedex. Medications and Allergies Active Medications: Active Medications Acetaminophen (Tylenol Liq) 650 mg NG/OG Q6H PRN PRN Reason: SHIVERING Last Admin: 12/10/17 03:34 Dose: 650 mg Albuterol (Albuterol Neb (Prn)) 2.5 mg NEB Q2HR NEB PRN PRN Reason: DYSPNEA Last Admin: 12/06/17 22:45 Dose: 2.5 mg Artificial Tears (Lacrilube Opth Oint) 1 applicatio EACH EYE Q4H PRN PRN Reason: NMB Last Admin: 12/09/17 08:47 Dose: 1 applicatio Artificial Tears (Refresh Tears 0.5% Opth Drops) 1 drop EACH EYE BID [facility] Last Admin: 12/09/17 21:40 Dose: 1 drop Aspirin (Aspirin Chew) 81 mg PO DAILY [facility] Last Admin: 12/09/17 08:43 Dose: 81 mg Carvedilol (Coreg) 12.5 mg PO BID [facility] Last Admin: 12/09/17 20:18 Dose: 12.5 mg Chlorhexidine Gluconate (Peridex 0.12% Oral Kit) 15 ml OROPHARYNG BID@0800, 2000 [facility] Last Admin: 12/09/17 21:40 Dose: 15 ml Dextrose (D50w Vial) 50 ml IV.PUSH UNSCH PRN PRN Reason: PER HYPOGLYCEMIA PROTOCOL Last Admin: 12/05/17 12:21 Dose: 50 ml Fentanyl Citrate (Fentanyl Inj) 50 mcg IV.PUSH Q1H PRN PRN Reason: PAIN SCALE 1 TO 10 Last Admin: 12/09/17 04:30 Dose: 50 mcg Fentanyl Citrate (Fentanyl Inj) 100 mcg IV.PUSH Q1H PRN PRN Reason: sedation Last Admin: 12/10/17 02:48 Dose: 100 mcg Glucagon (Glucagon Inj) 1 mg OTHER PRN PRN PRN Reason: for Hypoglycemia Protocol Hydralazine HCl (Apresoline) 50 mg PO TID [facility] Last Admin: 12/09/17 17:30 Dose: 50 mg Hydralazine HCl (Apresoline Inj) 20 mg IV.PUSH Q4H PRN PRN Reason: BLOOD PRESSURE MANAGEMENT Heparin Sodium (Porcine) 25, (000 unit/ Sodium Chloride) 250 mls @ 10 mls/hr IV.CONT TITRATE PRN; Protocol PRN Reason: Per Protocol Last Admin: 12/10/17 06:34 Dose: 1,500 units/hr, 15 mls/hr Propofol (Diprivan 1000 Mg/100 Ml Inj) 1,000 mg in 100 mls @ 2.76 mls/hr IV.CONT TITRATE PRN; Protocol PRN Reason: Per Protocol Last Titration: 12/06/17 07:48 Dose: Infused Norepinephrine Bitartrate 16 (mg/ Sodium Chloride) 250 mls @ 1.87 mls/hr IV.CONT TITRATE PRN; Protocol PRN Reason: See Protocol Last Titration: 12/08/17 18:33 Dose: Infused Dexmedetomidine HCl 1,000 mcg/ (Sodium Chloride) 250 mls @ 4.57 mls/hr IV.CONT TITRATE PRN; Protocol PRN Reason: Per Protocol Last Admin: 12/10/17 06:32 Dose: 0.69 mcg/kg/hr, 16 mls/hr Piperacillin/Tazobactam/Dextrose (Zosyn 3.375 Gm Premix) 50 mls @ 100 mls/hr IV.SIG Q8H SANDY Last Admin: 12/10/17 03:34 Dose: 100 mls/hr Levetiracetam (Keppra 1000 Mg/100 Ml Premix) 100 mls @ 400 mls/hr IV.SIG Q12H SANDY Last Infusion: 12/09/17 19:25 Dose: Infused Vancomycin HCl 1,500 mg/ (Sodium Chloride) 515 mls @ 250 mls/hr IV.SIG Q18H SANDY Last Admin: 12/10/17 05:10 Dose: 250 mls/hr Insulin Human Regular (Novolin R Correctional Sugar Inj) 0 units SQ Q6HR SANDY; Protocol Last Admin: 12/10/17 07:43 Dose: Not Given Lactulose (Lactulose Liq) 30 ml PO Q6H SANDY Last Admin: 12/10/17 05:02 Dose: 30 ml Lansoprazole (Prevacid Solutab) 30 mg NG/OG DAILY SANDY Last Admin: 12/09/17 08:47 Dose: 30 mg Metoprolol Tartrate (Lopressor Inj) 5 mg IV.PUSH Q5M PRN PRN Reason: HR>100 Last Admin: 12/08/17 03:45 Dose: 5 mg Miscellaneous Information (Misc Information) 0 each OTHER UNSCH [facility] Miscellaneous Information ([facility] Ordered Lab Info) 0 each OTHER ONCE ONE Stop: 12/11/17 17:46 Miscellaneous Medication () 1 each OROPHARYNG 0000,0400,1200,1600 [facility] Last Admin: 12/10/17 05:02 Dose: 1 each Ondansetron HCl (Zofran Inj) 4 mg IV.PUSH Q6H PRN PRN Reason: NAUSEA OR VOMITING Last Admin: 12/05/17 07:26 Dose: 4 mg Pharmacy Profile Note (Vancomycin Consult Pharmacy) 1 each OTHER UNSCH PRN PRN Reason: Pharmacy to dose Phenobarbital Sodium (Luminal Inj) 90 mg IV.SIG Q8HR [facility] Last Admin: 12/10/17 05:08 Dose: 90 mg Senna/Docusate Sodium (Mirella-Colace) 1 tab PO BID [facility] Last Admin: 12/09/17 21:40 Dose: Not Given Sodium Chloride (Ns Flush) 2 ml IV.FLUSH UNSCH PRN PRN Reason: FLUSH AFTER USING IV ACCESS Sodium Chloride (Ns Flush) 0 ml IV.FLUSH DAILY [facility] Last Admin: 12/09/17 08:46 Dose: 6 ml Sterile Water (Free Water) 250 ml G-TUBE Q4HR [facility] Last Admin: 12/10/17 05:02 Dose: 250 ml Terbutaline Sulfate (Brethine Inj) 1 mg SQ UNSCH PRN PRN Reason: For Extravasation Allergies Allergy/AdvReac Type Severity Reaction Status Date / Time No Known Allergies Allergy Verified 12/02/17 09:40 Home Medications Medication Instructions Recorded Confirmed Type losartan 25 mg PO DAILY 12/03/17 12/03/17 History Physical Exam Vital signs: Vital Signs 12/09/17 09:15 12/09/17 09:42 12/09/17 11:00 Temperature 98.4 F Pulse Rate 65 77 Respiratory Rate 14 14 17 Blood Pressure 121/80 Pulse Oximetry 97 93 L 12/09/17 15:00 12/09/17 16:21 12/09/17 16:22 Temperature 98.7 F Pulse Rate 90 88 Respiratory Rate 16 19 19 Blood Pressure 137/93 H Pulse Oximetry 95 97 12/09/17 19:00 12/09/17 20:13 12/09/17 23:00 Temperature 101.7 F H 99.8 F H Pulse Rate 92 H 90 66 Respiratory Rate 14 17 14 Blood Pressure 161/94 H 108/70 Pulse Oximetry 97 97 99 12/10/17 00:09 12/10/17 03:00 12/10/17 03:26 Temperature 99.8 F H Pulse Rate 79 77 Respiratory Rate 14 14 20 Blood Pressure 126/81 Pulse Oximetry 98 95 95 12/10/17 05:45 12/10/17 07:00 12/10/17 07:31 Temperature 97.8 F Pulse Rate 68 Respiratory Rate 14 14 Blood Pressure 108/70 Pulse Oximetry 96 98 97 Intake & Output 12/09/17 12/10/17 12/10/17 18:59 06:59 18:59 Intake Total 1757.5 / 1757.5 2017 Output Total 750 / 750 750 / 750 Balance 1007.5 / 1007.5 1268 / 1268 Weight 205 lb 0.478 oz Intake: IV 1217.5 / 1217.5 923 / 923 Precedex Inj 1,000 MCG In NS 250 / 250 418 / 418 Inj 240 ML @ 0.2 MCG/KG/HR 4.57 mls/hr IV.CONT TITRATE PRN Rx# :[id number] Heparin Inj 25,000 UNIT In NS 250 / 250 355 / 355 Inj 247.5 ML @ 1,000 UNITS/HR 10 mls/hr IV.CONT TITRATE PRN Rx#:[id number] Zosyn 3.375 GM Premix 50 ML @ 100 / 100 50 / 50 100 mls/hr IV.SIG Q8H SANDY Rx#: [id number] Vancomycin Inj 1,750 MG In NS 517.5 / 517.5 Inj 500 ML @ 250 mls/hr IV.SIG Q24H SANDY Rx#:[id number] Keppra 1000 mg/100 mL Premix 100 / 100 100 / 100 100 ML @ 400 mls/hr IV.SIG Q12H SANDY Rx#:[id number] Oral 0 / 0 0 / 0 Tube Feeding 540 / 540 475 / 475 Tube Irrigant 120 / 120 Water Bolus Amount 500 / 500 Output: Urine Amount (Catheter) 750 / 750 750 / 750 Indwelling Urethral Catheter 750 / 750 750 / 750 Other: Date of Last Bowel Movement 12/09/17 12/09/17 # Bowel Movements 2 0 Narrative: GENERAL: Well-developed well-nourished. NECK: No carotid bruits. No JVD. CARDIOVASCULAR: Regular rate and rhythm. No murmur appreciated. RESPIRATORY: Mechanically ventilated. Coarse breath sounds. MUSCULOSKELETAL: No clubbing or cyanosis. No edema. NEUROLOGICAL: Intubated. + shivering. No decerebrate posturing currently. - Urinary Catheter Management Indwelling Temp Sensing Catheter Cath placed during this visit: yes, but has since been removed by the nurse Reason for continuing: Decision to DC catheter Insertion date: 12/02/17 Insertion time: 12:03 Removal date: 12/04/17 Removal time: 13:45 Indwelling Urethral Catheter Cath placed during this visit: yes Reason for continuing: Hourly intake/output Insertion date: 12/04/17 Insertion time: 13:50 Results 12/10/17 04:45 12/10/17 04:45 Cardiac Enzymes 12/09/17 12/10/17 Range/Units 04:53 04:45 AST 77 H 56 H (15-37) U/L Coagulation 12/08/17 12/08/17 12/09/17 Range/Units 06:40 13:40 04:53 PT 11.0 (9.8-11.6) sec APTT 44.1 H D 44.3 H 45.0 H (24.3-30.1) sec 12/10/17 Range/Units 04:45 PT (9.8-11.6) sec APTT 43.9 H (24.3-30.1) sec CBC 12/09/17 12/10/17 Range/Units 04:53 04:45 WBC 10.8 10.0 (4.0-11.0) th/mm3 RBC 3.00 L 2.73 L (4.50-5.90) mil/mm3 Hgb 10.2 L 9.1 L (13.0-17.0) gm/dL Hct 29.4 L 27.2 L (39.0-51.0) % Plt Count 151 154 (150-450) th/mm3 Neut # (Auto) 7.7 7.0 (1.8-7.7) th/mm3 Lymph # (Auto) 1.8 1.7 (1.0-4.8) th/mm3 Millard # (Auto) 1.1 H 0.8 (0.0-0.9) th/mm3 Eos # (Auto) 0.1 0.4 (0.0-0.4) th/mm3 Baso # (Auto) 0.0 0.0 (0.0-0.2) th/mm3 Comprehensive Metabolic Panel 12/09/17 12/10/17 Range/Units 04:53 04:45 Sodium 153 H 153 H (136-145) meq/L Potassium 3.5 3.4 L (3.5-5.1) meq/L Chloride 118 H 118 H (98-107) meq/L Carbon Dioxide 25.4 25.9 (21.0-32.0) meq/L BUN 41 H 41 H (7-18) mg/dL Creatinine 1.62 H 1.51 H (0.60-1.30) mg/dL Calcium 8.2 L 8.1 L (8.5-10.1) mg/dL AST 77 H 56 H (15-37) U/L ALT 115 H 97 H (12-78) U/L Alkaline Phosphatase 62 60 (45-117) U/L Total Protein 5.6 L 5.2 L (6.4-8.2) g/dL Albumin 2.3 L 2.2 L (3.4-5.0) g/dL Intake and Output 12/09/17 12/10/17 12/10/17 22:59 06:59 14:59 Intake Total 690 / 690 1868 / 1868 Output Total 750 / 750 750 / 750 Balance -60 / -60 1118 / 1118 Intake: IV 150 / 150 773 / 773 Precedex Inj 1,000 MCG In NS 418 / 418 Inj 240 ML @ 0.2 MCG/KG/HR 4.57 mls/hr IV.CONT TITRATE PRN Rx# :[id number] Heparin Inj 25,000 UNIT In NS 355 / 355 Inj 247.5 ML @ 1,000 UNITS/HR 10 mls/hr IV.CONT TITRATE PRN Rx#:[id number] Zosyn 3.375 GM Premix 50 ML @ 50 / 50 100 mls/hr IV.SIG Q8H SANDY Rx#: [id number] Keppra 1000 mg/100 mL Premix 100 / 100 100 ML @ 400 mls/hr IV.SIG Q12H SANDY Rx#:[id number] Oral 0 / 0 0 / 0 Tube Feeding 540 / 540 475 / 475 Tube Irrigant 120 / 120 Water Bolus Amount 500 / 500 Output: Urine Amount (Catheter) 750 / 750 750 / 750 Indwelling Urethral Catheter 750 / 750 750 / 750 Other: Date of Last Bowel Movement 12/09/17 12/09/17 # Bowel Movements 2 0 Weight 205 lb 0.478 oz Assessment and Plan - Plan 57-year-old male admitted status post V. fib arrest Assessment: s/p V. fib arrest Cardiomyopathy - EF 25-35% Narrow complex tachycardia 12/02 - sinus tachycardia vs brief atrial flutter Hypotension requiring pressor support - improved Respiratory failure requiring mechanical ventilation severe anoxic encephalopathy Fever - on antibiotics per primary team Plan: Continue heparin gtt for medical management of ACS, may consider transitioning to therapeutic dose Lovenox for ease of use. 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 Patient will require left heart cath pending neurologic recovery-EEG with moderate to severe slowing consistent with severe anoxic encephalopathy per neurology Aspirin 81 mg daily Hold statin due to to shock liver BP improved, cont carvedilol 12.5mg bid and if Cr improves and BP tolerates will start KORINA-I Discussed Condition With: RNDr. Minor Procedures - Arterial Line Size (Gauge): 20
[2017-12-10] MEDS: levETIRAcetam 1000mg/100mL Inj 100 ML IV.SIG SCH ×2 (08:30→21:28)
[2017-12-10] MEDS: Senna/Docusate Sodium 8.6/50 MG Tablet PO SCH ×2 (08:31→21:32)
[2017-12-10] MEDS: hydrALAZINE 50 MG Tablet PO SCH ×3 (08:32→17:03)
[2017-12-10] MEDS: Chlorhexidine 0.12% Oral Kit 15 ML UDC OROPHARYNG SCH ×2 (08:32→21:29)
[2017-12-10] MEDS: Carboxymethylcellulose 0.5% Opth Drops 15 ML Bottle EACH EYE SCH ×2 (08:33→21:32)
[2017-12-10] MEDS: Dextrose 5% in Water Inj 1,000 ML IV.CONT SCH (09:46)
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
[2017-12-10] MEDS ORDERED: Potassium Chlor 20 mEq Premix 20 MEQ/100 ML PIGGYBACK IV.SIG PRN ×2 (10:10)
[2017-12-10] MEDS ORDERED: Potassium Chlor 40 mEq Premix 40 MEQ/100 ML PIGGYBACK IV.SIG PRN ×2 (10:10)
[2017-12-10] MEDS ORDERED: Magnesium Sulfate Inj 2 GM in Sodium Chlor 0.9% Inj 96 ML IV.SIG PRN (10:10)
[2017-12-10] MEDS ORDERED: Sodium Phosphate Inj 30 MMOL in Sodium Chlor 0.9% Inj 250 ML IV.SIG PRN (10:10)
[2017-12-10] MEDS ORDERED: Potassium Phosphate 500 MG Soluble Tablet PO PRN ×2 (10:10)
[2017-12-10] MEDS ORDERED: Magnesium Sulfate Inj 4 GM in Sodium Chlor 0.9% Inj 92 ML IV.SIG PRN (10:10)
[2017-12-10] MEDS ORDERED: Potassium Phosphate Inj 30 MMOL in Sodium Chlor 0.9% Inj 250 ML IV.SIG PRN (10:10)
[2017-12-10] MEDS ORDERED: Magnesium Oxide 400 MG Tablet PO PRN (10:10)
--- NOTE | 2017-12-10 11:43 | MG ---
cc: Davie Nicole MD, PhD TEST NUMBER: [id number] TECHNIQUE: A 17-channel EEG. DESCRIPTION: The background rhythm was abnormal. There is a generalized PLEDs activity occurring about 1 Hz frequency with associated slowing in the delta frequency later in the tracing. Some muscle artifact is present. No definite lateralizing features. INTERPRETATION: Markedly abnormal study consistent with bilateral PLEDs, consistent with severe anoxic encephalopathy. Davie Nicole MD, PhD GRAYSON/[email or web address] , 11:27 AM , 11:32 AM
[2017-12-10] MEDS ORDERED: Fosphenytoin Inj 1,000 MGPE in Sodium Chlor 0.9% Inj 50 ML IV.SIG ONE (13:00)
--- NOTE | 2017-12-10 13:02 | P.PNID ---
Subjective Remarks: Patient on vent 40% FIO2. Discussed with RN. Sedated. Unresponsive. Plans for weaning sedation in progress. some tremors. Temp spike last night. This is a 57-year-old white male who was brought to the hospital after an [id number] cardiac arrest. The patient was admitted on 12/02/2017. He was intubated and remains on the ventilator. He is noted to have had anoxic injury. Temperature started rising 12/05/2017 where it spiked up to 101.3, and after that he had some low grade fevers, and today, temperature was up to 101.5. The patient is on the ventilator. He is noted to have mostly white secretions. Blood cultures were taken on 12/02/2017 and had no growth, and repeated blood cultures on 12/05/2017 had no growth. Sputum culture from 12/02/2017 had normal michelle. Repeat sputum culture on 12/06/2017 Staphylococcus aureus, Escherichia coli, and gram-negative rods. ID Consult requested for pneumonia and fever. Allergies/Adverse Reactions: Allergies No Known Allergies Allergy (Verified 12/02/17 09:40) Objective Vital Signs 12/09/17 15:00 12/09/17 16:21 12/09/17 16:22 Temperature 98.7 F Pulse Rate 90 88 Respiratory Rate 16 19 19 Blood Pressure 137/93 H Pulse Oximetry 95 97 12/09/17 19:00 12/09/17 20:13 12/09/17 23:00 Temperature 101.7 F H 99.8 F H Pulse Rate 92 H 90 66 Respiratory Rate 14 17 14 Blood Pressure 161/94 H 108/70 Pulse Oximetry 97 97 99 12/10/17 00:09 12/10/17 03:00 12/10/17 03:26 Temperature 99.8 F H Pulse Rate 79 77 Respiratory Rate 14 14 20 Blood Pressure 126/81 Pulse Oximetry 98 95 95 12/10/17 05:45 12/10/17 07:00 12/10/17 07:31 Temperature 97.8 F Pulse Rate 68 Respiratory Rate 14 14 Blood Pressure 108/70 Pulse Oximetry 96 98 97 12/10/17 09:43 12/10/17 12:14 Temperature Pulse Rate Respiratory Rate 23 21 Blood Pressure Pulse Oximetry 98 93 L Intake & Output 12/09/17 12/10/17 12/10/17 18:59 06:59 18:59 Intake Total 1757.5 / 1757.5 2017 715 / 715 Output Total 750 / 750 750 / 750 Balance 1007.5 / 1007.5 1268 / 1268 715 / 715 Weight 93 kg Intake: IV 1217.5 / 1217.5 923 / 923 715 / 715 Precedex Inj 1,000 MCG In NS 250 / 250 418 / 418 Inj 240 ML @ 0.2 MCG/KG/HR 4.57 mls/hr IV.CONT TITRATE PRN Rx# :[id number] Heparin Inj 25,000 UNIT In NS 250 / 250 355 / 355 Inj 247.5 ML @ 1,000 UNITS/HR 10 mls/hr IV.CONT TITRATE PRN Rx#:[id number] Zosyn 3.375 GM Premix 50 ML @ 100 / 100 50 / 50 100 / 100 100 mls/hr IV.SIG Q8H SANDY Rx#: [id number] Vancomycin Inj 1,500 MG In NS 517.5 / 517.5 515 / 515 Inj 500 ML @ 250 mls/hr IV.SIG Q18H SANDY Rx#:[id number] Keppra 1000 mg/100 mL Premix 100 / 100 100 / 100 100 / 100 100 ML @ 400 mls/hr IV.SIG Q12H SANDY Rx#:[id number] Oral 0 / 0 0 / 0 Tube Feeding 540 / 540 475 / 475 Tube Irrigant 120 / 120 Water Bolus Amount 500 / 500 Output: Urine Amount (Catheter) 750 / 750 750 / 750 Indwelling Urethral Catheter 750 / 750 750 / 750 Other: Date of Last Bowel Movement 12/09/17 12/09/17 12/10/17 # Bowel Movements 2 0 12/08/17 13:40 Blood - Peripheral Aerobic Blood Culture - Preliminary No growth in 2 days 12/08/17 13:40 Blood - Peripheral Anaerobic Blood Culture - Preliminary No growth in 2 days 12/08/17 12:15 Blood - Peripheral Aerobic Blood Culture - Preliminary No growth in 2 days 12/08/17 12:15 Blood - Peripheral Anaerobic Blood Culture - Preliminary No growth in 2 days 12/05/17 18:35 Blood - Peripheral Aerobic Blood Culture - Final No growth in 5 days 12/05/17 18:35 Blood - Peripheral Anaerobic Blood Culture - Final No growth in 5 days 12/05/17 18:40 Blood - Peripheral Aerobic Blood Culture - Final No growth in 5 days 12/05/17 18:40 Blood - Peripheral Anaerobic Blood Culture - Final No growth in 5 days 12/06/17 00:45 Sputum - Endotracheal Gram Stain - Final 12/06/17 00:45 Sputum - Endotracheal Sputum Culture - Final Staphylococcus aureus Escherichia coli Enterobacter aerogenes 12/03/17 05:00 Blood - Arterial Line Aerobic Blood Culture - Final No growth in 5 days 12/03/17 05:00 Blood - Arterial Line Anaerobic Blood Culture - Final Propionibacterium acnes 12/02/17 14:19 Blood - Peripheral Aerobic Blood Culture - Final No growth in 5 days 12/02/17 14:19 Blood - Peripheral Anaerobic Blood Culture - Final No growth in 5 days 12/02/17 14:14 Blood - Peripheral Aerobic Blood Culture - Final No growth in 5 days 12/02/17 14:14 Blood - Peripheral Anaerobic Blood Culture - Final No growth in 5 days 12/05/17 15:51 Catheterized Urine Urine Culture - Final No growth in 48 hours Lab - Hematology Results 12/09/17 12/10/17 04:53 04:45 WBC 10.8 10.0 RBC 3.00 L 2.73 L Hgb 10.2 L 9.1 L Hct 29.4 L 27.2 L MCV 97.8 99.5 MCH 33.8 33.2 MCHC 34.6 33.4 RDW 13.8 13.8 Plt Count 151 154 MPV 9.0 8.7 Neut % (Auto) 71.6 H 70.5 H Lymph % (Auto) 16.4 16.6 [place] % (Auto) 10.5 H 8.3 H Eos % (Auto) 1.4 4.3 H Baso % (Auto) 0.1 0.3 Neut # (Auto) 7.7 7.0 Lymph # (Auto) 1.8 1.7 [place] # (Auto) 1.1 H 0.8 Eos # (Auto) 0.1 0.4 Baso # (Auto) 0.0 0.0 WBC Differential . . Differential Comment Auto diff final Auto diff final Lab - Chemistry Results 12/08/17 12/09/17 12/09/17 17:30 00:38 04:53 Sodium 153 H Potassium 3.5 Chloride 118 H Carbon Dioxide 25.4 Anion Gap 10 BUN 41 H Creatinine 1.62 H Estimated GFR 44 L POC Glucose 162 H 139 H Random Glucose 124 H Calcium 8.2 L Phosphorus Magnesium Total Bilirubin 0.5 AST 77 H ALT 115 H Alkaline Phosphatase 62 Total Protein 5.6 L Albumin 2.3 L 12/09/17 12/09/17 12/09/17 06:33 11:37 17:25 Sodium Potassium Chloride Carbon Dioxide Anion Gap BUN Creatinine Estimated GFR POC Glucose 160 H 143 H 101 Random Glucose Calcium Phosphorus Magnesium Total Bilirubin AST ALT Alkaline Phosphatase Total Protein Albumin 12/09/17 12/10/17 12/10/17 23:31 04:45 11:20 Sodium 153 H Potassium 3.4 L Chloride 118 H Carbon Dioxide 25.9 Anion Gap 9 BUN 41 H Creatinine 1.51 H Estimated GFR 48 L POC Glucose 118 H 138 H Random Glucose 118 H Calcium 8.1 L Phosphorus 3.7 Magnesium 2.3 Total Bilirubin 0.4 AST 56 H ALT 97 H Alkaline Phosphatase 60 Total Protein 5.2 L Albumin 2.2 L Imaging: ITS Impressions Head CT 12/02/17 10:42 CONCLUSION: 1. Negative for acute process . Head MRI 12/04/17 00:00 CONCLUSION: 1. Unremarkable MRI of the brain for patient's age. 2. Mild chronic bilateral mastoiditis. Abdomen/Bladder Ultrasound 12/06/17 00:00 CONCLUSION: 1. The kidneys appear of normal size and adequate cortical thickness bilaterally. There does appear to be mildly increased echogenicity which can suggest underlying medical renal disease. Liver Ultrasound 12/07/17 00:00 CONCLUSION: 1. No specific abnormality is identified to explain the elevated LFTs. 2. Tumefactive sludge within the gallbladder. 3. Mild increased echogenicity of the right kidney which may indicate medical renal disease. 4. Right pleural effusion. Chest X-Ray 12/07/17 06:00 CONCLUSION: Mild left base infiltrate not significantly changed. Physical Exam: PHYSICAL EXAMINATION: GENERAL: On the ventilator. Unresponsive. HEENT: The head is atraumatic. Pupils constricted. Oropharynx intubated. NECK: No swelling or adenopathy. LUNGS: Bilateral basilar rhonchi. HEART: Regular S1 and S2. No murmur audible. ABDOMEN: Obese, positive bowel sounds, which are hyperactive. No mass palpable. No grimacing on palpation. EXTREMITIES: Diffuse edema of the extremities. No clubbing or cyanosis. SKIN: No diffuse rash. NEUROLOGIC: Unable to assess. Unresponsive. PSYCHIATRIC: Unable to assess. Unresponsive. Assessment and Plan - Plan IMPRESSION: 1. [id number] cardiac arrest. 2. Pneumonia. Sputum culture has growth of Staphylococcus aureus, Escherichia coli and Enterobacter. 3. Probable aspiration. 4. Acute respiratory failure. 5. Acute kidney disease. 6. Anoxic encephalopathy. RECOMMENDATIONS: 1. Continue vancomycin. 2. Continue piperacillin/tazobactam. 3. Monitor temperatures. 4. Monitor clinical response. Discussed with patient's sister. I will be off 12/11 through 12/18. Other ID MD covering.
[2017-12-10] MEDS: Potassium Chloride 25 MEQ Effervescent Tablet PO PRN (14:49)
--- NOTE | 2017-12-10 16:28 | P.PNPAL ---
Reason for Visit Reason for visit: a. To assist with evaluation and management of symptoms including: Encephalopathy, tremor b. To assist medical decision maker(s) with: better understanding of current medical conditions; weighing benefits/burdens of medical treatment options; making medical treatment decisions. Subjective Subjective/Interval History: Patient seen for follow-up of symptom management of encephalopathy and tremor and goals of medical treatment. Patient remains encephalopathic on Precedex 0.69 mcg/kg/min. He is not responding to vigorous stimuli, including turning and bathing. Reflexes show positive pupillary reaction corneal reflex and upward plantar reflex, minimal cough and gag. No spontaneous limb movements or withdrawal to painful stimuli. Creatinine is improving, now down to 1.5. Transaminase trending down. He required Zemuron 50 mg IV as a paralytic to stop tremors and allow the EEG to be done. Per neurology's note, EEG from 12/07 and 12/08 look worse than the previous Sunday study. EEG reading today show markedly abnormal study consistent with bilateral PLEDs, consistent with severe anoxic encephalopathy. Encephalopathy is constant, of acute onset, severe with no exacerbating or relieving factors. Remains tremulous. Significant artifact seen on telemetry. Precedex increased to 0.69 mcg/kg/min, but was unsuccessful in controlling the tremors. Fentanyl 100 mcg IV every hour was required for times since midnight for tremor management. In spite of increasing sedation, patient remained with significant tremors interfering with the EEG and required a paralytic in order to complete the study. Febrile to 101.7 last evening. ID following for likely aspiration pneumonia. Sputum showing staph aureus, E. coli, Enterobacter aerogenes. He is being treated with Zosyn and vancomycin. Tremors are acute onset, intermittent, moderate to severe, improved with increasing sedation and paralytic, no exacerbating factors. . Family/Friend Interactions: Spoke with both sons today regarding patient's current clinical status, sedative requirements EEG and specialist opinion regarding the continued worsening of the EEG tracings. Clinically he remains the same, nonresponsive, now 6 days after rewarming from code cool. No significant improvement or change , however family remains "cautiously optimistic". . Advance Directives Living Will: Never completed Health Care Surrogate: Never completed Durable Power of Executive Talent Acquisition Consultant: Never completed Objective Vital Signs: Vital Signs 12/09/17 16:21 12/09/17 16:22 12/09/17 19:00 Temperature 101.7 F H Pulse Rate 88 92 H Respiratory Rate 19 19 14 Blood Pressure 161/94 H Pulse Oximetry 97 97 12/09/17 20:13 12/09/17 23:00 12/10/17 00:09 Temperature 99.8 F H Pulse Rate 90 66 Respiratory Rate 17 14 14 Blood Pressure 108/70 Pulse Oximetry 97 99 98 12/10/17 03:00 12/10/17 03:26 12/10/17 05:45 Temperature 99.8 F H Pulse Rate 79 77 Respiratory Rate 14 20 Blood Pressure 126/81 Pulse Oximetry 95 95 96 12/10/17 07:00 12/10/17 07:31 12/10/17 09:43 Temperature 97.8 F Pulse Rate 68 Respiratory Rate 14 14 23 Blood Pressure 108/70 Pulse Oximetry 98 97 98 12/10/17 11:00 12/10/17 12:14 Temperature 99.2 F Pulse Rate 75 Respiratory Rate 14 21 Blood Pressure 122/79 Pulse Oximetry 97 93 L Intake & Output 12/09/17 12/10/17 12/10/17 18:59 06:59 18:59 Intake Total 1757.5 / 1757.5 2017 785 / 785 Output Total 750 / 750 750 / 750 Balance 1007.5 / 1007.5 1268 / 1268 785 / 785 Weight 205 lb 0.478 oz Intake: IV 1217.5 / 1217.5 923 / 923 785 / 785 Precedex Inj 1,000 MCG In NS 250 / 250 418 / 418 Inj 240 ML @ 0.2 MCG/KG/HR 4.57 mls/hr IV.CONT TITRATE PRN Rx# :[id number] Heparin Inj 25,000 UNIT In NS 250 / 250 355 / 355 Inj 247.5 ML @ 1,000 UNITS/HR 10 mls/hr IV.CONT TITRATE PRN Rx#:[id number] Cerebyx Inj 1,000 MGPE In NS 70 / 70 Inj 50 ML @ 70 mls/hr IV.SIG ONCE ONE Rx#:[id number] Zosyn 3.375 GM Premix 50 ML @ 100 / 100 50 / 50 100 / 100 100 mls/hr IV.SIG Q8H [facility] Rx#: [id number] Vancomycin Inj 1,500 MG In NS 517.5 / 517.5 515 / 515 Inj 500 ML @ 250 mls/hr IV.SIG Q18H [facility] Rx#:[id number] Keppra 1000 mg/100 mL Premix 100 / 100 100 / 100 100 / 100 100 ML @ 400 mls/hr IV.SIG Q12H [facility] Rx#:[id number] Oral 0 / 0 0 / 0 Tube Feeding 540 / 540 475 / 475 Tube Irrigant 120 / 120 Water Bolus Amount 500 / 500 Output: Urine Amount (Catheter) 750 / 750 750 / 750 Indwelling Urethral Catheter 750 / 750 750 / 750 Other: Date of Last Bowel Movement 12/09/17 12/09/17 12/10/17 # Bowel Movements 2 0 Physical Exam: CONSTITUTIONAL/GENERAL: This is an adequately nourished patient, intubated, sedated, continuous tremors, in no apparent distress. TUBES/LINES/DRAINS: right IJ triple-lumen EYES: Pupils 2 mm, slightly reactive. Positive scleral edema, no scleral icterus. No injection or drainage. Fundi not examined. ENT: Nose without bleeding or purulent drainage. Orally intubated. NECK: Trachea midline. Supple. CARDIOVASCULAR: Regular rate and rhythm without murmurs, gallops, or rubs. No JVD. Peripheral pulses symmetric. RESPIRATORY/CHEST: Symmetric, unlabored respirations. Occasional scattered rhonchi anteriorly. GASTROINTESTINAL: Abdomen soft, nondistended. Bowel sounds present. GENITOURINARY: Without palpable bladder distension. Rocha catheter in place. MUSCULOSKELETAL: Extremities without clubbing, cyanosis, or edema. No mottling or clubbing. NEUROLOGICAL: Intubated, sedated. Not withdrawing to painful stimuli. PSYCHIATRIC: Sedated. . Diagnostic Tests Laboratory: Laboratory Results - last 72 hr 12/07/17 12/07/17 12/08/17 17:48 18:30 00:24 WBC RBC Hgb Hct MCV MCH MCHC RDW Plt Count MPV Neut % (Auto) Lymph % (Auto) Pickett % (Auto) Eos % (Auto) Baso % (Auto) Neut # (Auto) Lymph # (Auto) Pickett # (Auto) Eos # (Auto) Baso # (Auto) WBC Differential Differential Comment PT INR APTT 39.6 H Sodium Potassium Chloride Carbon Dioxide Anion Gap BUN Creatinine Estimated GFR POC Glucose 108 137 H Random Glucose Calcium Phosphorus Magnesium Total Bilirubin AST ALT Alkaline Phosphatase Total Protein Albumin Vancomycin Trough Phenobarbital 12/08/17 12/08/17 12/08/17 00:30 04:35 04:35 WBC 10.3 RBC 3.15 L Hgb 10.6 L Hct 31.2 L MCV 99.1 MCH 33.6 MCHC 33.9 RDW 13.8 Plt Count 135 L MPV 9.0 Neut % (Auto) 74.7 H Lymph % (Auto) 12.3 Pickett % (Auto) 12.7 H Eos % (Auto) 0.3 Baso % (Auto) 0.0 Neut # (Auto) 7.7 Lymph # (Auto) 1.3 Pickett # (Auto) 1.3 H Eos # (Auto) 0.0 Baso # (Auto) 0.0 WBC Differential . Differential Comment Auto diff final PT 10.7 INR 1.1 APTT 35.2 H Sodium Potassium Chloride Carbon Dioxide Anion Gap BUN Creatinine Estimated GFR POC Glucose Random Glucose Calcium Phosphorus Magnesium Total Bilirubin AST ALT Alkaline Phosphatase Total Protein Albumin Vancomycin Trough Phenobarbital 12/08/17 12/08/17 12/08/17 04:35 06:40 11:53 WBC RBC Hgb Hct MCV MCH MCHC RDW Plt Count MPV Neut % (Auto) Lymph % (Auto) Pickett % (Auto) Eos % (Auto) Baso % (Auto) Neut # (Auto) Lymph # (Auto) Pickett # (Auto) Eos # (Auto) Baso # (Auto) WBC Differential Differential Comment PT INR APTT 44.1 H D Sodium 154 H Potassium 3.7 Chloride 119 H Carbon Dioxide 24.2 Anion Gap 11 BUN 42 H Creatinine 1.53 H Estimated GFR 47 L POC Glucose 131 H Random Glucose 138 H Calcium 7.8 L Phosphorus Magnesium Total Bilirubin 0.4 AST 75 H ALT 107 H Alkaline Phosphatase 58 Total Protein 5.3 L Albumin 2.2 L Vancomycin Trough Phenobarbital 12/08/17 12/08/17 12/09/17 13:40 17:30 00:38 WBC RBC Hgb Hct MCV MCH MCHC RDW Plt Count MPV Neut % (Auto) Lymph % (Auto) Pickett % (Auto) Eos % (Auto) Baso % (Auto) Neut # (Auto) Lymph # (Auto) Pickett # (Auto) Eos # (Auto) Baso # (Auto) WBC Differential Differential Comment PT INR APTT 44.3 H Sodium Potassium Chloride Carbon Dioxide Anion Gap BUN Creatinine Estimated GFR POC Glucose 162 H 139 H Random Glucose Calcium Phosphorus Magnesium Total Bilirubin AST ALT Alkaline Phosphatase Total Protein Albumin Vancomycin Trough Phenobarbital 12/09/17 12/09/17 12/09/17 04:53 04:53 04:53 WBC 10.8 RBC 3.00 L Hgb 10.2 L Hct 29.4 L MCV 97.8 MCH 33.8 MCHC 34.6 RDW 13.8 Plt Count 151 MPV 9.0 Neut % (Auto) 71.6 H Lymph % (Auto) 16.4 Pickett % (Auto) 10.5 H Eos % (Auto) 1.4 Baso % (Auto) 0.1 Neut # (Auto) 7.7 Lymph # (Auto) 1.8 Pickett # (Auto) 1.1 H Eos # (Auto) 0.1 Baso # (Auto) 0.0 WBC Differential . Differential Comment Auto diff final PT 11.0 INR 1.1 APTT 45.0 H Sodium 153 H Potassium 3.5 Chloride 118 H Carbon Dioxide 25.4 Anion Gap 10 BUN 41 H Creatinine 1.62 H Estimated GFR 44 L POC Glucose Random Glucose 124 H Calcium 8.2 L Phosphorus Magnesium Total Bilirubin 0.5 AST 77 H ALT 115 H Alkaline Phosphatase 62 Total Protein 5.6 L Albumin 2.3 L Vancomycin Trough Phenobarbital 12/09/17 12/09/17 12/09/17 06:33 11:35 11:37 WBC RBC Hgb Hct MCV MCH MCHC RDW Plt Count MPV Neut % (Auto) Lymph % (Auto) Pickett % (Auto) Eos % (Auto) Baso % (Auto) Neut # (Auto) Lymph # (Auto) Pickett # (Auto) Eos # (Auto) Baso # (Auto) WBC Differential Differential Comment PT INR APTT Sodium Potassium Chloride Carbon Dioxide Anion Gap BUN Creatinine Estimated GFR POC Glucose 160 H 143 H Random Glucose Calcium Phosphorus Magnesium Total Bilirubin AST ALT Alkaline Phosphatase Total Protein Albumin Vancomycin Trough 10.9 H Phenobarbital 12/09/17 12/09/17 12/10/17 17:25 23:31 04:45 WBC 10.0 RBC 2.73 L Hgb 9.1 L Hct 27.2 L MCV 99.5 MCH 33.2 MCHC 33.4 RDW 13.8 Plt Count 154 MPV 8.7 Neut % (Auto) 70.5 H Lymph % (Auto) 16.6 Pickett % (Auto) 8.3 H Eos % (Auto) 4.3 H Baso % (Auto) 0.3 Neut # (Auto) 7.0 Lymph # (Auto) 1.7 Pickett # (Auto) 0.8 Eos # (Auto) 0.4 Baso # (Auto) 0.0 WBC Differential . Differential Comment Auto diff final PT INR APTT Sodium Potassium Chloride Carbon Dioxide Anion Gap BUN Creatinine Estimated GFR POC Glucose 101 118 H Random Glucose Calcium Phosphorus Magnesium Total Bilirubin AST ALT Alkaline Phosphatase Total Protein Albumin Vancomycin Trough Phenobarbital 12/10/17 12/10/17 12/10/17 04:45 04:45 11:20 WBC RBC Hgb Hct MCV MCH MCHC RDW Plt Count MPV Neut % (Auto) Lymph % (Auto) Pickett % (Auto) Eos % (Auto) Baso % (Auto) Neut # (Auto) Lymph # (Auto) Pickett # (Auto) Eos # (Auto) Baso # (Auto) WBC Differential Differential Comment PT INR APTT 43.9 H Sodium 153 H Potassium 3.4 L Chloride 118 H Carbon Dioxide 25.9 Anion Gap 9 BUN 41 H Creatinine 1.51 H Estimated GFR 48 L POC Glucose 138 H Random Glucose 118 H Calcium 8.1 L Phosphorus 3.7 Magnesium 2.3 Total Bilirubin 0.4 AST 56 H ALT 97 H Alkaline Phosphatase 60 Total Protein 5.2 L Albumin 2.2 L Vancomycin Trough Phenobarbital Less than 2.1 L Result Diagrams: 12/12/17 04:40 12/12/17 04:40 Microbiology: Microbiology 12/08/17 13:40 Aerobic Blood Culture - Preliminary Blood - Peripheral No growth in 2 days Anaerobic Blood Culture - Preliminary No growth in 2 days 12/08/17 12:15 Aerobic Blood Culture - Preliminary Blood - Peripheral No growth in 2 days Anaerobic Blood Culture - Preliminary No growth in 2 days 12/05/17 18:35 Aerobic Blood Culture - Final Blood - Peripheral No growth in 5 days Anaerobic Blood Culture - Final No growth in 5 days 12/05/17 18:40 Aerobic Blood Culture - Final Blood - Peripheral No growth in 5 days Anaerobic Blood Culture - Final No growth in 5 days 12/06/17 00:45 Gram Stain - Final Sputum - Endotracheal Sputum Culture - Final Staphylococcus aureus Escherichia coli Enterobacter aerogenes 12/03/17 05:00 Aerobic Blood Culture - Final Blood - Arterial Line No growth in 5 days Anaerobic Blood Culture - Final Propionibacterium acnes Imaging: Head CT 12/02/17 10:42 CONCLUSION: 1. Negative for acute process . Chest X-Ray 12/02/17 12:27 CONCLUSION: Endotracheal tube and enteric tube as above. Chest X-Ray 12/04/17 00:00 CONCLUSION: 1. ETT in good position. NGT beyond the GE junction. 2. Mild bibasilar atelectasis. Head MRI 12/04/17 00:00 CONCLUSION: 1. Unremarkable MRI of the brain for patient's age. 2. Mild chronic bilateral mastoiditis. Chest X-Ray 12/05/17 07:28 CONCLUSION: 1. No significant interval change. 2. Stable ETT and NGT. 3. Minimal bibasilar atelectasis. Chest X-Ray 12/05/17 11:03 CONCLUSION: 1. Right IJ central line in good position without pneumothorax. 2. ETT and NGT stable. 3. Mild bibasilar airspace disease, likely atelectasis. Abdomen/Bladder Ultrasound 12/06/17 00:00 CONCLUSION: 1. The kidneys appear of normal size and adequate cortical thickness bilaterally. There does appear to be mildly increased echogenicity which can suggest underlying medical renal disease. Chest X-Ray 12/06/17 00:00 CONCLUSION: Partially consolidative left lower lobe infiltrate. Chest X-Ray 12/06/17 06:00 CONCLUSION: No significant interval change and mild patchy bilateral lower lung zone opacity. Liver Ultrasound 12/07/17 00:00 CONCLUSION: 1. No specific abnormality is identified to explain the elevated LFTs. 2. Tumefactive sludge within the gallbladder. 3. Mild increased echogenicity of the right kidney which may indicate medical renal disease. 4. Right pleural effusion. Chest X-Ray 12/07/17 06:00 CONCLUSION: Mild left base infiltrate not significantly changed. 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 He was once and is now . He has 2 adult sons, David and Sharif as well as grandchildren. Spiritual: Police and fire department chaplains as well as [facility] chaplains have been attending families needs. Legal: No advance directives completed. Ethical issues impacting care: No ethical issues noted. . Important Contacts: Son: David Murphy Son: Sharif Murphy . Prognosis: His prognosis is guarded. He has had an extended resuscitation time with the initial arrest allowing approximately 15 minutes to ROSC and the second arrest approximately 30 minutes to ROSC. He did undergo hypothermia protocol and is being maintained on deep sedation secondary to severe shivering. Primary concern is for anoxic brain injury the extent of which cannot be determined at this time. Plan is to continue supportive care until patient's mental status can be more accurately determined. The patient remains in FULL CODE at this time. Ejection fraction shows 25-35% on admission with elevated troponin. There is no known prior history of cardiovascular disease, however due to the extended resuscitation time needed over 2 separate attempts, his prognosis is guarded. . Code Status: Full Code Plan: PLAN: Legal decision maker: The patient is currently not capacitated to make his own decisions. Per [place] statutes, as the patient is , decision making would fall to the majority of his adult children which are his 2 sons David and Sharif. Goals: Aggressive at this time. CODE STATUS: FULL CODE SYMPTOMS: * Encephalopathy: Multifactorial to include substantial downtime during 2 cardiac arrests, hypothermia protocol completed, rewarmed 12/04. Family remains cautiously optimistic in spite of no significant improvement. Want to wait until he is off sedation to evaluate cognition. Not accepting the "severe anoxic injury" diagnosis given by Dr. Nicole. EEGs continue to worsen, per neurology evaluation. Patient continues to have significant tremors requiring heavy sedation. * Tremor: Febrile last night to 101.7, required Precedex up to maximum dose 0.69 , supplemental fentanyl pushes, as well as Zemuron to stop tremors long enough to do EEG. EEG today showed markedly abnormal study consistent with bilateral PLEDS, consistent with severe anoxic encephalopathy.Repeat EEG 12/11. Palliative care will continue to follow the patient during hospital course as condition evolves, to assist patient/decision-maker with understanding of their medical conditions, weighing benefits/burdens of treatment options, for clarification of goals of treatment. Additionally will assist with any symptoms of palliative concern. . Attestation Attestation: To help prompt me to consider important information that might be impacting today's encounter and assessment, information from prior notes written by myself or my colleagues may have been "brought forward" into today's note. My signature on this note, however, is an attestation that I personally performed the exam, history, and/or decision-making noted today, and, unless otherwise indicated, the interactions with patient, family, and staff as well as the review of records all occurred today. I also attest that the listed assessment and stated plan reflect my best clinical judgment today based on the combination of historical information, prior notes, and today's exam/ interactions. When time spent is documented, it refers only to time spent today by the signer, or if indicated, combined time spent today by collaborating physician/nurse practitioner. .
--- NOTE | 2017-12-10 19:14 | P.PNNEU ---
Subjective Subjective Comments: no new neurologic sx Active Medications: Active Medications Acetaminophen (Tylenol Liq) 650 mg NG/OG Q6H PRN PRN Reason: SHIVERING Last Admin: 12/10/17 17:10 Dose: 650 mg Albuterol (Albuterol Neb (Prn)) 2.5 mg NEB Q2HR NEB PRN PRN Reason: DYSPNEA Last Admin: 12/06/17 22:45 Dose: 2.5 mg Artificial Tears (Lacrilube Opth Oint) 1 applicatio EACH EYE Q4H PRN PRN Reason: NMB Last Admin: 12/09/17 08:47 Dose: 1 applicatio Artificial Tears (Refresh Tears 0.5% Opth Drops) 1 drop EACH EYE BID [facility] Last Admin: 12/10/17 08:33 Dose: 1 drop Aspirin (Aspirin Chew) 81 mg PO DAILY [facility] Last Admin: 12/10/17 08:31 Dose: 81 mg Carvedilol (Coreg) 12.5 mg PO BID [facility] Last Admin: 12/10/17 08:31 Dose: 12.5 mg Chlorhexidine Gluconate (Peridex 0.12% Oral Kit) 15 ml OROPHARYNG BID@0800, 2000 [facility] Last Admin: 12/10/17 08:32 Dose: 15 ml Dextrose (D50w Vial) 50 ml IV.PUSH UNSCH PRN PRN Reason: PER HYPOGLYCEMIA PROTOCOL Last Admin: 12/05/17 12:21 Dose: 50 ml Fentanyl Citrate (Fentanyl Inj) 50 mcg IV.PUSH Q1H PRN PRN Reason: PAIN SCALE 1 TO 10 Last Admin: 12/09/17 04:30 Dose: 50 mcg Fentanyl Citrate (Fentanyl Inj) 100 mcg IV.PUSH Q1H PRN PRN Reason: sedation Last Admin: 12/10/17 17:03 Dose: 100 mcg Glucagon (Glucagon Inj) 1 mg OTHER PRN PRN PRN Reason: for Hypoglycemia Protocol Hydralazine HCl (Apresoline) 50 mg PO TID [facility] Last Admin: 12/10/17 17:03 Dose: 50 mg Hydralazine HCl (Apresoline Inj) 20 mg IV.PUSH Q4H PRN PRN Reason: BLOOD PRESSURE MANAGEMENT Heparin Sodium (Porcine) 25, (000 unit/ Sodium Chloride) 250 mls @ 10 mls/hr IV.CONT TITRATE PRN; Protocol PRN Reason: Per Protocol Last Admin: 12/10/17 06:34 Dose: 1,500 units/hr, 15 mls/hr Propofol (Diprivan 1000 Mg/100 Ml Inj) 1,000 mg in 100 mls @ 2.76 mls/hr IV.CONT TITRATE PRN; Protocol PRN Reason: Per Protocol Last Titration: 12/06/17 07:48 Dose: Infused Norepinephrine Bitartrate 16 (mg/ Sodium Chloride) 250 mls @ 1.87 mls/hr IV.CONT TITRATE PRN; Protocol PRN Reason: See Protocol Last Titration: 12/08/17 18:33 Dose: Infused Dexmedetomidine HCl 1,000 mcg/ (Sodium Chloride) 250 mls @ 4.57 mls/hr IV.CONT TITRATE PRN; Protocol PRN Reason: Per Protocol Last Admin: 12/10/17 06:32 Dose: 0.69 mcg/kg/hr, 16 mls/hr Piperacillin/Tazobactam/Dextrose (Zosyn 3.375 Gm Premix) 50 mls @ 100 mls/hr IV.SIG Q8H SANDY Last Infusion: 12/10/17 11:45 Dose: Infused Levetiracetam (Keppra 1000 Mg/100 Ml Premix) 100 mls @ 400 mls/hr IV.SIG Q12H SANDY Last Infusion: 12/10/17 09:39 Dose: Infused Dextrose (D5w Inj) 1,000 mls @ 50 mls/hr IV.CONT .Q20H SANDY Last Admin: 12/10/17 09:46 Dose: 50 mls/hr Magnesium Sulfate 4 gm/ Sodium (Chloride) 100 mls @ 50 mls/hr IV.SIG UNSCH PRN PRN Reason: For Magnesium 0.9 - 1.1 mg/dL Magnesium Sulfate 2 gm/ Sodium (Chloride) 100 mls @ 50 mls/hr IV.SIG UNSCH PRN PRN Reason: For Magnesium 1.2 - 1.6 mg/dL Potassium Chloride (Kcl 20 Meq Premix Inj) 20 meq in 100 mls @ 50 mls/hr IV.SIG Q2H PRN PRN Reason: For Potassium 3.3 - 3.5 mEq/L Potassium Chloride (Kcl 40 Meq Premix Inj) 40 meq in 100 mls @ 25 mls/hr IV.SIG UNSCH PRN PRN Reason: For Potassium 3.3 - 3.5 mEq/L Potassium Chloride (Kcl 20 Meq Premix Inj) 20 meq in 100 mls @ 50 mls/hr IV.SIG Q2H PRN PRN Reason: For Potassium 2.8 - 3.2 mEq/L Potassium Phosphate 30 mmol/ (Sodium Chloride) 260 mls @ 42 mls/hr IV.SIG UNSCH PRN PRN Reason: SEE LABEL COMMENTS Sodium Phosphate 30 mmol/ (Sodium Chloride) 260 mls @ 42 mls/hr IV.SIG UNSCH PRN PRN Reason: For Phosphorus < 2.5 mg/dL Potassium Chloride (Kcl 40 Meq Premix Inj) 40 meq in 100 mls @ 50 mls/hr IV.SIG Q2H PRN PRN Reason: For Potassium 2.8 - 3.2 mEq/L Vancomycin HCl 1,750 mg/ (Sodium Chloride) 517.5 mls @ 250 mls/hr IV.SIG Q18H SANDY Fosphenytoin Sodium 100 mgpe/ (Sodium Chloride) 52 mls @ 208 mls/hr IV.SIG Q8H SANDY Insulin Human Regular (Novolin R Correctional Sugar Inj) 0 units SQ Q6HR [facility]; Protocol Last Admin: 12/10/17 18:41 Dose: Not Given Lactulose (Lactulose Liq) 30 ml PO Q6H [facility] Last Admin: 12/10/17 17:05 Dose: Not Given Lansoprazole (Prevacid Solutab) 30 mg NG/OG DAILY [facility] Last Admin: 12/10/17 08:31 Dose: 30 mg Magnesium Oxide (Mag-Ox) 800 mg PO UNSCH PRN PRN Reason: For Magnesium 1.2 - 1.6 mg/dL Metoprolol Tartrate (Lopressor Inj) 5 mg IV.PUSH Q5M PRN PRN Reason: HR>100 Last Admin: 12/08/17 03:45 Dose: 5 mg Miscellaneous Information ([facility] Information) 0 each OTHER UNSCH [facility] Miscellaneous Information ([facility] Ordered Lab Info) 0 each OTHER ONCE ONE Stop: 12/11/17 17:46 Miscellaneous Medication () 1 each OROPHARYNG 0000,0400,1200,1600 [facility] Last Admin: 12/10/17 15:25 Dose: 1 each Ondansetron HCl (Zofran Inj) 4 mg IV.PUSH Q6H PRN PRN Reason: NAUSEA OR VOMITING Last Admin: 12/05/17 07:26 Dose: 4 mg Pharmacy Profile Note (Vancomycin Consult Pharmacy) 1 each OTHER UNSCH PRN PRN Reason: Pharmacy to dose Phenobarbital Sodium (Luminal Inj) 90 mg IV.SIG Q4H [facility] Last Admin: 12/10/17 17:03 Dose: 90 mg Potassium Bicarb/Potassium Chloride (K-Lyte Cl Eff) 50 meq PO UNSCH PRN PRN Reason: For Potassium 3.3 - 3.5 mEq/L Last Admin: 12/10/17 14:49 Dose: 50 meq Potassium Phosphate (K-Phos Original) 2,000 mg PO Q4H PRN PRN Reason: Phosphorus Less Than 2.5 mg/dL Potassium Phosphate (K-Phos Original) 2,000 mg PO UNSCH PRN PRN Reason: SEE LABEL COMMENTS Senna/Docusate Sodium (Mirella-Colace) 1 tab PO BID [facility] Last Admin: 12/10/17 08:31 Dose: 1 tab Sodium Chloride (Ns Flush) 2 ml IV.FLUSH UNSCH PRN PRN Reason: FLUSH AFTER USING IV ACCESS Sodium Chloride (Ns Flush) 0 ml IV.FLUSH DAILY [facility] Last Admin: 12/10/17 08:32 Dose: 6 ml Sterile Water (Free Water) 250 ml G-TUBE Q4HR [facility] Last Admin: 12/10/17 15:25 Dose: 250 ml Terbutaline Sulfate (Brethine Inj) 1 mg SQ UNSCH PRN PRN Reason: For Extravasation Allergies/Adverse Reactions: Allergies Allergy/AdvReac Type Severity Reaction Status Date / Time No Known Allergies Allergy Verified 12/02/17 09:40 Physical Exam Vital signs: Vital Signs 12/09/17 20:13 12/09/17 23:00 12/10/17 00:09 Temperature 99.8 F H Pulse Rate 90 66 Respiratory Rate 17 14 14 Blood Pressure 108/70 Pulse Oximetry 97 99 98 12/10/17 03:00 12/10/17 03:26 12/10/17 05:45 Temperature 99.8 F H Pulse Rate 79 77 Respiratory Rate 14 20 Blood Pressure 126/81 Pulse Oximetry 95 95 96 12/10/17 07:00 12/10/17 07:31 12/10/17 09:43 Temperature 97.8 F Pulse Rate 68 Respiratory Rate 14 14 23 Blood Pressure 108/70 Pulse Oximetry 98 97 98 12/10/17 11:00 12/10/17 12:14 12/10/17 15:00 Temperature 99.2 F 100.4 F H Pulse Rate 75 85 Respiratory Rate 14 21 17 Blood Pressure 122/79 125/79 Pulse Oximetry 97 93 L 97 12/10/17 16:38 Temperature Pulse Rate Respiratory Rate 18 Blood Pressure Pulse Oximetry 95 Intake & Output 12/10/17 12/10/17 12/11/17 06:59 18:59 06:59 Intake Total 2017 785 / 785 Output Total 750 / 750 Balance 1268 / 1268 785 / 785 Weight 93 kg Intake: IV 923 / 923 785 / 785 Precedex Inj 1,000 MCG In NS 418 / 418 Inj 240 ML @ 0.2 MCG/KG/HR 4.57 mls/hr IV.CONT TITRATE PRN Rx# :[id number] Heparin Inj 25,000 UNIT In NS 355 / 355 Inj 247.5 ML @ 1,000 UNITS/HR 10 mls/hr IV.CONT TITRATE PRN Rx#:[id number] Cerebyx Inj 1,000 MGPE In NS 70 / 70 Inj 50 ML @ 70 mls/hr IV.SIG ONCE ONE Rx#:[id number] Zosyn 3.375 GM Premix 50 ML @ 50 / 50 100 / 100 100 mls/hr IV.SIG Q8H SANDY Rx#: [id number] Vancomycin Inj 1,500 MG In NS 515 / 515 Inj 500 ML @ 250 mls/hr IV.SIG Q18H SANDY Rx#:[id number] Keppra 1000 mg/100 mL Premix 100 / 100 100 / 100 100 ML @ 400 mls/hr IV.SIG Q12H SANDY Rx#:[id number] Oral 0 / 0 Tube Feeding 475 / 475 Tube Irrigant 120 / 120 Water Bolus Amount 500 / 500 Output: Urine Amount (Catheter) 750 / 750 Indwelling Urethral Catheter 750 / 750 Other: Date of Last Bowel Movement 12/09/17 12/10/17 # Bowel Movements 0 - Routine Neurological Exam sedated on minimal precedex. Not responsive Pupils 2 mm bialteral and reactive EOM intact to Dolls maneuver MOTOR--no withdrawal to stimuli - Urinary Catheter Management Indwelling Temp Sensing Catheter Cath placed during this visit: yes, but has since been removed by the nurse Reason for continuing: Decision to DC catheter Insertion date: 12/02/17 Insertion time: 12:03 Removal date: 12/04/17 Removal time: 13:45 Indwelling Urethral Catheter Cath placed during this visit: yes Reason for continuing: Hourly intake/output Insertion date: 12/04/17 Insertion time: 13:50 Objective Laboratory Results - last 24 hr 12/09/17 12/10/17 12/10/17 23:31 04:45 04:45 WBC 10.0 RBC 2.73 L Hgb 9.1 L Hct 27.2 L MCV 99.5 MCH 33.2 MCHC 33.4 RDW 13.8 Plt Count 154 MPV 8.7 Neut % (Auto) 70.5 H Lymph % (Auto) 16.6 Bartholomew % (Auto) 8.3 H Eos % (Auto) 4.3 H Baso % (Auto) 0.3 Neut # (Auto) 7.0 Lymph # (Auto) 1.7 Bartholomew # (Auto) 0.8 Eos # (Auto) 0.4 Baso # (Auto) 0.0 WBC Differential . Differential Comment Auto diff final APTT Sodium 153 H Potassium 3.4 L Chloride 118 H Carbon Dioxide 25.9 Anion Gap 9 BUN 41 H Creatinine 1.51 H Estimated GFR 48 L POC Glucose 118 H Random Glucose 118 H Calcium 8.1 L Phosphorus 3.7 Magnesium 2.3 Total Bilirubin 0.4 AST 56 H ALT 97 H Alkaline Phosphatase 60 Total Protein 5.2 L Albumin 2.2 L Phenobarbital Less than 2.1 L 12/10/17 12/10/17 12/10/17 04:45 11:20 17:39 WBC RBC Hgb Hct MCV MCH MCHC RDW Plt Count MPV Neut % (Auto) Lymph % (Auto) Bartholomew % (Auto) Eos % (Auto) Baso % (Auto) Neut # (Auto) Lymph # (Auto) Bartholomew # (Auto) Eos # (Auto) Baso # (Auto) WBC Differential Differential Comment APTT 43.9 H Sodium Potassium Chloride Carbon Dioxide Anion Gap BUN Creatinine Estimated GFR POC Glucose 138 H 105 Random Glucose Calcium Phosphorus Magnesium Total Bilirubin AST ALT Alkaline Phosphatase Total Protein Albumin Phenobarbital Microbiology 12/08/17 13:40 Aerobic Blood Culture - Preliminary Blood - Peripheral No growth in 2 days Anaerobic Blood Culture - Preliminary No growth in 2 days 12/08/17 12:15 Aerobic Blood Culture - Preliminary Blood - Peripheral No growth in 2 days Anaerobic Blood Culture - Preliminary No growth in 2 days 12/05/17 18:35 Aerobic Blood Culture - Final Blood - Peripheral No growth in 5 days Anaerobic Blood Culture - Final No growth in 5 days 12/05/17 18:40 Aerobic Blood Culture - Final Blood - Peripheral No growth in 5 days Anaerobic Blood Culture - Final No growth in 5 days Diagnostic Tests: EEG today with generalized PLEDS Review/Management - Diagnosis (1) Encephalopathy Code(s): G93.40 - Encephalopathy, unspecified Status: Acute Current Visit: Yes - Review/Management Plan: Severe anoxid encephalopathy. Now with bilateral PLEDS on eeg which generally implies very poor prognosis. I discussed with his son who would like to continu supportive care for now. Cerebyx and phenobarbital added. Will repeat EEG tomorrow. Procedures - Arterial Line Size (Gauge): 20
[2017-12-10] MEDS: Fosphenytoin Inj 100 MGPE in Sodium Chlor 0.9% Inj 50 ML IV.SIG SCH (21:30)
[2017-12-11] MEDS ORDERED: Vancomycin Inj 1,750 MG in Sodium Chlor 0.9% Inj 500 ML IV.SIG SCH ×2
[2017-12-11] MEDS: Insulin NovoLIN Regular Correctional Sugar Inj SQ SCH ×4 (00:46→18:01)
[2017-12-11] MEDS: Oral Hygiene Kit OROPHARYNG SCH ×4 (00:46→15:52)
[2017-12-11] MEDS: PHENobarbital Inj 130 MG/ML Vial IV.SIG SCH ×6 (00:47→21:51)
[2017-12-11] MEDS: fentaNYL Citrate Inj 100 MCG/2 ML Ampul IV.PUSH PRN ×2 (00:55→04:52)
[2017-12-11] MEDS: SODIUM CHLOR 0.9% IV.CONT PRN (03:37)
[2017-12-11] MEDS: HEPARIN IV.CONT PRN (03:37)
[2017-12-11] MEDS: Piperacil/Tazo 3.375 GM Premix 50 ML IV.SIG SCH ×3 (04:19→21:50)
[2017-12-11] MEDS: Fosphenytoin Inj 100 MGPE in Sodium Chlor 0.9% Inj 50 ML IV.SIG SCH ×3 (04:52→21:52)
--- NOTE | 2017-12-11 04:59 | XR ---
EXAM DATE: 12/11/2017 12:00 AM EDT AGE/SEX: 57 years / Male INDICATIONS: Short of breath. CLINICAL DATA: This is the patient's subsequent encounter. Patient reports that signs and symptoms h ave been present for 1 week and indicates a pain score of 0/10. MEDICAL/SURGICAL HISTORY: Hypertension. Hyperlipidemia. Ventricular fibrillation cardiac arrest . None. COMPARISON: [facility], CHEST 1V SINGLE AP, 12/07/2017. . FINDINGS: Stable ETT, NGT and right IJ central line. Persistent mild airspace disease in the left lower lung zo ne. Cardiomediastinal contours are within normal limits. Remainder of the exam is unchanged. CONCLUSION: 1. No significant interval change. 2. Stable tubes and lines. 3. Stable mild left lower lung zone airspace disease. Electronically signed by: Rob Godinez MD 12/11/2017 4:58 AM EDT
[2017-12-11 05:14] LABS: Baso % (Auto) 0.2 % (0.0-2.0); Eos # (Auto) 0.7 th/mm3 (0.0-0.4); Eos % (Auto) 4.4 % (0.0-4.0); Hemoglobin 9.2 gm/dL (13.0-17.0); Lymph # (Auto) 1.7 th/mm3 (1.0-4.8); Lymph % (Auto) 11.5 % (9.0-44.0); Mean Corpuscular Hemoglobin 32.8 pg (27.0-34.0); Mean Corpuscular Volume 99.2 fL (80.0-100.0); Mono % (Auto) 6.6 % (0.0-8.0); Neut # (Auto) 11.5 th/mm3 (1.8-7.7); Neut % (Auto) 77.3 % (16.0-70.0); Platelet Count 178 th/mm3 (150-450); Red Blood Count 2.82 mil/mm3 (4.50-5.90); Red Cell Distribution Width 13.8 % (11.6-17.2); White Blood Count 14.9 th/mm3 (4.0-11.0)
[2017-12-11 05:23] LABS: Alanine Aminotransferase 98 U/L (12-78); Albumin 2.3 g/dL (3.4-5.0); Alkaline Phosphatase 88 U/L (45-117); Anion Gap 8 meq/L (5-15); Aspartate Aminotransferase 58 U/L (15-37); Blood Urea Nitrogen 30 mg/dL (7-18); Calcium 7.6 mg/dL (8.5-10.1); Carbon Dioxide 24.7 meq/L (21.0-32.0); Chloride 117 meq/L (98-107); Glomerular Filtration Rate 51 mL/min (>89); Glucose,Random 132 mg/dL (74-106); Magnesium 1.8 mg/dL (1.5-2.5); Phenytoin (Dilantin) 6.6 mcg/mL (10.0-20.0); Phosphorus 2.6 mg/dL (2.5-4.9); Potassium 3.4 meq/L (3.5-5.1); Sodium 150 meq/L (136-145); Total Protein 5.4 g/dL (6.4-8.2)
--- NOTE | 2017-12-11 07:48 | P.PNCA ---
Subjective Interval history: RN at bedside. No significant clinical change. Telemetry with no significant arrhythmia noted overnight. Medications and Allergies Allergies Allergy/AdvReac Type Severity Reaction Status Date / Time No Known Allergies Allergy Verified 12/02/17 09:40 Home Medications Medication Instructions Recorded Confirmed Type losartan 25 mg PO DAILY 12/03/17 12/03/17 History Active Medications: Active Medications Acetaminophen (Tylenol Liq) 650 mg NG/OG Q6H PRN PRN Reason: SHIVERING Last Admin: 12/11/17 00:55 Dose: 650 mg Albuterol (Albuterol Neb (Prn)) 2.5 mg NEB Q2HR NEB PRN PRN Reason: DYSPNEA Last Admin: 12/06/17 22:45 Dose: 2.5 mg Artificial Tears (Lacrilube Opth Oint) 1 applicatio EACH EYE Q4H PRN PRN Reason: NMB Last Admin: 12/09/17 08:47 Dose: 1 applicatio Artificial Tears (Refresh Tears 0.5% Opth Drops) 1 drop EACH EYE BID [facility] Last Admin: 12/10/17 21:32 Dose: 1 drop Aspirin (Aspirin Chew) 81 mg PO DAILY [facility] Last Admin: 12/10/17 08:31 Dose: 81 mg Carvedilol (Coreg) 12.5 mg PO BID [facility] Last Admin: 12/10/17 21:31 Dose: 12.5 mg Chlorhexidine Gluconate (Peridex 0.12% Oral Kit) 15 ml OROPHARYNG BID@0800, 2000 [facility] Last Admin: 12/10/17 21:29 Dose: 15 ml Dextrose (D50w Vial) 50 ml IV.PUSH UNSCH PRN PRN Reason: PER HYPOGLYCEMIA PROTOCOL Last Admin: 12/05/17 12:21 Dose: 50 ml Fentanyl Citrate (Fentanyl Inj) 50 mcg IV.PUSH Q1H PRN PRN Reason: PAIN SCALE 1 TO 10 Last Admin: 12/09/17 04:30 Dose: 50 mcg Fentanyl Citrate (Fentanyl Inj) 100 mcg IV.PUSH Q1H PRN PRN Reason: sedation Last Admin: 12/11/17 04:52 Dose: 100 mcg Glucagon (Glucagon Inj) 1 mg OTHER PRN PRN PRN Reason: for Hypoglycemia Protocol Hydralazine HCl (Apresoline) 50 mg PO TID [facility] Last Admin: 12/10/17 17:03 Dose: 50 mg Hydralazine HCl (Apresoline Inj) 20 mg IV.PUSH Q4H PRN PRN Reason: BLOOD PRESSURE MANAGEMENT Heparin Sodium (Porcine) 25, (000 unit/ Sodium Chloride) 250 mls @ 10 mls/hr IV.CONT TITRATE PRN; Protocol PRN Reason: Per Protocol Last Admin: 12/11/17 03:37 Dose: 1,500 units/hr, 15 mls/hr Propofol (Diprivan 1000 Mg/100 Ml Inj) 1,000 mg in 100 mls @ 2.76 mls/hr IV.CONT TITRATE PRN; Protocol PRN Reason: Per Protocol Last Titration: 12/06/17 07:48 Dose: Infused Norepinephrine Bitartrate 16 (mg/ Sodium Chloride) 250 mls @ 1.87 mls/hr IV.CONT TITRATE PRN; Protocol PRN Reason: See Protocol Last Titration: 12/08/17 18:33 Dose: Infused Dexmedetomidine HCl 1,000 mcg/ (Sodium Chloride) 250 mls @ 4.57 mls/hr IV.CONT TITRATE PRN; Protocol PRN Reason: Per Protocol Last Admin: 12/10/17 06:32 Dose: 0.69 mcg/kg/hr, 16 mls/hr Piperacillin/Tazobactam/Dextrose (Zosyn 3.375 Gm Premix) 50 mls @ 100 mls/hr IV.SIG Q8H [facility] Last Infusion: 12/11/17 04:53 Dose: Infused Levetiracetam (Keppra 1000 Mg/100 Ml Premix) 100 mls @ 400 mls/hr IV.SIG Q12H [facility] Last Infusion: 12/10/17 22:00 Dose: Infused Dextrose (D5w Inj) 1,000 mls @ 50 mls/hr IV.CONT .Q20H [facility] Last Infusion: 12/11/17 05:32 Dose: Infused Magnesium Sulfate 4 gm/ Sodium (Chloride) 100 mls @ 50 mls/hr IV.SIG UNSCH PRN PRN Reason: For Magnesium 0.9 - 1.1 mg/dL Magnesium Sulfate 2 gm/ Sodium (Chloride) 100 mls @ 50 mls/hr IV.SIG UNSCH PRN PRN Reason: For Magnesium 1.2 - 1.6 mg/dL Potassium Chloride (Kcl 20 Meq Premix Inj) 20 meq in 100 mls @ 50 mls/hr IV.SIG Q2H PRN PRN Reason: For Potassium 3.3 - 3.5 mEq/L Potassium Chloride (Kcl 40 Meq Premix Inj) 40 meq in 100 mls @ 25 mls/hr IV.SIG UNSCH PRN PRN Reason: For Potassium 3.3 - 3.5 mEq/L Last Admin: 12/11/17 06:44 Dose: 50 mls/hr Potassium Chloride (Kcl 20 Meq Premix Inj) 20 meq in 100 mls @ 50 mls/hr IV.SIG Q2H PRN PRN Reason: For Potassium 2.8 - 3.2 mEq/L Potassium Phosphate 30 mmol/ (Sodium Chloride) 260 mls @ 42 mls/hr IV.SIG UNSCH PRN PRN Reason: SEE LABEL COMMENTS Sodium Phosphate 30 mmol/ (Sodium Chloride) 260 mls @ 42 mls/hr IV.SIG UNSCH PRN PRN Reason: For Phosphorus < 2.5 mg/dL Potassium Chloride (Kcl 40 Meq Premix Inj) 40 meq in 100 mls @ 50 mls/hr IV.SIG Q2H PRN PRN Reason: For Potassium 2.8 - 3.2 mEq/L Vancomycin HCl 1,750 mg/ (Sodium Chloride) 517.5 mls @ 250 mls/hr IV.SIG Q18H [facility] Last Infusion: 12/11/17 03:00 Dose: Infused Fosphenytoin Sodium 100 mgpe/ (Sodium Chloride) 52 mls @ 208 mls/hr IV.SIG Q8H [facility] Last Infusion: 12/11/17 05:15 Dose: Infused Insulin Human Regular (Novolin R Correctional Sugar Inj) 0 units SQ Q6HR [facility]; Protocol Last Admin: 12/11/17 07:33 Dose: Not Given Lactulose (Lactulose Liq) 30 ml PO Q6H [facility] Last Admin: 12/11/17 06:33 Dose: Not Given Lansoprazole (Prevacid Solutab) 30 mg NG/OG DAILY [facility] Last Admin: 12/10/17 08:31 Dose: 30 mg Magnesium Oxide (Mag-Ox) 800 mg PO UNSCH PRN PRN Reason: For Magnesium 1.2 - 1.6 mg/dL Metoprolol Tartrate (Lopressor Inj) 5 mg IV.PUSH Q5M PRN PRN Reason: HR>100 Last Admin: 12/08/17 03:45 Dose: 5 mg Miscellaneous Information ([facility]) 0 each OTHER UNSCH [facility] Miscellaneous Information ([facility] Ordered Lab Info) 0 each OTHER ONCE ONE Stop: 12/11/17 17:46 Miscellaneous Medication () 1 each OROPHARYNG 0000,0400,1200,1600 [facility] Last Admin: 12/11/17 03:36 Dose: 1 each Ondansetron HCl (Zofran Inj) 4 mg IV.PUSH Q6H PRN PRN Reason: NAUSEA OR VOMITING Last Admin: 12/05/17 07:26 Dose: 4 mg Pharmacy Profile Note (Vancomycin Consult Pharmacy) 1 each OTHER UNSCH PRN PRN Reason: Pharmacy to dose Phenobarbital Sodium (Luminal Inj) 90 mg IV.SIG Q4H [facility] Last Admin: 12/11/17 04:51 Dose: 90 mg Potassium Bicarb/Potassium Chloride (K-Lyte Cl Eff) 50 meq PO UNSCH PRN PRN Reason: For Potassium 3.3 - 3.5 mEq/L Last Admin: 12/10/17 14:49 Dose: 50 meq Potassium Phosphate (K-Phos Original) 2,000 mg PO Q4H PRN PRN Reason: Phosphorus Less Than 2.5 mg/dL Potassium Phosphate (K-Phos Original) 2,000 mg PO UNSCH PRN PRN Reason: SEE LABEL COMMENTS Senna/Docusate Sodium (Mirella-Colace) 1 tab PO BID [facility] Last Admin: 12/10/17 21:32 Dose: Not Given Sodium Chloride (Ns Flush) 2 ml IV.FLUSH UNSCH PRN PRN Reason: FLUSH AFTER USING IV ACCESS Sodium Chloride (Ns Flush) 0 ml IV.FLUSH DAILY [facility] Last Admin: 12/10/17 08:32 Dose: 6 ml Sterile Water (Free Water) 250 ml G-TUBE Q4HR [facility] Last Admin: 12/11/17 03:36 Dose: 250 ml Terbutaline Sulfate (Brethine Inj) 1 mg SQ UNSCH PRN PRN Reason: For Extravasation Physical Exam Vital signs: Vital Signs 12/10/17 09:43 12/10/17 11:00 12/10/17 12:14 Temperature 99.2 F Pulse Rate 75 Respiratory Rate 23 14 21 Blood Pressure 122/79 Pulse Oximetry 98 97 93 L 12/10/17 15:00 12/10/17 16:38 12/10/17 19:42 Temperature 100.4 F H Pulse Rate 85 Respiratory Rate 17 18 19 Blood Pressure 125/79 Pulse Oximetry 97 95 97 12/10/17 20:00 12/10/17 22:30 12/11/17 00:00 Temperature 100.3 F H 101.7 F H Pulse Rate 87 91 H Respiratory Rate 16 21 20 Blood Pressure 141/77 H 150/82 H Pulse Oximetry 97 95 96 12/11/17 03:25 12/11/17 04:00 12/11/17 07:00 Temperature 100.7 F H Pulse Rate 94 H 91 H Respiratory Rate 19 20 Blood Pressure 154/94 H Pulse Oximetry 96 98 12/11/17 07:30 Temperature Pulse Rate Respiratory Rate 18 Blood Pressure Pulse Oximetry 98 Intake & Output 12/10/17 12/11/17 12/11/17 18:59 06:59 18:59 Intake Total 785 / 785 3585.5 / 3585.5 Output Total 880 / 880 1100 / 1100 Balance -95 / -95 2485.5 / 2485.5 Weight 205 lb 0.478 oz Intake: IV 785 / 785 2071.5 / 2071.5 D5W Inj 1,000 ML @ 50 mls/hr IV 1000 / 1000 .CONT .Q20H [facility] Rx#:[id number] Heparin Inj 25,000 UNIT In NS 250 / 250 Inj 247.5 ML @ 1,000 UNITS/HR 10 mls/hr IV.CONT TITRATE PRN Rx#:[id number] Cerebyx Inj 100 MGPE In NS Inj 104 / 104 50 ML @ 208 mls/hr IV.SIG Q8H [facility] Rx#:[id number] Cerebyx Inj 1,000 MGPE In NS 70 / 70 Inj 50 ML @ 70 mls/hr IV.SIG ONCE ONE Rx#:[id number] Zosyn 3.375 GM Premix 50 ML @ 100 / 100 100 / 100 100 mls/hr IV.SIG Q8H [facility] Rx#: [id number] Vancomycin Inj 1,750 MG In NS 515 / 515 517.5 / 517.5 Inj 500 ML @ 250 mls/hr IV.SIG Q18H [facility] Rx#:[id number] Keppra 1000 mg/100 mL Premix 100 / 100 100 / 100 100 ML @ 400 mls/hr IV.SIG Q12H [facility] Rx#:[id number] Oral 0 / 0 Tube Feeding 764 / 764 Water Bolus Amount 750 / 750 Output: Urine Amount (Catheter) 880 / 880 1100 / 1100 Indwelling Urethral Catheter 880 / 880 1100 / 1100 Other: Date of Last Bowel Movement 12/10/17 12/11/17 12/10/17 # Bowel Movements 4 # Incontinent Bowel Movements 2 Narrative: GENERAL: Well-developed well-nourished. NECK: No carotid bruits. No JVD. CARDIOVASCULAR: Regular rate and rhythm. No murmur appreciated. RESPIRATORY: Mechanically ventilated. Coarse breath sounds. MUSCULOSKELETAL: No clubbing or cyanosis. No edema. NEUROLOGICAL: Intubated. No shivering or decerebrate posturing currently. - Urinary Catheter Management Indwelling Temp Sensing Catheter Cath placed during this visit: yes, but has since been removed by the nurse Reason for continuing: Decision to DC catheter Insertion date: 12/02/17 Insertion time: 12:03 Removal date: 12/04/17 Removal time: 13:45 Indwelling Urethral Catheter Cath placed during this visit: yes Reason for continuing: Hourly intake/output Insertion date: 12/04/17 Insertion time: 13:50 Results 12/11/17 04:30 12/11/17 04:30 Cardiac Enzymes 12/10/17 12/11/17 Range/Units 04:45 04:30 AST 56 H 58 H (15-37) U/L Coagulation 12/10/17 12/11/17 Range/Units 04:45 04:30 APTT 43.9 H 38.8 H (24.3-30.1) sec CBC 12/10/17 12/11/17 Range/Units 04:45 04:30 WBC 10.0 14.9 H (4.0-11.0) th/mm3 RBC 2.73 L 2.82 L (4.50-5.90) mil/mm3 Hgb 9.1 L 9.2 L (13.0-17.0) gm/dL Hct 27.2 L 28.0 L (39.0-51.0) % Plt Count 154 178 (150-450) th/mm3 Neut # (Auto) 7.0 11.5 H (1.8-7.7) th/mm3 Lymph # (Auto) 1.7 1.7 (1.0-4.8) th/mm3 [place] # (Auto) 0.8 1.0 H (0.0-0.9) th/mm3 Eos # (Auto) 0.4 0.7 H (0.0-0.4) th/mm3 Baso # (Auto) 0.0 0.0 (0.0-0.2) th/mm3 Comprehensive Metabolic Panel 12/10/17 12/11/17 Range/Units 04:45 04:30 Sodium 153 H 150 H (136-145) meq/L Potassium 3.4 L 3.4 L (3.5-5.1) meq/L Chloride 118 H 117 H (98-107) meq/L Carbon Dioxide 25.9 24.7 (21.0-32.0) meq/L BUN 41 H 30 H (7-18) mg/dL Creatinine 1.51 H 1.42 H (0.60-1.30) mg/dL Calcium 8.1 L 7.6 L (8.5-10.1) mg/dL AST 56 H 58 H (15-37) U/L ALT 97 H 98 H (12-78) U/L Alkaline Phosphatase 60 88 (45-117) U/L Total Protein 5.2 L 5.4 L (6.4-8.2) g/dL Albumin 2.2 L 2.3 L (3.4-5.0) g/dL Intake and Output 12/10/17 12/11/17 12/11/17 22:59 06:59 14:59 Intake Total 3383.5 / 3383.5 Output Total 880 / 880 1100 / 1100 Balance -678 / -678 2283.5 / 2283.5 Intake: IV 1869.5 / 1869.5 D5W Inj 1,000 ML @ 50 mls/hr IV 1000 / 1000 .CONT .Q20H [facility] Rx#:[id number] Heparin Inj 25,000 UNIT In NS 250 / 250 Inj 247.5 ML @ 1,000 UNITS/HR 10 mls/hr IV.CONT TITRATE PRN Rx#:[id number] Cerebyx Inj 100 MGPE In NS Inj 52 / 52 52 / 52 50 ML @ 208 mls/hr IV.SIG Q8H [facility] Rx#:[id number] Zosyn 3.375 GM Premix 50 ML @ 50 / 50 50 / 50 100 mls/hr IV.SIG Q8H [facility] Rx#: [id number] Vancomycin Inj 1,750 MG In NS 517.5 / 517.5 Inj 500 ML @ 250 mls/hr IV.SIG Q18H [facility] Rx#:[id number] Keppra 1000 mg/100 mL Premix 100 / 100 100 ML @ 400 mls/hr IV.SIG Q12H [facility] Rx#:[id number] Oral 0 / 0 Tube Feeding 764 / 764 Water Bolus Amount 750 / 750 Output: Urine Amount (Catheter) 880 / 880 1100 / 1100 Indwelling Urethral Catheter 880 / 880 1100 / 1100 Other: Date of Last Bowel Movement 12/10/17 12/11/17 12/10/17 # Bowel Movements 4 # Incontinent Bowel Movements 2 Weight 205 lb 0.478 oz - Imaging and Cardiology Imaging: Impressions Chest X-Ray 12/11/17 00:00 CONCLUSION: 1. No significant interval change. 2. Stable tubes and lines. 3. Stable mild left lower lung zone airspace disease. Assessment and Plan - Plan 57-year-old male admitted status post V. fib arrest Assessment: s/p V. fib arrest Cardiomyopathy - EF 25-35% Narrow complex tachycardia 12/02 - sinus tachycardia vs brief atrial flutter Hypotension requiring pressor support - improved Respiratory failure requiring mechanical ventilation severe anoxic encephalopathy Fever - on antibiotics per primary team/ID Plan: Continue heparin gtt for medical management of ACS, may consider transitioning to therapeutic dose Lovenox for ease of use. Defer to supervisor show operations. Patient will require left heart cath pending neurologic recovery-EEG consistent with severe anoxic encephalopathy per neurology Aspirin 81 mg daily Hold statin due to to shock liver Cont carvedilol 12.5mg bid and hydralazine for BP. If Cr improves and BP tolerates will start KORINA-I Discussed Condition With: RN, Dr. Armenta - Attending Attestation will sign off. call with questions Procedures - Arterial Line Size (Gauge): 20
[2017-12-11] MEDS: Dextrose 5% in Water Inj 1,000 ML IV.CONT SCH (08:31)
[2017-12-11] MEDS: levETIRAcetam 1000mg/100mL Inj 100 ML IV.SIG SCH ×2 (08:49→21:49)
[2017-12-11] MEDS: Senna/Docusate Sodium 8.6/50 MG Tablet PO SCH ×2 (08:53→21:51)
[2017-12-11] MEDS: Chlorhexidine 0.12% Oral Kit 15 ML UDC OROPHARYNG SCH ×2 (08:53→21:50)
[2017-12-11] MEDS: hydrALAZINE 50 MG Tablet PO SCH ×3 (08:53→18:01)
[2017-12-11] MEDS: Artificial Tears Opth Oint 3.5 GM Tube EACH EYE PRN (08:55)
[2017-12-11] MEDS: Carboxymethylcellulose 0.5% Opth Drops 15 ML Bottle EACH EYE SCH ×2 (09:24→21:51)
[2017-12-11 10:51] LABS: Bilirubin,Urine Negative (Negative); Clarity,Urine Hazy (Clear); Color,Urine Yellow (Yellw/Straw); Glucose,Urine (UA) Negative (Negative); Leukocyte Esterase,Urine Negative (Negative); Mucus,Urine Few /lpf (Occasional); Nitrite,Urine Negative (Negative); Specific Gravity,Urine 1.016 (1.002-1.035); Squamous Epithelial Cell,Urine <1 /hpf (0-5)
--- NOTE | 2017-12-11 11:03 | P.PNPAL ---
Reason for Visit Reason for visit: a. To assist with evaluation and management of symptoms including: Encephalopathy, tremor b. To assist medical decision maker(s) with: better understanding of current medical conditions; weighing benefits/burdens of medical treatment options; making medical treatment decisions. Subjective Subjective/Interval History: Pt intubated on vent, EEG just performed. Subtle fasciculations noted on face. Pupils reactive Pt does not withdraw to pain but does posture with nail bed pressure. Precedex @ 0.3 mcg. Family/Friend Interactions: Meeting with pt's son David, David's , Sharif on speakerphone, Dr Terry: -family understanding of the current medical problems -family understanding of prognosis -Current medical treatment options and their benefits/burdens -Likely scenarios comparing ongoing aggressive care with transition to ``comfort -measures only -Legal decision makers/HCS reviewed - CODE STATUS, benefits/burdens/limitations of CPR, intubation, and mechanical ventilation -Questions answered to the best of my ability - Palliative care contact information provided Goals remain aggressive. Pt's sons wish to discuss continued aggressive measures including tracheostomy themselves further this afternoon and this evening. They request a 3rd neurology opinion and a repeat MRI. They are " hoping for a miracle" and looking for definite signs that there could be no meaningful neurological recovery. They are receptive to continued palliative care follow up. Advance Directives Living Will: Never completed Health Care Surrogate: Never completed Durable Power of Fullerette: Never completed Objective Vital Signs: Vital Signs 12/10/17 11:00 12/10/17 12:14 12/10/17 15:00 Temperature 99.2 F 100.4 F H Pulse Rate 75 85 Respiratory Rate 14 21 17 Blood Pressure 122/79 125/79 Pulse Oximetry 97 93 L 97 12/10/17 16:38 12/10/17 19:42 12/10/17 20:00 Temperature 100.3 F H Pulse Rate 87 Respiratory Rate 18 19 16 Blood Pressure 141/77 H Pulse Oximetry 95 97 97 12/10/17 22:30 12/11/17 00:00 12/11/17 03:25 Temperature 101.7 F H Pulse Rate 91 H Respiratory Rate 21 20 19 Blood Pressure 150/82 H Pulse Oximetry 95 96 96 12/11/17 04:00 12/11/17 07:00 12/11/17 07:30 Temperature 100.7 F H 100.9 F H Pulse Rate 94 H 91 H Respiratory Rate 20 18 18 Blood Pressure 154/94 H 147/97 H Pulse Oximetry 98 97 98 Intake & Output 12/10/17 12/11/17 12/11/17 18:59 06:59 18:59 Intake Total 785 / 785 3585.5 / 3585.5 100 / 100 Output Total 880 / 880 1100 / 1100 Balance -95 / -95 2485.5 / 2485.5 100 / 100 Weight 93 kg Intake: IV 785 / 785 2071.5 / 2071.5 100 / 100 D5W Inj 1,000 ML @ 50 mls/hr IV 1000 / 1000 .CONT .Q20H SANDY Rx#:[id number] Heparin Inj 25,000 UNIT In NS 250 / 250 Inj 247.5 ML @ 1,000 UNITS/HR 10 mls/hr IV.CONT TITRATE PRN Rx#:[id number] Cerebyx Inj 100 MGPE In NS Inj 104 / 104 50 ML @ 208 mls/hr IV.SIG Q8H SANDY Rx#:[id number] Cerebyx Inj 1,000 MGPE In NS 70 / 70 Inj 50 ML @ 70 mls/hr IV.SIG ONCE ONE Rx#:[id number] Zosyn 3.375 GM Premix 50 ML @ 100 / 100 100 / 100 100 mls/hr IV.SIG Q8H SANDY Rx#: [id number] Vancomycin Inj 1,750 MG In NS 515 / 515 517.5 / 517.5 Inj 500 ML @ 250 mls/hr IV.SIG Q18H SANDY Rx#:[id number] Keppra 1000 mg/100 mL Premix 100 / 100 100 / 100 100 / 100 100 ML @ 400 mls/hr IV.SIG Q12H SANDY Rx#:[id number] Oral 0 / 0 Tube Feeding 764 / 764 Water Bolus Amount 750 / 750 Output: Urine Amount (Catheter) 880 / 880 1100 / 1100 Indwelling Urethral Catheter 880 / 880 1100 / 1100 Other: Date of Last Bowel Movement 12/10/17 12/11/17 12/10/17 # Bowel Movements 4 # Incontinent Bowel Movements 2 Physical Exam: CONSTITUTIONAL/GENERAL: This is an adequately nourished patient, intubated, sedated, in no apparent distress. TUBES/LINES/DRAINS: right IJ triple-lumen EYES: Pupils 2 mm, slightly reactive. +orbital edema, no scleral icterus. No injection or drainage. Fundi not examined. ENT: Nose without bleeding or purulent drainage. Orally intubated. NECK: Trachea midline. Supple. CARDIOVASCULAR: RRR without murmurs, gallops, or rubs. No JVD. Peripheral pulses symmetric. RESPIRATORY/CHEST: Symmetric, unlabored respirations. coarse lung sounds throughout GASTROINTESTINAL: Abdomen soft, nondistended. Bowel sounds faint. GENITOURINARY: Without palpable bladder distension. Rocha catheter in place. MUSCULOSKELETAL: Extremities without clubbing, cyanosis. + general edema No mottling or clubbing. NEUROLOGICAL: Intubated, sedated. Not withdrawing to painful stimuli. postures with painful stimuli PSYCHIATRIC: Sedated. . Diagnostic Tests Laboratory: Laboratory Results - last 72 hr 12/08/17 12/08/17 12/08/17 11:53 13:40 17:30 WBC RBC Hgb Hct MCV MCH MCHC RDW Plt Count MPV Neut % (Auto) Lymph % (Auto) [place] % (Auto) Eos % (Auto) Baso % (Auto) Neut # (Auto) Lymph # (Auto) [place] # (Auto) Eos # (Auto) Baso # (Auto) WBC Differential Differential Comment PT INR APTT 44.3 H Sodium Potassium Chloride Carbon Dioxide Anion Gap BUN Creatinine Estimated GFR POC Glucose 131 H 162 H Random Glucose Calcium Phosphorus Magnesium Total Bilirubin AST ALT Alkaline Phosphatase Total Protein Albumin Vancomycin Trough Phenytoin Phenobarbital 12/09/17 12/09/17 12/09/17 00:38 04:53 04:53 WBC 10.8 RBC 3.00 L Hgb 10.2 L Hct 29.4 L MCV 97.8 MCH 33.8 MCHC 34.6 RDW 13.8 Plt Count 151 MPV 9.0 Neut % (Auto) 71.6 H Lymph % (Auto) 16.4 [place] % (Auto) 10.5 H Eos % (Auto) 1.4 Baso % (Auto) 0.1 Neut # (Auto) 7.7 Lymph # (Auto) 1.8 [place] # (Auto) 1.1 H Eos # (Auto) 0.1 Baso # (Auto) 0.0 WBC Differential . Differential Comment Auto diff final PT INR APTT Sodium 153 H Potassium 3.5 Chloride 118 H Carbon Dioxide 25.4 Anion Gap 10 BUN 41 H Creatinine 1.62 H Estimated GFR 44 L POC Glucose 139 H Random Glucose 124 H Calcium 8.2 L Phosphorus Magnesium Total Bilirubin 0.5 AST 77 H ALT 115 H Alkaline Phosphatase 62 Total Protein 5.6 L Albumin 2.3 L Vancomycin Trough Phenytoin Phenobarbital 12/09/17 12/09/17 12/09/17 04:53 06:33 11:35 WBC RBC Hgb Hct MCV MCH MCHC RDW Plt Count MPV Neut % (Auto) Lymph % (Auto) [place] % (Auto) Eos % (Auto) Baso % (Auto) Neut # (Auto) Lymph # (Auto) [place] # (Auto) Eos # (Auto) Baso # (Auto) WBC Differential Differential Comment PT 11.0 INR 1.1 APTT 45.0 H Sodium Potassium Chloride Carbon Dioxide Anion Gap BUN Creatinine Estimated GFR POC Glucose 160 H Random Glucose Calcium Phosphorus Magnesium Total Bilirubin AST ALT Alkaline Phosphatase Total Protein Albumin Vancomycin Trough 10.9 H Phenytoin Phenobarbital 12/09/17 12/09/17 12/09/17 11:37 17:25 23:31 WBC RBC Hgb Hct MCV MCH MCHC RDW Plt Count MPV Neut % (Auto) Lymph % (Auto) [place] % (Auto) Eos % (Auto) Baso % (Auto) Neut # (Auto) Lymph # (Auto) [place] # (Auto) Eos # (Auto) Baso # (Auto) WBC Differential Differential Comment PT INR APTT Sodium Potassium Chloride Carbon Dioxide Anion Gap BUN Creatinine Estimated GFR POC Glucose 143 H 101 118 H Random Glucose Calcium Phosphorus Magnesium Total Bilirubin AST ALT Alkaline Phosphatase Total Protein Albumin Vancomycin Trough Phenytoin Phenobarbital 12/10/17 12/10/17 12/10/17 04:45 04:45 04:45 WBC 10.0 RBC 2.73 L Hgb 9.1 L Hct 27.2 L MCV 99.5 MCH 33.2 MCHC 33.4 RDW 13.8 Plt Count 154 MPV 8.7 Neut % (Auto) 70.5 H Lymph % (Auto) 16.6 [place] % (Auto) 8.3 H Eos % (Auto) 4.3 H Baso % (Auto) 0.3 Neut # (Auto) 7.0 Lymph # (Auto) 1.7 [place] # (Auto) 0.8 Eos # (Auto) 0.4 Baso # (Auto) 0.0 WBC Differential . Differential Comment Auto diff final PT INR APTT 43.9 H Sodium 153 H Potassium 3.4 L Chloride 118 H Carbon Dioxide 25.9 Anion Gap 9 BUN 41 H Creatinine 1.51 H Estimated GFR 48 L POC Glucose Random Glucose 118 H Calcium 8.1 L Phosphorus 3.7 Magnesium 2.3 Total Bilirubin 0.4 AST 56 H ALT 97 H Alkaline Phosphatase 60 Total Protein 5.2 L Albumin 2.2 L Vancomycin Trough Phenytoin Phenobarbital Less than 2.1 L 12/10/17 12/10/17 12/11/17 11:20 17:39 00:42 WBC RBC Hgb Hct MCV MCH MCHC RDW Plt Count MPV Neut % (Auto) Lymph % (Auto) [place] % (Auto) Eos % (Auto) Baso % (Auto) Neut # (Auto) Lymph # (Auto) [place] # (Auto) Eos # (Auto) Baso # (Auto) WBC Differential Differential Comment PT INR APTT Sodium Potassium Chloride Carbon Dioxide Anion Gap BUN Creatinine Estimated GFR POC Glucose 138 H 105 147 H Random Glucose Calcium Phosphorus Magnesium Total Bilirubin AST ALT Alkaline Phosphatase Total Protein Albumin Vancomycin Trough Phenytoin Phenobarbital 12/11/17 12/11/17 12/11/17 04:30 04:30 04:30 WBC 14.9 H RBC 2.82 L Hgb 9.2 L Hct 28.0 L MCV 99.2 MCH 32.8 MCHC 33.0 RDW 13.8 Plt Count 178 MPV 9.0 Neut % (Auto) 77.3 H Lymph % (Auto) 11.5 [place] % (Auto) 6.6 Eos % (Auto) 4.4 H Baso % (Auto) 0.2 Neut # (Auto) 11.5 H Lymph # (Auto) 1.7 [place] # (Auto) 1.0 H Eos # (Auto) 0.7 H Baso # (Auto) 0.0 WBC Differential . Differential Comment Auto diff final PT INR APTT 38.8 H Sodium 150 H Potassium 3.4 L Chloride 117 H Carbon Dioxide 24.7 Anion Gap 8 BUN 30 H Creatinine 1.42 H Estimated GFR 51 L POC Glucose Random Glucose 132 H Calcium 7.6 L Phosphorus 2.6 D Magnesium 1.8 Total Bilirubin 0.4 AST 58 H ALT 98 H Alkaline Phosphatase 88 Total Protein 5.4 L Albumin 2.3 L Vancomycin Trough Phenytoin 6.6 L Phenobarbital 9.8 L Result Diagrams: 12/11/17 04:30 12/11/17 04:30 Microbiology: Microbiology 12/10/17 18:30 Gram Stain - Final Sputum - Endotracheal 12/08/17 13:40 Aerobic Blood Culture - Preliminary Blood - Peripheral No growth in 2 days Anaerobic Blood Culture - Preliminary No growth in 2 days 12/08/17 12:15 Aerobic Blood Culture - Preliminary Blood - Peripheral No growth in 2 days Anaerobic Blood Culture - Preliminary No growth in 2 days 12/05/17 18:35 Aerobic Blood Culture - Final Blood - Peripheral No growth in 5 days Anaerobic Blood Culture - Final No growth in 5 days 12/05/17 18:40 Aerobic Blood Culture - Final Blood - Peripheral No growth in 5 days Anaerobic Blood Culture - Final No growth in 5 days 12/06/17 00:45 Gram Stain - Final Sputum - Endotracheal Sputum Culture - Final Staphylococcus aureus Escherichia coli Enterobacter aerogenes 12/03/17 05:00 Aerobic Blood Culture - Final Blood - Arterial Line No growth in 5 days Anaerobic Blood Culture - Final Propionibacterium acnes Imaging: ITS Impressions Head CT 12/02/17 10:42 CONCLUSION: 1. Negative for acute process . Head MRI 12/04/17 00:00 CONCLUSION: 1. Unremarkable MRI of the brain for patient's age. 2. Mild chronic bilateral mastoiditis. Abdomen/Bladder Ultrasound 12/06/17 00:00 CONCLUSION: 1. The kidneys appear of normal size and adequate cortical thickness bilaterally. There does appear to be mildly increased echogenicity which can suggest underlying medical renal disease. Liver Ultrasound 12/07/17 00:00 CONCLUSION: 1. No specific abnormality is identified to explain the elevated LFTs. 2. Tumefactive sludge within the gallbladder. 3. Mild increased echogenicity of the right kidney which may indicate medical renal disease. 4. Right pleural effusion. Chest X-Ray 12/11/17 00:00 CONCLUSION: 1. No significant interval change. 2. Stable tubes and lines. 3. Stable mild left lower lung zone airspace disease. 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 He was once and is now . He has 2 adult sons, David and Sharif as well as grandchildren. 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 Legal: No advance directives completed. Ethical issues impacting care: No ethical issues noted. . Important Contacts: Son: David Murphy Son: Sharif Murphy . Prognosis: His prognosis is guarded. He has had an extended resuscitation time with the initial arrest allowing approximately 15 minutes to ROSC and the second arrest approximately 30 minutes to ROSC. He did undergo hypothermia protocol and is being maintained on deep sedation secondary to severe shivering. Primary concern is for anoxic brain injury the extent of which cannot be determined at this time. Plan is to continue supportive care until patient's mental status can be more accurately determined. The patient remains in FULL CODE at this time. Ejection fraction shows 25-35% on admission with elevated troponin. There is no known prior history of cardiovascular disease, however due to the extended resuscitation time needed over 2 separate attempts, his prognosis is guarded. . Code Status: Full Code Plan: PLAN: Legal decision maker: The patient is currently not capacitated to make his own decisions. Per [place] statutes, as the patient is , decision making would fall to the majority of his adult children which are his 2 sons David and Sharif. Goals: Goals remain aggressive. Pt's sons wish to discuss continued aggressive measures including tracheostomy themselves further this afternoon and this evening. They request a 3rd neurology opinion and a repeat MRI. They are "hoping for a miracle" and looking for definite signs that there could be no meaningful neurological recovery. They are receptive to continued palliative care follow up. CODE STATUS: FULL CODE SYMPTOMS: * Encephalopathy: Multifactorial to include substantial downtime during 2 cardiac arrests, hypothermia protocol completed, rewarmed 12/04. Family remains cautiously optimistic in spite of no significant improvement. Want to wait until he is off sedation to evaluate cognition. Not accepting the "severe anoxic injury" diagnosis given by Dr. Nicole. EEGs continue to worsen, per neurology evaluation - ananya Ware. Patient continues to have significant tremors requiring heavy sedation. repeat MRI per Dr Terry * Tremor: Febrile this morning 100.9, EEG pending. mild fasciculations noted in face. precedex 0.3 no recs at this time - will f/u tomorrow for further discussion Palliative care will continue to follow the patient during hospital course as condition evolves, to assist patient/decision-maker with understanding of their medical conditions, weighing benefits/burdens of treatment options, for clarification of goals of treatment. Additionally will assist with any symptoms of palliative concern. . Attestation Attestation: To help prompt me to consider important information that might be impacting today's encounter and assessment, information from prior notes written by myself or my colleagues may have been "brought forward" into today's note. My signature on this note, however, is an attestation that I personally performed the exam, history, and/or decision-making noted today, and, unless otherwise indicated, the interactions with patient, family, and staff as well as the review of records all occurred today. I also attest that the listed assessment and stated plan reflect my best clinical judgment today based on the combination of historical information, prior notes, and today's exam/ interactions. When time spent is documented, it refers only to time spent today by the signer, or if indicated, combined time spent today by collaborating physician/nurse practitioner.
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
--- NOTE | 2017-12-11 15:26 | P.DIET ---
Nutritional Evaluation Type of nutrition evaluation: follow-up Nutrition consult regarding: Tube Feeding Objective - Diagnosis EVAC - Objective % IBW: 131 (IBW = 154#) Body Weight Used for Calculations: Upper end of IBW (77 kg) Energy Needs - Lower Range (kCal/kg): 25 Energy Needs - Upper Range (kCal/kg): 30 Lower Limit kCal/kg (kCals): 1,925 Upper Limit kCal/kg (kCals): 2,310 Lower Limit Protein Factor (Grams per Kg): 1.0 Upper Limit Protein Factor (Grams per Kg): 1.5 Lower Protein Needs (Protein): 77 Upper Protein Needs (Protein): 116 Dietitian Reviewed in Medical Record: Curent medications, Intake & Output, Labs , Medical history, Tube feeding Diet Order: NPO Assessment Assessment: Pt is s/p out of hospital ventricular fibrillation cardiac arrest and is intubated and sedated so needs TFing to meet nutritional needs. Pt is tolerating Vital 1.5 @ 55 mls/hr which adequately meets estimated needs by providing 1980 kcals, 89 gms protein and 1008 mls of free water. Labs, wts and clinical course reviewed. Recommendations: Continue Vital 1.5 @ 55 mls/hr goal Dietitian to Monitor: Lab values, Intake & Output, Tube feeding tolerance, Weight change, Medical course
--- NOTE | 2017-12-11 15:43 | P.PNID ---
Subjective Remarks: ID X cover for Dr Levy chart reviewed This is a 57-year-old white male who was brought to the hospital after an [id number] cardiac arrest. The patient was admitted on 12/02/2017. He was intubated and remains on the ventilator. He is noted to have had anoxic injury. Temperature started rising 12/05/2017 where it spiked up to 101.3, and after that he had some low grade fevers, and today, temperature was up to 101.5. The patient is on the ventilator. He is noted to have mostly white secretions. Blood cultures were taken on 12/02/2017 and had no growth, and repeated blood cultures on 12/05/2017 had no growth. Sputum culture from 12/02/2017 had normal michelle. Repeat sputum culture on 12/06/2017 Staphylococcus aureus, Escherichia coli, and gram-negative rods. ID Consult requested for pneumonia and fever. opal RN pt remains on vent. Low grade fever up to 101 today + some posturing large amount of secretions Liquid BMs x 4 off pressors Cornea , gag and cough reflexes present Antibiotics: zosyn vancomycin Allergies/Adverse Reactions: Allergies No Known Allergies Allergy (Verified 12/02/17 09:40) Objective Vital Signs 12/10/17 16:38 12/10/17 19:42 12/10/17 20:00 Temperature 100.3 F H Pulse Rate 87 Respiratory Rate 18 19 16 Blood Pressure 141/77 H Pulse Oximetry 95 97 97 12/10/17 22:30 12/11/17 00:00 12/11/17 03:25 Temperature 101.7 F H Pulse Rate 91 H Respiratory Rate 21 20 19 Blood Pressure 150/82 H Pulse Oximetry 95 96 96 12/11/17 04:00 12/11/17 07:00 12/11/17 07:30 Temperature 100.7 F H 100.9 F H Pulse Rate 94 H 91 H Respiratory Rate 20 18 18 Blood Pressure 154/94 H 147/97 H Pulse Oximetry 98 97 98 12/11/17 10:00 12/11/17 11:00 12/11/17 13:48 Temperature 100.1 F H Pulse Rate 92 H Respiratory Rate 16 20 22 Blood Pressure 144/90 H Pulse Oximetry 98 94 L 96 Intake & Output 12/10/17 12/11/17 12/11/17 18:59 06:59 18:59 Intake Total 785 / 785 3585.5 / 3585.5 452 / 452 Output Total 880 / 880 1100 / 1100 Balance -95 / -95 2485.5 / 2485.5 452 / 452 Weight 93 kg Intake: IV 785 / 785 2071.5 / 2071.5 452 / 452 D5W Inj 1,000 ML @ 50 mls/hr IV 1000 / 1000 .CONT .Q20H [facility] Rx#:[id number] Heparin Inj 25,000 UNIT In NS 250 / 250 150 / 150 Inj 247.5 ML @ 1,000 UNITS/HR 10 mls/hr IV.CONT TITRATE PRN Rx#:[id number] Cerebyx Inj 100 MGPE In NS Inj 104 / 104 52 / 52 50 ML @ 208 mls/hr IV.SIG Q8H [facility] Rx#:[id number] Cerebyx Inj 1,000 MGPE In NS 70 / 70 Inj 50 ML @ 70 mls/hr IV.SIG ONCE ONE Rx#:[id number] Zosyn 3.375 GM Premix 50 ML @ 100 / 100 100 / 100 50 / 50 100 mls/hr IV.SIG Q8H [facility] Rx#: [id number] KCl 40 mEq Premix Inj 40 meq In 100 / 100 100 ml @ 25 mls/hr IV.SIG UNSCH PRN Rx#:[id number] Vancomycin Inj 1,750 MG In NS 515 / 515 517.5 / 517.5 Inj 500 ML @ 250 mls/hr IV.SIG Q18H [facility] Rx#:[id number] Keppra 1000 mg/100 mL Premix 100 / 100 100 / 100 100 / 100 100 ML @ 400 mls/hr IV.SIG Q12H [facility] Rx#:[id number] Oral 0 / 0 Tube Feeding 764 / 764 Water Bolus Amount 750 / 750 Output: Urine Amount (Catheter) 880 / 880 1100 / 1100 Indwelling Urethral Catheter 880 / 880 1100 / 1100 Other: Date of Last Bowel Movement 12/10/17 12/11/17 12/10/17 # Bowel Movements 4 # Incontinent Bowel Movements 2 12/10/17 18:30 Sputum - Endotracheal Gram Stain - Final 12/10/17 18:30 Sputum - Endotracheal Sputum Culture - Preliminary gram negative rods 12/08/17 13:40 Blood - Peripheral Aerobic Blood Culture - Preliminary No growth in 3 days 12/08/17 13:40 Blood - Peripheral Anaerobic Blood Culture - Preliminary No growth in 3 days 12/08/17 12:15 Blood - Peripheral Aerobic Blood Culture - Preliminary No growth in 3 days 12/08/17 12:15 Blood - Peripheral Anaerobic Blood Culture - Preliminary No growth in 3 days 12/05/17 18:35 Blood - Peripheral Aerobic Blood Culture - Final No growth in 5 days 12/05/17 18:35 Blood - Peripheral Anaerobic Blood Culture - Final No growth in 5 days 12/05/17 18:40 Blood - Peripheral Aerobic Blood Culture - Final No growth in 5 days 12/05/17 18:40 Blood - Peripheral Anaerobic Blood Culture - Final No growth in 5 days 12/06/17 00:45 Sputum - Endotracheal Gram Stain - Final 12/06/17 00:45 Sputum - Endotracheal Sputum Culture - Final Staphylococcus aureus Escherichia coli Enterobacter aerogenes 12/03/17 05:00 Blood - Arterial Line Aerobic Blood Culture - Final No growth in 5 days 12/03/17 05:00 Blood - Arterial Line Anaerobic Blood Culture - Final Propionibacterium acnes Lab - Hematology Results 12/10/17 12/11/17 04:45 04:30 WBC 10.0 14.9 H RBC 2.73 L 2.82 L Hgb 9.1 L 9.2 L Hct 27.2 L 28.0 L MCV 99.5 99.2 MCH 33.2 32.8 MCHC 33.4 33.0 RDW 13.8 13.8 Plt Count 154 178 MPV 8.7 9.0 Neut % (Auto) 70.5 H 77.3 H Lymph % (Auto) 16.6 11.5 [place] % (Auto) 8.3 H 6.6 Eos % (Auto) 4.3 H 4.4 H Baso % (Auto) 0.3 0.2 Neut # (Auto) 7.0 11.5 H Lymph # (Auto) 1.7 1.7 [place] # (Auto) 0.8 1.0 H Eos # (Auto) 0.4 0.7 H Baso # (Auto) 0.0 0.0 WBC Differential . . Differential Comment Auto diff final Auto diff final Lab - Chemistry Results 12/09/17 12/09/17 12/10/17 17:25 23:31 04:45 Sodium 153 H Potassium 3.4 L Chloride 118 H Carbon Dioxide 25.9 Anion Gap 9 BUN 41 H Creatinine 1.51 H Estimated GFR 48 L POC Glucose 101 118 H Random Glucose 118 H Calcium 8.1 L Phosphorus 3.7 Magnesium 2.3 Total Bilirubin 0.4 AST 56 H ALT 97 H Alkaline Phosphatase 60 Total Protein 5.2 L Albumin 2.2 L 12/10/17 12/10/17 12/11/17 11:20 17:39 00:42 Sodium Potassium Chloride Carbon Dioxide Anion Gap BUN Creatinine Estimated GFR POC Glucose 138 H 105 147 H Random Glucose Calcium Phosphorus Magnesium Total Bilirubin AST ALT Alkaline Phosphatase Total Protein Albumin 12/11/17 12/11/17 04:30 11:25 Sodium 150 H Potassium 3.4 L Chloride 117 H Carbon Dioxide 24.7 Anion Gap 8 BUN 30 H Creatinine 1.42 H Estimated GFR 51 L POC Glucose 142 H Random Glucose 132 H Calcium 7.6 L Phosphorus 2.6 D Magnesium 1.8 Total Bilirubin 0.4 AST 58 H ALT 98 H Alkaline Phosphatase 88 Total Protein 5.4 L Albumin 2.3 L Imaging: ITS Impressions Head CT 12/02/17 10:42 CONCLUSION: 1. Negative for acute process . Head MRI 12/04/17 00:00 CONCLUSION: 1. Unremarkable MRI of the brain for patient's age. 2. Mild chronic bilateral mastoiditis. Abdomen/Bladder Ultrasound 12/06/17 00:00 CONCLUSION: 1. The kidneys appear of normal size and adequate cortical thickness bilaterally. There does appear to be mildly increased echogenicity which can suggest underlying medical renal disease. Liver Ultrasound 12/07/17 00:00 CONCLUSION: 1. No specific abnormality is identified to explain the elevated LFTs. 2. Tumefactive sludge within the gallbladder. 3. Mild increased echogenicity of the right kidney which may indicate medical renal disease. 4. Right pleural effusion. Chest X-Ray 12/11/17 00:00 CONCLUSION: 1. No significant interval change. 2. Stable tubes and lines. 3. Stable mild left lower lung zone airspace disease. Physical Exam: PHYSICAL EXAMINATION: GENERAL: On the ventilator. Unresponsive. HEENT: The head is atraumatic. Pupils small, reactive Oropharynx intubated. NECK: No swelling or adenopathy. LUNGS: Bilateral basilar rhonchi. HEART: Regular S1 and S2. No murmur audible. ABDOMEN: Obese, positive bowel sounds, which are hyperactive. No mass palpable. No grimacing on palpation. EXTREMITIES: Diffuse edema 1-2 of the extremities. No clubbing or cyanosis. well perfused perifery brisk refill : bell ion palce withclear yellow urine SKIN: No diffuse rash. NEUROLOGIC: Unresponsive. Gag/corneal/cough reflexes present not following commands PSYCHIATRIC: Unable to assess. Unresponsive. Assessment and Plan - Plan IMPRESSION: 1. [id number] cardiac arrest. 2. Pneumonia. Sputum culture has growth of Staphylococcus aureus, Escherichia coli and Enterobacter. repeat clx again with GNBs ? aspiration PNA 3. Probable aspiration. 4. Acute respiratory failure. 5. Acute kidney disease. 6. Anoxic encephalopathy. fever, leukocytosis antibiotics associated diarrhea RECOMMENDATIONS: 1. dc vancomycin. 2. Continue piperacillin/tazobactam. will adjust abx per P clx 3. Monitor temperatures. 4. Monitor clinical response. r/o C.diff UA/C+S if indicated Discussed with patient's nurse
[2017-12-11] MEDS: Dexmedetomidine Inj 1,000 MCG in Sodium Chlor 0.9% Inj 240 ML IV.CONT PRN (16:39)
[2017-12-11] MEDS ORDERED: Pharmacy Ordered Lab Info OTHER ONE (17:45)
--- NOTE | 2017-12-11 17:55 | MR ---
EXAM DATE: 12/11/2017 4:04 PM EDT AGE/SEX: 57 years / Male INDICATIONS: . Anoxia. Patient not responding after cardiac arrest 9 days ago. CLINICAL DATA: This is the patient's subsequent encounter. Patient reports that signs and symptoms h ave been present for 1 week and indicates a pain score of Nonresponsive. MEDICAL/SURGICAL HISTORY: Hypertension. None. COMPARISON: [facility], MR HEAD W/O CONTRAST, 12/04/2017. . TECHNIQUE: Multiplanar, multisequence examination of the brain was performed without contrast. FINDINGS: There is abnormal signal throughout the deep white matter with increased signal on the T2-weighted se quences and diffusion-weighted images and decreased signal on the ADC map. There is abnormal signal i ncreased signal also noted in the basal ganglia and posterior corpus callosum. There is no acute hemorrhage or mass effect. The ventricular system is within normal limits. There is mild atrophic change. The posterior fossa and brainstem are stable in appearance. CONCLUSION: 1. Multiple abnormal findings as described consistent with anoxic brain injury given the history. Electronically signed by: Jalil Olivares MD 12/11/2017 5:54 PM EDT
[2017-12-11 20:47] VITALS: O2SAT 99
--- NOTE | 2017-12-11 21:41 | MG ---
cc: Percy Aguirre MD EEG RECORD NUMBER: [id number] The patient noted to have continuous mouth tremors during the EEG. Pseudoperiodic sharp waves occurring at 0.5-1 Hz variation with interdischarge suppressed delta activity. No driving with photic stimulation. INTERPRETATION: Pseudoperiodic discharges with intermittent suppressed delta activity suggestive of severe encephalopathy, which can be seen with diffuse cortical injury. Clinical correlation. MD JUAN Evans/carlos , 09:22 PM , 09:27 PM
[2017-12-12] MEDS: Oral Hygiene Kit OROPHARYNG SCH ×4 (01:11→17:34)
[2017-12-12] MEDS: Insulin NovoLIN Regular Correctional Sugar Inj SQ SCH ×4 (01:11→18:39)
[2017-12-12] MEDS: PHENobarbital Inj 130 MG/ML Vial IV.SIG SCH ×5 (01:12→18:54)
[2017-12-12 04:59] LABS: Baso % (Auto) 0.2 % (0.0-2.0); Eos # (Auto) 0.7 th/mm3 (0.0-0.4); Eos % (Auto) 5.7 % (0.0-4.0); Hematocrit 26.4 % (39.0-51.0); Lymph # (Auto) 1.6 th/mm3 (1.0-4.8); Lymph % (Auto) 13.7 % (9.0-44.0); Mean Corpuscular HGB Conc 34.3 % (32.0-36.0); Mean Corpuscular Hemoglobin 33.5 pg (27.0-34.0); Mean Corpuscular Volume 97.9 fL (80.0-100.0); Mean Platelet Volume 8.7 fL (7.0-11.0); Mono # (Auto) 0.9 th/mm3 (0.0-0.9); Neut # (Auto) 8.6 th/mm3 (1.8-7.7); Neut % (Auto) 72.4 % (16.0-70.0); Platelet Count 197 th/mm3 (150-450); Red Cell Distribution Width 13.8 % (11.6-17.2); White Blood Count 11.9 th/mm3 (4.0-11.0)
[2017-12-12 05:21] LABS: Albumin 2.2 g/dL (3.4-5.0); Anion Gap 9 meq/L (5-15); Aspartate Aminotransferase 70 U/L (15-37); Blood Urea Nitrogen 23 mg/dL (7-18); Calcium 8.3 mg/dL (8.5-10.1); Carbon Dioxide 22.7 meq/L (21.0-32.0); Chloride 113 meq/L (98-107); Glomerular Filtration Rate 57 mL/min (>89); Glucose,Random 81 mg/dL (74-106); Magnesium 1.9 mg/dL (1.5-2.5); Potassium 3.5 meq/L (3.5-5.1); Sodium 145 meq/L (136-145)
[2017-12-12 05:22] LABS: Alanine Aminotransferase 97 U/L (12-78); Phosphorus 3.4 mg/dL (2.5-4.9)
[2017-12-12 05:24] LABS: Alkaline Phosphatase 105 U/L (45-117); Total Protein 5.7 g/dL (6.4-8.2)
[2017-12-12] MEDS: Dextrose 5% in Water Inj 1,000 ML IV.CONT SCH (05:27)
[2017-12-12] MEDS: Piperacil/Tazo 3.375 GM Premix 50 ML IV.SIG SCH ×2 (05:28→11:09)
[2017-12-12] MEDS: Fosphenytoin Inj 100 MGPE in Sodium Chlor 0.9% Inj 50 ML IV.SIG SCH ×2 (05:28→13:48)
[2017-12-12] MEDS: levETIRAcetam 1000mg/100mL Inj 100 ML IV.SIG SCH (08:24)
[2017-12-12] MEDS: Potassium Chloride 25 MEQ Effervescent Tablet PO PRN (08:25)
[2017-12-12] MEDS: hydrALAZINE 50 MG Tablet PO SCH ×3 (08:25→18:40)
[2017-12-12] MEDS: Senna/Docusate Sodium 8.6/50 MG Tablet PO SCH (08:26)
[2017-12-12] MEDS: Chlorhexidine 0.12% Oral Kit 15 ML UDC OROPHARYNG SCH (08:26)
[2017-12-12] MEDS: Carboxymethylcellulose 0.5% Opth Drops 15 ML Bottle EACH EYE SCH (08:27)
[2017-12-12 11:16] VITALS: RESP 14
[2017-12-12 11:30] VITALS: TEMP 100.6
--- NOTE | 2017-12-12 13:28 | P.PNPAL ---
Reason for Visit Reason for visit: a. To assist with evaluation and management of symptoms including: Encephalopathy, tremor b. To assist medical decision maker(s) with: better understanding of current medical conditions; weighing benefits/burdens of medical treatment options; making medical treatment decisions. Subjective Subjective/Interval History: Patient seen today for medically necessary follow-up to evaluate symptom management for encephalopathy and tremors and to assist family in medical decision making. He remains encephalopathic, not withdrawing to pain, positive cornea, some roving eye movements noted, does not open eyes to deep stimulation gag. EEG shows severe encephalopathy, acute onset, persistent, constant, with no exacerbating or relieving factors. Tremors improving, Precedex being weaned. Did not tolerate CPAP trials, immediately developing dyspnea, stacked breathing. EEG shows no seizure activity. Decorticate posturing seen on left with painful stimuli. Tremors are moderate intensity, attenuated by sedation, intermittent with no noted exacerbating factors. . Family/Friend Interactions: Spoke with entire present family to include patient's girlfriend, both sons and their wives and patient's ex- (son's mother). Reviewed recent clinical data , EEG, MRI findings. Discussed goals of care for determining aggressive versus comfort management. Patient is approaching the time for tracheostomy and PEG placement decision. Family would be willing to go forward with that if they felt there were any chance of recovery, however they do feel that this would be in direct opposition to the patient's wishes and are unwilling to prolong his suffering. Explained in anticipatory guidance regarding vent withdrawal and family is seriously considering withdrawing either at this evening or tomorrow. The sons, David and Nacho, wished to discuss privately prior to coming to that decision. They did stress at this point that they wish him to remain FULL CODE as they wish to have his father see him while he is still alive no matter what the prognosis. . Advance Directives Living Will: Never completed Health Care Surrogate: Never completed Durable Power of Risk Tech: Never completed Objective Vital Signs: Vital Signs 12/11/17 13:48 12/11/17 15:00 12/11/17 16:20 Temperature 101.3 F H Pulse Rate 94 H Respiratory Rate 22 21 18 Blood Pressure 128/89 Pulse Oximetry 96 96 97 12/11/17 17:23 12/11/17 20:00 12/11/17 20:44 Temperature 101.7 F H Pulse Rate 91 H Respiratory Rate 15 20 Blood Pressure 164/94 H Pulse Oximetry 97 99 99 12/12/17 00:00 12/12/17 00:37 12/12/17 03:58 Temperature 101.3 F H Pulse Rate 81 Respiratory Rate 15 14 16 Blood Pressure 140/84 Pulse Oximetry 99 99 99 12/12/17 04:00 12/12/17 07:00 12/12/17 07:44 Temperature 99.8 F H 98.5 F Pulse Rate 85 89 Respiratory Rate 14 18 20 Blood Pressure 149/94 H 165/92 H Pulse Oximetry 99 95 99 12/12/17 11:00 12/12/17 11:13 Temperature 100.6 F H Pulse Rate 84 Respiratory Rate 14 14 Blood Pressure 164/96 H Pulse Oximetry 99 99 Intake & Output 12/11/17 12/12/17 12/12/17 18:59 06:59 18:59 Intake Total 1291 / 1291 1464 / 1464 100 / 100 Output Total 1390 / 1390 300 / 300 Balance -99 / -99 1164 / 1164 100 / 100 Weight 207 lb 3.752 oz Intake: IV 702 / 702 304 / 304 100 / 100 Precedex Inj 1,000 MCG In NS 250 / 250 Inj 240 ML @ 0.2 MCG/KG/HR 4.57 mls/hr IV.CONT TITRATE PRN Rx# :[id number] Heparin Inj 25,000 UNIT In NS 150 / 150 Inj 247.5 ML @ 1,000 UNITS/HR 10 mls/hr IV.CONT TITRATE PRN Rx#:[id number] Cerebyx Inj 100 MGPE In NS Inj 52 / 52 104 / 104 50 ML @ 208 mls/hr IV.SIG Q8H SANDY Rx#:[id number] Zosyn 3.375 GM Premix 50 ML @ 50 / 50 100 / 100 100 mls/hr IV.SIG Q8H SANDY Rx#: [id number] KCl 40 mEq Premix Inj 40 meq In 100 / 100 100 ml @ 25 mls/hr IV.SIG UNSCH PRN Rx#:[id number] Keppra 1000 mg/100 mL Premix 100 / 100 100 / 100 100 / 100 100 ML @ 400 mls/hr IV.SIG Q12H SANDY Rx#:[id number] Oral 0 / 0 Tube Feeding 589 / 589 410 / 410 Water Bolus Amount 750 / 750 Output: Stool 200 / 200 100 / 100 Urine Amount (Catheter) 1190 / 1190 200 / 200 Condom 200 / 200 Indwelling Urethral Catheter 1190 / 1190 Other: Date of Last Bowel Movement 12/10/17 12/10/17 12/10/17 Physical Exam: CONSTITUTIONAL/GENERAL: This is an adequately nourished patient, intubated, sedated, in no apparent distress. TUBES/LINES/DRAINS: right IJ triple-lumen EYES: Pupils 2 mm, slightly reactive. +orbital edema, no scleral icterus. No injection or drainage. Fundi not examined. ENT: Nose without bleeding or purulent drainage. Orally intubated. NECK: Trachea midline. Supple. CARDIOVASCULAR: RRR without murmurs, gallops, or rubs. No JVD. Peripheral pulses symmetric. RESPIRATORY/CHEST: Symmetric, unlabored respirations. Lungs clear. GASTROINTESTINAL: Abdomen soft, nondistended. Bowel sounds faint. GENITOURINARY: Without palpable bladder distension. Rocha catheter in place. MUSCULOSKELETAL: Extremities without clubbing, cyanosis. + general edema No mottling or clubbing. NEUROLOGICAL: Intubated, sedated. Not withdrawing to painful stimuli. postures with painful stimuli PSYCHIATRIC: Sedated. . Diagnostic Tests Laboratory: Laboratory Results - last 72 hr 12/09/17 12/09/17 12/10/17 17:25 23:31 04:45 WBC 10.0 RBC 2.73 L Hgb 9.1 L Hct 27.2 L MCV 99.5 MCH 33.2 MCHC 33.4 RDW 13.8 Plt Count 154 MPV 8.7 Neut % (Auto) 70.5 H Lymph % (Auto) 16.6 Anson % (Auto) 8.3 H Eos % (Auto) 4.3 H Baso % (Auto) 0.3 Neut # (Auto) 7.0 Lymph # (Auto) 1.7 Anson # (Auto) 0.8 Eos # (Auto) 0.4 Baso # (Auto) 0.0 WBC Differential . Differential Comment Auto diff final APTT Sodium Potassium Chloride Carbon Dioxide Anion Gap BUN Creatinine Estimated GFR POC Glucose 101 118 H Random Glucose Calcium Phosphorus Magnesium Total Bilirubin AST ALT Alkaline Phosphatase Total Protein Albumin Urine Color Urine Clarity Urine pH Ur Specific Juda Urine Protein Urine Glucose (UA) Urine Ketones Urine Occult Blood Urine Nitrate Urine Bilirubin Urine Urobilinogen Ur Leukocyte Esterase Urine RBC Urine WBC Ur Squamous Epith Cells Urine Mucus Micro UA Comment Ur Microscopic Review Urine Culture Comments Stl C.difficile DNA Amp St C. diff Tox Epid 027 Phenytoin Phenobarbital 12/10/17 12/10/17 12/10/17 04:45 04:45 11:20 WBC RBC Hgb Hct MCV MCH MCHC RDW Plt Count MPV Neut % (Auto) Lymph % (Auto) Anson % (Auto) Eos % (Auto) Baso % (Auto) Neut # (Auto) Lymph # (Auto) Anson # (Auto) Eos # (Auto) Baso # (Auto) WBC Differential Differential Comment APTT 43.9 H Sodium 153 H Potassium 3.4 L Chloride 118 H Carbon Dioxide 25.9 Anion Gap 9 BUN 41 H Creatinine 1.51 H Estimated GFR 48 L POC Glucose 138 H Random Glucose 118 H Calcium 8.1 L Phosphorus 3.7 Magnesium 2.3 Total Bilirubin 0.4 AST 56 H ALT 97 H Alkaline Phosphatase 60 Total Protein 5.2 L Albumin 2.2 L Urine Color Urine Clarity Urine pH Ur Specific Juda Urine Protein Urine Glucose (UA) Urine Ketones Urine Occult Blood Urine Nitrate Urine Bilirubin Urine Urobilinogen Ur Leukocyte Esterase Urine RBC Urine WBC Ur Squamous Epith Cells Urine Mucus Micro UA Comment Ur Microscopic Review Urine Culture Comments Stl C.difficile DNA Amp St C. diff Tox Epid 027 Phenytoin Phenobarbital Less than 2.1 L 12/10/17 12/11/17 12/11/17 17:39 00:42 04:30 WBC RBC Hgb Hct MCV MCH MCHC RDW Plt Count MPV Neut % (Auto) Lymph % (Auto) Anson % (Auto) Eos % (Auto) Baso % (Auto) Neut # (Auto) Lymph # (Auto) Anson # (Auto) Eos # (Auto) Baso # (Auto) WBC Differential Differential Comment APTT 38.8 H Sodium Potassium Chloride Carbon Dioxide Anion Gap BUN Creatinine Estimated GFR POC Glucose 105 147 H Random Glucose Calcium Phosphorus Magnesium Total Bilirubin AST ALT Alkaline Phosphatase Total Protein Albumin Urine Color Urine Clarity Urine pH Ur Specific Juda Urine Protein Urine Glucose (UA) Urine Ketones Urine Occult Blood Urine Nitrate Urine Bilirubin Urine Urobilinogen Ur Leukocyte Esterase Urine RBC Urine WBC Ur Squamous Epith Cells Urine Mucus Micro UA Comment Ur Microscopic Review Urine Culture Comments Stl C.difficile DNA Amp St C. diff Tox Epid 027 Phenytoin Phenobarbital 12/11/17 12/11/17 12/11/17 04:30 04:30 09:10 WBC 14.9 H RBC 2.82 L Hgb 9.2 L Hct 28.0 L MCV 99.2 MCH 32.8 MCHC 33.0 RDW 13.8 Plt Count 178 MPV 9.0 Neut % (Auto) 77.3 H Lymph % (Auto) 11.5 Anson % (Auto) 6.6 Eos % (Auto) 4.4 H Baso % (Auto) 0.2 Neut # (Auto) 11.5 H Lymph # (Auto) 1.7 Anson # (Auto) 1.0 H Eos # (Auto) 0.7 H Baso # (Auto) 0.0 WBC Differential . Differential Comment Auto diff final APTT Sodium 150 H Potassium 3.4 L Chloride 117 H Carbon Dioxide 24.7 Anion Gap 8 BUN 30 H Creatinine 1.42 H Estimated GFR 51 L POC Glucose Random Glucose 132 H Calcium 7.6 L Phosphorus 2.6 D Magnesium 1.8 Total Bilirubin 0.4 AST 58 H ALT 98 H Alkaline Phosphatase 88 Total Protein 5.4 L Albumin 2.3 L Urine Color Yellow Urine Clarity Hazy H Urine pH 5.0 Ur Specific Juda 1.016 Urine Protein Negative Urine Glucose (UA) Negative Urine Ketones Negative Urine Occult Blood Small H Urine Nitrate Negative Urine Bilirubin Negative Urine Urobilinogen Less than 2 Ur Leukocyte Esterase Negative Urine RBC 17 H Urine WBC Less than 1 Ur Squamous Epith Cells <1 Urine Mucus Few H Micro UA Comment Cath-culture not ind Ur Microscopic Review Not Reportable Urine Culture Comments Cath-cult not ind Stl C.difficile DNA Amp St C. diff Tox Epid 027 Phenytoin 6.6 L Phenobarbital 9.8 L 12/11/17 12/11/17 12/11/17 10:00 11:25 13:10 WBC RBC Hgb Hct MCV MCH MCHC RDW Plt Count MPV Neut % (Auto) Lymph % (Auto) Anson % (Auto) Eos % (Auto) Baso % (Auto) Neut # (Auto) Lymph # (Auto) Anson # (Auto) Eos # (Auto) Baso # (Auto) WBC Differential Differential Comment APTT 42.7 H Sodium Potassium Chloride Carbon Dioxide Anion Gap BUN Creatinine Estimated GFR POC Glucose 142 H Random Glucose Calcium Phosphorus Magnesium Total Bilirubin AST ALT Alkaline Phosphatase Total Protein Albumin Urine Color Urine Clarity Urine pH Ur Specific Juda Urine Protein Urine Glucose (UA) Urine Ketones Urine Occult Blood Urine Nitrate Urine Bilirubin Urine Urobilinogen Ur Leukocyte Esterase Urine RBC Urine WBC Ur Squamous Epith Cells Urine Mucus Micro UA Comment Ur Microscopic Review Urine Culture Comments Stl C.difficile DNA Amp Negative St C. diff Tox Epid 027 Negative Phenytoin Phenobarbital 12/11/17 12/12/17 12/12/17 16:28 01:09 04:40 WBC 11.9 H RBC 2.70 L Hgb 9.0 L Hct 26.4 L MCV 97.9 MCH 33.5 MCHC 34.3 RDW 13.8 Plt Count 197 MPV 8.7 Neut % (Auto) 72.4 H Lymph % (Auto) 13.7 Anson % (Auto) 8.0 Eos % (Auto) 5.7 H Baso % (Auto) 0.2 Neut # (Auto) 8.6 H Lymph # (Auto) 1.6 Anson # (Auto) 0.9 Eos # (Auto) 0.7 H Baso # (Auto) 0.0 WBC Differential . Differential Comment Auto diff final APTT Sodium Potassium Chloride Carbon Dioxide Anion Gap BUN Creatinine Estimated GFR POC Glucose 135 H 146 H Random Glucose Calcium Phosphorus Magnesium Total Bilirubin AST ALT Alkaline Phosphatase Total Protein Albumin Urine Color Urine Clarity Urine pH Ur Specific Juda Urine Protein Urine Glucose (UA) Urine Ketones Urine Occult Blood Urine Nitrate Urine Bilirubin Urine Urobilinogen Ur Leukocyte Esterase Urine RBC Urine WBC Ur Squamous Epith Cells Urine Mucus Micro UA Comment Ur Microscopic Review Urine Culture Comments Stl C.difficile DNA Amp St C. diff Tox Epid 027 Phenytoin Phenobarbital 12/12/17 12/12/17 12/12/17 04:40 04:43 11:14 WBC RBC Hgb Hct MCV MCH MCHC RDW Plt Count MPV Neut % (Auto) Lymph % (Auto) Anson % (Auto) Eos % (Auto) Baso % (Auto) Neut # (Auto) Lymph # (Auto) Anson # (Auto) Eos # (Auto) Baso # (Auto) WBC Differential Differential Comment APTT Sodium 145 Potassium 3.5 Chloride 113 H Carbon Dioxide 22.7 Anion Gap 9 BUN 23 H Creatinine 1.30 Estimated GFR 57 L POC Glucose 93 122 H Random Glucose 81 Calcium 8.3 L Phosphorus 3.4 Magnesium 1.9 Total Bilirubin 0.4 AST 70 H ALT 97 H Alkaline Phosphatase 105 Total Protein 5.7 L Albumin 2.2 L Urine Color Urine Clarity Urine pH Ur Specific Juda Urine Protein Urine Glucose (UA) Urine Ketones Urine Occult Blood Urine Nitrate Urine Bilirubin Urine Urobilinogen Ur Leukocyte Esterase Urine RBC Urine WBC Ur Squamous Epith Cells Urine Mucus Micro UA Comment Ur Microscopic Review Urine Culture Comments Stl C.difficile DNA Amp St C. diff Tox Epid 027 Phenytoin Phenobarbital 17.7 Result Diagrams: 12/12/17 04:40 12/12/17 04:40 Microbiology: Microbiology 12/10/17 18:30 Gram Stain - Final Sputum - Endotracheal Sputum Culture - Preliminary gram negative rods 12/08/17 13:40 Aerobic Blood Culture - Preliminary Blood - Peripheral No growth in 4 days Anaerobic Blood Culture - Preliminary No growth in 4 days 12/08/17 12:15 Aerobic Blood Culture - Preliminary Blood - Peripheral No growth in 4 days Anaerobic Blood Culture - Preliminary No growth in 4 days 12/05/17 18:35 Aerobic Blood Culture - Final Blood - Peripheral No growth in 5 days Anaerobic Blood Culture - Final No growth in 5 days 12/05/17 18:40 Aerobic Blood Culture - Final Blood - Peripheral No growth in 5 days Anaerobic Blood Culture - Final No growth in 5 days 12/06/17 00:45 Gram Stain - Final Sputum - Endotracheal Sputum Culture - Final Staphylococcus aureus Escherichia coli Enterobacter aerogenes Imaging: Head CT 12/02/17 10:42 CONCLUSION: 1. Negative for acute process . Chest X-Ray 12/02/17 12:27 CONCLUSION: Endotracheal tube and enteric tube as above. Chest X-Ray 12/04/17 00:00 CONCLUSION: 1. ETT in good position. NGT beyond the GE junction. 2. Mild bibasilar atelectasis. Head MRI 12/04/17 00:00 CONCLUSION: 1. Unremarkable MRI of the brain for patient's age. 2. Mild chronic bilateral mastoiditis. Chest X-Ray 12/05/17 07:28 CONCLUSION: 1. No significant interval change. 2. Stable ETT and NGT. 3. Minimal bibasilar atelectasis. Chest X-Ray 12/05/17 11:03 CONCLUSION: 1. Right IJ central line in good position without pneumothorax. 2. ETT and NGT stable. 3. Mild bibasilar airspace disease, likely atelectasis. Abdomen/Bladder Ultrasound 12/06/17 00:00 CONCLUSION: 1. The kidneys appear of normal size and adequate cortical thickness bilaterally. There does appear to be mildly increased echogenicity which can suggest underlying medical renal disease. Chest X-Ray 12/06/17 00:00 CONCLUSION: Partially consolidative left lower lobe infiltrate. Chest X-Ray 12/06/17 06:00 CONCLUSION: No significant interval change and mild patchy bilateral lower lung zone opacity. Liver Ultrasound 12/07/17 00:00 CONCLUSION: 1. No specific abnormality is identified to explain the elevated LFTs. 2. Tumefactive sludge within the gallbladder. 3. Mild increased echogenicity of the right kidney which may indicate medical renal disease. 4. Right pleural effusion. Chest X-Ray 12/07/17 06:00 CONCLUSION: Mild left base infiltrate not significantly changed. Chest X-Ray 12/11/17 00:00 CONCLUSION: 1. No significant interval change. 2. Stable tubes and lines. 3. Stable mild left lower lung zone airspace disease. Head MRI 12/11/17 00:00 CONCLUSION: 1. Multiple abnormal findings as described consistent with anoxic brain injury given the history. 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 He was once and is now . He has 2 adult sons, David and Sharif as well as grandchildren. 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 Legal: No advance directives completed. Ethical issues impacting care: No ethical issues noted. . Important Contacts: Son: David Murphy Son: Sharif Murphy . Prognosis: His prognosis is guarded. He has had an extended resuscitation time with the initial arrest allowing approximately 15 minutes to ROSC and the second arrest approximately 30 minutes to ROSC. He did undergo hypothermia protocol and is being maintained on deep sedation secondary to severe shivering. Primary concern is for anoxic brain injury the extent of which cannot be determined at this time. Plan is to continue supportive care until patient's mental status can be more accurately determined. The patient remains in FULL CODE at this time. Ejection fraction shows 25-35% on admission with elevated troponin. There is no known prior history of cardiovascular disease, however due to the extended resuscitation time needed over 2 separate attempts, his prognosis is guarded. . Code Status: Full Code Plan: PLAN: Legal decision maker: The patient is currently not capacitated to make his own decisions. Per [place] statutes, as the patient is , decision making would fall to the majority of his adult children which are his 2 sons David and Sharif. Goals: Goals remain aggressive. Pt's sons wish to discuss continued aggressive measures including tracheostomy themselves further this afternoon and this evening. They request a 3rd neurology opinion and a repeat MRI. They are "hoping for a miracle" and looking for definite signs that there could be no meaningful neurological recovery. They are receptive to continued palliative care follow up. CODE STATUS: FULL CODE SYMPTOMS: * Encephalopathy: Multifactorial to include substantial downtime during 2 cardiac arrests, hypothermia protocol completed, rewarmed 12/04. Family now considering withdrawal of life support. Want to wait until family arrives this evening. The son's wish to have a private discussion prior to making this decision but wished to have the consents prepared to expedite the process once the decision is made. * Tremor: Febrile 100.6, EEG showing severe and anoxic encephalopathy. precedex 0.1 remains on antiseizure medication. Family considering withdrawal. Palliative care will continue to follow the patient during hospital course as condition evolves, to assist patient/decision-maker with understanding of their medical conditions, weighing benefits/burdens of treatment options, for clarification of goals of treatment. Additionally will assist with any symptoms of palliative concern. . Attestation Attestation: To help prompt me to consider important information that might be impacting today's encounter and assessment, information from prior notes written by myself or my colleagues may have been "brought forward" into today's note. My signature on this note, however, is an attestation that I personally performed the exam, history, and/or decision-making noted today, and, unless otherwise indicated, the interactions with patient, family, and staff as well as the review of records all occurred today. I also attest that the listed assessment and stated plan reflect my best clinical judgment today based on the combination of historical information, prior notes, and today's exam/ interactions. When time spent is documented, it refers only to time spent today by the signer, or if indicated, combined time spent today by collaborating physician/nurse practitioner. .
[2017-12-12] MEDS: fentaNYL Citrate Inj 100 MCG/2 ML Ampul IV.PUSH PRN (14:00)
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
[2017-12-12] MEDS ORDERED: Acetaminophen 650 MG Supp RECTAL PRN (16:20)
[2017-12-12] MEDS ORDERED: Morphine Sulfate Inj 8 MG/ML Vial IV.PUSH PRN (16:20)
[2017-12-12] MEDS ORDERED: Hyoscyamine Inj 0.5 MG/ML Ampul IV.PUSH PRN (16:20)
[2017-12-12] MEDS ORDERED: Bisacodyl 10 MG Supp RECTAL PRN (16:20)
[2017-12-12] MEDS ORDERED: Piperacil/Tazo 4.5 GM Premix 4.5 GM/100 ML BAG IV.SIG SCH (17:00)
[2017-12-12] MEDS ORDERED: Morphine Sulfate Inj 8 MG/ML Vial IV.PUSH ONE ×2 (18:00)
[2017-12-12] MEDS ORDERED: Hyoscyamine Inj 0.5 MG/ML Ampul IV.PUSH ONE (18:00)
[2017-12-12 18:34] VITALS: BP 160/90
[2017-12-12] MEDS: Morphine Inj 4 MG/ML Vial IV.PUSH SCH ×3 (18:55→23:00)
[2017-12-12] MEDS: Morphine Inj 4 MG/ML Vial IV.PUSH PRN ×3 (19:53→23:51)
--- NOTE | 2017-12-12 20:19 | P.PNNEU ---
Subjective Subjective Comments: Pt has had no change in neurologic sx Active Medications: Active Medications Acetaminophen (Tylenol Liq) 650 mg NG/OG Q6H PRN PRN Reason: SHIVERING Last Admin: 12/12/17 12:34 Dose: 650 mg Acetaminophen (Tylenol Supp) 650 mg RECTAL Q4H PRN PRN Reason: FEVER Albuterol (Albuterol Neb (Prn)) 2.5 mg NEB Q2HR NEB PRN PRN Reason: DYSPNEA Last Admin: 12/06/17 22:45 Dose: 2.5 mg Artificial Tears (Lacrilube Opth Oint) 1 applicatio EACH EYE Q4H PRN PRN Reason: NMB Last Admin: 12/11/17 08:55 Dose: 1 applicatio Aspirin (Aspirin Chew) 81 mg PO DAILY SANDY Last Admin: 12/12/17 08:25 Dose: 81 mg Bisacodyl (Dulcolax Supp) 10 mg RECTAL DAILY PRN PRN Reason: CONSTIPATION Furosemide (Lasix Inj) 20 mg IV.PUSH Q6H PRN PRN Reason: Pulmonary Congestion Hyoscyamine (Levsin Inj) 0.25 mg IV.PUSH Q4H PRN PRN Reason: SECRETIONS Last Admin: 12/12/17 17:56 Dose: 0.25 mg Lorazepam (Ativan Inj) 2 mg IV.PUSH Q1H PRN PRN Reason: SEE LABEL COMMENTS Last Admin: 12/12/17 20:00 Dose: 2 mg Lorazepam (Ativan Inj) 2 mg IV.PUSH Q3HR SANDY Last Admin: 12/12/17 18:55 Dose: 2 mg Lorazepam (Ativan Inj) 4 mg IV.PUSH Q1H PRN PRN Reason: SEE LABEL COMMENTS Lorazepam (Ativan Inj) 2 mg IV.PUSH Q15M PRN PRN Reason: SEIZURES Morphine Sulfate (Morphine Inj) 4 mg IV.PUSH Q30M PRN PRN Reason: SEE LABEL COMMENTS Last Admin: 12/12/17 19:53 Dose: 4 mg Morphine Sulfate (Morphine Inj) 5 mg IV.PUSH Q3HR SANDY Last Admin: 12/12/17 18:55 Dose: 5 mg Morphine Sulfate (Morphine Inj) 6 mg IV.PUSH Q30M PRN PRN Reason: SEE LABEL COMMENTS Sodium Chloride (Ns Flush) 2 ml IV.FLUSH UNSCH PRN PRN Reason: FLUSH AFTER USING IV ACCESS Sodium Chloride (Ns Flush) 0 ml IV.FLUSH DAILY [facility] Last Admin: 12/12/17 08:26 Dose: 2 ml Allergies/Adverse Reactions: Allergies Allergy/AdvReac Type Severity Reaction Status Date / Time No Known Allergies Allergy Verified 12/02/17 09:40 Physical Exam Vital signs: Vital Signs 12/11/17 20:44 12/12/17 00:00 12/12/17 00:37 Temperature 101.3 F H Pulse Rate 81 Respiratory Rate 20 15 14 Blood Pressure 140/84 Pulse Oximetry 99 99 99 12/12/17 03:58 12/12/17 04:00 12/12/17 07:00 Temperature 99.8 F H 98.5 F Pulse Rate 85 89 Respiratory Rate 16 14 18 Blood Pressure 149/94 H 165/92 H Pulse Oximetry 99 99 95 12/12/17 07:44 12/12/17 11:00 12/12/17 11:13 Temperature 100.6 F H Pulse Rate 84 Respiratory Rate 20 14 14 Blood Pressure 164/96 H Pulse Oximetry 99 99 99 12/12/17 15:00 Temperature Pulse Rate 80 Respiratory Rate 14 Blood Pressure 160/90 H Pulse Oximetry 99 Intake & Output 12/12/17 12/12/17 12/13/17 06:59 18:59 06:59 Intake Total 1464 / 1464 202 / 202 Output Total 300 / 300 1400 / 1400 Balance 1164 / 1164 -1198 / -1198 Weight 94 kg Intake: IV 304 / 304 202 / 202 Cerebyx Inj 100 MGPE In NS Inj 104 / 104 52 / 52 50 ML @ 208 mls/hr IV.SIG Q8H SANDY Rx#:[id number] Zosyn 3.375 GM Premix 50 ML @ 100 / 100 50 / 50 100 mls/hr IV.SIG Q8H SANDY Rx#: [id number] Keppra 1000 mg/100 mL Premix 100 / 100 100 / 100 100 ML @ 400 mls/hr IV.SIG Q12H SANDY Rx#:[id number] Oral 0 / 0 Tube Feeding 410 / 410 Water Bolus Amount 750 / 750 Output: Stool 100 / 100 Urine Amount (Catheter) 200 / 200 1400 / 1400 Condom 200 / 200 1400 / 1400 Other: Date of Last Bowel Movement 12/10/17 12/10/17 - Routine Neurological Exam extubated nonresponsive Pupils 2 mm symmetric minimally reactive EOM minimal to occulocephalics No spontaneous limb movement and no posturing - Urinary Catheter Management Indwelling Temp Sensing Catheter Cath placed during this visit: yes, but has since been removed by the nurse Reason for continuing: Decision to DC catheter Insertion date: 12/02/17 Insertion time: 12:03 Removal date: 12/04/17 Removal time: 13:45 Indwelling Urethral Catheter Cath placed during this visit: yes, but has since been removed by the nurse Reason for continuing: Not indwelling catheter Insertion date: 12/04/17 Insertion time: 13:50 Removal date: 12/11/17 Removal time: 18:10 Condom Cath placed during this visit: yes Reason for continuing: Not indwelling catheter Insertion date: 12/11/17 Objective Radiology Results: MRI brain shows generalized diffusion abnormality c/w severe anoxic encephalopathy EEG showing PLEDS and burst - suppression pattern Laboratory Results - last 24 hr 12/12/17 12/12/17 12/12/17 01:09 04:40 04:40 WBC 11.9 H RBC 2.70 L Hgb 9.0 L Hct 26.4 L MCV 97.9 MCH 33.5 MCHC 34.3 RDW 13.8 Plt Count 197 MPV 8.7 Neut % (Auto) 72.4 H Lymph % (Auto) 13.7 [place] % (Auto) 8.0 Eos % (Auto) 5.7 H Baso % (Auto) 0.2 Neut # (Auto) 8.6 H Lymph # (Auto) 1.6 [place] # (Auto) 0.9 Eos # (Auto) 0.7 H Baso # (Auto) 0.0 WBC Differential . Differential Comment Auto diff final Sodium 145 Potassium 3.5 Chloride 113 H Carbon Dioxide 22.7 Anion Gap 9 BUN 23 H Creatinine 1.30 Estimated GFR 57 L POC Glucose 146 H Random Glucose 81 Calcium 8.3 L Phosphorus 3.4 Magnesium 1.9 Total Bilirubin 0.4 AST 70 H ALT 97 H Alkaline Phosphatase 105 Total Protein 5.7 L Albumin 2.2 L Phenobarbital 17.7 12/12/17 12/12/17 04:43 11:14 WBC RBC Hgb Hct MCV MCH MCHC RDW Plt Count MPV Neut % (Auto) Lymph % (Auto) [place] % (Auto) Eos % (Auto) Baso % (Auto) Neut # (Auto) Lymph # (Auto) [place] # (Auto) Eos # (Auto) Baso # (Auto) WBC Differential Differential Comment Sodium Potassium Chloride Carbon Dioxide Anion Gap BUN Creatinine Estimated GFR POC Glucose 93 122 H Random Glucose Calcium Phosphorus Magnesium Total Bilirubin AST ALT Alkaline Phosphatase Total Protein Albumin Phenobarbital Microbiology 12/10/17 18:30 Gram Stain - Final Sputum - Endotracheal Sputum Culture - Preliminary Escherichia coli gram negative rods 12/08/17 13:40 Aerobic Blood Culture - Preliminary Blood - Peripheral No growth in 4 days Anaerobic Blood Culture - Preliminary No growth in 4 days 12/08/17 12:15 Aerobic Blood Culture - Preliminary Blood - Peripheral No growth in 4 days Anaerobic Blood Culture - Preliminary No growth in 4 days Review/Management - Diagnosis (1) Encephalopathy Code(s): G93.40 - Encephalopathy, unspecified Status: Acute Current Visit: Yes - Review/Management Plan: Severe anoxic encephalopathy. WIth findings on MRI and EEG, prognosis is extremely poor and I do not believe there is any reasonable chance for recovery. Procedures - Arterial Line Size (Gauge): 20
[2017-12-13 00:08] VITALS: PULSE 70
[2017-12-13] MEDS: Morphine Inj 4 MG/ML Vial IV.PUSH PRN ×9 (01:11→07:44)
[2017-12-13] MEDS: Morphine Inj 4 MG/ML Vial IV.PUSH SCH ×2 (02:07→04:54)
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
[2017-12-13] MEDS ORDERED: Morphine Inj 4 MG/ML Vial ONE (07:06)
[2017-12-13] MEDS ORDERED: Morphine Sulfate Inj 2 MG/ML Vial ONE (07:13)
[2017-12-13] MEDS ORDERED: Morphine Sulfate Inj 8 MG/ML Vial ONE (07:20)
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
== END 2017-12-13 08:30 | disposition expired ==
LOC: NEDDLT 08:51 → HCVI 11:14 → HCPC 12-08 16:55 → HCVI 12-08 17:10
PROVIDERS: ADMIT Internal Medicine Critical Care Medicine; ATTEND Internal Medicine Critical Care Medicine